=== PATIENT | male | born 1990 | race Caucasian/White ===

== ENCOUNTER 2016-12-28 05:18 | Inpatient (IN) | payer OTHER ==
[~2016-12-28] VITALS: Ht 175.3 cm; Wt 97.3 kg
[~2016-12-28 05:18] MED LIST: ESZO3 PO; GABA-533 PO; METH10 PO; PRAZ1 PO; QUET200T PO
[2016-12-28 05:45] LABS: GLUCOSE COMMENT 1 Doctor Notified; GLUCOSE,POINT OF CARE 158 MG/DL (70-110)
[2016-12-28 06:04] LABS: BASOPHILS % (AUTO) 0.5 % (0.0-2.0); EOSINOPHILS % (AUTO) 0.2 % (1.0-6.0); HEMATOCRIT 46.3 % (41-53); HEMOGLOBIN 14.8 g/dL (13.5-17.5); LYMPHOCYTES % (AUTO) 11.6 % (22.0-44.0); MEAN CORPUSCULAR HEMOGLOBIN 29.6 pg (26.0-34.0); MEAN CORPUSCULAR VOLUME 92 fL (80-100); MONOCYTES # (AUTO) 0.3 K/uL (0.1-1.0); NEUTROPHILS # (AUTO) 7.3 K/uL (1.8-7.7); NEUTROPHILS % (AUTO) 83.7 % (40.0-70.0); PLATELET COUNT (AUTO) 150 K/uL (150-450); RED BLOOD CELL COUNT(AUTO) 5.01 MIL/uL (4.50-5.90); RED CELL DISTRIBUTION WIDTH 14.7 % (11.5-14.5); WHITE BLOOD COUNT (AUTO) 8.7 K/uL (4.5-11.0)
[2016-12-28 06:20] LABS: ALANINE AMINOTRANSFERASE 55 U/L (12-78); ALBUMIN 3.8 g/dL (3.4-5.0); ANION GAP 12 mmol/L (8-16); ASPARTATE AMINOTRANSFERASE 26 U/L (15-37); BILIRUBIN,TOTAL 0.3 mg/dL (0.1-1.0); CALCIUM, TOTAL 8.9 mg/dL (8.8-10.5); CARBON DIOXIDE 26 mmol/L (22-29); CHLORIDE 107 mmol/L (98-107); GLOMERULAR FILTR. RATE CALC > 60 mL/min (>60); SODIUM SERUM 145 mmol/L (136-145); TOTAL PROTEIN, SERUM 7.5 g/dL (6.4-8.2); UREA NITROGEN, BLOOD 9 mg/dL (7-18)
[2016-12-28 06:20] LABS: APPEARANCE,URINE CLOUDY (CLEAR); GLUCOSE, URINE (UA) NEGATIVE (NEGATIVE); KETONES,URINE NEGATIVE (NEGATIVE); LEUKOCYTE ESTERASE ,URINE NEGATIVE (NEGATIVE); OCCULT BLOOD,URINE NEGATIVE (NEGATIVE); PROTEIN,URINE NEGATIVE (NEGATIVE)
[2016-12-28] MEDS ORDERED: NALOXONE HCL 1 MG/ML 2 ML SYG IVP ONE ×2 (06:30→10:15)
[2016-12-28 06:32] LABS: POTASSIUM 2.9 mmol/L (3.5-5.1)
[2016-12-28 06:43] LABS: RBC,URINE 0-2 /HPF (0-2); WBC,URINE 0-2 /HPF (0-5)
[2016-12-28 06:44] LABS: SQUAMOUS EPITHELIAL CELL,UR Moderate /LPF (None Seen)
[2016-12-28 06:47] LABS: SALICYLATE 1.8 mg/dL (2.8-20.0)
[2016-12-28 06:53] LABS: CREATINE KINASE, TOTAL 269 U/L (39-308)
[2016-12-28 06:59] LABS: ACETAMINOPHEN < 2 mcg/mL (10-30)
[2016-12-28] MEDS ORDERED: CLINDAMYCIN 900 MG/D5% WATER 50 ML IV ONE (07:15)
[2016-12-28] MEDS ORDERED: POTASSIUM CHL 20 MEQ/0.9% NS 1,000 ML IV ONE (07:15)
[2016-12-28] MEDS ORDERED: PIPERACILLIN/TAZO 3.375 GM/D5W 50 ML IV ONE (07:15)
[2016-12-28] MEDS ORDERED: ONDANSETRON HCL 4 MG/2 ML VIAL IVP PRN ×2 (07:30→09:15)
[2016-12-28 07:33] LABS: CREATINE KINASE MB 2.8 ng/mL (0-5)
[2016-12-28] MEDS: PANTOPRAZOLE SODIUM 40 MG/VIAL IVP SCH (09:29)
[2016-12-28] MEDS ORDERED: MAGNESIUM HYDROXIDE SUSPENSION 30 ML UDCUP PO PRN (09:30)
[2016-12-28] MEDS ORDERED: DOCUSATE SODIUM 100 MG CAPSULE PO PRN (09:30)
[2016-12-28] MEDS ORDERED: 0.9% SODIUM CHLORIDE 10 ML SYRINGE IVP PRN (09:30)
[2016-12-28] MEDS ORDERED: IPRATROPIUM BROMIDE 0.5 MG/2.5 ML NEB SOLUTION NEB PRN (09:30)
[2016-12-28] MEDS ORDERED: LEVALBUTEROL HCL 1.25 MG/0.5 ML NEB SOLUTION NEB PRN (09:30)
[2016-12-28] MEDS ORDERED: POTASSIUM CHLORIDE 20 MEQ ER TABLET PO PRN (10:15)
[2016-12-28 10:37] LABS: ABG A-A DIFF O2 568.5 mmHg (10-20.0); ABG BASE EXCESS -2.4 mmol/L (-2.0-3.0); ABG HCO3 22.5 mmol/L (22.0-26.0); ABG OXYHEMOGLOBIN 96.6 % (94.0-100.0); ABG PCO2 42 mmHg (35-45); ABG PH 7.355 (7.35-7.450); TEMPERATURE, FAHRENHEIT, BG 98.6 FAHREN (96.0-98.6)
[2016-12-28] MEDS: MAGNESIUM SULFATE 2 GM, MVI, ADULT NO.1 WITH VIT K 10 ML, THIAMINE HCL 100 MG, FOLIC AC... IV SCH ×10 (10:37→20:30)
[2016-12-28 10:40] LABS: ALLEN TEST, BLOOD GAS Positive
[2016-12-28] MEDS: POTASSIUM CHL 10 MEQ/WATER 50 ML IV PRN ×4 (11:01→14:29)
[2016-12-28 11:32] LABS: GLUCOSE,POINT OF CARE 97 MG/DL (70-110)
[2016-12-28 12:00] VITALS: BP_SYST 114; BP_SYST 121; BP_DIAS 58; BP_DIAS 90
[2016-12-28] MEDS: PIPERACILLIN/TAZO 3.375 GM/D5W 50 ML IV SCH ×3 (13:32→22:09)
[2016-12-28 16:00] VITALS: BP 118/76
[2016-12-28] MEDS ORDERED: ACETAMINOPHEN 1000 MG/ISO-OSM 100 ML IV ONE (16:45)
[2016-12-28 20:00] VITALS: BP 102/56
[2016-12-28] MEDS: HEPARIN SODIUM,PORCINE 5,000 UNITS/ML VIAL SQ SCH (22:08)
[2016-12-29] VITALS (7 sets, daily range): BP systolic 95–135; BP diastolic 36–89
[2016-12-29] MEDS: PIPERACILLIN/TAZO 3.375 GM/D5W 50 ML IV SCH ×5 (00:04→23:34)
[2016-12-29] MEDS: ACETAMINOPHEN 325 MG TABLET PO PRN ×4 (01:09→20:02)
[2016-12-29] MEDS ORDERED: SODIUM CHLORIDE 0.9% 250 ML IV ONE (03:52)
[2016-12-29 05:34] LABS: BASOPHILS % (AUTO) 0.2 % (0.0-2.0); EOSINOPHILS % (AUTO) 0.9 % (1.0-6.0); HEMATOCRIT 38.8 % (41-53); HEMOGLOBIN 12.3 g/dL (13.5-17.5); LYMPHOCYTES # (AUTO) 1.6 K/uL (1.0-4.8); LYMPHOCYTES % (AUTO) 16.5 % (22.0-44.0); MEAN CORPUSCULAR HEMOGLOBIN 29.1 pg (26.0-34.0); MEAN CORPUSCULAR HGB CONC 31.7 G/dL (31.0-37.0); MEAN CORPUSCULAR VOLUME 92 fL (80-100); MONOCYTES # (AUTO) 0.5 K/uL (0.1-1.0); MONOCYTES % (AUTO) 4.7 % (2.0-9.0); NEUTROPHILS # (AUTO) 7.5 K/uL (1.8-7.7); NEUTROPHILS % (AUTO) 77.7 % (40.0-70.0); PLATELET COUNT (AUTO) 149 K/uL (150-450); RED BLOOD CELL COUNT(AUTO) 4.23 MIL/uL (4.50-5.90); RED CELL DISTRIBUTION WIDTH 15.1 % (11.5-14.5); WHITE BLOOD COUNT (AUTO) 9.7 K/uL (4.5-11.0)
[2016-12-29] MEDS: MAGNESIUM SULFATE 2 GM, MVI, ADULT NO.1 WITH VIT K 10 ML, THIAMINE HCL 100 MG, FOLIC AC... IV SCH ×10 (05:44→16:37)
[2016-12-29 05:59] LABS: ALANINE AMINOTRANSFERASE 47 U/L (12-78); ALBUMIN 2.9 g/dL (3.4-5.0); ANION GAP 11 mmol/L (8-16); ASPARTATE AMINOTRANSFERASE 34 U/L (15-37); BILIRUBIN,TOTAL 0.7 mg/dL (0.1-1.0); CALCIUM, TOTAL 8.1 mg/dL (8.8-10.5); CARBON DIOXIDE 23 mmol/L (22-29); CHLORIDE 107 mmol/L (98-107); CREATININE 1.07 mg/dL (0.60-1.30); GLOMERULAR FILTR. RATE CALC > 60 mL/min (>60); PHOSPHORUS 2.1 mg/dL (2.5-4.9); POTASSIUM 3.7 mmol/L (3.5-5.1); SODIUM SERUM 141 mmol/L (136-145); THYROID STIMULATING HORMONE 0.43 uIU/mL (0.36-3.74); TOTAL PROTEIN, SERUM 6.1 g/dL (6.4-8.2); UREA NITROGEN, BLOOD 9 mg/dL (7-18)
[2016-12-29] MEDS: PANTOPRAZOLE SODIUM 40 MG/VIAL IVP SCH (08:11)
[2016-12-29] MEDS: HEPARIN SODIUM,PORCINE 5,000 UNITS/ML VIAL SQ SCH ×2 (08:12→20:02)
[2016-12-29 09:31] LABS: VITAMIN B12 LEVEL 640 pg/mL (211-911)
[2016-12-29] MEDS: METHADONE HCL 10 MG TABLET PO SCH (11:24)
[2016-12-30 04:09] VITALS: BP 117/71
[2016-12-30] MEDS: PIPERACILLIN/TAZO 3.375 GM/D5W 50 ML IV SCH ×3 (06:02→18:52)
[2016-12-30 07:19] VITALS: BP 119/75
[2016-12-30] MEDS: METHADONE HCL 10 MG TABLET PO SCH (08:15)
[2016-12-30] MEDS: PANTOPRAZOLE SODIUM 40 MG/VIAL IVP SCH (08:15)
[2016-12-30] MEDS: HEPARIN SODIUM,PORCINE 5,000 UNITS/ML VIAL SQ SCH ×2 (08:16→21:14)
[2016-12-30 11:05] VITALS: BP 122/79
[2016-12-30 12:17] LABS: BASOPHILS % (AUTO) 0.3 % (0.0-2.0); EOSINOPHILS % (AUTO) 3.4 % (1.0-6.0); HEMATOCRIT 36.5 % (41-53); LYMPHOCYTES % (AUTO) 19.4 % (22.0-44.0); MEAN CORPUSCULAR HEMOGLOBIN 29.9 pg (26.0-34.0); MEAN CORPUSCULAR HGB CONC 32.9 G/dL (31.0-37.0); MEAN CORPUSCULAR VOLUME 91 fL (80-100); MONOCYTES # (AUTO) 0.6 K/uL (0.1-1.0); MONOCYTES % (AUTO) 5.5 % (2.0-9.0); NEUTROPHILS # (AUTO) 7.4 K/uL (1.8-7.7); NEUTROPHILS % (AUTO) 71.4 % (40.0-70.0); PLATELET COUNT (AUTO) 158 K/uL (150-450); RED BLOOD CELL COUNT(AUTO) 4.02 MIL/uL (4.50-5.90); RED CELL DISTRIBUTION WIDTH 14.5 % (11.5-14.5); WHITE BLOOD COUNT (AUTO) 10.4 K/uL (4.5-11.0)
[2016-12-30 12:26] LABS: ANION GAP 9 mmol/L (8-16); CALCIUM, TOTAL 8.6 mg/dL (8.8-10.5); CARBON DIOXIDE 25 mmol/L (22-29); CHLORIDE 104 mmol/L (98-107); CREATININE 0.81 mg/dL (0.60-1.30); GLOMERULAR FILTR. RATE CALC > 60 mL/min (>60); POTASSIUM 3.9 mmol/L (3.5-5.1); SODIUM SERUM 138 mmol/L (136-145); UREA NITROGEN, BLOOD 6 mg/dL (7-18)
[2016-12-30 12:33] LABS: ALANINE AMINOTRANSFERASE 44 U/L (12-78); ALBUMIN 2.8 g/dL (3.4-5.0); ASPARTATE AMINOTRANSFERASE 31 U/L (15-37); BILIRUBIN,TOTAL 0.5 mg/dL (0.1-1.0); TOTAL PROTEIN, SERUM 6.7 g/dL (6.4-8.2)
[2016-12-30 15:33] VITALS: BP 115/82
[2016-12-30] MEDS: HYDROCODONE/CHLORPHEN POLIS 10-8 MG/5 ML ORAL.SYG PO PRN ×2 (15:39→22:24)
[2016-12-30] MEDS: NICOTINE 21 MG/24 HOUR PATCH TD SCH (17:19)
[2016-12-30] MEDS ORDERED: TEMAZEPAM 15 MG CAPSULE PO PRN (17:30)
[2016-12-30 19:25] VITALS: BP 122/82
[2016-12-30] MEDS: GuaiFENesin SR 600 MG ER TABLET PO SCH (21:10)
[2016-12-30] MEDS: ALPRAZolam 0.5 MG TABLET PO PRN (21:10)
[2016-12-30 22:48] VITALS: BP 128/84
[2016-12-31] MEDS: PIPERACILLIN/TAZO 3.375 GM/D5W 50 ML IV SCH ×3 (00:20→12:02)
[2016-12-31 05:33] VITALS: BP 110/64
[2016-12-31 06:12] LABS: BASOPHILS % (AUTO) 0.3 % (0.0-2.0); EOSINOPHILS % (AUTO) 5.6 % (1.0-6.0); HEMATOCRIT 39.8 % (41-53); HEMOGLOBIN 12.9 g/dL (13.5-17.5); LYMPHOCYTES # (AUTO) 2.2 K/uL (1.0-4.8); LYMPHOCYTES % (AUTO) 26.5 % (22.0-44.0); MEAN CORPUSCULAR HEMOGLOBIN 29.7 pg (26.0-34.0); MEAN CORPUSCULAR HGB CONC 32.5 G/dL (31.0-37.0); MEAN CORPUSCULAR VOLUME 92 fL (80-100); MONOCYTES # (AUTO) 0.5 K/uL (0.1-1.0); MONOCYTES % (AUTO) 5.9 % (2.0-9.0); NEUTROPHILS # (AUTO) 5.2 K/uL (1.8-7.7); NEUTROPHILS % (AUTO) 61.7 % (40.0-70.0); PLATELET COUNT (AUTO) 169 K/uL (150-450); RED BLOOD CELL COUNT(AUTO) 4.35 MIL/uL (4.50-5.90); RED CELL DISTRIBUTION WIDTH 14.1 % (11.5-14.5); WHITE BLOOD COUNT (AUTO) 8.4 K/uL (4.5-11.0)
[2016-12-31] MEDS: ALPRAZolam 0.5 MG TABLET PO PRN (06:30)
[2016-12-31] MEDS: HYDROCODONE/CHLORPHEN POLIS 10-8 MG/5 ML ORAL.SYG PO PRN (06:31)
[2016-12-31 06:39] LABS: ALANINE AMINOTRANSFERASE 46 U/L (12-78); ALBUMIN 2.9 g/dL (3.4-5.0); ANION GAP 12 mmol/L (8-16); ASPARTATE AMINOTRANSFERASE 30 U/L (15-37); BILIRUBIN,TOTAL 0.5 mg/dL (0.1-1.0); CALCIUM, TOTAL 8.9 mg/dL (8.8-10.5); CARBON DIOXIDE 25 mmol/L (22-29); CHLORIDE 101 mmol/L (98-107); CREATININE 0.76 mg/dL (0.60-1.30); GLOMERULAR FILTR. RATE CALC > 60 mL/min (>60); SODIUM SERUM 138 mmol/L (136-145); TOTAL PROTEIN, SERUM 7.3 g/dL (6.4-8.2); UREA NITROGEN, BLOOD 8 mg/dL (7-18)
[2016-12-31 07:45] VITALS: BP 109/75
[2016-12-31] MEDS: METHADONE HCL 10 MG TABLET PO SCH (08:06)
[2016-12-31] MEDS: PANTOPRAZOLE SODIUM 40 MG/VIAL IVP SCH (08:06)
[2016-12-31] MEDS: GuaiFENesin SR 600 MG ER TABLET PO SCH (08:07)
[2016-12-31] MEDS: HEPARIN SODIUM,PORCINE 5,000 UNITS/ML VIAL SQ SCH (08:08)
[2016-12-31] MEDS: NICOTINE 21 MG/24 HOUR PATCH TD SCH (08:09)
[2016-12-31] MEDS ORDERED: FLUoxetine HCL 20 MG CAPSULE PO SCH (09:00)
[2016-12-31 12:38] VITALS: BP 99/58
[2016-12-31] MEDS ORDERED: GABA-533 PO (13:41)
[2016-12-31] MEDS ORDERED: QUET200T PO (13:41)
[2016-12-31] MEDS ORDERED: FLUO-191 PO (13:41)
[2016-12-31] MEDS ORDERED: AMOX1TAB16 PO (13:42)
[2016-12-31] MEDS ORDERED: LEVAHFA IH (13:43)
[2016-12-31] MEDS ORDERED: ALPR0.5T8 PO (13:44)
[2016-12-31] MEDS ORDERED: GABAPENTIN 400 MG CAPSULE PO SCH (16:00)
[2016-12-31] MEDS ORDERED: QUEtiapine FUMARATE 200 MG TABLET PO SCH (21:00)
[2017-01-01 14:19] LABS: ORGANISM ID Not indicated.
[2017-01-01 22:34] LABS: MYCOPLASMA AB IGG <100 U/mL (0-99)
[2017-02-12] MEDS ORDERED: HALO10 PO (14:38)
[2017-02-12] MEDS ORDERED: DIPH50 PO (14:39)
== END 2016-12-31 15:15 | disposition home or self-care (01) | DRG 812 ==
LOC: EMS 05:21 → ICU 09:35 → EDBD 09:35 → 5S 12-29 14:58
PROVIDERS: ADMIT Internal Medicine; ATTEND Internal Medicine
DX: T40.601A Poisoning by unspecified narcotics, accidental (unintentional), initial encounter (principal); J96.00 Acute respiratory failure, unspecified whether with hypoxia or hypercapnia; J69.0 Pneumonitis due to inhalation of food and vomit; G92 Toxic encephalopathy; F31.4 Bipolar disorder, current episode depressed, severe, without psychotic features; T40.3X1A Poisoning by methadone, accidental (unintentional), initial encounter; F19.10 Other psychoactive substance abuse, uncomplicated; T42.4X1A Poisoning by benzodiazepines, accidental (unintentional), initial encounter; X58.XXXA Exposure to other specified factors, initial encounter; E87.6 Hypokalemia; R73.9 Hyperglycemia, unspecified; E66.01 Morbid (severe) obesity due to excess calories; Z68.31 Body mass index [BMI] 31.0-31.9, adult; Y92.89 Other specified places as the place of occurrence of the external cause; Z59.0 Homelessness; Z91.5 Personal history of self-harm; Z88.2 Allergy status to sulfonamides; Z88.8 Allergy status to other drugs, medicaments and biological substances; Z88.1 Allergy status to other antibiotic agents; Z88.0 Allergy status to penicillin; Z91.013 Allergy to seafood; Z79.899 Other long term (current) drug therapy; Y93.89 Activity, other specified; Y99.8 Other external cause status
CPT/HCPCS: 51702; 70450; 82607; 82746; 82805; 82962; 83735; 84100; 84132; 84439; 84443; 87040; 87081; 87205; 87449; 87798; 87899; 92610; 93005; 93306; 93970; 96365; 96366; 96368; 96375; 97116; 97162; 97530; 99291; C9113; G0480; G0481; J0131; J1644; J2310; J2405; J2543; J3411; J3475; J3480; J3490; J7030; J7050

== ENCOUNTER 2017-01-01 22:32 | Inpatient (IN) | payer MEDICAID, OTHER ==
[~2017-01-01] VITALS: Ht 177.8 cm; Wt 91.0 kg
[~2017-01-01 22:32] MED LIST changes: +ALPR0.5T8 PO; +AMOX1TAB16 PO; +FLUO-191 PO; +LEVAHFA IH
[2017-01-01 23:00] LABS: BASOPHILS % (AUTO) 0.2 % (0.0-2.0); EOSINOPHILS % (AUTO) 3.8 % (1.0-6.0); HEMATOCRIT 42.4 % (41-53); HEMOGLOBIN 13.8 g/dL (13.5-17.5); LYMPHOCYTES # (AUTO) 2.6 K/uL (1.0-4.8); LYMPHOCYTES % (AUTO) 26.5 % (22.0-44.0); MEAN CORPUSCULAR HEMOGLOBIN 29.2 pg (26.0-34.0); MEAN CORPUSCULAR HGB CONC 32.4 G/dL (31.0-37.0); MEAN CORPUSCULAR VOLUME 90 fL (80-100); MONOCYTES # (AUTO) 0.5 K/uL (0.1-1.0); MONOCYTES % (AUTO) 5.5 % (2.0-9.0); NEUTROPHILS # (AUTO) 6.2 K/uL (1.8-7.7); PLATELET COUNT (AUTO) 266 K/uL (150-450); RED BLOOD CELL COUNT(AUTO) 4.71 MIL/uL (4.50-5.90); RED CELL DISTRIBUTION WIDTH 13.9 % (11.5-14.5); WHITE BLOOD COUNT (AUTO) 9.7 K/uL (4.5-11.0)
[2017-01-01 23:16] LABS: ANION GAP 5 mmol/L (8-16); CALCIUM, TOTAL 8.8 mg/dL (8.8-10.5); CARBON DIOXIDE 28 mmol/L (22-29); CHLORIDE 95 mmol/L (98-107); CREATININE 0.93 mg/dL (0.60-1.30); GLOMERULAR FILTR. RATE CALC > 60 mL/min (>60); POTASSIUM 3.3 mmol/L (3.5-5.1); SODIUM SERUM 128 mmol/L (136-145); UREA NITROGEN, BLOOD 12 mg/dL (7-18)
[2017-01-01 23:24] LABS: ALANINE AMINOTRANSFERASE 48 U/L (12-78); ALBUMIN 3.5 g/dL (3.4-5.0); ASPARTATE AMINOTRANSFERASE 25 U/L (15-37); BILIRUBIN,TOTAL 0.3 mg/dL (0.1-1.0); TOTAL PROTEIN, SERUM 8.1 g/dL (6.4-8.2)
[2017-01-01] MEDS ORDERED: LORazepam 2 MG TABLET PO ONE (23:45)
[2017-01-02] MEDS ORDERED: PROMETHAZINE HCL 50 MG/ML VIAL IM ONE (00:45)
[2017-01-02] MEDS ORDERED: ALBUTEROL SULFATE 2.5 MG/0.5 ML NEB SOLUTION NEB ONE (00:45)
[2017-01-02] MEDS ORDERED: MORPHINE SULFATE 10 MG/ML SYRINGE IM ONE (00:45)
[2017-01-02] MEDS ORDERED: CARISOPRODOL 350 MG TABLET PO ONE (01:30)
[2017-01-02] MEDS ORDERED: PERMETHRIN 5% 60 GM CREAM TP ONE (03:00)
[2017-01-02] MEDS ORDERED: POTASSIUM CHLORIDE 20 MEQ ER TABLET PO ONE (03:30)
[2017-01-02] MEDS ORDERED: ZOLPIDEM TARTRATE 10 MG TABLET PO PRN (03:30)
[2017-01-02] MEDS ORDERED: HALOPERIDOL 5 MG TABLET PO PRN (03:30)
[2017-01-02] MEDS: GABAPENTIN 300 MG CAPSULE PO SCH ×3 (09:31→18:44)
[2017-01-02] MEDS: LORazepam 2 MG TABLET PO PRN ×2 (12:20→19:48)
[2017-01-02 14:12] LABS: APPEARANCE,URINE CLEAR (CLEAR); GLUCOSE, URINE (UA) NEGATIVE (NEGATIVE); KETONES,URINE NEGATIVE (NEGATIVE); LEUKOCYTE ESTERASE ,URINE NEGATIVE (NEGATIVE); OCCULT BLOOD,URINE NEGATIVE (NEGATIVE); PH,URINE 7.5 (5.0-8.0); PROTEIN,URINE NEGATIVE (NEGATIVE)
[2017-01-02 14:14] LABS: ADD UA MICROSCOPIC NO
[2017-01-02] MEDS ORDERED: LOPERAMIDE HCL 2 MG CAPSULE PO PRN (15:30)
[2017-01-02] MEDS ORDERED: GuaiFENesin/D-METHORPHAN [SUGAR-FREE] 200-20MG/10 ML SYRUP UDCUP PO PRN (15:30)
[2017-01-02] MEDS ORDERED: ACETAMINOPHEN 325 MG TABLET PO PRN (15:30)
[2017-01-02] MEDS ORDERED: MAGNESIUM HYDROXIDE SUSPENSION 30 ML UDCUP PO PRN (15:30)
[2017-01-02] MEDS ORDERED: PROMETHAZINE HCL 25 MG TABLET PO PRN (15:30)
[2017-01-02] MEDS ORDERED: MAG HYDROX/AL HYDROX/SIMETH ES 30 ML SUSPENSION UDCUP PO PRN (15:30)
[2017-01-02 18:10] VITALS: BP 96/58
[2017-01-02] MEDS: THIAMINE HCL 100 MG TABLET PO SCH (18:44)
[2017-01-02] MEDS: ACAMPROSATE CALCIUM 333 MG DR TABLET PO SCH (18:45)
[2017-01-02] MEDS: PRAZOSIN HCL 1 MG CAPSULE PO SCH (20:10)
[2017-01-02] MEDS ORDERED: QUEtiapine FUMARATE 200 MG TABLET PO SCH (21:00)
[2017-01-02] MEDS: ESZOPICLONE 3 MG TABLET PO PRN (21:01)
[2017-01-03 07:43] LABS: ALANINE AMINOTRANSFERASE 42 U/L (12-78); ALBUMIN 2.9 g/dL (3.4-5.0); ANION GAP 8 mmol/L (8-16); ASPARTATE AMINOTRANSFERASE 23 U/L (15-37); BILIRUBIN,TOTAL 0.2 mg/dL (0.1-1.0); CALCIUM, TOTAL 8.8 mg/dL (8.8-10.5); CARBON DIOXIDE 25 mmol/L (22-29); CHLORIDE 106 mmol/L (98-107); CHOL/HDL RATIO 5.5 (4.2-7.3); CREATINE KINASE MB 0.7 ng/mL (0-5); CREATINE KINASE, TOTAL 174 U/L (39-308); CREATININE 0.88 mg/dL (0.60-1.30); GLOMERULAR FILTR. RATE CALC > 60 mL/min (>60); SODIUM SERUM 139 mmol/L (136-145); THYROID STIMULATING HORMONE 0.71 uIU/mL (0.36-3.74); TOTAL PROTEIN, SERUM 7.1 g/dL (6.4-8.2); UREA NITROGEN, BLOOD 10 mg/dL (7-18)
[2017-01-03 08:02] LABS: HEMOGLOBIN A1C 5.4 % (4.5-6.2)
[2017-01-03] MEDS: MULTIVITAMINS WITH MINERALS, THERAPEUTIC TABLET PO SCH (09:36)
[2017-01-03] MEDS: GABAPENTIN 300 MG CAPSULE PO SCH ×3 (09:37→17:00)
[2017-01-03] MEDS: FOLIC ACID 1 MG TABLET PO SCH (09:37)
[2017-01-03] MEDS: ACAMPROSATE CALCIUM 333 MG DR TABLET PO SCH ×3 (09:37→17:55)
[2017-01-03] MEDS: THIAMINE HCL 100 MG TABLET PO SCH ×2 (09:37→17:55)
[2017-01-03] MEDS: HydrOXYzine PAMOATE 50 MG CAPSULE PO PRN ×2 (10:05→18:43)
[2017-01-03] MEDS: LORazepam 2 MG TABLET PO PRN (10:05)
[2017-01-03] MEDS: METHADONE HCL 10 MG TABLET PO SCH (10:19)
[2017-01-03 10:57] VITALS: BP 99/59
[2017-01-03] MEDS ORDERED: GABAPENTIN 300 MG CAPSULE PO PRN (12:00)
[2017-01-03] MEDS ORDERED: CARISOPRODOL 350 MG TABLET PO PRN (12:30)
[2017-01-03] MEDS: GABAPENTIN 400 MG CAPSULE PO SCH ×2 (12:45→17:54)
[2017-01-03] MEDS: QUEtiapine FUMARATE 100 MG TABLET PO PRN (13:51)
[2017-01-03 16:30] VITALS: BP 101/57
[2017-01-03] MEDS ORDERED: QUEtiapine FUMARATE 200 MG TABLET PO SCH (21:00)
[2017-01-03] MEDS: PRAZOSIN HCL 1 MG CAPSULE PO SCH (21:13)
[2017-01-03] MEDS: ESZOPICLONE 3 MG TABLET PO PRN (22:49)
[2017-01-04] MEDS: QUEtiapine FUMARATE 100 MG TABLET PO PRN (08:43)
[2017-01-04] MEDS: ACAMPROSATE CALCIUM 333 MG DR TABLET PO SCH ×3 (08:43→16:15)
[2017-01-04] MEDS: HydrOXYzine PAMOATE 50 MG CAPSULE PO PRN (08:43)
[2017-01-04] MEDS: METHADONE HCL 10 MG TABLET PO SCH (08:43)
[2017-01-04] MEDS: THIAMINE HCL 100 MG TABLET PO SCH ×2 (08:43→16:16)
[2017-01-04] MEDS: GABAPENTIN 400 MG CAPSULE PO SCH ×3 (08:44→16:16)
[2017-01-04] MEDS: FOLIC ACID 1 MG TABLET PO SCH (08:44)
[2017-01-04] MEDS: MULTIVITAMINS WITH MINERALS, THERAPEUTIC TABLET PO SCH (08:46)
[2017-01-04] MEDS ORDERED: METHADONE HCL 10 MG TABLET PO ONE (11:45)
[2017-01-04 12:22] VITALS: BP 118/77
[2017-01-04] MEDS: NICOTINE 21 MG/24 HOUR PATCH TD SCH (13:37)
[2017-01-04 14:14] LABS: HEPATITIS Bs ANTIGEN SCREEN P Negative (Negative); HEPATITIS C AB SCREEN <0.1 s/co ratio (0.0-0.9)
[2017-01-04] MEDS ORDERED: ACAM333T7 PO (14:16)
[2017-01-04] MEDS ORDERED: GABA-533 PO (14:16)
[2017-01-04] MEDS ORDERED: PRAZ1 PO (14:16)
[2017-01-04 16:56] VITALS: BP 100/61
[2017-01-04] MEDS: PRAZOSIN HCL 1 MG CAPSULE PO SCH (20:18)
[2017-01-04] MEDS ORDERED: QUEtiapine FUMARATE 300 MG TABLET PO SCH (21:00)
[2017-01-04] MEDS: ESZOPICLONE 3 MG TABLET PO PRN (21:41)
[2017-01-05] MEDS ORDERED: ACAM333T7 PO (08:23)
[2017-01-05] MEDS: GABAPENTIN 400 MG CAPSULE PO SCH ×2 (08:24→12:57)
[2017-01-05] MEDS: MULTIVITAMINS WITH MINERALS, THERAPEUTIC TABLET PO SCH (08:24)
[2017-01-05] MEDS: THIAMINE HCL 100 MG TABLET PO SCH (08:24)
[2017-01-05] MEDS: FOLIC ACID 1 MG TABLET PO SCH (08:25)
[2017-01-05] MEDS: ACAMPROSATE CALCIUM 333 MG DR TABLET PO SCH ×2 (08:25→12:57)
[2017-01-05] MEDS: NICOTINE 21 MG/24 HOUR PATCH TD SCH (08:32)
[2017-01-05 08:33] VITALS: BP 107/70
[2017-01-05] MEDS ORDERED: METHADONE HCL 10 MG TABLET PO SCH (09:00)
[2017-02-12] MEDS ORDERED: HALO10 PO (14:38)
[2017-02-12] MEDS ORDERED: DIPH50 PO (14:39)
== END 2017-01-05 14:00 | disposition home or self-care (01) | DRG 750 ==
LOC: EMS 22:42 → MERGE 01-02 11:36 → B3A 01-02 11:36 → 3EI 01-02 14:29
PROVIDERS: ADMIT Psychiatry & Neurology Psychiatry; ATTEND Psychiatry & Neurology Psychiatry
PROC: GZ51ZZZ Individual Psychotherapy, Behavioral (ICD-10-PCS; principal; 2017-01-02)
DX: F25.9 Schizoaffective disorder, unspecified (principal); R45.851 Suicidal ideations; E87.1 Hypo-osmolality and hyponatremia; E87.6 Hypokalemia; F11.10 Opioid abuse, uncomplicated; B88.0 Other acariasis; K21.9 Gastro-esophageal reflux disease without esophagitis; G89.29 Other chronic pain; D64.9 Anemia, unspecified; F17.210 Nicotine dependence, cigarettes, uncomplicated; F31.9 Bipolar disorder, unspecified; F12.90 Cannabis use, unspecified, uncomplicated; J40 Bronchitis, not specified as acute or chronic; Z79.899 Other long term (current) drug therapy; Z88.0 Allergy status to penicillin; Z88.1 Allergy status to other antibiotic agents; Z88.2 Allergy status to sulfonamides; Z88.8 Allergy status to other drugs, medicaments and biological substances; Z82.49 Family history of ischemic heart disease and other diseases of the circulatory system; Z82.62 Family history of osteoporosis; Z59.0 Homelessness; Z91.013 Allergy to seafood; Z72.89 Other problems related to lifestyle; F41.9 Anxiety disorder, unspecified
CPT/HCPCS: 80074; 82306; 82607; 82746; 83036; 83735; 84439; 84443; 94640; 96372; 99285; G0480; J2270

== ENCOUNTER 2017-03-10 09:36 | Emergency (ER) | payer MEDICAID, OTHER ==
[~2017-03-10] VITALS: Ht 177.8 cm; Wt 100.0 kg
[~2017-03-10 09:36] MED LIST changes: -ALPR0.5T8 PO; -AMOX1TAB16 PO; +DIPH50 PO; -ESZO3 PO; -FLUO-191 PO; +HALO10 PO; -LEVAHFA IH; -METH10 PO; -PRAZ1 PO; -QUET200T PO
[2017-03-10 10:02] VITALS: BP 124/73
[2017-03-10] MEDS ORDERED: LORA0.5T2 PO (10:02)
== END 2017-03-10 12:13 | disposition left against medical advice (07) ==
LOC: EMS 09:40
DX: S91.115A Laceration without foreign body of left lesser toe(s) without damage to nail, initial encounter (principal); F17.210 Nicotine dependence, cigarettes, uncomplicated; F12.90 Cannabis use, unspecified, uncomplicated; F11.90 Opioid use, unspecified, uncomplicated; Z88.1 Allergy status to other antibiotic agents; Z88.0 Allergy status to penicillin; Z88.2 Allergy status to sulfonamides; Z88.8 Allergy status to other drugs, medicaments and biological substances; Z91.018 Allergy to other foods; W25.XXXA Contact with sharp glass, initial encounter; Y93.89 Activity, other specified; Y92.89 Other specified places as the place of occurrence of the external cause; Y99.8 Other external cause status
CPT/HCPCS: 99281

== ENCOUNTER 2017-03-13 13:07 | Emergency (ER) | payer OTHER ==
[~2017-03-13] VITALS: Ht 177.8 cm; Wt 90.9 kg
[~2017-03-13 13:07] MED LIST changes: +LORA0.5T2 PO
[2017-03-13] MEDS ORDERED: METHOCARBAMOL 500 MG TABLET PO ONE (14:15)
[2017-03-13] MEDS ORDERED: KETOROLAC TROMETHAMINE 60 MG/2 ML VIAL IM ONE (14:15)
[2017-03-13 14:38] VITALS: BP 124/85
== END 2017-03-13 15:11 | disposition home or self-care (01) ==
LOC: EMS 13:08
DX: S39.012A Strain of muscle, fascia and tendon of lower back, initial encounter (principal); Z76.0 Encounter for issue of repeat prescription; F41.9 Anxiety disorder, unspecified; F17.210 Nicotine dependence, cigarettes, uncomplicated; F20.9 Schizophrenia, unspecified; F12.10 Cannabis abuse, uncomplicated; F32.9 Major depressive disorder, single episode, unspecified; Z88.0 Allergy status to penicillin; Z88.1 Allergy status to other antibiotic agents; Z88.2 Allergy status to sulfonamides; Z91.013 Allergy to seafood; X50.9XXA Other and unspecified overexertion or strenuous movements or postures, initial encounter; Y93.89 Activity, other specified; Y92.9 Unspecified place or not applicable; Y99.9 Unspecified external cause status
CPT/HCPCS: 96372; 99283; J1885

== ENCOUNTER 2017-04-04 09:22 | Emergency (ER) | payer OTHER ==
[~2017-04-04] VITALS: Ht 177.8 cm; Wt 92.5 kg
[2017-04-04] MEDS ORDERED: METH40TA2 PO (09:41)
[2017-04-04] MEDS ORDERED: CloNIDine HCL 0.1 MG TABLET PO ONE (10:00)
[2017-04-04] MEDS ORDERED: HydrOXYzine PAMOATE 50 MG CAPSULE PO ONE (10:00)
[2017-04-04] MEDS ORDERED: LOPERAMIDE HCL 2 MG CAPSULE PO ONE (10:00)
[2017-04-04 10:06] VITALS: BP 131/89
== END 2017-04-04 10:23 | disposition left against medical advice (07) ==
LOC: EMS 09:24
DX: F11.23 Opioid dependence with withdrawal (principal); F31.9 Bipolar disorder, unspecified; F41.9 Anxiety disorder, unspecified; F20.9 Schizophrenia, unspecified; F17.210 Nicotine dependence, cigarettes, uncomplicated; F12.90 Cannabis use, unspecified, uncomplicated; Z88.2 Allergy status to sulfonamides; Z88.8 Allergy status to other drugs, medicaments and biological substances; Z88.1 Allergy status to other antibiotic agents; Z91.013 Allergy to seafood
CPT/HCPCS: 99284

== ENCOUNTER 2017-04-17 18:00 | Inpatient (IN) | payer MEDICAID ==
[~2017-04-17] VITALS: Ht 177.8 cm; Wt 92.0 kg
[~2017-04-17 18:00] MED LIST changes: -DIPH50 PO; -LORA0.5T2 PO; +METH40TA2 PO
[2017-04-17 18:36] VITALS: BP 142/91
[2017-04-17] MEDS: LORazepam 2 MG TABLET PO PRN (19:17)
[2017-04-17 19:35] VITALS: BP 119/81
[2017-04-17] MEDS: HALOPERIDOL 5 MG TABLET PO SCH (20:03)
[2017-04-17] MEDS: ZOLPIDEM TARTRATE 10 MG TABLET PO PRN (20:22)
[2017-04-17] MEDS: BENZTROPINE MESYLATE 1 MG TABLET PO SCH (21:14)
[2017-04-18] MEDS: LORazepam 2 MG TABLET PO PRN ×4 (06:08→21:12)
[2017-04-18 06:39] VITALS: BP 114/83
[2017-04-18 08:37] LABS: HEMOGLOBIN A1C 4.8 % (4.5-6.2)
[2017-04-18 08:39] LABS: BASOPHILS % (AUTO) 0.8 % (0.0-2.0); EOSINOPHILS % (AUTO) 0.9 % (1.0-6.0); HEMATOCRIT 44.1 % (41-53); HEMOGLOBIN 14.7 g/dL (13.5-17.5); LYMPHOCYTES # (AUTO) 3.1 K/uL (1.0-4.8); LYMPHOCYTES % (AUTO) 46.8 % (22.0-44.0); MEAN CORPUSCULAR HEMOGLOBIN 29.6 pg (26.0-34.0); MEAN CORPUSCULAR HGB CONC 33.2 G/dL (31.0-37.0); MEAN CORPUSCULAR VOLUME 89 fL (80-100); MONOCYTES # (AUTO) 0.4 K/uL (0.1-1.0); MONOCYTES % (AUTO) 6.1 % (2.0-9.0); NEUTROPHILS % (AUTO) 45.4 % (40.0-70.0); PLATELET COUNT (AUTO) 220 K/uL (150-450); RED BLOOD CELL COUNT(AUTO) 4.95 MIL/uL (4.50-5.90); RED CELL DISTRIBUTION WIDTH 15.4 % (11.5-14.5); WHITE BLOOD COUNT (AUTO) 6.7 K/uL (4.5-11.0)
[2017-04-18] MEDS: NICOTINE 21 MG/24 HOUR PATCH TD SCH (08:43)
[2017-04-18] MEDS: FLUoxetine HCL 20 MG CAPSULE PO SCH (08:44)
[2017-04-18] MEDS: BENZTROPINE MESYLATE 1 MG TABLET PO SCH ×2 (08:44→17:10)
[2017-04-18] MEDS: HALOPERIDOL 5 MG TABLET PO SCH ×2 (08:44→17:11)
[2017-04-18 08:52] LABS: ALANINE AMINOTRANSFERASE 27 U/L (12-78); ALBUMIN 4.1 g/dL (3.4-5.0); ANION GAP 11 mmol/L (8-16); ASPARTATE AMINOTRANSFERASE 14 U/L (15-37); BILIRUBIN,TOTAL 0.9 mg/dL (0.1-1.0); CALCIUM, TOTAL 9.3 mg/dL (8.8-10.5); CARBON DIOXIDE 27 mmol/L (22-29); CHLORIDE 103 mmol/L (98-107); CHOL/HDL RATIO 2.6 (4.2-7.3); CREATININE 1.06 mg/dL (0.60-1.30); GLOMERULAR FILTR. RATE CALC > 60 mL/min (>60); POTASSIUM 3.8 mmol/L (3.5-5.1); SODIUM SERUM 141 mmol/L (136-145); THYROID STIMULATING HORMONE 0.66 uIU/mL (0.36-3.74); TOTAL PROTEIN, SERUM 7.9 g/dL (6.4-8.2); UREA NITROGEN, BLOOD 10 mg/dL (7-18)
[2017-04-18 09:15] VITALS: BP 110/66
[2017-04-18] MEDS ORDERED: METHADONE HCL 10 MG TABLET PO SCH (09:15)
[2017-04-18 16:15] VITALS: BP 111/71
[2017-04-18] MEDS: ZOLPIDEM TARTRATE 10 MG TABLET PO PRN (20:58)
[2017-04-18] MEDS ORDERED: HALOPERIDOL 2 MG TABLET PO SCH (21:00)
[2017-04-19 06:46] VITALS: BP 110/69
[2017-04-19 08:08] VITALS: BP 110/60
[2017-04-19] MEDS: NICOTINE 21 MG/24 HOUR PATCH TD SCH (08:51)
[2017-04-19] MEDS: HALOPERIDOL 5 MG TABLET PO SCH ×2 (08:51→16:18)
[2017-04-19] MEDS: METHADONE HCL 10 MG TABLET PO SCH (08:52)
[2017-04-19] MEDS: FLUoxetine HCL 20 MG CAPSULE PO SCH (08:52)
[2017-04-19] MEDS: LORazepam 2 MG TABLET PO PRN ×2 (08:52→15:45)
[2017-04-19] MEDS: BENZTROPINE MESYLATE 1 MG TABLET PO SCH ×2 (08:52→16:18)
[2017-04-19 16:07] VITALS: BP 105/73
[2017-04-19] MEDS: HALOPERIDOL 1 MG TABLET PO SCH (21:26)
[2017-04-20 00:19] VITALS: BP 110/66
[2017-04-20] MEDS: ZOLPIDEM TARTRATE 10 MG TABLET PO PRN ×2 (00:22→20:39)
[2017-04-20] MEDS: LORazepam 2 MG TABLET PO PRN ×3 (07:04→16:30)
[2017-04-20] MEDS: BENZTROPINE MESYLATE 1 MG TABLET PO SCH ×2 (08:20→16:30)
[2017-04-20] MEDS: NICOTINE 21 MG/24 HOUR PATCH TD SCH (08:20)
[2017-04-20] MEDS: FLUoxetine HCL 20 MG CAPSULE PO SCH (08:20)
[2017-04-20] MEDS: HALOPERIDOL 5 MG TABLET PO SCH ×2 (08:20→16:30)
[2017-04-20] MEDS: METHADONE HCL 10 MG TABLET PO SCH (08:21)
[2017-04-20 08:29] VITALS: BP 115/61
[2017-04-20] MEDS: HALOPERIDOL 5 MG TABLET PO PRN (14:06)
[2017-04-20 16:10] VITALS: BP 114/67
[2017-04-20] MEDS: HALOPERIDOL 1 MG TABLET PO SCH (20:30)
[2017-04-21 03:20] VITALS: BP 107/77
[2017-04-21] MEDS: LORazepam 2 MG TABLET PO PRN ×4 (03:21→19:03)
[2017-04-21 08:26] VITALS: BP 107/67
[2017-04-21] MEDS: FLUoxetine HCL 20 MG CAPSULE PO SCH (08:46)
[2017-04-21] MEDS: HALOPERIDOL 5 MG TABLET PO SCH ×2 (08:46→16:50)
[2017-04-21] MEDS: BENZTROPINE MESYLATE 1 MG TABLET PO SCH ×2 (08:46→16:51)
[2017-04-21] MEDS: METHADONE HCL 10 MG TABLET PO SCH (08:47)
[2017-04-21] MEDS: NICOTINE 21 MG/24 HOUR PATCH TD SCH (08:51)
[2017-04-21 16:23] VITALS: BP 103/70
[2017-04-21] MEDS: HALOPERIDOL 1 MG TABLET PO SCH (20:05)
[2017-04-21] MEDS: ZOLPIDEM TARTRATE 10 MG TABLET PO PRN (20:28)
[2017-04-22 03:00] VITALS: BP 100/67
[2017-04-22 08:42] VITALS: BP 100/65
[2017-04-22 09:40] VITALS: BP 115/77
[2017-04-22] MEDS: BENZTROPINE MESYLATE 1 MG TABLET PO SCH ×2 (09:40→16:00)
[2017-04-22] MEDS: METHADONE HCL 10 MG TABLET PO SCH (09:40)
[2017-04-22] MEDS: HALOPERIDOL 5 MG TABLET PO SCH ×2 (09:40→16:00)
[2017-04-22] MEDS: FLUoxetine HCL 20 MG CAPSULE PO SCH (09:40)
[2017-04-22] MEDS: NICOTINE 21 MG/24 HOUR PATCH TD SCH (09:41)
[2017-04-22] MEDS: LORazepam 2 MG TABLET PO PRN ×2 (10:45→16:00)
[2017-04-22 16:07] VITALS: BP 129/75
[2017-04-22] MEDS: HALOPERIDOL 1 MG TABLET PO SCH (20:18)
[2017-04-22] MEDS: ZOLPIDEM TARTRATE 10 MG TABLET PO PRN (20:46)
[2017-04-23 01:57] VITALS: BP 108/68
[2017-04-23] MEDS: LORazepam 2 MG TABLET PO PRN ×4 (02:02→18:50)
[2017-04-23 08:48] VITALS: BP 100/65
[2017-04-23] MEDS: FLUoxetine HCL 20 MG CAPSULE PO SCH (08:53)
[2017-04-23] MEDS: HALOPERIDOL 5 MG TABLET PO SCH ×2 (08:53→16:17)
[2017-04-23] MEDS: METHADONE HCL 10 MG TABLET PO SCH (08:53)
[2017-04-23] MEDS: BENZTROPINE MESYLATE 1 MG TABLET PO SCH ×2 (08:53→16:17)
[2017-04-23] MEDS: NICOTINE 21 MG/24 HOUR PATCH TD SCH (08:56)
[2017-04-23 16:00] VITALS: BP 130/70
[2017-04-23] MEDS: ZOLPIDEM TARTRATE 10 MG TABLET PO PRN (20:27)
[2017-04-23] MEDS: HALOPERIDOL 1 MG TABLET PO SCH (20:27)
[2017-04-24] MEDS: LORazepam 2 MG TABLET PO PRN ×3 (03:10→16:16)
[2017-04-24 06:31] VITALS: BP 102/58
[2017-04-24 08:51] VITALS: BP 96/64
[2017-04-24] MEDS: NICOTINE 21 MG/24 HOUR PATCH TD SCH (09:00)
[2017-04-24] MEDS: BENZTROPINE MESYLATE 1 MG TABLET PO SCH ×2 (09:01→16:17)
[2017-04-24] MEDS: FLUoxetine HCL 20 MG CAPSULE PO SCH (09:01)
[2017-04-24] MEDS: METHADONE HCL 10 MG TABLET PO SCH (09:02)
[2017-04-24] MEDS: HALOPERIDOL 5 MG TABLET PO SCH ×2 (09:02→16:17)
[2017-04-24 16:37] VITALS: BP 107/64
[2017-04-24] MEDS: HALOPERIDOL 1 MG TABLET PO SCH (20:19)
[2017-04-24] MEDS: ZOLPIDEM TARTRATE 10 MG TABLET PO PRN (20:40)
[2017-04-25 01:04] VITALS: BP 110/61
[2017-04-25] MEDS: LORazepam 2 MG TABLET PO PRN ×3 (01:06→16:10)
[2017-04-25 08:35] VITALS: BP 100/56
[2017-04-25] MEDS: NICOTINE 21 MG/24 HOUR PATCH TD SCH (09:03)
[2017-04-25] MEDS: METHADONE HCL 10 MG TABLET PO SCH (09:04)
[2017-04-25] MEDS: HALOPERIDOL 5 MG TABLET PO SCH ×2 (09:04→16:09)
[2017-04-25] MEDS: FLUoxetine HCL 20 MG CAPSULE PO SCH (09:04)
[2017-04-25] MEDS: BENZTROPINE MESYLATE 1 MG TABLET PO SCH ×2 (09:04→16:09)
[2017-04-25 09:06] VITALS: BP 98/60
[2017-04-25 16:03] VITALS: BP 137/65
[2017-04-25] MEDS: ZOLPIDEM TARTRATE 10 MG TABLET PO PRN (20:23)
[2017-04-25] MEDS: HALOPERIDOL 1 MG TABLET PO SCH (20:23)
[2017-04-26 05:49] VITALS: BP 107/70
[2017-04-26] MEDS: LORazepam 2 MG TABLET PO PRN ×2 (05:51→16:44)
[2017-04-26 08:13] VITALS: BP 103/64
[2017-04-26] MEDS: METHADONE HCL 10 MG TABLET PO SCH (09:50)
[2017-04-26] MEDS: NICOTINE 21 MG/24 HOUR PATCH TD SCH (09:50)
[2017-04-26] MEDS: FLUoxetine HCL 20 MG CAPSULE PO SCH (09:51)
[2017-04-26] MEDS: HALOPERIDOL 5 MG TABLET PO SCH ×2 (09:51→16:28)
[2017-04-26] MEDS: BENZTROPINE MESYLATE 1 MG TABLET PO SCH ×2 (09:51→16:28)
[2017-04-26 16:06] VITALS: BP 106/65
[2017-04-26] MEDS: HALOPERIDOL 1 MG TABLET PO SCH (20:04)
[2017-04-26] MEDS: ZOLPIDEM TARTRATE 10 MG TABLET PO PRN (20:30)
[2017-04-27 01:40] VITALS: BP 110/72
[2017-04-27] MEDS: LORazepam 2 MG TABLET PO PRN ×3 (01:46→16:59)
[2017-04-27 09:12] VITALS: BP_SYST 104; BP_SYST 97; BP_DIAS 61; BP_DIAS 70
[2017-04-27] MEDS: HALOPERIDOL 5 MG TABLET PO SCH ×2 (09:30→16:04)
[2017-04-27] MEDS: FLUoxetine HCL 20 MG CAPSULE PO SCH (09:30)
[2017-04-27] MEDS: NICOTINE 21 MG/24 HOUR PATCH TD SCH (09:30)
[2017-04-27] MEDS: METHADONE HCL 10 MG TABLET PO SCH (09:30)
[2017-04-27] MEDS: BENZTROPINE MESYLATE 1 MG TABLET PO SCH ×2 (09:30→16:03)
[2017-04-27 16:14] VITALS: BP 123/84
[2017-04-27] MEDS: HALOPERIDOL 1 MG TABLET PO SCH (20:15)
[2017-04-27] MEDS: ZOLPIDEM TARTRATE 10 MG TABLET PO PRN (20:35)
[2017-04-28 00:44] VITALS: BP 102/66
[2017-04-28] MEDS: LORazepam 2 MG TABLET PO PRN ×3 (00:47→16:22)
[2017-04-28 08:03] VITALS: BP 101/61
[2017-04-28] MEDS: NICOTINE 21 MG/24 HOUR PATCH TD SCH (09:29)
[2017-04-28] MEDS: METHADONE HCL 10 MG TABLET PO SCH (09:31)
[2017-04-28] MEDS: HALOPERIDOL 5 MG TABLET PO SCH ×2 (09:31→16:22)
[2017-04-28] MEDS: BENZTROPINE MESYLATE 1 MG TABLET PO SCH ×2 (09:31→16:22)
[2017-04-28] MEDS: FLUoxetine HCL 20 MG CAPSULE PO SCH (09:33)
[2017-04-28 16:09] VITALS: BP 107/67
[2017-04-28] MEDS: HALOPERIDOL 1 MG TABLET PO SCH (20:17)
[2017-04-28] MEDS: ZOLPIDEM TARTRATE 10 MG TABLET PO PRN (20:17)
[2017-04-29 00:02] VITALS: BP 102/64
[2017-04-29] MEDS: LORazepam 2 MG TABLET PO PRN ×4 (01:55→19:28)
[2017-04-29] MEDS: NICOTINE 21 MG/24 HOUR PATCH TD SCH (08:40)
[2017-04-29] MEDS: BENZTROPINE MESYLATE 1 MG TABLET PO SCH ×2 (08:40→16:04)
[2017-04-29] MEDS: HALOPERIDOL 5 MG TABLET PO SCH ×2 (08:40→16:04)
[2017-04-29] MEDS: FLUoxetine HCL 20 MG CAPSULE PO SCH (08:40)
[2017-04-29] MEDS: METHADONE HCL 10 MG TABLET PO SCH (08:40)
[2017-04-29 08:52] VITALS: BP 113/72
[2017-04-29] MEDS: BACLOFEN 10 MG TABLET PO SCH ×2 (11:00→16:04)
[2017-04-29 16:11] VITALS: BP 121/70
[2017-04-29] MEDS ORDERED: ESZOPICLONE 3 MG TABLET PO PRN (18:00)
[2017-04-29] MEDS: HALOPERIDOL 1 MG TABLET PO SCH (20:18)
[2017-04-29] MEDS ORDERED: ESZOPICLONE 2 MG TABLET PO PRN (20:50)
[2017-04-30 03:28] VITALS: BP 106/71
[2017-04-30] MEDS: HALOPERIDOL 5 MG TABLET PO PRN (03:30)
[2017-04-30 08:57] VITALS: BP 98/64
[2017-04-30] MEDS ORDERED: METHADONE HCL 10 MG TABLET PO SCH (09:00)
[2017-04-30] MEDS: BACLOFEN 10 MG TABLET PO SCH ×2 (10:00→16:19)
[2017-04-30] MEDS: FLUoxetine HCL 20 MG CAPSULE PO SCH (10:00)
[2017-04-30] MEDS: NICOTINE 21 MG/24 HOUR PATCH TD SCH (10:00)
[2017-04-30] MEDS: BENZTROPINE MESYLATE 1 MG TABLET PO SCH ×2 (10:00→16:19)
[2017-04-30] MEDS: HALOPERIDOL 5 MG TABLET PO SCH ×2 (10:00→16:19)
[2017-04-30] MEDS: LORazepam 2 MG TABLET PO PRN ×2 (12:22→17:24)
[2017-04-30 12:27] VITALS: BP 120/68
[2017-04-30 16:16] VITALS: BP 109/69
[2017-04-30] MEDS: HALOPERIDOL 1 MG TABLET PO SCH (20:08)
[2017-04-30] MEDS: ESZOPICLONE 3 MG TABLET PO PRN (21:03)
[2017-05-01 01:42] VITALS: BP 116/70
[2017-05-01] MEDS: BENZTROPINE MESYLATE 1 MG TABLET PO SCH ×2 (09:00→17:12)
[2017-05-01] MEDS: BACLOFEN 10 MG TABLET PO SCH ×2 (09:00→17:12)
[2017-05-01] MEDS: FLUoxetine HCL 20 MG CAPSULE PO SCH (09:00)
[2017-05-01] MEDS: METHADONE HCL 10 MG TABLET PO SCH (09:00)
[2017-05-01] MEDS: HALOPERIDOL 5 MG TABLET PO SCH ×2 (09:00→17:12)
[2017-05-01] MEDS: NICOTINE 21 MG/24 HOUR PATCH TD SCH (09:00)
[2017-05-01] MEDS: LORazepam 2 MG TABLET PO PRN ×2 (09:10→15:19)
[2017-05-01 10:20] VITALS: BP 103/68
[2017-05-01 16:27] VITALS: BP 131/81
[2017-05-01] MEDS: ESZOPICLONE 3 MG TABLET PO PRN (21:12)
[2017-05-01] MEDS: HALOPERIDOL 1 MG TABLET PO SCH (21:12)
[2017-05-02 04:41] VITALS: BP 102/65
[2017-05-02] MEDS: LORazepam 2 MG TABLET PO PRN ×3 (04:45→17:15)
[2017-05-02] MEDS: BACLOFEN 10 MG TABLET PO SCH ×2 (08:15→17:15)
[2017-05-02] MEDS: HALOPERIDOL 5 MG TABLET PO SCH ×2 (08:15→17:15)
[2017-05-02] MEDS: BENZTROPINE MESYLATE 1 MG TABLET PO SCH ×2 (08:15→17:15)
[2017-05-02] MEDS: METHADONE HCL 10 MG TABLET PO SCH (08:15)
[2017-05-02] MEDS: FLUoxetine HCL 20 MG CAPSULE PO SCH (08:15)
[2017-05-02] MEDS: NICOTINE 21 MG/24 HOUR PATCH TD SCH (08:21)
[2017-05-02 08:23] VITALS: BP 106/72
[2017-05-02 16:00] VITALS: BP 110/76
[2017-05-02] MEDS: HALOPERIDOL 1 MG TABLET PO SCH (21:15)
[2017-05-02] MEDS: ESZOPICLONE 3 MG TABLET PO PRN (21:15)
[2017-05-02] MEDS ORDERED: BACL20TA PO (22:57)
[2017-05-02] MEDS ORDERED: HALO2 PO (22:57)
[2017-05-02] MEDS ORDERED: BENZ1TAB10 PO (22:57)
[2017-05-02] MEDS ORDERED: FLUO-191 PO (22:57)
[2017-05-02] MEDS ORDERED: HALO5 PO (22:57)
[2017-05-03 03:52] VITALS: BP 111/76
[2017-05-03] MEDS: FLUoxetine HCL 20 MG CAPSULE PO SCH (07:44)
[2017-05-03] MEDS: HALOPERIDOL 5 MG TABLET PO SCH ×2 (07:45→16:56)
[2017-05-03] MEDS: BACLOFEN 10 MG TABLET PO SCH ×2 (07:45→16:56)
[2017-05-03] MEDS: METHADONE HCL 10 MG TABLET PO SCH (07:45)
[2017-05-03] MEDS: BENZTROPINE MESYLATE 1 MG TABLET PO SCH ×2 (07:45→16:56)
[2017-05-03] MEDS: NICOTINE 21 MG/24 HOUR PATCH TD SCH (07:46)
[2017-05-03 08:05] VITALS: BP 115/71
[2017-05-03] MEDS: LORazepam 2 MG TABLET PO PRN ×2 (11:55→16:56)
[2017-05-03 16:20] VITALS: BP 108/70
[2017-05-03] MEDS: HALOPERIDOL 1 MG TABLET PO SCH (20:41)
[2017-05-03] MEDS: ESZOPICLONE 3 MG TABLET PO PRN (20:42)
[2017-05-04 03:19] VITALS: BP 100/67
[2017-05-04 08:25] VITALS: BP 101/64
[2017-05-04] MEDS: BACLOFEN 10 MG TABLET PO SCH ×2 (09:38→16:52)
[2017-05-04] MEDS: FLUoxetine HCL 20 MG CAPSULE PO SCH (09:38)
[2017-05-04] MEDS: NICOTINE 21 MG/24 HOUR PATCH TD SCH (09:38)
[2017-05-04] MEDS: HALOPERIDOL 5 MG TABLET PO SCH ×2 (09:39→16:52)
[2017-05-04] MEDS: METHADONE HCL 10 MG TABLET PO SCH (09:39)
[2017-05-04] MEDS: BENZTROPINE MESYLATE 1 MG TABLET PO SCH ×2 (09:39→16:52)
[2017-05-04 10:46] VITALS: BP 124/69
[2017-05-04] MEDS: LORazepam 2 MG TABLET PO PRN ×2 (10:48→14:48)
[2017-05-04 16:09] VITALS: BP 118/66
[2017-05-04] MEDS: HALOPERIDOL 1 MG TABLET PO SCH (20:31)
[2017-05-05 00:24] VITALS: BP 113/86
[2017-05-05] MEDS: ESZOPICLONE 3 MG TABLET PO PRN (00:37)
[2017-05-05 08:02] VITALS: BP 104/71
[2017-05-05] MEDS: METHADONE HCL 10 MG TABLET PO SCH (08:27)
[2017-05-05] MEDS: BENZTROPINE MESYLATE 1 MG TABLET PO SCH ×2 (08:27→16:16)
[2017-05-05] MEDS: HALOPERIDOL 5 MG TABLET PO SCH ×2 (08:28→16:16)
[2017-05-05] MEDS: FLUoxetine HCL 20 MG CAPSULE PO SCH (08:29)
[2017-05-05] MEDS: BACLOFEN 10 MG TABLET PO SCH ×2 (08:48→16:17)
[2017-05-05] MEDS: NICOTINE 21 MG/24 HOUR PATCH TD SCH (08:49)
[2017-05-05] MEDS: LORazepam 2 MG TABLET PO PRN ×2 (10:28→15:07)
[2017-05-05 17:50] VITALS: BP 116/68
[2017-05-05] MEDS: HALOPERIDOL 1 MG TABLET PO SCH (20:44)
[2017-05-06 06:18] VITALS: BP 102/60
[2017-05-06 08:30] VITALS: BP 111/67
[2017-05-06] MEDS: NICOTINE 21 MG/24 HOUR PATCH TD SCH (09:09)
[2017-05-06] MEDS: FLUoxetine HCL 20 MG CAPSULE PO SCH (09:10)
[2017-05-06] MEDS: HALOPERIDOL 5 MG TABLET PO SCH ×2 (09:10→16:10)
[2017-05-06] MEDS: BENZTROPINE MESYLATE 1 MG TABLET PO SCH ×2 (09:10→16:09)
[2017-05-06] MEDS: METHADONE HCL 10 MG TABLET PO SCH (09:11)
[2017-05-06] MEDS: BACLOFEN 10 MG TABLET PO SCH ×2 (09:12→16:10)
[2017-05-06] MEDS: LORazepam 2 MG TABLET PO PRN ×2 (12:30→17:25)
[2017-05-06 16:27] VITALS: BP 120/76
[2017-05-06] MEDS: HALOPERIDOL 5 MG TABLET PO PRN (17:25)
[2017-05-06] MEDS: HALOPERIDOL 1 MG TABLET PO SCH (20:17)
[2017-05-06] MEDS: ESZOPICLONE 3 MG TABLET PO PRN (21:06)
[2017-05-07 06:54] VITALS: BP 100/60
[2017-05-07 08:34] VITALS: BP 109/66
[2017-05-07] MEDS: HALOPERIDOL 5 MG TABLET PO SCH ×2 (09:08→16:14)
[2017-05-07] MEDS: METHADONE HCL 10 MG TABLET PO SCH (09:08)
[2017-05-07] MEDS: BENZTROPINE MESYLATE 1 MG TABLET PO SCH ×2 (09:08→16:14)
[2017-05-07] MEDS: FLUoxetine HCL 20 MG CAPSULE PO SCH (09:08)
[2017-05-07] MEDS: BACLOFEN 10 MG TABLET PO SCH ×2 (09:09→16:14)
[2017-05-07] MEDS: NICOTINE 21 MG/24 HOUR PATCH TD SCH (09:09)
[2017-05-07] MEDS: LORazepam 2 MG TABLET PO PRN ×2 (11:42→17:09)
[2017-05-07 16:20] VITALS: BP 106/60
[2017-05-07] MEDS: HALOPERIDOL 1 MG TABLET PO SCH (20:07)
[2017-05-08 00:30] VITALS: BP 110/65
[2017-05-08 08:03] VITALS: BP 104/64
[2017-05-08] MEDS: NICOTINE 21 MG/24 HOUR PATCH TD SCH (08:44)
[2017-05-08] MEDS: METHADONE HCL 10 MG TABLET PO SCH (08:44)
[2017-05-08] MEDS: HALOPERIDOL 5 MG TABLET PO SCH ×2 (08:45→16:36)
[2017-05-08] MEDS: FLUoxetine HCL 20 MG CAPSULE PO SCH (08:45)
[2017-05-08] MEDS: BACLOFEN 10 MG TABLET PO SCH ×2 (08:45→16:36)
[2017-05-08] MEDS: BENZTROPINE MESYLATE 1 MG TABLET PO SCH ×2 (08:45→16:36)
[2017-05-08 16:00] VITALS: BP 112/66
[2017-05-08] MEDS: LORazepam 2 MG TABLET PO PRN (16:36)
[2017-05-08] MEDS: HALOPERIDOL 1 MG TABLET PO SCH (20:56)
[2017-05-08] MEDS: ESZOPICLONE 3 MG TABLET PO PRN (20:56)
[2017-05-09 00:20] VITALS: BP 104/72
[2017-05-09] MEDS: LORazepam 2 MG TABLET PO PRN (00:45)
[2017-05-09] MEDS: FLUoxetine HCL 20 MG CAPSULE PO SCH (09:15)
[2017-05-09] MEDS: METHADONE HCL 10 MG TABLET PO SCH (09:15)
[2017-05-09] MEDS: BACLOFEN 10 MG TABLET PO SCH (09:15)
[2017-05-09] MEDS: HALOPERIDOL 5 MG TABLET PO SCH (09:15)
[2017-05-09] MEDS: BENZTROPINE MESYLATE 1 MG TABLET PO SCH (09:16)
[2017-05-09] MEDS: NICOTINE 21 MG/24 HOUR PATCH TD SCH (09:16)
[2017-05-09 12:54] VITALS: BP 100/67
[2017-05-10] MEDS ORDERED: METHADONE HCL 10 MG TABLET PO SCH (09:00)
== END 2017-05-09 13:30 | disposition home or self-care (01) | DRG 750 ==
LOC: B2S 18:20
PROVIDERS: ATTEND Psychiatry & Neurology Child & Adolescent Psychiatry
DX: F25.1 Schizoaffective disorder, depressive type (principal); F11.20 Opioid dependence, uncomplicated; D64.9 Anemia, unspecified; F12.90 Cannabis use, unspecified, uncomplicated; F15.10 Other stimulant abuse, uncomplicated; F22 Delusional disorders; F41.9 Anxiety disorder, unspecified; J45.909 Unspecified asthma, uncomplicated; K21.9 Gastro-esophageal reflux disease without esophagitis; E55.9 Vitamin D deficiency, unspecified; Z59.0 Homelessness; Z82.49 Family history of ischemic heart disease and other diseases of the circulatory system; Z82.62 Family history of osteoporosis; Z91.5 Personal history of self-harm; Z88.2 Allergy status to sulfonamides; Z88.8 Allergy status to other drugs, medicaments and biological substances; Z88.1 Allergy status to other antibiotic agents; Z88.0 Allergy status to penicillin; Z91.013 Allergy to seafood
CPT/HCPCS: 83036; 84439; 84443; 87081

== ENCOUNTER 2017-05-18 18:16 | Inpatient (IN) | payer MEDICAID ==
[~2017-05-18] VITALS: Ht 177.8 cm; Wt 94.3 kg
[~2017-05-18 18:16] MED LIST changes: +BENZ1TAB10 PO; +FLUO-191 PO; -GABA-533 PO; -HALO10 PO; +HALO2 PO; +HALO5 PO; -METH40TA2 PO
[2017-05-18 22:00] VITALS: BP 113/79
[2017-05-19 00:01] VITALS: BP 112/66
[2017-05-19] MEDS: LORazepam 2 MG TABLET PO PRN ×3 (00:03→14:05)
[2017-05-19] MEDS: HALOPERIDOL 5 MG TABLET PO PRN ×2 (00:04→08:22)
[2017-05-19 07:55] LABS: BASOPHILS % (AUTO) 0.5 % (0.0-2.0); EOSINOPHILS % (AUTO) 2.6 % (1.0-6.0); HEMATOCRIT 37.5 % (41-53); HEMOGLOBIN 12.7 g/dL (13.5-17.5); LYMPHOCYTES # (AUTO) 2.7 K/uL (1.0-4.8); LYMPHOCYTES % (AUTO) 55.1 % (22.0-44.0); MEAN CORPUSCULAR VOLUME 88 fL (80-100); MONOCYTES # (AUTO) 0.4 K/uL (0.1-1.0); MONOCYTES % (AUTO) 7.9 % (2.0-9.0); NEUTROPHILS # (AUTO) 1.7 K/uL (1.8-7.7); NEUTROPHILS % (AUTO) 33.9 % (40.0-70.0); PLATELET COUNT (AUTO) 168 K/uL (150-450); RED BLOOD CELL COUNT(AUTO) 4.24 MIL/uL (4.50-5.90); RED CELL DISTRIBUTION WIDTH 15.8 % (11.5-14.5)
[2017-05-19 08:16] LABS: ALANINE AMINOTRANSFERASE 33 U/L (12-78); ALBUMIN 3.4 g/dL (3.4-5.0); ANION GAP 7 mmol/L (8-16); ASPARTATE AMINOTRANSFERASE 19 U/L (15-37); BILIRUBIN,TOTAL 0.3 mg/dL (0.1-1.0); CALCIUM, TOTAL 8.4 mg/dL (8.8-10.5); CARBON DIOXIDE 27 mmol/L (22-29); CHLORIDE 107 mmol/L (98-107); CHOL/HDL RATIO 4.3 (4.2-7.3); CREATININE 0.91 mg/dL (0.60-1.30); GLOMERULAR FILTR. RATE CALC > 60 mL/min (>60); POTASSIUM 4.2 mmol/L (3.5-5.1); SODIUM SERUM 141 mmol/L (136-145); THYROID STIMULATING HORMONE 0.68 uIU/mL (0.36-3.74); TOTAL PROTEIN, SERUM 6.3 g/dL (6.4-8.2); UREA NITROGEN, BLOOD 10 mg/dL (7-18)
[2017-05-19] MEDS: METHADONE HCL 10 MG TABLET PO SCH (09:17)
[2017-05-19 09:31] VITALS: BP 118/85
[2017-05-19] MEDS: FLUoxetine HCL 20 MG CAPSULE PO SCH (11:31)
[2017-05-19 16:00] VITALS: BP 116/68
[2017-05-19] MEDS: HALOPERIDOL 5 MG TABLET PO SCH (17:24)
[2017-05-19] MEDS: BENZTROPINE MESYLATE 1 MG TABLET PO SCH (17:24)
[2017-05-20] MEDS: LORazepam 2 MG TABLET PO PRN ×4 (00:54→17:41)
[2017-05-20] MEDS: HALOPERIDOL 5 MG TABLET PO PRN (00:54)
[2017-05-20 00:59] VITALS: BP 110/65
[2017-05-20 08:00] VITALS: BP 115/68
[2017-05-20] MEDS: FLUoxetine HCL 20 MG CAPSULE PO SCH (09:05)
[2017-05-20] MEDS: METHADONE HCL 10 MG TABLET PO SCH (09:05)
[2017-05-20] MEDS: BENZTROPINE MESYLATE 1 MG TABLET PO SCH ×2 (09:05→17:11)
[2017-05-20] MEDS: HALOPERIDOL 5 MG TABLET PO SCH ×2 (09:06→17:11)
[2017-05-20] MEDS: NICOTINE 14 MG/24 HOUR PATCH TD SCH (09:40)
[2017-05-20 16:00] VITALS: BP 112/70
[2017-05-21 05:14] VITALS: BP 114/61
[2017-05-21] MEDS: HALOPERIDOL 5 MG TABLET PO PRN (05:19)
[2017-05-21] MEDS: LORazepam 2 MG TABLET PO PRN ×4 (05:19→17:58)
[2017-05-21 08:13] VITALS: BP 109/68
[2017-05-21] MEDS: HALOPERIDOL 5 MG TABLET PO SCH ×2 (09:12→16:12)
[2017-05-21] MEDS: BENZTROPINE MESYLATE 1 MG TABLET PO SCH ×2 (09:12→16:12)
[2017-05-21] MEDS: FLUoxetine HCL 20 MG CAPSULE PO SCH (09:12)
[2017-05-21] MEDS: METHADONE HCL 10 MG TABLET PO SCH (09:13)
[2017-05-21] MEDS: NICOTINE 14 MG/24 HOUR PATCH TD SCH (09:14)
[2017-05-21 16:00] VITALS: BP 116/68
[2017-05-21] MEDS: ZOLPIDEM TARTRATE 10 MG TABLET PO PRN (23:49)
[2017-05-22 00:15] VITALS: BP 114/74
[2017-05-22] MEDS: HALOPERIDOL 5 MG TABLET PO PRN (07:04)
[2017-05-22] MEDS: LORazepam 2 MG TABLET PO PRN ×2 (07:04→14:25)
[2017-05-22 08:10] VITALS: BP 96/63
[2017-05-22] MEDS: FLUoxetine HCL 20 MG CAPSULE PO SCH (09:55)
[2017-05-22] MEDS: HALOPERIDOL 5 MG TABLET PO SCH ×2 (09:55→16:53)
[2017-05-22] MEDS: BENZTROPINE MESYLATE 1 MG TABLET PO SCH ×2 (09:55→16:53)
[2017-05-22] MEDS: METHADONE HCL 10 MG TABLET PO SCH (09:56)
[2017-05-22] MEDS: NICOTINE 14 MG/24 HOUR PATCH TD SCH (09:56)
[2017-05-22 16:00] VITALS: BP 101/69
[2017-05-22] MEDS: ZOLPIDEM TARTRATE 10 MG TABLET PO PRN (21:25)
[2017-05-23 00:09] VITALS: BP 117/66
[2017-05-23] MEDS: LORazepam 2 MG TABLET PO PRN ×3 (00:15→17:03)
[2017-05-23 08:30] VITALS: BP 105/62
[2017-05-23] MEDS: BENZTROPINE MESYLATE 1 MG TABLET PO SCH ×2 (08:56→16:10)
[2017-05-23] MEDS: FLUoxetine HCL 20 MG CAPSULE PO SCH (08:57)
[2017-05-23] MEDS: NICOTINE 14 MG/24 HOUR PATCH TD SCH (08:58)
[2017-05-23] MEDS: METHADONE HCL 10 MG TABLET PO SCH (08:59)
[2017-05-23] MEDS: HALOPERIDOL 5 MG TABLET PO SCH ×2 (08:59→16:10)
[2017-05-23 16:00] VITALS: BP 114/72
[2017-05-23] MEDS: ZOLPIDEM TARTRATE 10 MG TABLET PO PRN (20:29)
[2017-05-24 05:09] VITALS: BP 109/66
[2017-05-24 08:44] VITALS: BP 115/66
[2017-05-24] MEDS: BENZTROPINE MESYLATE 1 MG TABLET PO SCH (09:06)
[2017-05-24] MEDS: HALOPERIDOL 5 MG TABLET PO SCH (09:06)
[2017-05-24] MEDS: FLUoxetine HCL 20 MG CAPSULE PO SCH (09:06)
[2017-05-24] MEDS: NICOTINE 14 MG/24 HOUR PATCH TD SCH (09:06)
[2017-05-24] MEDS: METHADONE HCL 10 MG TABLET PO SCH (09:07)
[2017-05-24] MEDS ORDERED: METH10 PO (11:03)
[2017-05-24] MEDS: LORazepam 2 MG TABLET PO PRN (12:04)
== END 2017-05-24 14:45 | disposition home or self-care (01) | DRG 750 ==
LOC: B3A 23:16 → EDSTATUS 23:23 → B2S 05-23 16:35
PROVIDERS: ADMIT Psychiatry & Neurology Child & Adolescent Psychiatry; ATTEND Psychiatry & Neurology Child & Adolescent Psychiatry
DX: F25.1 Schizoaffective disorder, depressive type (principal); F11.20 Opioid dependence, uncomplicated; F22 Delusional disorders; F41.0 Panic disorder [episodic paroxysmal anxiety]; J45.909 Unspecified asthma, uncomplicated; K21.9 Gastro-esophageal reflux disease without esophagitis; Z88.2 Allergy status to sulfonamides; Z88.6 Allergy status to analgesic agent; Z88.1 Allergy status to other antibiotic agents; Z88.0 Allergy status to penicillin; Z91.013 Allergy to seafood
CPT/HCPCS: 84439; 84443; 87081

== ENCOUNTER 2017-08-12 01:13 | Inpatient (IN) | payer MEDICAID ==
[~2017-08-12] VITALS: Ht 172.7 cm; Wt 92.1 kg
[~2017-08-12 01:13] MED LIST changes: -HALO2 PO; +METH10 PO
[2017-08-12] MEDS: LORazepam 2 MG TABLET PO PRN ×4 (04:53→21:00)
[2017-08-12] MEDS: OLANZapine 5 MG RAPDIS TABLET PO PRN ×2 (04:53→21:00)
[2017-08-12 04:54] VITALS: BP 117/80
[2017-08-12] MEDS ORDERED: INFLUENZA VIRUS VACCINE QVS 2017-18 (3YR+)/PF 60 MCG/0.5 ML SYRINGE IM ONE (07:00)
[2017-08-12 08:41] LABS: AMPHET/METH SCREEN,URINE POSITIVE (NEGATIVE); BARBITURATE SCREEN, URINE NEGATIVE (NEGATIVE); BENZODIAZEPINES SCREEN,URINE NEGATIVE (NEGATIVE); CANNABINOID SCREEN,URINE POSITIVE (NEGATIVE); COCAINE SCREEN,URINE NEGATIVE (NEGATIVE); METHADONE SCREEN, URINE POSITIVE (NEGATIVE); OPIATE SCREEN,URINE POSITIVE (NEGATIVE)
[2017-08-12 08:45] VITALS: BP 99/67
[2017-08-12 08:46] LABS: PHENCYCLIDINE SCREEN,URINE NEGATIVE (NEGATIVE)
[2017-08-12 09:06] LABS: APPEARANCE,URINE CLEAR (CLEAR); BILIRUBIN,URINE NEGATIVE (NEGATIVE); GLUCOSE, URINE (UA) NEGATIVE (NEGATIVE); KETONES,URINE NEGATIVE (NEGATIVE); LEUKOCYTE ESTERASE ,URINE NEGATIVE (NEGATIVE); NITRATE,URINE NEGATIVE (NEGATIVE); OCCULT BLOOD,URINE NEGATIVE (NEGATIVE); PROTEIN,URINE NEGATIVE (NEGATIVE); UROBILINOGEN,URINE 0.2 mg/dL (<=1.0)
[2017-08-12] MEDS ORDERED: METH10SO PO (09:19)
[2017-08-12] MEDS ORDERED: OLAN10TA3 PO (09:19)
[2017-08-12] MEDS ORDERED: GABA-529 PO (09:19)
[2017-08-12] MEDS ORDERED: FLUO-191 PO (09:19)
[2017-08-12] MEDS: METHADONE HCL 10 MG TABLET PO SCH (14:24)
[2017-08-12 16:00] VITALS: BP 112/75
[2017-08-12] MEDS: BENZTROPINE MESYLATE 1 MG TABLET PO SCH (16:46)
[2017-08-12] MEDS: FLUoxetine HCL 20 MG CAPSULE PO SCH (16:47)
[2017-08-12] MEDS: HALOPERIDOL 5 MG TABLET PO SCH (16:47)
[2017-08-12] MEDS: ZOLPIDEM TARTRATE 10 MG TABLET PO PRN (21:00)
[2017-08-13 06:14] VITALS: BP 125/60
[2017-08-13 08:30] VITALS: BP 111/63
[2017-08-13] MEDS: FLUoxetine HCL 20 MG CAPSULE PO SCH (08:59)
[2017-08-13] MEDS: METHADONE HCL 10 MG TABLET PO SCH (08:59)
[2017-08-13] MEDS: BENZTROPINE MESYLATE 1 MG TABLET PO SCH ×2 (08:59→17:09)
[2017-08-13] MEDS: LORazepam 2 MG TABLET PO PRN ×2 (09:00→13:07)
[2017-08-13] MEDS: HALOPERIDOL 5 MG TABLET PO SCH (09:00)
[2017-08-13 16:00] VITALS: BP 120/69
[2017-08-13] MEDS: OLANZapine 7.5 MG TABLET PO SCH (17:10)
[2017-08-14] MEDS: ZOLPIDEM TARTRATE 10 MG TABLET PO PRN ×2 (00:56→20:52)
[2017-08-14 00:57] VITALS: BP 101/69
[2017-08-14] MEDS: OLANZapine 5 MG RAPDIS TABLET PO PRN (00:57)
[2017-08-14 08:01] LABS: BASOPHILS # (AUTO) 0.02 K/uL (0.00-0.20); BASOPHILS % (AUTO) 0.2 % (0.0-2.0); EOSINOPHILS % (AUTO) 2.97 % (1.0-6.0); HEMATOCRIT 41.3 % (41-53); LYMPHOCYTES # (AUTO) 2.2 K/uL (1.0-4.8); LYMPHOCYTES % (AUTO) 21.7 % (22.0-44.0); MEAN CORPUSCULAR HEMOGLOBIN 30.2 pg (26.0-34.0); MEAN CORPUSCULAR HGB CONC 33.8 G/dL (31.0-37.0); MEAN CORPUSCULAR VOLUME 89 fL (80-100); MONOCYTES # (AUTO) 0.7 K/uL (0.1-1.0); MONOCYTES % (AUTO) 6.7 % (2.0-9.0); NEUTROPHILS # (AUTO) 6.9 K/uL (1.8-7.7); NEUTROPHILS % (AUTO) 68.4 % (40.0-70.0); RED BLOOD CELL COUNT(AUTO) 4.62 MIL/uL (4.50-5.90); RED CELL DISTRIBUTION WIDTH 13.9 % (11.5-14.5)
[2017-08-14 08:38] VITALS: BP 105/68
[2017-08-14 09:01] LABS: ALANINE AMINOTRANSFERASE 32 U/L (12-78); ALBUMIN 3.2 g/dL (3.4-5.0); ALKALINE PHOSPHATASE 72 U/L (46-116); ANION GAP 7 mmol/L (8-16); ASPARTATE AMINOTRANSFERASE 26 U/L (15-37); BILIRUBIN,TOTAL 0.5 mg/dL (0.1-1.0); CALCIUM, TOTAL 8.9 mg/dL (8.8-10.5); CARBON DIOXIDE 27 mmol/L (22-29); CHLORIDE 103 mmol/L (98-107); CHOL/HDL RATIO 3.3 (4.2-7.3); CHOLESTEROL 122 mg/dL (131-200); CREATININE 0.92 mg/dL (0.60-1.30); GLOMERULAR FILTR. RATE CALC > 60 mL/min (>60); GLUCOSE,RANDOM 80 mg/dL (70-110); HDL CHOLESTEROL 37 mg/dL (40-60); LDL CHOL (CALC.) 65 mg/dL (0-130); POTASSIUM 4.3 mmol/L (3.5-5.1); SODIUM SERUM 137 mmol/L (136-145); TOTAL PROTEIN, SERUM 7.4 g/dL (6.4-8.2); TRIGLYCERIDES 98 mg/dL (15-150); UREA NITROGEN, BLOOD 10 mg/dL (7-18)
[2017-08-14 09:04] LABS: HEMOGLOBIN A1C 5.2 % (4.5-6.2)
[2017-08-14 09:44] LABS: PLATELET COUNT (AUTO) 217 K/uL (150-450)
[2017-08-14] MEDS: BENZTROPINE MESYLATE 1 MG TABLET PO SCH ×2 (10:10→17:07)
[2017-08-14] MEDS: FLUoxetine HCL 20 MG CAPSULE PO SCH (10:10)
[2017-08-14] MEDS: OLANZapine 7.5 MG TABLET PO SCH ×2 (10:10→17:07)
[2017-08-14] MEDS: METHADONE HCL 10 MG TABLET PO SCH (10:10)
[2017-08-14 16:12] VITALS: BP 106/70
[2017-08-15 06:50] VITALS: BP 109/68
[2017-08-15 08:18] VITALS: BP 105/67
[2017-08-15] MEDS: FLUoxetine HCL 20 MG CAPSULE PO SCH (09:59)
[2017-08-15] MEDS: BENZTROPINE MESYLATE 1 MG TABLET PO SCH ×2 (09:59→16:47)
[2017-08-15] MEDS: OLANZapine 7.5 MG TABLET PO SCH ×2 (09:59→16:47)
[2017-08-15] MEDS: METHADONE HCL 10 MG TABLET PO SCH (10:01)
[2017-08-15 16:00] VITALS: BP 116/67
[2017-08-15] MEDS: ZOLPIDEM TARTRATE 10 MG TABLET PO PRN (20:35)
[2017-08-15] MEDS: OLANZapine 5 MG RAPDIS TABLET PO PRN (20:35)
[2017-08-16 06:40] VITALS: BP 109/69
[2017-08-16] MEDS: FLUoxetine HCL 20 MG CAPSULE PO SCH (08:18)
[2017-08-16] MEDS: BENZTROPINE MESYLATE 1 MG TABLET PO SCH ×2 (08:18→16:51)
[2017-08-16] MEDS: METHADONE HCL 10 MG TABLET PO SCH (08:18)
[2017-08-16] MEDS: OLANZapine 7.5 MG TABLET PO SCH ×2 (08:18→16:51)
[2017-08-16 08:24] VITALS: BP 112/67
[2017-08-16 16:00] VITALS: BP 125/81
[2017-08-16] MEDS: ZOLPIDEM TARTRATE 10 MG TABLET PO PRN (20:12)
[2017-08-16] MEDS: OLANZapine 5 MG RAPDIS TABLET PO PRN (20:12)
[2017-08-17 06:42] VITALS: BP 106/62
[2017-08-17] MEDS: BENZTROPINE MESYLATE 1 MG TABLET PO SCH ×2 (08:34→16:31)
[2017-08-17] MEDS: OLANZapine 7.5 MG TABLET PO SCH ×2 (08:34→16:31)
[2017-08-17] MEDS: FLUoxetine HCL 20 MG CAPSULE PO SCH (08:34)
[2017-08-17] MEDS: METHADONE HCL 10 MG TABLET PO SCH (08:34)
[2017-08-17 08:40] VITALS: BP 126/75
[2017-08-17 16:00] VITALS: BP 124/75
[2017-08-17] MEDS: ZOLPIDEM TARTRATE 10 MG TABLET PO PRN (20:29)
[2017-08-17] MEDS: OLANZapine 5 MG RAPDIS TABLET PO PRN (20:29)
[2017-08-18 06:31] VITALS: BP 105/61
[2017-08-18] MEDS: OLANZapine 7.5 MG TABLET PO SCH ×2 (08:31→16:02)
[2017-08-18] MEDS: METHADONE HCL 10 MG TABLET PO SCH (08:31)
[2017-08-18] MEDS: BENZTROPINE MESYLATE 1 MG TABLET PO SCH ×2 (08:31→16:01)
[2017-08-18] MEDS: FLUoxetine HCL 20 MG CAPSULE PO SCH (08:31)
[2017-08-18 09:00] VITALS: BP 105/65
[2017-08-18 16:18] VITALS: BP 111/69
[2017-08-18] MEDS: ZOLPIDEM TARTRATE 10 MG TABLET PO PRN (20:36)
[2017-08-19 00:01] VITALS: BP 105/57
[2017-08-19 08:31] VITALS: BP 106/63
[2017-08-19] MEDS: METHADONE HCL 10 MG TABLET PO SCH (09:15)
[2017-08-19] MEDS: BENZTROPINE MESYLATE 1 MG TABLET PO SCH ×2 (09:15→16:14)
[2017-08-19] MEDS: FLUoxetine HCL 20 MG CAPSULE PO SCH (09:15)
[2017-08-19] MEDS: OLANZapine 7.5 MG TABLET PO SCH ×2 (09:15→16:14)
[2017-08-19 17:55] VITALS: BP 101/72
[2017-08-19] MEDS: ZOLPIDEM TARTRATE 10 MG TABLET PO PRN (20:12)
[2017-08-20 06:52] VITALS: BP 106/67
[2017-08-20 08:39] VITALS: BP 106/62
[2017-08-20] MEDS: METHADONE HCL 10 MG TABLET PO SCH (09:14)
[2017-08-20] MEDS: BENZTROPINE MESYLATE 1 MG TABLET PO SCH ×2 (09:14→16:02)
[2017-08-20] MEDS: FLUoxetine HCL 20 MG CAPSULE PO SCH (09:14)
[2017-08-20] MEDS: OLANZapine 7.5 MG TABLET PO SCH ×2 (09:15→16:02)
[2017-08-20 16:25] VITALS: BP 106/71
[2017-08-20] MEDS ORDERED: ACETAMINOPHEN 325 MG TABLET PO PRN (19:15)
[2017-08-20] MEDS ORDERED: IBUPROFEN 600 MG TABLET PO PRN (19:15)
[2017-08-20] MEDS: ZOLPIDEM TARTRATE 10 MG TABLET PO PRN (22:44)
[2017-08-21 03:16] VITALS: BP 110/70
[2017-08-21 08:38] VITALS: BP 131/64
[2017-08-21] MEDS: BENZTROPINE MESYLATE 1 MG TABLET PO SCH ×2 (09:38→17:06)
[2017-08-21] MEDS: METHADONE HCL 10 MG TABLET PO SCH (09:38)
[2017-08-21] MEDS: FLUoxetine HCL 20 MG CAPSULE PO SCH (09:38)
[2017-08-21] MEDS: NICOTINE 21 MG/24 HOUR PATCH TD SCH (09:38)
[2017-08-21] MEDS: OLANZapine 7.5 MG TABLET PO SCH (09:39)
[2017-08-21 16:48] VITALS: BP 105/62
[2017-08-21] MEDS ORDERED: OLANZapine 7.5 MG TABLET PO SCH (17:00)
[2017-08-21] MEDS: OLANZapine 10 MG TABLET PO SCH (17:23)
[2017-08-21] MEDS: ZOLPIDEM TARTRATE 10 MG TABLET PO PRN (20:28)
[2017-08-22 06:10] VITALS: BP 105/69
[2017-08-22 09:06] VITALS: BP 101/56
[2017-08-22] MEDS: METHADONE HCL 10 MG TABLET PO SCH (09:08)
[2017-08-22] MEDS: BENZTROPINE MESYLATE 1 MG TABLET PO SCH ×2 (09:09→16:24)
[2017-08-22] MEDS: NICOTINE 21 MG/24 HOUR PATCH TD SCH (09:10)
[2017-08-22] MEDS: OLANZapine 10 MG TABLET PO SCH ×2 (09:10→16:24)
[2017-08-22] MEDS: FLUoxetine HCL 20 MG CAPSULE PO SCH (09:10)
[2017-08-22 16:00] VITALS: BP 107/70
[2017-08-22] MEDS: ZOLPIDEM TARTRATE 10 MG TABLET PO PRN (20:29)
[2017-08-23 06:22] VITALS: BP 110/62
[2017-08-23 08:24] VITALS: BP 100/56
[2017-08-23] MEDS: FLUoxetine HCL 20 MG CAPSULE PO SCH (09:47)
[2017-08-23] MEDS: OLANZapine 10 MG TABLET PO SCH ×2 (09:48→16:01)
[2017-08-23] MEDS: METHADONE HCL 10 MG TABLET PO SCH (09:48)
[2017-08-23] MEDS: BENZTROPINE MESYLATE 1 MG TABLET PO SCH ×2 (09:48→16:01)
[2017-08-23] MEDS: NICOTINE 21 MG/24 HOUR PATCH TD SCH (09:55)
[2017-08-23 15:47] VITALS: BP 111/66
[2017-08-23 16:20] VITALS: BP 111/66
[2017-08-23] MEDS: ZOLPIDEM TARTRATE 10 MG TABLET PO PRN (20:08)
[2017-08-24 07:10] VITALS: BP 120/68
[2017-08-24 08:56] VITALS: BP 119/82
[2017-08-24] MEDS: METHADONE HCL 10 MG TABLET PO SCH (09:18)
[2017-08-24] MEDS: NICOTINE 21 MG/24 HOUR PATCH TD SCH (09:18)
[2017-08-24] MEDS: BENZTROPINE MESYLATE 1 MG TABLET PO SCH ×2 (09:18→16:07)
[2017-08-24] MEDS: OLANZapine 10 MG TABLET PO SCH ×2 (09:19→16:07)
[2017-08-24] MEDS: FLUoxetine HCL 20 MG CAPSULE PO SCH (09:19)
[2017-08-24 16:46] VITALS: BP 113/60
[2017-08-24] MEDS: ZOLPIDEM TARTRATE 10 MG TABLET PO PRN (20:11)
[2017-08-24] MEDS ORDERED: HEPATITIS A VACCINE, INACTI [ADULT] 1,440 UNITS/ML VIAL IM ONE (20:15)
[2017-08-25 01:34] VITALS: BP 113/59
[2017-08-25 09:15] VITALS: BP 101/59
[2017-08-25] MEDS: FLUoxetine HCL 20 MG CAPSULE PO SCH (09:45)
[2017-08-25] MEDS: BENZTROPINE MESYLATE 1 MG TABLET PO SCH ×2 (09:45→16:28)
[2017-08-25] MEDS: OLANZapine 10 MG TABLET PO SCH ×2 (09:45→16:28)
[2017-08-25 09:46] VITALS: BP 115/85
[2017-08-25] MEDS: METHADONE HCL 10 MG TABLET PO SCH (09:46)
[2017-08-25] MEDS: NICOTINE 21 MG/24 HOUR PATCH TD SCH (09:50)
[2017-08-25 16:39] VITALS: BP 108/66
[2017-08-25] MEDS: ZOLPIDEM TARTRATE 10 MG TABLET PO PRN (21:05)
[2017-08-26 00:50] VITALS: BP 111/63
[2017-08-26 08:17] VITALS: BP 100/68
[2017-08-26] MEDS: OLANZapine 10 MG TABLET PO SCH ×2 (09:46→16:01)
[2017-08-26] MEDS: BENZTROPINE MESYLATE 1 MG TABLET PO SCH ×2 (09:46→16:01)
[2017-08-26] MEDS: FLUoxetine HCL 20 MG CAPSULE PO SCH (09:46)
[2017-08-26] MEDS: METHADONE HCL 10 MG TABLET PO SCH (09:49)
[2017-08-26] MEDS: NICOTINE 21 MG/24 HOUR PATCH TD SCH (09:50)
[2017-08-26 13:30] LABS: HIV 1-2 SCREEN 4TH GEN W/RFLX Non Reactive (Non Reactive)
[2017-08-26] MEDS: BACLOFEN 10 MG TABLET PO SCH (16:04)
[2017-08-26 16:38] VITALS: BP 119/73
[2017-08-26] MEDS: ZOLPIDEM TARTRATE 10 MG TABLET PO PRN (21:34)
[2017-08-27 01:52] VITALS: BP 109/63
[2017-08-27 08:11] VITALS: BP 118/84
[2017-08-27] MEDS: FLUoxetine HCL 20 MG CAPSULE PO SCH (08:44)
[2017-08-27] MEDS: BACLOFEN 10 MG TABLET PO SCH ×2 (08:44→16:16)
[2017-08-27] MEDS: METHADONE HCL 10 MG TABLET PO SCH (08:44)
[2017-08-27] MEDS: OLANZapine 10 MG TABLET PO SCH ×2 (08:44→16:44)
[2017-08-27] MEDS: BENZTROPINE MESYLATE 1 MG TABLET PO SCH ×2 (08:44→16:43)
[2017-08-27] MEDS: NICOTINE 21 MG/24 HOUR PATCH TD SCH (08:45)
[2017-08-27 16:48] VITALS: BP 119/73
[2017-08-27] MEDS: OLANZapine 5 MG RAPDIS TABLET PO PRN (19:51)
[2017-08-27] MEDS: ZOLPIDEM TARTRATE 10 MG TABLET PO PRN (20:06)
[2017-08-28 02:37] VITALS: BP 124/92
[2017-08-28 08:23] VITALS: BP 112/66
[2017-08-28] MEDS: FLUoxetine HCL 20 MG CAPSULE PO SCH (09:03)
[2017-08-28] MEDS: BACLOFEN 10 MG TABLET PO SCH ×2 (09:03→16:46)
[2017-08-28] MEDS: METHADONE HCL 10 MG TABLET PO SCH (09:04)
[2017-08-28] MEDS: OLANZapine 10 MG TABLET PO SCH ×2 (09:04→16:46)
[2017-08-28] MEDS: BENZTROPINE MESYLATE 1 MG TABLET PO SCH ×2 (09:04→16:46)
[2017-08-28] MEDS: NICOTINE 21 MG/24 HOUR PATCH TD SCH (09:05)
[2017-08-28] MEDS ORDERED: FLUO-191 PO (15:45)
[2017-08-28] MEDS ORDERED: BACL10TA PO (15:47)
[2017-08-28 16:21] VITALS: BP 113/71
== END 2017-08-28 21:59 | disposition home or self-care (01) | DRG 750 ==
LOC: B3A 04:23 → EDSTATUS 04:25 → B2S 08-18 11:18
PROVIDERS: ADMIT Psychiatry & Neurology Psychiatry; ATTEND Psychiatry & Neurology Psychiatry
PROC: 3E0234Z Introduction of Serum, Toxoid and Vaccine into Muscle, Percutaneous Approach (ICD-10-PCS; principal; 2017-08-24)
DX: F25.0 Schizoaffective disorder, bipolar type (principal); R45.851 Suicidal ideations; Z91.19 Patient's noncompliance with other medical treatment and regimen; G89.29 Other chronic pain; F41.9 Anxiety disorder, unspecified; K21.9 Gastro-esophageal reflux disease without esophagitis; Z88.1 Allergy status to other antibiotic agents; Z88.0 Allergy status to penicillin; Z88.2 Allergy status to sulfonamides; Z88.8 Allergy status to other drugs, medicaments and biological substances; Z59.0 Homelessness; Z81.8 Family history of other mental and behavioral disorders; Z91.5 Personal history of self-harm; Z23 Encounter for immunization
CPT/HCPCS: 80074; 80307; 83036; 84443; 87389; 90632

== ENCOUNTER 2017-10-08 19:27 | Inpatient (IN) | payer MEDICAID, OTHER ==
[~2017-10-08] VITALS: Ht 175.3 cm; Wt 92.4 kg
[~2017-10-08 19:27] MED LIST changes: +BACI30OI6 TP; +BACL10TA PO; -BENZ1TAB10 PO; +GEMF600T3 PO; -HALO5 PO; -METH10 PO; +OLAN10TA3 PO
[2017-10-08 21:06] LABS: BASOPHILS % (AUTO) 0.7 % (0.0-2.0); EOSINOPHILS % (AUTO) 2.2 % (1.0-6.0); HEMATOCRIT 43.5 % (41-53); HEMOGLOBIN 14.7 g/dL (13.5-17.5); LYMPHOCYTES # (AUTO) 3.9 K/uL (1.0-4.8); LYMPHOCYTES % (AUTO) 41.2 % (22.0-44.0); MEAN CORPUSCULAR HEMOGLOBIN 29.9 pg (26.0-34.0); MEAN CORPUSCULAR HGB CONC 33.8 G/dL (31.0-37.0); MEAN CORPUSCULAR VOLUME 89 fL (80-100); MONOCYTES # (AUTO) 0.8 K/uL (0.1-1.0); MONOCYTES % (AUTO) 8.6 % (2.0-9.0); NEUTROPHILS # (AUTO) 4.5 K/uL (1.8-7.7); NEUTROPHILS % (AUTO) 47.3 % (40.0-70.0); PLATELET COUNT (AUTO) 265 K/uL (150-450); RED BLOOD CELL COUNT(AUTO) 4.91 MIL/uL (4.50-5.90); RED CELL DISTRIBUTION WIDTH 14.3 % (11.5-14.5)
[2017-10-08 21:21] LABS: ANION GAP 8 mmol/L (8-16); CALCIUM, TOTAL 9.2 mg/dL (8.8-10.5); CARBON DIOXIDE 28 mmol/L (22-29); CHLORIDE 103 mmol/L (98-107); CREATININE 0.75 mg/dL (0.60-1.30); GLOMERULAR FILTR. RATE CALC > 60 mL/min (>60); GLUCOSE,RANDOM 94 mg/dL (70-110); POTASSIUM 4.1 mmol/L (3.5-5.1); SODIUM SERUM 139 mmol/L (136-145); UREA NITROGEN, BLOOD 15 mg/dL (7-18)
[2017-10-08 21:28] LABS: ALANINE AMINOTRANSFERASE 32 U/L (12-78); ALBUMIN 4.1 g/dL (3.4-5.0); ALKALINE PHOSPHATASE 70 U/L (46-116); ASPARTATE AMINOTRANSFERASE 24 U/L (15-37); TOTAL PROTEIN, SERUM 7.9 g/dL (6.4-8.2)
[2017-10-08] MEDS: LORazepam 2 MG TABLET PO PRN (22:08)
[2017-10-08] MEDS: ZOLPIDEM TARTRATE 10 MG TABLET PO PRN (22:08)
[2017-10-08] MEDS ORDERED: PRAZ5 PO (22:39)
[2017-10-08] MEDS ORDERED: PRAZOSIN HCL 5 MG CAPSULE PO ONE (22:45)
[2017-10-09 08:23] LABS: BASOPHILS % (AUTO) 0.7 % (0.0-2.0); EOSINOPHILS % (AUTO) 3.7 % (1.0-6.0); HEMATOCRIT 41.6 % (41-53); LYMPHOCYTES # (AUTO) 1.8 K/uL (1.0-4.8); LYMPHOCYTES % (AUTO) 34.3 % (22.0-44.0); MEAN CORPUSCULAR HEMOGLOBIN 29.8 pg (26.0-34.0); MEAN CORPUSCULAR HGB CONC 33.6 G/dL (31.0-37.0); MEAN CORPUSCULAR VOLUME 89 fL (80-100); MONOCYTES # (AUTO) 0.3 K/uL (0.1-1.0); NEUTROPHILS # (AUTO) 2.9 K/uL (1.8-7.7); NEUTROPHILS % (AUTO) 56.3 % (40.0-70.0); PLATELET COUNT (AUTO) 195 K/uL (150-450); RED BLOOD CELL COUNT(AUTO) 4.69 MIL/uL (4.50-5.90); RED CELL DISTRIBUTION WIDTH 14.5 % (11.5-14.5)
[2017-10-09 08:38] LABS: HEMOGLOBIN A1C 5.3 % (4.5-6.2)
[2017-10-09 08:43] LABS: ALANINE AMINOTRANSFERASE 40 U/L (12-78); ALBUMIN 3.6 g/dL (3.4-5.0); ALKALINE PHOSPHATASE 68 U/L (46-116); ANION GAP 10 mmol/L (8-16); ASPARTATE AMINOTRANSFERASE 24 U/L (15-37); CALCIUM, TOTAL 8.7 mg/dL (8.8-10.5); CARBON DIOXIDE 25 mmol/L (22-29); CHLORIDE 102 mmol/L (98-107); CHOL/HDL RATIO 2.7 (4.2-7.3); CHOLESTEROL 153 mg/dL (131-200); GLOMERULAR FILTR. RATE CALC > 60 mL/min (>60); GLUCOSE,RANDOM 139 mg/dL (70-110); HDL CHOLESTEROL 57 mg/dL (40-60); LDL CHOL (CALC.) 78 mg/dL (0-130); POTASSIUM 3.8 mmol/L (3.5-5.1); SODIUM SERUM 137 mmol/L (136-145); TOTAL PROTEIN, SERUM 6.9 g/dL (6.4-8.2); TRIGLYCERIDES 88 mg/dL (15-150); UREA NITROGEN, BLOOD 16 mg/dL (7-18)
[2017-10-09 09:05] LABS: FREE T4 (FREE THYROXINE) 0.96 ng/dL (0.76-1.46)
[2017-10-09] MEDS: LORazepam 2 MG TABLET PO PRN ×3 (09:28→19:55)
[2017-10-09 09:35] LABS: THYROID STIMULATING HORMONE 1.09 uIU/mL (0.36-3.74)
[2017-10-09 10:01] VITALS: BP 117/71
[2017-10-09] MEDS ORDERED: METHADONE HCL 10 MG TABLET PO ONE (17:00)
[2017-10-09] MEDS ORDERED: BENAZEPRIL HCL 20 MG TABLET PO ONE (17:00)
[2017-10-09] MEDS ORDERED: DiphenhydrAMINE HCL 50 MG/ML VIAL IM ONE (17:00)
[2017-10-09] MEDS ORDERED: ChlorproMAZINE HCL 100 MG TABLET PO ONE (17:00)
[2017-10-09] MEDS ORDERED: ACETAMINOPHEN 325 MG TABLET PO PRN (18:00)
[2017-10-09 20:00] VITALS: BP 117/68
[2017-10-09] MEDS: OLANZapine 10 MG TABLET PO SCH (20:59)
[2017-10-09] MEDS: ZOLPIDEM TARTRATE 10 MG TABLET PO PRN (22:50)
[2017-10-10 00:20] VITALS: BP 101/68
[2017-10-10 08:54] VITALS: BP 113/73
[2017-10-10] MEDS ORDERED: METHADONE HCL 10 MG TABLET PO ONE (09:00)
[2017-10-10] MEDS: FLUoxetine HCL 20 MG CAPSULE PO SCH (10:02)
[2017-10-10] MEDS: OLANZapine 10 MG TABLET PO SCH ×2 (10:03→17:55)
[2017-10-10] MEDS: LORazepam 2 MG TABLET PO PRN (13:08)
[2017-10-11 02:33] VITALS: BP 117/68
[2017-10-11 08:00] VITALS: BP 102/59
[2017-10-11] MEDS ORDERED: METHADONE HCL 10 MG TABLET PO ONE (09:00)
[2017-10-11] MEDS: OLANZapine 10 MG TABLET PO SCH ×2 (10:59→16:15)
[2017-10-11] MEDS: FLUoxetine HCL 20 MG CAPSULE PO SCH (10:59)
[2017-10-11] MEDS ORDERED: DiphenhydrAMINE HCL 50 MG/ML VIAL IM ONE (16:30)
[2017-10-11 21:02] VITALS: BP 120/74
[2017-10-11] MEDS: ZOLPIDEM TARTRATE 10 MG TABLET PO PRN (21:14)
[2017-10-12 08:30] VITALS: BP 96/62
[2017-10-12] MEDS: FLUoxetine HCL 20 MG CAPSULE PO SCH (08:57)
[2017-10-12] MEDS: OLANZapine 10 MG TABLET PO SCH ×2 (08:57→16:35)
[2017-10-12] MEDS ORDERED: METHADONE HCL 10 MG TABLET PO ONE (09:00)
[2017-10-12 17:00] VITALS: BP 98/54
[2017-10-13 08:05] VITALS: BP 113/68
[2017-10-13] MEDS ORDERED: METHADONE HCL 10 MG TABLET PO ONE (09:00)
[2017-10-13] MEDS: FLUoxetine HCL 20 MG CAPSULE PO SCH (09:59)
[2017-10-13] MEDS: OLANZapine 10 MG TABLET PO SCH ×2 (09:59→16:38)
[2017-10-13] MEDS: CloNIDine HCL 0.1 MG TABLET PO PRN (18:10)
[2017-10-14] MEDS: ZOLPIDEM TARTRATE 10 MG TABLET PO PRN ×2 (00:31→20:45)
[2017-10-14] MEDS ORDERED: METHADONE HCL 10 MG TABLET PO ONE (09:00)
[2017-10-14] MEDS: OLANZapine 10 MG TABLET PO SCH ×2 (09:35→16:30)
[2017-10-14] MEDS: FLUoxetine HCL 20 MG CAPSULE PO SCH (09:35)
[2017-10-14 17:03] VITALS: BP 113/73
[2017-10-14] MEDS: PRAZOSIN HCL 1 MG CAPSULE PO SCH (20:44)
[2017-10-15] MEDS: OLANZapine 10 MG TABLET PO SCH ×2 (09:08→16:07)
[2017-10-15] MEDS: FLUoxetine HCL 20 MG CAPSULE PO SCH (09:08)
[2017-10-15 09:45] VITALS: BP 100/59
[2017-10-15] MEDS: CloNIDine HCL 0.1 MG TABLET PO PRN (09:56)
[2017-10-15] MEDS: IBUPROFEN 600 MG TABLET PO PRN (09:56)
[2017-10-15] MEDS: NICOTINE 21 MG/24 HOUR PATCH TD SCH (16:06)
[2017-10-15 16:15] VITALS: BP 132/87
[2017-10-15] MEDS: PRAZOSIN HCL 1 MG CAPSULE PO SCH (21:56)
[2017-10-15] MEDS: ZOLPIDEM TARTRATE 10 MG TABLET PO PRN (22:02)
[2017-10-16] MEDS: OLANZapine 10 MG TABLET PO SCH ×2 (08:51→15:51)
[2017-10-16] MEDS: FLUoxetine HCL 20 MG CAPSULE PO SCH (08:51)
[2017-10-16] MEDS: CloNIDine HCL 0.1 MG TABLET PO PRN ×2 (08:51→15:51)
[2017-10-16] MEDS: NICOTINE 21 MG/24 HOUR PATCH TD SCH (08:53)
[2017-10-16 09:40] VITALS: BP 142/89
[2017-10-16] MEDS: IBUPROFEN 600 MG TABLET PO PRN (09:41)
[2017-10-16 16:28] VITALS: BP_SYST 124; BP_SYST 98; BP_DIAS 57; BP_DIAS 85
[2017-10-16] MEDS ORDERED: PRAZOSIN HCL 1 MG CAPSULE PO ONE (18:00)
== END 2017-10-16 18:15 | disposition home or self-care (01) | DRG 750 ==
LOC: EDSTATUS 19:27 → BV PSY EVL 20:20 → AHU 10-09 08:28 → 3EI 10-09 16:28
PROVIDERS: ADMIT Psychiatry & Neurology Psychiatry; ATTEND Psychiatry & Neurology Psychiatry
DX: F25.0 Schizoaffective disorder, bipolar type (principal); R45.851 Suicidal ideations; F11.20 Opioid dependence, uncomplicated; F19.90 Other psychoactive substance use, unspecified, uncomplicated; J45.909 Unspecified asthma, uncomplicated; E78.5 Hyperlipidemia, unspecified; K21.9 Gastro-esophageal reflux disease without esophagitis; F41.9 Anxiety disorder, unspecified; F17.200 Nicotine dependence, unspecified, uncomplicated; F12.90 Cannabis use, unspecified, uncomplicated; F15.90 Other stimulant use, unspecified, uncomplicated; G89.29 Other chronic pain; R45.87 Impulsiveness; M54.9 Dorsalgia, unspecified; Z79.899 Other long term (current) drug therapy; Z91.19 Patient's noncompliance with other medical treatment and regimen; Z59.0 Homelessness; Z81.8 Family history of other mental and behavioral disorders; Z91.5 Personal history of self-harm; Z76.5 Malingerer [conscious simulation]; Z88.1 Allergy status to other antibiotic agents; Z88.0 Allergy status to penicillin; Z88.8 Allergy status to other drugs, medicaments and biological substances
CPT/HCPCS: 83036; 84439; 84443; 99285; G0480; J1200; J3230

== ENCOUNTER 2017-11-07 20:38 | Inpatient (IN) | payer MEDICAID, OTHER ==
[~2017-11-07] VITALS: Ht 177.8 cm; Wt 92.5 kg
[~2017-11-07 20:38] MED LIST changes: -BACI30OI6 TP; -BACL10TA PO; -GEMF600T3 PO; +INFLUENZA VIRUS VACCINE QVS 2017-18 (3YR+)/PF 60 MCG/0.5 ML SYRINGE IM ONE; +PNEUMOCOCCAL VACCINE POLYVALENT 0.5 ML VIAL [PPSV23] IM ONE; +PRAZ5 PO
[2017-11-07] MEDS ORDERED: OLANZapine 10 MG TABLET PO SCH (21:00)
[2017-11-07 21:45] LABS: BASOPHILS % (AUTO) 0.7 % (0.0-2.0); EOSINOPHILS % (AUTO) 3.7 % (1.0-6.0); HEMATOCRIT 38.8 % (41-53); LYMPHOCYTES # (AUTO) 3.2 K/uL (1.0-4.8); MEAN CORPUSCULAR HEMOGLOBIN 29.8 pg (26.0-34.0); MEAN CORPUSCULAR HGB CONC 33.5 G/dL (31.0-37.0); MEAN CORPUSCULAR VOLUME 89 fL (80-100); MONOCYTES # (AUTO) 0.5 K/uL (0.1-1.0); MONOCYTES % (AUTO) 6.9 % (2.0-9.0); NEUTROPHILS # (AUTO) 3.4 K/uL (1.8-7.7); NEUTROPHILS % (AUTO) 45.7 % (40.0-70.0); PLATELET COUNT (AUTO) 262 K/uL (150-450); RED BLOOD CELL COUNT(AUTO) 4.37 MIL/uL (4.50-5.90); RED CELL DISTRIBUTION WIDTH 14.3 % (11.5-14.5)
[2017-11-07 21:49] LABS: ANION GAP 9 mmol/L (8-16); CALCIUM, TOTAL 8.9 mg/dL (8.8-10.5); CARBON DIOXIDE 28 mmol/L (22-29); CHLORIDE 103 mmol/L (98-107); CREATININE 0.76 mg/dL (0.60-1.30); GLOMERULAR FILTR. RATE CALC > 60 mL/min (>60); GLUCOSE,RANDOM 98 mg/dL (70-110); POTASSIUM 3.7 mmol/L (3.5-5.1); SODIUM SERUM 140 mmol/L (136-145); UREA NITROGEN, BLOOD 13 mg/dL (7-18)
[2017-11-07 21:56] LABS: HEMOGLOBIN A1C 5.5 % (4.5-6.2)
[2017-11-07 22:04] LABS: ALANINE AMINOTRANSFERASE 26 U/L (12-78); ALBUMIN 3.5 g/dL (3.4-5.0); ALKALINE PHOSPHATASE 73 U/L (46-116); ASPARTATE AMINOTRANSFERASE 16 U/L (15-37); BILIRUBIN,TOTAL 0.2 mg/dL (0.1-1.0); CHOL/HDL RATIO 2.9 (4.2-7.3); CHOLESTEROL 146 mg/dL (131-200); HDL CHOLESTEROL 51 mg/dL (40-60); LDL CHOL (CALC.) 70 mg/dL (0-130); THYROID STIMULATING HORMONE 1.11 uIU/mL (0.36-3.74); TRIGLYCERIDES 127 mg/dL (15-150)
[2017-11-07 23:50] LABS: SALICYLATE < 2.8 mg/dL (2.8-20.0)
[2017-11-07 23:57] LABS: ACETAMINOPHEN < 2 mcg/mL (10-30)
[2017-11-08] MEDS: ZOLPIDEM TARTRATE 10 MG TABLET PO PRN ×2 (01:18→20:15)
[2017-11-08] MEDS: LORazepam 2 MG TABLET PO PRN ×3 (01:19→14:44)
[2017-11-08 01:32] VITALS: BP 126/72
[2017-11-08 07:09] LABS: BASOPHILS % (AUTO) 0.7 % (0.0-2.0); EOSINOPHILS % (AUTO) 4.2 % (1.0-6.0); HEMATOCRIT 40.5 % (41-53); HEMOGLOBIN 13.8 g/dL (13.5-17.5); LYMPHOCYTES # (AUTO) 2.5 K/uL (1.0-4.8); LYMPHOCYTES % (AUTO) 43.3 % (22.0-44.0); MEAN CORPUSCULAR VOLUME 88 fL (80-100); MONOCYTES # (AUTO) 0.3 K/uL (0.1-1.0); MONOCYTES % (AUTO) 5.3 % (2.0-9.0); NEUTROPHILS # (AUTO) 2.7 K/uL (1.8-7.7); NEUTROPHILS % (AUTO) 46.5 % (40.0-70.0); PLATELET COUNT (AUTO) 242 K/uL (150-450); RED BLOOD CELL COUNT(AUTO) 4.59 MIL/uL (4.50-5.90); RED CELL DISTRIBUTION WIDTH 14.7 % (11.5-14.5)
[2017-11-08 07:11] LABS: HEMOGLOBIN A1C 5.2 % (4.5-6.2)
[2017-11-08 07:39] LABS: ALANINE AMINOTRANSFERASE 26 U/L (12-78); ALBUMIN 3.3 g/dL (3.4-5.0); ALKALINE PHOSPHATASE 66 U/L (46-116); ANION GAP 10 mmol/L (8-16); ASPARTATE AMINOTRANSFERASE 15 U/L (15-37); BILIRUBIN,TOTAL 0.2 mg/dL (0.1-1.0); CALCIUM, TOTAL 8.7 mg/dL (8.8-10.5); CARBON DIOXIDE 25 mmol/L (22-29); CHLORIDE 104 mmol/L (98-107); CHOLESTEROL 139 mg/dL (131-200); CREATININE 0.76 mg/dL (0.60-1.30); FREE T4 (FREE THYROXINE) 1.18 ng/dL (0.76-1.46); GLOMERULAR FILTR. RATE CALC > 60 mL/min (>60); GLUCOSE,RANDOM 134 mg/dL (70-110); HDL CHOLESTEROL 46 mg/dL (40-60); LDL CHOL (CALC.) 76 mg/dL (0-130); POTASSIUM 3.8 mmol/L (3.5-5.1); SODIUM SERUM 139 mmol/L (136-145); THYROID STIMULATING HORMONE 1.03 uIU/mL (0.36-3.74); TOTAL PROTEIN, SERUM 6.7 g/dL (6.4-8.2); TRIGLYCERIDES 83 mg/dL (15-150); UREA NITROGEN, BLOOD 10 mg/dL (7-18)
[2017-11-08] MEDS: OLANZapine 5 MG RAPDIS TABLET PO PRN ×2 (08:10→15:36)
[2017-11-08] MEDS ORDERED: FLUoxetine HCL 20 MG CAPSULE PO SCH (09:00)
[2017-11-08 09:37] VITALS: BP 117/53
[2017-11-08] MEDS ORDERED: MAGNESIUM HYDROXIDE SUSPENSION 30 ML UDCUP PO PRN (10:45)
[2017-11-08] MEDS ORDERED: MAG HYDROX/AL HYDROX/SIMETH ES 30 ML SUSPENSION UDCUP PO PRN (10:45)
[2017-11-08] MEDS ORDERED: GuaiFENesin/D-METHORPHAN [SUGAR-FREE] 200-20MG/10 ML SYRUP UDCUP PO PRN (10:45)
[2017-11-08] MEDS ORDERED: PROMETHAZINE HCL 25 MG TABLET PO PRN (10:45)
[2017-11-08] MEDS ORDERED: TUBERCULIN, PURIFIED PROTEIN DERIVATIVE 5 TU/0.1 ML SYG ID ONE (10:45)
[2017-11-08] MEDS ORDERED: ACETAMINOPHEN 325 MG TABLET PO PRN (10:45)
[2017-11-08 12:03] VITALS: BP 127/83
[2017-11-08] MEDS: METHADONE HCL 10 MG TABLET PO SCH (12:05)
[2017-11-08] MEDS: GABAPENTIN 300 MG CAPSULE PO SCH ×4 (12:11→20:03)
[2017-11-08] MEDS: ACAMPROSATE CALCIUM 333 MG DR TABLET PO SCH ×2 (12:11→15:52)
[2017-11-08] MEDS: THIAMINE HCL 100 MG TABLET PO SCH (15:52)
[2017-11-08] MEDS ORDERED: GABAPENTIN 300 MG CAPSULE PO PRN (16:15)
[2017-11-08] MEDS ORDERED: OXcarbazepine 300 MG TABLET PO SCH (17:00)
[2017-11-08] MEDS: DIVALPROEX SODIUM 500 MG ER TABLET PO SCH (18:55)
[2017-11-08] MEDS: PRAZOSIN HCL 2 MG CAPSULE PO SCH (20:04)
[2017-11-08 21:18] VITALS: BP 128/99
[2017-11-09 08:15] VITALS: BP 97/75
[2017-11-09] MEDS ORDERED: BuPROPion HCL XL 150 MG ER TABLET PO SCH (09:00)
[2017-11-09 11:00] VITALS: BP 135/100
[2017-11-09] MEDS: THIAMINE HCL 100 MG TABLET PO SCH ×2 (11:12→15:49)
[2017-11-09] MEDS: FOLIC ACID 1 MG TABLET PO SCH (11:12)
[2017-11-09] MEDS: DIVALPROEX SODIUM 500 MG ER TABLET PO SCH ×3 (11:12→15:50)
[2017-11-09] MEDS: GABAPENTIN 300 MG CAPSULE PO SCH ×3 (11:13→15:49)
[2017-11-09] MEDS: ACAMPROSATE CALCIUM 333 MG DR TABLET PO SCH ×3 (11:13→15:48)
[2017-11-09] MEDS: MULTIVITAMINS WITH MINERALS, THERAPEUTIC TABLET PO SCH (11:13)
[2017-11-09] MEDS: FLUoxetine HCL 20 MG CAPSULE PO SCH (11:13)
[2017-11-09] MEDS: METHADONE HCL 10 MG TABLET PO SCH (11:14)
[2017-11-09] MEDS: NICOTINE 14 MG/24 HOUR PATCH TD SCH (12:13)
[2017-11-09] MEDS: HydrOXYzine PAMOATE 50 MG CAPSULE PO PRN (14:04)
[2017-11-09] MEDS: OLANZapine 5 MG RAPDIS TABLET PO PRN (14:05)
[2017-11-09] MEDS: PREGABALIN 25 MG CAPSULE PO SCH (15:48)
[2017-11-09 16:47] VITALS: BP 128/78
[2017-11-09 17:00] VITALS: BP 114/87
[2017-11-09 17:15] VITALS: BP 120/83
[2017-11-09 19:52] VITALS: BP 110/71
[2017-11-09] MEDS: OLANZapine 7.5 MG TABLET PO SCH (20:08)
[2017-11-09] MEDS: PRAZOSIN HCL 2 MG CAPSULE PO SCH (20:08)
[2017-11-10 08:00] VITALS: BP 127/81
[2017-11-10] MEDS: METHADONE HCL 10 MG TABLET PO SCH (10:15)
[2017-11-10] MEDS: PREGABALIN 25 MG CAPSULE PO SCH ×3 (10:16→16:37)
[2017-11-10] MEDS: DIVALPROEX SODIUM 500 MG ER TABLET PO SCH ×3 (10:16→16:38)
[2017-11-10] MEDS: ACAMPROSATE CALCIUM 333 MG DR TABLET PO SCH ×3 (10:16→16:38)
[2017-11-10] MEDS: FOLIC ACID 1 MG TABLET PO SCH (10:16)
[2017-11-10] MEDS: GABAPENTIN 300 MG CAPSULE PO SCH ×3 (10:17→16:38)
[2017-11-10] MEDS: THIAMINE HCL 100 MG TABLET PO SCH ×2 (10:17→16:38)
[2017-11-10] MEDS: FLUoxetine HCL 20 MG CAPSULE PO SCH (10:17)
[2017-11-10] MEDS: MULTIVITAMINS WITH MINERALS, THERAPEUTIC TABLET PO SCH (10:17)
[2017-11-10] MEDS: NICOTINE 14 MG/24 HOUR PATCH TD SCH (11:58)
[2017-11-10] MEDS: OLANZapine 5 MG RAPDIS TABLET PO PRN (12:59)
[2017-11-10] MEDS: HydrOXYzine PAMOATE 50 MG CAPSULE PO PRN (13:00)
[2017-11-10 17:11] VITALS: BP 106/79
[2017-11-10] MEDS: OLANZapine 7.5 MG TABLET PO SCH (20:22)
[2017-11-10] MEDS: PRAZOSIN HCL 2 MG CAPSULE PO SCH (20:22)
[2017-11-11] MEDS: GABAPENTIN 300 MG CAPSULE PO SCH ×3 (09:26→16:13)
[2017-11-11] MEDS: METHADONE HCL 10 MG TABLET PO SCH (09:26)
[2017-11-11] MEDS: THIAMINE HCL 100 MG TABLET PO SCH ×2 (09:27→16:13)
[2017-11-11] MEDS: MULTIVITAMINS WITH MINERALS, THERAPEUTIC TABLET PO SCH (09:27)
[2017-11-11] MEDS: ACAMPROSATE CALCIUM 333 MG DR TABLET PO SCH ×3 (09:27→16:12)
[2017-11-11] MEDS: FLUoxetine HCL 20 MG CAPSULE PO SCH (09:27)
[2017-11-11] MEDS: DIVALPROEX SODIUM 500 MG ER TABLET PO SCH ×3 (09:27→16:13)
[2017-11-11] MEDS: FOLIC ACID 1 MG TABLET PO SCH (09:28)
[2017-11-11] MEDS: PREGABALIN 25 MG CAPSULE PO SCH ×3 (09:28→16:12)
[2017-11-11 09:31] VITALS: BP 136/77
[2017-11-11] MEDS: NICOTINE 14 MG/24 HOUR PATCH TD SCH (09:41)
[2017-11-11] MEDS: HydrOXYzine PAMOATE 50 MG CAPSULE PO PRN ×2 (14:11→19:08)
[2017-11-11] MEDS: OLANZapine 5 MG RAPDIS TABLET PO PRN ×2 (14:12→19:08)
[2017-11-11 19:01] VITALS: BP 108/70
[2017-11-11] MEDS: PRAZOSIN HCL 2 MG CAPSULE PO SCH (20:31)
[2017-11-11] MEDS: OLANZapine 7.5 MG TABLET PO SCH (20:31)
[2017-11-12 08:52] VITALS: BP 102/57
[2017-11-12] MEDS: GABAPENTIN 300 MG CAPSULE PO SCH ×3 (08:54→16:05)
[2017-11-12] MEDS: FLUoxetine HCL 20 MG CAPSULE PO SCH (08:54)
[2017-11-12] MEDS: THIAMINE HCL 100 MG TABLET PO SCH ×2 (08:54→16:05)
[2017-11-12] MEDS: MULTIVITAMINS WITH MINERALS, THERAPEUTIC TABLET PO SCH (08:54)
[2017-11-12] MEDS: DIVALPROEX SODIUM 500 MG ER TABLET PO SCH ×3 (08:55→16:05)
[2017-11-12] MEDS: FOLIC ACID 1 MG TABLET PO SCH (08:55)
[2017-11-12] MEDS: ACAMPROSATE CALCIUM 333 MG DR TABLET PO SCH ×3 (08:56→16:05)
[2017-11-12] MEDS: NICOTINE 14 MG/24 HOUR PATCH TD SCH (08:57)
[2017-11-12] MEDS: PREGABALIN 25 MG CAPSULE PO SCH ×3 (08:57→16:05)
[2017-11-12] MEDS: METHADONE HCL 10 MG TABLET PO SCH (09:02)
[2017-11-12] MEDS: OLANZapine 5 MG RAPDIS TABLET PO PRN (12:19)
[2017-11-12] MEDS: HydrOXYzine PAMOATE 50 MG CAPSULE PO PRN (12:20)
[2017-11-12] MEDS ORDERED: OLAN7.5T9 PO (16:01)
[2017-11-12] MEDS ORDERED: DIVA500T52 PO (16:01)
[2017-11-12] MEDS ORDERED: ACAM333T7 PO (16:01)
[2017-11-12] MEDS ORDERED: GABA-531 PO (16:01)
[2017-11-12] MEDS ORDERED: PRAZ2 PO (16:01)
[2017-11-12] MEDS ORDERED: PREG25 PO (16:01)
[2017-11-12] MEDS ORDERED: FLUO-191 PO (16:01)
[2017-11-12] MEDS ORDERED: ESZO3 PO (16:01)
[2017-11-12 17:00] VITALS: BP 136/81
[2017-11-12] MEDS ORDERED: PETROLATUM,WHITE 71 GM JELLY TP PRN (17:45)
[2017-11-12] MEDS ORDERED: BACITRACIN 28.4 GM OINTMENT TP PRN (17:45)
[2017-11-12] MEDS ORDERED: LOPERAMIDE HCL 2 MG CAPSULE PO PRN (17:45)
[2017-11-12] MEDS ORDERED: ONDANSETRON HCL 4 MG TABLET PO PRN (17:45)
[2017-11-12] MEDS ORDERED: IBUPROFEN 600 MG TABLET PO PRN (17:45)
[2017-11-12] MEDS ORDERED: CloNIDine HCL 0.1 MG TABLET PO PRN (17:45)
[2017-11-12] MEDS ORDERED: ALBUTEROL SULFATE HFA 90 MCG/PUFF 8 GM INHALER IH PRN (17:45)
[2017-11-12] MEDS ORDERED: BENZOCAINE/MENTHOL LOZENGE [8 LOZENGES/PACKET] MM PRN (18:00)
[2017-11-12] MEDS: PRAZOSIN HCL 2 MG CAPSULE PO SCH (20:30)
[2017-11-12] MEDS: OLANZapine 7.5 MG TABLET PO SCH (20:31)
[2017-11-12] MEDS ORDERED: ESZOPICLONE 3 MG TABLET PO SCH (21:00)
[2017-11-13 06:46] LABS: HEMATOCRIT 39.6 % (41-53); HEMOGLOBIN 13.6 g/dL (13.5-17.5); MEAN CORPUSCULAR HGB CONC 34.3 G/dL (31.0-37.0); MEAN CORPUSCULAR VOLUME 87 fL (80-100); PLATELET COUNT (AUTO) 184 K/uL (150-450); RED BLOOD CELL COUNT(AUTO) 4.54 MIL/uL (4.50-5.90); RED CELL DISTRIBUTION WIDTH 14.4 % (11.5-14.5)
[2017-11-13 07:15] LABS: ANION GAP 7 mmol/L (8-16); CALCIUM, TOTAL 8.7 mg/dL (8.8-10.5); CARBON DIOXIDE 27 mmol/L (22-29); CHLORIDE 101 mmol/L (98-107); CHOL/HDL RATIO 4.3 (4.2-7.3); CHOLESTEROL 125 mg/dL (131-200); CREATININE 0.75 mg/dL (0.60-1.30); GLOMERULAR FILTR. RATE CALC > 60 mL/min (>60); GLUCOSE,RANDOM 99 mg/dL (70-110); HDL CHOLESTEROL 29 mg/dL (40-60); LDL CHOL (CALC.) 41 mg/dL (0-130); PHOSPHORUS 4.6 mg/dL (2.5-4.9); POTASSIUM 3.9 mmol/L (3.5-5.1); SODIUM SERUM 135 mmol/L (136-145); THYROID STIMULATING HORMONE 1.47 uIU/mL (0.36-3.74); TRIGLYCERIDES 273 mg/dL (15-150); UREA NITROGEN, BLOOD 12 mg/dL (7-18)
[2017-11-13 07:27] LABS: HEMOGLOBIN A1C 5.3 % (4.5-6.2)
[2017-11-13 07:42] LABS: BAND NEUTROPHILS % (MANUAL) 2 % (1-5); EOSINOPHILS % (MANUAL) 1 % (1-6); LYMPHOCYTES % (MANUAL) 49 % (22-44); MONOCYTES % (MANUAL) 9 % (2-9); SEGMENTED NEUTROPHILS % 39 % (40-70)
[2017-11-13] MEDS ORDERED: DOCUSATE SODIUM 100 MG CAPSULE PO SCH (09:00)
[2017-11-13] MEDS ORDERED: OMEPRAZOLE 20 MG CAPSULE PO SCH (09:00)
[2017-11-13] MEDS: METHADONE HCL 10 MG TABLET PO SCH (09:26)
[2017-11-13] MEDS: MULTIVITAMINS WITH MINERALS, THERAPEUTIC TABLET PO SCH (09:28)
[2017-11-13] MEDS: DIVALPROEX SODIUM 500 MG ER TABLET PO SCH ×2 (09:28→12:59)
[2017-11-13] MEDS: FOLIC ACID 1 MG TABLET PO SCH (09:28)
[2017-11-13] MEDS: FLUoxetine HCL 20 MG CAPSULE PO SCH (09:28)
[2017-11-13] MEDS: ACAMPROSATE CALCIUM 333 MG DR TABLET PO SCH ×2 (09:29→12:57)
[2017-11-13] MEDS: PREGABALIN 25 MG CAPSULE PO SCH ×2 (09:29→12:57)
[2017-11-13] MEDS: GABAPENTIN 300 MG CAPSULE PO SCH ×2 (09:29→12:59)
[2017-11-13] MEDS: THIAMINE HCL 100 MG TABLET PO SCH (09:30)
[2017-11-13] MEDS: NICOTINE 14 MG/24 HOUR PATCH TD SCH (09:38)
[2017-11-13] MEDS ORDERED: METH10 PO (13:16)
[2017-11-13] MEDS ORDERED: ZOLP10TA7 PO (15:38)
== END 2017-11-13 14:10 | disposition home or self-care (01) | DRG 750 ==
LOC: BV PSY EVL 20:39 → 3EC 11-08 00:43
PROVIDERS: ADMIT Psychiatry & Neurology Psychiatry; ATTEND Psychiatry & Neurology Psychiatry
DX: F25.0 Schizoaffective disorder, bipolar type (principal); R45.851 Suicidal ideations; F11.20 Opioid dependence, uncomplicated; Z88.2 Allergy status to sulfonamides; Z88.8 Allergy status to other drugs, medicaments and biological substances; Z88.1 Allergy status to other antibiotic agents; Z88.0 Allergy status to penicillin; Z91.013 Allergy to seafood; Z91.19 Patient's noncompliance with other medical treatment and regimen; Z59.0 Homelessness; J45.909 Unspecified asthma, uncomplicated; E78.5 Hyperlipidemia, unspecified; M54.9 Dorsalgia, unspecified; G47.00 Insomnia, unspecified; K21.9 Gastro-esophageal reflux disease without esophagitis; Z71.6 Tobacco abuse counseling; F12.90 Cannabis use, unspecified, uncomplicated; Z71.51 Drug abuse counseling and surveillance of drug abuser
CPT/HCPCS: 70450; 82306; 83036; 83735; 84100; 84436; 84439; 84443; 85007; 87081; 90471; 99285; G0480; G0481

== ENCOUNTER 2018-02-02 23:28 | Inpatient (IN) | payer MEDICAID, OTHER ==
[~2018-02-02] VITALS: Ht 177.8 cm; Wt 78.9 kg
[~2018-02-02 23:28] MED LIST changes: +ACAM333T7 PO; +DIVA500T52 PO; +GABA-531 PO; -INFLUENZA VIRUS VACCINE QVS 2017-18 (3YR+)/PF 60 MCG/0.5 ML SYRINGE IM ONE; +METH10 PO; -OLAN10TA3 PO; +OLAN7.5T9 PO; -PNEUMOCOCCAL VACCINE POLYVALENT 0.5 ML VIAL [PPSV23] IM ONE; +PRAZ2 PO; -PRAZ5 PO; +PREG25 PO; +ZOLP10TA7 PO
[2018-02-03 01:45] LABS: BASOPHILS % (AUTO) 1.1 % (0.0-2.0); EOSINOPHILS % (AUTO) 3.4 % (1.0-6.0); HEMATOCRIT 41.5 % (41-53); HEMOGLOBIN 14.4 g/dL (13.5-17.5); LYMPHOCYTES # (AUTO) 4.1 K/uL (1.0-4.8); LYMPHOCYTES % (AUTO) 44.6 % (22.0-44.0); MEAN CORPUSCULAR HEMOGLOBIN 30.6 pg (26.0-34.0); MEAN CORPUSCULAR HGB CONC 34.8 G/dL (31.0-37.0); MEAN CORPUSCULAR VOLUME 88 fL (80-100); MONOCYTES # (AUTO) 0.7 K/uL (0.1-1.0); MONOCYTES % (AUTO) 7.6 % (2.0-9.0); NEUTROPHILS # (AUTO) 3.9 K/uL (1.8-7.7); NEUTROPHILS % (AUTO) 43.3 % (40.0-70.0); PLATELET COUNT (AUTO) 282 K/uL (150-450); RED BLOOD CELL COUNT(AUTO) 4.71 MIL/uL (4.50-5.90); RED CELL DISTRIBUTION WIDTH 14.7 % (11.5-14.5)
[2018-02-03 01:54] LABS: ANION GAP 8 mmol/L (8-16); CALCIUM, TOTAL 8.5 mg/dL (8.8-10.5); CARBON DIOXIDE 27 mmol/L (22-29); CHLORIDE 105 mmol/L (98-107); CREATININE 0.95 mg/dL (0.60-1.30); GLOMERULAR FILTR. RATE CALC > 60 mL/min (>60); GLUCOSE,RANDOM 103 mg/dL (70-110); SODIUM SERUM 140 mmol/L (136-145); UREA NITROGEN, BLOOD 18 mg/dL (7-18)
[2018-02-03 02:00] LABS: ALANINE AMINOTRANSFERASE 31 U/L (12-78); ALBUMIN 3.7 g/dL (3.4-5.0); ALKALINE PHOSPHATASE 61 U/L (46-116); ASPARTATE AMINOTRANSFERASE 23 U/L (15-37); BILIRUBIN,TOTAL 0.6 mg/dL (0.1-1.0); TOTAL PROTEIN, SERUM 7.2 g/dL (6.4-8.2)
[2018-02-03] MEDS ORDERED: QUEtiapine FUMARATE 100 MG TABLET PO PRN (04:15)
[2018-02-03] MEDS ORDERED: ZOLPIDEM TARTRATE 10 MG TABLET PO PRN (04:15)
[2018-02-03 04:21] LABS: AMPHET/METH SCREEN,URINE POSITIVE (NEGATIVE); BARBITURATE SCREEN, URINE NEGATIVE (NEGATIVE); BENZODIAZEPINES SCREEN,URINE POSITIVE (NEGATIVE); CANNABINOID SCREEN,URINE POSITIVE (NEGATIVE); COCAINE SCREEN,URINE NEGATIVE (NEGATIVE); METHADONE SCREEN, URINE POSITIVE (NEGATIVE); OPIATE SCREEN,URINE NEGATIVE (NEGATIVE); PHENCYCLIDINE SCREEN,URINE NEGATIVE (NEGATIVE)
[2018-02-03] MEDS ORDERED: PNEUMOCOCCAL VACCINE POLYVALENT 0.5 ML VIAL [PPSV23] IM ONE (06:15)
[2018-02-03 06:40] VITALS: BP 104/65
[2018-02-03] MEDS ORDERED: BACITRACIN 28.4 GM OINTMENT TP PRN (06:45)
[2018-02-03] MEDS ORDERED: MAGNESIUM HYDROXIDE SUSPENSION 30 ML UDCUP PO PRN (06:45)
[2018-02-03] MEDS ORDERED: IBUPROFEN 600 MG TABLET PO PRN (06:45)
[2018-02-03] MEDS ORDERED: CloNIDine HCL 0.1 MG TABLET PO PRN (06:45)
[2018-02-03] MEDS ORDERED: ALBUTEROL SULFATE HFA 90 MCG/PUFF 8 GM INHALER IH PRN (06:45)
[2018-02-03] MEDS ORDERED: LOPERAMIDE HCL 2 MG CAPSULE PO PRN (06:45)
[2018-02-03] MEDS ORDERED: PETROLATUM,WHITE 71 GM JELLY TP PRN (06:45)
[2018-02-03] MEDS ORDERED: BENZOCAINE/MENTHOL LOZENGE MM PRN (06:45)
[2018-02-03] MEDS ORDERED: ACETAMINOPHEN 325 MG TABLET PO PRN (06:45)
[2018-02-03] MEDS ORDERED: ONDANSETRON HCL 4 MG TABLET PO PRN (06:45)
[2018-02-03 07:56] VITALS: BP 120/65
[2018-02-03 09:28] VITALS: BP 120/65
[2018-02-03] MEDS ORDERED: METHADONE HCL 10 MG TABLET PO ONE (12:45)
[2018-02-03] MEDS: GABAPENTIN 400 MG CAPSULE PO SCH ×2 (13:00→16:04)
[2018-02-03] MEDS: LORazepam 2 MG TABLET PO PRN (15:36)
[2018-02-03] MEDS: MAG HYDROX/AL HYDROX/SIMETH ES 30 ML SUSPENSION UDCUP PO PRN (16:03)
[2018-02-03 16:16] VITALS: BP 111/75
[2018-02-03 20:56] VITALS: BP 125/80
[2018-02-03] MEDS: PRAZOSIN HCL 2 MG CAPSULE PO SCH (20:56)
[2018-02-03] MEDS: OLANZapine 7.5 MG TABLET PO SCH (20:56)
[2018-02-04 07:09] VITALS: BP 126/84
[2018-02-04 08:05] VITALS: BP 102/67
[2018-02-04] MEDS: FLUoxetine HCL 20 MG CAPSULE PO SCH (08:59)
[2018-02-04] MEDS: GABAPENTIN 400 MG CAPSULE PO SCH ×3 (08:59→16:55)
[2018-02-04] MEDS ORDERED: METHADONE HCL 10 MG TABLET PO ONE (09:00)
[2018-02-04] MEDS: LORazepam 2 MG TABLET PO PRN ×2 (12:07→16:59)
[2018-02-04 16:12] VITALS: BP 121/84
[2018-02-04 20:40] VITALS: BP 119/76
[2018-02-04] MEDS: OLANZapine 7.5 MG TABLET PO SCH (20:44)
[2018-02-04] MEDS: PRAZOSIN HCL 2 MG CAPSULE PO SCH (20:44)
[2018-02-05 06:26] VITALS: BP 121/70
[2018-02-05 08:11] VITALS: BP 114/86
[2018-02-05] MEDS: LORazepam 2 MG TABLET PO PRN ×2 (08:54→16:01)
[2018-02-05] MEDS: GABAPENTIN 400 MG CAPSULE PO SCH ×2 (08:54→12:47)
[2018-02-05] MEDS: FLUoxetine HCL 20 MG CAPSULE PO SCH (08:54)
[2018-02-05] MEDS ORDERED: METHADONE HCL 10 MG TABLET PO ONE (09:00)
[2018-02-05 09:27] LABS: CHOL/HDL RATIO 3.6 (4.2-7.3)
[2018-02-05] MEDS: GABAPENTIN 300 MG CAPSULE PO SCH (16:01)
[2018-02-05 16:14] VITALS: BP 109/64
[2018-02-05 20:30] VITALS: BP 115/70
[2018-02-05] MEDS: OLANZapine 7.5 MG TABLET PO SCH (20:30)
[2018-02-05] MEDS: PRAZOSIN HCL 2 MG CAPSULE PO SCH (20:30)
[2018-02-06 06:02] VITALS: BP 105/61
[2018-02-06] MEDS: LORazepam 2 MG TABLET PO PRN (08:23)
[2018-02-06] MEDS: GABAPENTIN 300 MG CAPSULE PO SCH (08:23)
[2018-02-06] MEDS: FLUoxetine HCL 20 MG CAPSULE PO SCH (08:23)
[2018-02-06] MEDS ORDERED: GABA-531 PO (08:52)
[2018-02-06] MEDS ORDERED: FLUO-191 PO (08:52)
[2018-02-06] MEDS ORDERED: PRAZ2 PO (08:52)
[2018-02-06] MEDS ORDERED: OLAN7.5T2 PO (08:52)
[2018-02-06 09:00] VITALS: BP 116/68
[2018-02-06] MEDS: MAG HYDROX/AL HYDROX/SIMETH ES 30 ML SUSPENSION UDCUP PO PRN (09:32)
== END 2018-02-06 10:11 | disposition left against medical advice (07) | DRG 750 ==
LOC: EMS 23:29 → B2S 02-03 04:27
PROVIDERS: ADMIT Psychiatry & Neurology Psychiatry; ATTEND Psychiatry & Neurology Psychiatry
DX: F25.0 Schizoaffective disorder, bipolar type (principal); F11.20 Opioid dependence, uncomplicated; R45.851 Suicidal ideations; F12.10 Cannabis abuse, uncomplicated; F15.10 Other stimulant abuse, uncomplicated; F17.210 Nicotine dependence, cigarettes, uncomplicated; G47.00 Insomnia, unspecified; F41.9 Anxiety disorder, unspecified; G89.29 Other chronic pain; J45.909 Unspecified asthma, uncomplicated; K21.9 Gastro-esophageal reflux disease without esophagitis; Z59.0 Homelessness; Z76.5 Malingerer [conscious simulation]; Z79.899 Other long term (current) drug therapy; Z88.0 Allergy status to penicillin; Z88.2 Allergy status to sulfonamides; Z88.8 Allergy status to other drugs, medicaments and biological substances; Z91.013 Allergy to seafood; Z91.5 Personal history of self-harm; Z82.49 Family history of ischemic heart disease and other diseases of the circulatory system; Z81.8 Family history of other mental and behavioral disorders; Z82.62 Family history of osteoporosis; Z28.21 Immunization not carried out because of patient refusal; Z71.51 Drug abuse counseling and surveillance of drug abuser; Z71.6 Tobacco abuse counseling
CPT/HCPCS: 99285; 99406; G0480; Q0162

== ENCOUNTER 2018-06-01 13:20 | Inpatient (IN) | payer MEDICAID ==
[~2018-06-01] VITALS: Ht 180.3 cm; Wt 79.4 kg
[~2018-06-01 13:20] MED LIST changes: +ATOM25 PO; +DIVA250T45 PO; -DIVA500T52 PO; +FERR-89 PO; -FLUO-191 PO; -METH10 PO; +OLAN10TA3 PO; -OLAN7.5T9 PO; +PARO10TA89 PO; +PRAZ1 PO; -PRAZ2 PO; -PREG25 PO; +TIZA4TAB4 PO; -ZOLP10TA7 PO
[2018-06-01 13:29] VITALS: BP 107/71
[2018-06-01] MEDS ORDERED: NICOTINE 14 MG/24 HOUR PATCH TD PRN (15:00)
[2018-06-01] MEDS ORDERED: GuaiFENesin/D-METHORPHAN [SUGAR-FREE] 200-20MG/10 ML SYRUP UDCUP PO PRN (15:00)
[2018-06-01] MEDS ORDERED: DOCUSATE SODIUM 100 MG CAPSULE PO PRN (15:00)
[2018-06-01] MEDS ORDERED: PETROLATUM,WHITE 71 GM JELLY TP PRN (15:00)
[2018-06-01] MEDS ORDERED: IBUPROFEN 400 MG TABLET PO PRN (15:00)
[2018-06-01] MEDS ORDERED: MAGNESIUM HYDROXIDE SUSPENSION 30 ML UDCUP PO PRN (15:00)
[2018-06-01] MEDS ORDERED: CloNIDine HCL 0.1 MG TABLET PO PRN (15:00)
[2018-06-01] MEDS ORDERED: ONDANSETRON HCL 4 MG TABLET PO PRN (15:00)
[2018-06-01] MEDS ORDERED: ALBUTEROL SULFATE HFA 90 MCG/PUFF 8 GM INHALER IH PRN (15:00)
[2018-06-01] MEDS ORDERED: LOPERAMIDE HCL 2 MG CAPSULE PO PRN (15:00)
[2018-06-01] MEDS ORDERED: MAG HYDROX/AL HYDROX/SIMETH ES 30 ML SUSPENSION UDCUP PO PRN (15:00)
[2018-06-01] MEDS ORDERED: ACETAMINOPHEN 325 MG TABLET PO PRN (15:00)
[2018-06-01] MEDS: GABAPENTIN 300 MG CAPSULE PO SCH ×2 (15:13→16:50)
[2018-06-01] MEDS: LORazepam 2 MG TABLET PO PRN (15:14)
[2018-06-01] MEDS ORDERED: PNEUMOCOCCAL VACCINE POLYVALENT 0.5 ML VIAL [PPSV23] IM ONE (15:30)
[2018-06-01 16:00] VITALS: BP 106/65
[2018-06-01] MEDS: DIVALPROEX SODIUM 500 MG ER TABLET PO SCH (16:50)
[2018-06-01] MEDS: FERROUS SULFATE 325 MG EC TABLET PO SCH (17:10)
[2018-06-01] MEDS: PRAZOSIN HCL 1 MG CAPSULE PO SCH (20:17)
[2018-06-01] MEDS: ZOLPIDEM TARTRATE 10 MG TABLET PO PRN (20:17)
[2018-06-01] MEDS: OLANZapine 10 MG TABLET PO SCH (20:18)
[2018-06-02 06:17] VITALS: BP 102/59
[2018-06-02] MEDS: FERROUS SULFATE 325 MG EC TABLET PO SCH ×3 (06:22→16:01)
[2018-06-02 08:06] VITALS: BP 104/60
[2018-06-02] MEDS: GABAPENTIN 300 MG CAPSULE PO SCH ×3 (08:24→16:01)
[2018-06-02] MEDS: PARoxetine HCL 10 MG TABLET PO SCH (08:24)
[2018-06-02] MEDS: DIVALPROEX SODIUM 500 MG ER TABLET PO SCH ×2 (08:25→16:01)
[2018-06-02 08:51] LABS: BASOPHILS % (AUTO) 0.9 % (0.0-2.0); HEMATOCRIT 42.5 % (41-53); HEMOGLOBIN 14.6 g/dL (13.5-17.5); LYMPHOCYTES # (AUTO) 2.6 K/uL (1.0-4.8); MEAN CORPUSCULAR HEMOGLOBIN 30.6 pg (26.0-34.0); MEAN CORPUSCULAR HGB CONC 34.4 G/dL (31.0-37.0); MEAN CORPUSCULAR VOLUME 89 fL (80-100); MONOCYTES # (AUTO) 0.3 K/uL (0.1-1.0); MONOCYTES % (AUTO) 5.3 % (2.0-9.0); NEUTROPHILS # (AUTO) 2.4 K/uL (1.8-7.7); NEUTROPHILS % (AUTO) 43.8 % (40.0-70.0); PLATELET COUNT (AUTO) 248 K/uL (150-450); RED BLOOD CELL COUNT(AUTO) 4.79 MIL/uL (4.50-5.90); RED CELL DISTRIBUTION WIDTH 14.3 % (11.5-14.5)
[2018-06-02 09:14] LABS: HEMOGLOBIN A1C 5.2 % (4.5-6.2)
[2018-06-02 09:18] LABS: ALANINE AMINOTRANSFERASE 22 U/L (12-78); ALBUMIN 3.6 g/dL (3.4-5.0); ALKALINE PHOSPHATASE 80 U/L (46-116); ANION GAP 5 mmol/L (8-16); ASPARTATE AMINOTRANSFERASE 11 U/L (15-37); BILIRUBIN,TOTAL 0.3 mg/dL (0.1-1.0); CALCIUM, TOTAL 9.1 mg/dL (8.8-10.5); CARBON DIOXIDE 29 mmol/L (22-29); CHLORIDE 104 mmol/L (98-107); CHOL/HDL RATIO 3.6 (4.2-7.3); CHOLESTEROL 163 mg/dL (131-200); CREATININE 0.85 mg/dL (0.60-1.30); FREE T4 (FREE THYROXINE) 0.88 ng/dL (0.76-1.46); GLOMERULAR FILTR. RATE CALC > 60 mL/min (>60); GLUCOSE,RANDOM 92 mg/dL (70-110); HDL CHOLESTEROL 45 mg/dL (40-60); LDL CHOL (CALC.) 95 mg/dL (0-130); POTASSIUM 4.3 mmol/L (3.5-5.1); SODIUM SERUM 138 mmol/L (136-145); THYROID STIMULATING HORMONE 0.71 uIU/mL (0.36-3.74); TOTAL PROTEIN, SERUM 7.1 g/dL (6.4-8.2); TRIGLYCERIDES 114 mg/dL (15-150); UREA NITROGEN, BLOOD 12 mg/dL (7-18)
[2018-06-02] MEDS: METHADONE HCL 10 MG/5 ML SOLUTION ORAL.SYG PO SCH (09:26)
[2018-06-02 09:30] LABS: AMPHET/METH SCREEN,URINE NEGATIVE (NEGATIVE); BARBITURATE SCREEN, URINE NEGATIVE (NEGATIVE); BENZODIAZEPINES SCREEN,URINE NEGATIVE (NEGATIVE); CANNABINOID SCREEN,URINE NEGATIVE (NEGATIVE); COCAINE SCREEN,URINE NEGATIVE (NEGATIVE); METHADONE SCREEN, URINE POSITIVE (NEGATIVE); OPIATE SCREEN,URINE NEGATIVE (NEGATIVE); PHENCYCLIDINE SCREEN,URINE NEGATIVE (NEGATIVE)
[2018-06-02 09:32] LABS: APPEARANCE,URINE TURBID (CLEAR); BILIRUBIN,URINE NEGATIVE (NEGATIVE); GLUCOSE, URINE (UA) NEGATIVE (NEGATIVE); KETONES,URINE NEGATIVE (NEGATIVE); LEUKOCYTE ESTERASE ,URINE NEGATIVE (NEGATIVE); NITRATE,URINE NEGATIVE (NEGATIVE); OCCULT BLOOD,URINE NEGATIVE (NEGATIVE); PROTEIN,URINE NEGATIVE (NEGATIVE); UROBILINOGEN,URINE 0.2 mg/dL (<=1.0)
[2018-06-02] MEDS: LORazepam 2 MG TABLET PO PRN ×2 (12:07→17:22)
[2018-06-02 17:45] VITALS: BP 96/58
[2018-06-02] MEDS: PRAZOSIN HCL 1 MG CAPSULE PO SCH (20:52)
[2018-06-02] MEDS: OLANZapine 10 MG TABLET PO SCH (20:52)
[2018-06-03 02:42] VITALS: BP 118/62
[2018-06-03] MEDS: FERROUS SULFATE 325 MG EC TABLET PO SCH ×3 (06:31→16:02)
[2018-06-03] MEDS: METHADONE HCL 10 MG/5 ML SOLUTION ORAL.SYG PO SCH (06:44)
[2018-06-03 08:04] VITALS: BP 108/65
[2018-06-03] MEDS: DIVALPROEX SODIUM 500 MG ER TABLET PO SCH ×2 (08:28→16:03)
[2018-06-03] MEDS: GABAPENTIN 300 MG CAPSULE PO SCH ×3 (08:28→16:02)
[2018-06-03] MEDS: PARoxetine HCL 10 MG TABLET PO SCH (08:28)
[2018-06-03] MEDS: LORazepam 2 MG TABLET PO PRN ×3 (08:50→17:00)
[2018-06-03] MEDS: TiZANidine HCL 4 MG TABLET PO PRN (08:54)
[2018-06-03] MEDS ORDERED: GABAPENTIN 300 MG CAPSULE PO SCH (09:00)
[2018-06-03 09:54] VITALS: BP 112/62
[2018-06-03] MEDS ORDERED: HydrOXYzine PAMOATE 50 MG CAPSULE PO PRN (10:15)
[2018-06-03] MEDS ORDERED: GuaiFENesin/D-METHORPHAN [SUGAR-FREE] 200-20MG/10 ML SYRUP UDCUP PO PRN (10:15)
[2018-06-03] MEDS ORDERED: DIVA500T52 PO (14:53)
[2018-06-03 16:00] VITALS: BP 123/66
[2018-06-03] MEDS: THIAMINE HCL 100 MG TABLET PO SCH (16:02)
[2018-06-03] MEDS: ACAMPROSATE CALCIUM 333 MG DR TABLET PO SCH (16:02)
[2018-06-03] MEDS: ZOLPIDEM TARTRATE 10 MG TABLET PO PRN (20:31)
[2018-06-03] MEDS ORDERED: PRAZOSIN HCL 2 MG CAPSULE PO SCH (21:00)
[2018-06-03] MEDS ORDERED: OLANZapine 7.5 MG TABLET PO SCH (21:00)
[2018-06-04 06:25] VITALS: BP 106/62
[2018-06-04] MEDS: FERROUS SULFATE 325 MG EC TABLET PO SCH ×3 (06:42→16:21)
[2018-06-04] MEDS: METHADONE HCL 10 MG/5 ML SOLUTION ORAL.SYG PO SCH (06:42)
[2018-06-04 08:19] VITALS: BP 120/60
[2018-06-04] MEDS: DIVALPROEX SODIUM 500 MG ER TABLET PO SCH ×3 (08:26→16:21)
[2018-06-04] MEDS: FOLIC ACID 1 MG TABLET PO SCH (08:26)
[2018-06-04] MEDS: LORazepam 2 MG TABLET PO PRN ×2 (08:27→13:13)
[2018-06-04] MEDS: ATOMOXETINE HCL 40 MG CAPSULE PO SCH (08:27)
[2018-06-04] MEDS: GABAPENTIN 300 MG CAPSULE PO SCH ×3 (08:27→16:21)
[2018-06-04] MEDS: THIAMINE HCL 100 MG TABLET PO SCH ×2 (08:27→16:21)
[2018-06-04] MEDS: MULTIVITAMINS WITH MINERALS, THERAPEUTIC TABLET PO SCH (08:28)
[2018-06-04] MEDS: ACAMPROSATE CALCIUM 333 MG DR TABLET PO SCH ×3 (08:28→16:21)
[2018-06-04] MEDS: TiZANidine HCL 4 MG TABLET PO PRN (10:24)
[2018-06-04 16:15] VITALS: BP 121/72
[2018-06-04] MEDS: LORazepam 0.5 MG TABLET PO PRN (17:52)
[2018-06-04] MEDS: OLANZapine 10 MG TABLET PO SCH (20:06)
[2018-06-04] MEDS: PRAZOSIN HCL 1 MG CAPSULE PO SCH (20:27)
[2018-06-04] MEDS: ZOLPIDEM TARTRATE 10 MG TABLET PO PRN (20:28)
[2018-06-04] MEDS: PREGABALIN 25 MG CAPSULE PO SCH (20:59)
[2018-06-05 05:23] VITALS: BP 100/60
[2018-06-05] MEDS: METHADONE HCL 10 MG/5 ML SOLUTION ORAL.SYG PO SCH (06:41)
[2018-06-05] MEDS: FERROUS SULFATE 325 MG EC TABLET PO SCH ×3 (06:41→16:05)
[2018-06-05 08:28] VITALS: BP 101/63
[2018-06-05] MEDS: GABAPENTIN 300 MG CAPSULE PO SCH ×2 (09:04→12:19)
[2018-06-05] MEDS: DIVALPROEX SODIUM 500 MG ER TABLET PO SCH ×3 (09:04→16:04)
[2018-06-05] MEDS: FOLIC ACID 1 MG TABLET PO SCH (09:04)
[2018-06-05] MEDS: MULTIVITAMINS WITH MINERALS, THERAPEUTIC TABLET PO SCH (09:04)
[2018-06-05] MEDS: ACAMPROSATE CALCIUM 333 MG DR TABLET PO SCH ×3 (09:04→16:06)
[2018-06-05] MEDS: THIAMINE HCL 100 MG TABLET PO SCH ×2 (09:04→16:05)
[2018-06-05] MEDS: PREGABALIN 25 MG CAPSULE PO SCH ×3 (09:04→16:04)
[2018-06-05] MEDS: ATOMOXETINE HCL 40 MG CAPSULE PO SCH (09:05)
[2018-06-05] MEDS: NICOTINE 21 MG/24 HOUR PATCH TD SCH (09:07)
[2018-06-05] MEDS: LORazepam 0.5 MG TABLET PO PRN ×3 (09:07→14:06)
[2018-06-05] MEDS: TiZANidine HCL 4 MG TABLET PO PRN ×2 (13:12→14:07)
[2018-06-05 14:08] VITALS: BP 116/73
[2018-06-05 16:00] VITALS: BP 110/64
[2018-06-05] MEDS: GABAPENTIN 400 MG CAPSULE PO SCH (16:05)
[2018-06-05] MEDS: PRAZOSIN HCL 1 MG CAPSULE PO SCH (20:04)
[2018-06-05] MEDS: OLANZapine 10 MG TABLET PO SCH (20:04)
[2018-06-05] MEDS: ZOLPIDEM TARTRATE 10 MG TABLET PO PRN (21:10)
[2018-06-06 05:21] VITALS: BP 107/64
[2018-06-06 06:00] VITALS: BP 112/69
[2018-06-06] MEDS: FERROUS SULFATE 325 MG EC TABLET PO SCH ×3 (06:04→17:20)
[2018-06-06] MEDS: METHADONE HCL 10 MG/5 ML SOLUTION ORAL.SYG PO SCH (06:06)
[2018-06-06] MEDS: DIVALPROEX SODIUM 500 MG ER TABLET PO SCH ×3 (08:40→17:21)
[2018-06-06] MEDS: FOLIC ACID 1 MG TABLET PO SCH (08:40)
[2018-06-06] MEDS: GABAPENTIN 400 MG CAPSULE PO SCH ×3 (08:40→17:20)
[2018-06-06] MEDS: THIAMINE HCL 100 MG TABLET PO SCH ×2 (08:41→17:21)
[2018-06-06] MEDS: PREGABALIN 25 MG CAPSULE PO SCH ×2 (08:41→13:00)
[2018-06-06] MEDS: MULTIVITAMINS WITH MINERALS, THERAPEUTIC TABLET PO SCH (08:41)
[2018-06-06] MEDS: ACAMPROSATE CALCIUM 333 MG DR TABLET PO SCH ×3 (08:41→17:23)
[2018-06-06] MEDS: ATOMOXETINE HCL 10 MG CAPSULE PO SCH (08:43)
[2018-06-06] MEDS: NICOTINE 21 MG/24 HOUR PATCH TD SCH (08:43)
[2018-06-06 08:47] VITALS: BP 113/64
[2018-06-06 11:47] VITALS: BP 116/80
[2018-06-06] MEDS: TiZANidine HCL 4 MG TABLET PO PRN ×2 (11:49→17:22)
[2018-06-06] MEDS: LORazepam 0.5 MG TABLET PO PRN ×2 (13:00→17:21)
[2018-06-06 16:00] VITALS: BP 102/68
[2018-06-06] MEDS: PREGABALIN 50 MG CAPSULE PO SCH (17:54)
[2018-06-06] MEDS: OLANZapine 10 MG TABLET PO SCH (21:35)
[2018-06-06] MEDS: PRAZOSIN HCL 1 MG CAPSULE PO SCH (21:35)
[2018-06-06] MEDS: ZOLPIDEM TARTRATE 10 MG TABLET PO PRN (21:35)
[2018-06-07 02:05] VITALS: BP 112/64
[2018-06-07 06:00] VITALS: BP 115/78
[2018-06-07] MEDS: METHADONE HCL 10 MG/5 ML SOLUTION ORAL.SYG PO SCH (06:23)
[2018-06-07] MEDS: FERROUS SULFATE 325 MG EC TABLET PO SCH ×3 (07:19→16:02)
[2018-06-07] MEDS: PREGABALIN 50 MG CAPSULE PO SCH ×3 (09:00→16:02)
[2018-06-07 09:15] VITALS: BP 100/62
[2018-06-07] MEDS: DIVALPROEX SODIUM 500 MG ER TABLET PO SCH ×3 (09:33→16:02)
[2018-06-07] MEDS: ACAMPROSATE CALCIUM 333 MG DR TABLET PO SCH ×3 (09:33→16:02)
[2018-06-07] MEDS: MULTIVITAMINS WITH MINERALS, THERAPEUTIC TABLET PO SCH (09:34)
[2018-06-07] MEDS: GABAPENTIN 400 MG CAPSULE PO SCH ×3 (09:34→16:02)
[2018-06-07] MEDS: FOLIC ACID 1 MG TABLET PO SCH (09:34)
[2018-06-07] MEDS: ATOMOXETINE HCL 10 MG CAPSULE PO SCH (09:35)
[2018-06-07] MEDS: THIAMINE HCL 100 MG TABLET PO SCH ×2 (09:35→16:02)
[2018-06-07] MEDS: NICOTINE 21 MG/24 HOUR PATCH TD SCH (09:36)
[2018-06-07] MEDS: LORazepam 0.5 MG TABLET PO PRN ×2 (11:04→16:39)
[2018-06-07 13:34] VITALS: BP 110/68
[2018-06-07] MEDS: TiZANidine HCL 4 MG TABLET PO PRN (13:36)
[2018-06-07 16:41] VITALS: BP 122/93
[2018-06-07 20:00] VITALS: BP 125/78
[2018-06-07] MEDS: PRAZOSIN HCL 1 MG CAPSULE PO SCH (20:03)
[2018-06-07] MEDS: OLANZapine 10 MG TABLET PO SCH (20:03)
[2018-06-07] MEDS: ZOLPIDEM TARTRATE 10 MG TABLET PO PRN (20:31)
[2018-06-08 06:22] VITALS: BP 102/67
[2018-06-08] MEDS: FERROUS SULFATE 325 MG EC TABLET PO SCH ×3 (07:17→17:38)
[2018-06-08] MEDS: METHADONE HCL 10 MG/5 ML SOLUTION ORAL.SYG PO SCH (07:18)
[2018-06-08 08:40] VITALS: BP 104/88
[2018-06-08] MEDS: DIVALPROEX SODIUM 500 MG ER TABLET PO SCH ×3 (09:14→17:38)
[2018-06-08] MEDS: ACAMPROSATE CALCIUM 333 MG DR TABLET PO SCH ×3 (09:15→17:38)
[2018-06-08] MEDS: GABAPENTIN 400 MG CAPSULE PO SCH ×3 (09:15→17:38)
[2018-06-08] MEDS: MULTIVITAMINS WITH MINERALS, THERAPEUTIC TABLET PO SCH (09:15)
[2018-06-08] MEDS: ATOMOXETINE HCL 40 MG CAPSULE PO SCH (09:16)
[2018-06-08] MEDS: PREGABALIN 50 MG CAPSULE PO SCH ×3 (09:16→17:38)
[2018-06-08] MEDS: THIAMINE HCL 100 MG TABLET PO SCH ×2 (09:16→17:38)
[2018-06-08] MEDS: FOLIC ACID 1 MG TABLET PO SCH (09:16)
[2018-06-08] MEDS: NICOTINE 21 MG/24 HOUR PATCH TD SCH (09:17)
[2018-06-08 11:35] VITALS: BP 111/92
[2018-06-08] MEDS: TiZANidine HCL 4 MG TABLET PO PRN (11:36)
[2018-06-08] MEDS: LORazepam 0.5 MG TABLET PO PRN ×2 (11:42→20:48)
[2018-06-08 16:23] VITALS: BP 117/69
[2018-06-08] MEDS: ZOLPIDEM TARTRATE 10 MG TABLET PO PRN (20:05)
[2018-06-08] MEDS: OLANZapine 10 MG TABLET PO SCH (20:05)
[2018-06-08] MEDS: PRAZOSIN HCL 1 MG CAPSULE PO SCH (20:06)
[2018-06-08] MEDS: FluPHENAZine HCL 5 MG TABLET PO PRN (22:03)
[2018-06-09 05:52] VITALS: BP 112/67
[2018-06-09] MEDS: METHADONE HCL 10 MG/5 ML SOLUTION ORAL.SYG PO SCH (05:54)
[2018-06-09] MEDS: FERROUS SULFATE 325 MG EC TABLET PO SCH ×3 (06:53→16:36)
[2018-06-09 08:17] VITALS: BP_SYST 119; BP_SYST 142; BP_DIAS 67; BP_DIAS 78
[2018-06-09] MEDS: ACAMPROSATE CALCIUM 333 MG DR TABLET PO SCH ×3 (08:23→16:33)
[2018-06-09] MEDS: PREGABALIN 50 MG CAPSULE PO SCH ×3 (08:23→16:34)
[2018-06-09] MEDS: FOLIC ACID 1 MG TABLET PO SCH (08:23)
[2018-06-09] MEDS: GABAPENTIN 400 MG CAPSULE PO SCH ×3 (08:23→16:34)
[2018-06-09] MEDS: NICOTINE 21 MG/24 HOUR PATCH TD SCH (08:24)
[2018-06-09] MEDS: MULTIVITAMINS WITH MINERALS, THERAPEUTIC TABLET PO SCH (08:24)
[2018-06-09] MEDS: ATOMOXETINE HCL 40 MG CAPSULE PO SCH (08:24)
[2018-06-09] MEDS: THIAMINE HCL 100 MG TABLET PO SCH ×2 (08:24→16:36)
[2018-06-09] MEDS: DIVALPROEX SODIUM 500 MG ER TABLET PO SCH ×3 (08:24→16:33)
[2018-06-09] MEDS: FluPHENAZine HCL 5 MG TABLET PO PRN ×3 (12:04→21:08)
[2018-06-09] MEDS: LORazepam 0.5 MG TABLET PO PRN ×2 (12:05→17:03)
[2018-06-09 12:20] VITALS: BP 114/65
[2018-06-09] MEDS: TiZANidine HCL 4 MG TABLET PO PRN (12:23)
[2018-06-09 16:42] VITALS: BP 110/73
[2018-06-09] MEDS: PRAZOSIN HCL 1 MG CAPSULE PO SCH (20:01)
[2018-06-09] MEDS: OLANZapine 10 MG TABLET PO SCH (20:01)
[2018-06-09] MEDS: ZOLPIDEM TARTRATE 10 MG TABLET PO PRN (20:33)
[2018-06-10 03:55] VITALS: BP 101/69
[2018-06-10] MEDS: METHADONE HCL 10 MG/5 ML SOLUTION ORAL.SYG PO SCH (06:50)
[2018-06-10] MEDS: FERROUS SULFATE 325 MG EC TABLET PO SCH ×3 (06:51→16:14)
[2018-06-10 08:32] VITALS: BP 109/72
[2018-06-10] MEDS: ATOMOXETINE HCL 40 MG CAPSULE PO SCH (10:34)
[2018-06-10] MEDS: GABAPENTIN 400 MG CAPSULE PO SCH ×3 (10:35→16:14)
[2018-06-10] MEDS: DIVALPROEX SODIUM 500 MG ER TABLET PO SCH ×3 (10:35→16:15)
[2018-06-10] MEDS: PREGABALIN 50 MG CAPSULE PO SCH ×3 (10:35→16:14)
[2018-06-10] MEDS: FOLIC ACID 1 MG TABLET PO SCH (10:35)
[2018-06-10] MEDS: MULTIVITAMINS WITH MINERALS, THERAPEUTIC TABLET PO SCH (10:35)
[2018-06-10] MEDS: THIAMINE HCL 100 MG TABLET PO SCH ×2 (10:35→16:15)
[2018-06-10] MEDS: ACAMPROSATE CALCIUM 333 MG DR TABLET PO SCH ×3 (10:35→16:15)
[2018-06-10] MEDS: NICOTINE 21 MG/24 HOUR PATCH TD SCH (10:37)
[2018-06-10 16:47] VITALS: BP 112/73
[2018-06-10] MEDS: FluPHENAZine HCL 5 MG TABLET PO PRN (18:12)
[2018-06-10] MEDS: OLANZapine 10 MG TABLET PO SCH (21:13)
[2018-06-10] MEDS: PRAZOSIN HCL 1 MG CAPSULE PO SCH (21:13)
[2018-06-10] MEDS: ZOLPIDEM TARTRATE 10 MG TABLET PO PRN (21:30)
[2018-06-11 05:55] VITALS: BP 116/82
[2018-06-11] MEDS: METHADONE HCL 10 MG/5 ML SOLUTION ORAL.SYG PO SCH (06:14)
[2018-06-11] MEDS: FERROUS SULFATE 325 MG EC TABLET PO SCH ×3 (06:47→16:12)
[2018-06-11 08:17] VITALS: BP 100/67
[2018-06-11] MEDS: THIAMINE HCL 100 MG TABLET PO SCH ×2 (08:55→16:12)
[2018-06-11] MEDS: DIVALPROEX SODIUM 500 MG ER TABLET PO SCH ×3 (08:55→16:12)
[2018-06-11] MEDS: GABAPENTIN 400 MG CAPSULE PO SCH ×3 (08:55→16:12)
[2018-06-11] MEDS: ACAMPROSATE CALCIUM 333 MG DR TABLET PO SCH ×3 (08:55→16:12)
[2018-06-11] MEDS: MULTIVITAMINS WITH MINERALS, THERAPEUTIC TABLET PO SCH (08:56)
[2018-06-11] MEDS: ATOMOXETINE HCL 40 MG CAPSULE PO SCH (08:56)
[2018-06-11] MEDS: FOLIC ACID 1 MG TABLET PO SCH (08:56)
[2018-06-11] MEDS: NICOTINE 21 MG/24 HOUR PATCH TD SCH (08:57)
[2018-06-11 16:15] VITALS: BP 120/75
[2018-06-11] MEDS: LORazepam 0.5 MG TABLET PO PRN (17:53)
[2018-06-11 20:25] VITALS: BP 116/78
[2018-06-11] MEDS: OLANZapine 10 MG TABLET PO SCH (20:29)
[2018-06-11] MEDS: PRAZOSIN HCL 1 MG CAPSULE PO SCH (20:29)
[2018-06-12 02:13] VITALS: BP 109/69
[2018-06-12] MEDS: METHADONE HCL 10 MG/5 ML SOLUTION ORAL.SYG PO SCH (06:34)
[2018-06-12] MEDS: FERROUS SULFATE 325 MG EC TABLET PO SCH ×3 (06:49→16:32)
[2018-06-12] MEDS: ACAMPROSATE CALCIUM 333 MG DR TABLET PO SCH ×3 (09:04→16:32)
[2018-06-12] MEDS: MULTIVITAMINS WITH MINERALS, THERAPEUTIC TABLET PO SCH (09:04)
[2018-06-12] MEDS: GABAPENTIN 400 MG CAPSULE PO SCH ×3 (09:04→16:32)
[2018-06-12] MEDS: FOLIC ACID 1 MG TABLET PO SCH (09:04)
[2018-06-12] MEDS: ATOMOXETINE HCL 40 MG CAPSULE PO SCH (09:04)
[2018-06-12] MEDS: THIAMINE HCL 100 MG TABLET PO SCH ×2 (09:04→16:32)
[2018-06-12] MEDS: DIVALPROEX SODIUM 500 MG ER TABLET PO SCH ×3 (09:04→16:32)
[2018-06-12] MEDS: NICOTINE 21 MG/24 HOUR PATCH TD SCH (09:05)
[2018-06-12 09:41] VITALS: BP 116/65
[2018-06-12] MEDS: LORazepam 0.5 MG TABLET PO PRN ×2 (09:53→15:15)
[2018-06-12] MEDS: TiZANidine HCL 4 MG TABLET PO PRN (14:58)
[2018-06-12 16:29] VITALS: BP 124/76
[2018-06-12] MEDS: PRAZOSIN HCL 1 MG CAPSULE PO SCH (20:21)
[2018-06-12] MEDS: OLANZapine 10 MG TABLET PO SCH (20:22)
[2018-06-12] MEDS: ZOLPIDEM TARTRATE 10 MG TABLET PO PRN (20:22)
[2018-06-13] MEDS ORDERED: DIVA250T45 PO (01:16)
[2018-06-13] MEDS ORDERED: ACAM333T7 PO (01:16)
[2018-06-13] MEDS ORDERED: PRAZ1 PO (01:16)
[2018-06-13] MEDS ORDERED: FERR-89 PO (01:16)
[2018-06-13] MEDS ORDERED: FOLI1 PO (01:16)
[2018-06-13] MEDS ORDERED: METH10SO PO (01:16)
[2018-06-13] MEDS ORDERED: GABA-533 PO (01:16)
[2018-06-13] MEDS ORDERED: MULT-1239 PO (01:16)
[2018-06-13] MEDS ORDERED: THIA100T67 PO (01:16)
[2018-06-13] MEDS ORDERED: OLAN10TA3 PO (01:16)
[2018-06-13] MEDS ORDERED: NICO-704 TD (01:16)
[2018-06-13] MEDS ORDERED: ATOM40 PO (01:16)
[2018-06-13 05:53] VITALS: BP 108/62
[2018-06-13] MEDS: METHADONE HCL 10 MG/5 ML SOLUTION ORAL.SYG PO SCH (06:16)
[2018-06-13] MEDS: FERROUS SULFATE 325 MG EC TABLET PO SCH (06:40)
[2018-06-13] MEDS: DIVALPROEX SODIUM 500 MG ER TABLET PO SCH (08:57)
[2018-06-13] MEDS: GABAPENTIN 400 MG CAPSULE PO SCH (08:57)
[2018-06-13] MEDS: MULTIVITAMINS WITH MINERALS, THERAPEUTIC TABLET PO SCH (08:57)
[2018-06-13] MEDS: ACAMPROSATE CALCIUM 333 MG DR TABLET PO SCH (08:57)
[2018-06-13] MEDS: FOLIC ACID 1 MG TABLET PO SCH (08:57)
[2018-06-13] MEDS: THIAMINE HCL 100 MG TABLET PO SCH (08:57)
[2018-06-13] MEDS: ATOMOXETINE HCL 40 MG CAPSULE PO SCH (08:58)
[2018-06-13] MEDS: NICOTINE 21 MG/24 HOUR PATCH TD SCH (08:58)
== END 2018-06-13 09:30 | disposition home or self-care (01) | DRG 750 ==
LOC: B3A 14:01 → B2S 06-03 16:40
PROVIDERS: ADMIT Psychiatry & Neurology Psychiatry; ATTEND Psychiatry & Neurology Psychiatry
PROC: 3E0234Z Introduction of Serum, Toxoid and Vaccine into Muscle, Percutaneous Approach (ICD-10-PCS; principal; 2018-06-01)
PROC: 3E02340 Introduction of Influenza Vaccine into Muscle, Percutaneous Approach (ICD-10-PCS; 2018-06-01)
DX: F25.0 Schizoaffective disorder, bipolar type (principal); G40.909 Epilepsy, unspecified, not intractable, without status epilepticus; R45.851 Suicidal ideations; F11.90 Opioid use, unspecified, uncomplicated; F15.90 Other stimulant use, unspecified, uncomplicated; F41.9 Anxiety disorder, unspecified; J45.909 Unspecified asthma, uncomplicated; F19.10 Other psychoactive substance abuse, uncomplicated; K21.9 Gastro-esophageal reflux disease without esophagitis; Z91.013 Allergy to seafood; Z91.19 Patient's noncompliance with other medical treatment and regimen; Z88.8 Allergy status to other drugs, medicaments and biological substances; Z23 Encounter for immunization
CPT/HCPCS: 80307; 83036; 84439; 84443; 90686; 90732

== ENCOUNTER 2019-01-13 11:45 | Inpatient (IN) | payer MEDICAID, OTHER ==
[~2019-01-13] VITALS: Ht 177.8 cm; Wt 103.4 kg
[~2019-01-13 11:45] MED LIST changes: -ATOM25 PO; +ATOM40 PO; -GABA-531 PO; +GABA-533 PO; -PARO10TA89 PO; -TIZA4TAB4 PO
[2019-01-13] MEDS ORDERED: LORazepam 2 MG/ML VIAL IM ONE ×2 (13:00→14:45)
[2019-01-13 13:42] LABS: BASOPHILS % (AUTO) 0.9 % (0.0-2.0); EOSINOPHILS % (AUTO) 4.7 % (1.0-6.0); HEMATOCRIT 41.7 % (41-53); HEMOGLOBIN 13.9 g/dL (13.5-17.5); LYMPHOCYTES # (AUTO) 1.7 K/uL (1.0-4.8); LYMPHOCYTES % (AUTO) 28.5 % (22.0-44.0); MEAN CORPUSCULAR HEMOGLOBIN 31.4 pg (26.0-34.0); MEAN CORPUSCULAR HGB CONC 33.3 G/dL (31.0-37.0); MEAN CORPUSCULAR VOLUME 94 fL (80-100); MONOCYTES # (AUTO) 0.5 K/uL (0.1-1.0); MONOCYTES % (AUTO) 8.4 % (2.0-9.0); NEUTROPHILS # (AUTO) 3.4 K/uL (1.8-7.7); NEUTROPHILS % (AUTO) 57.5 % (40.0-70.0); PLATELET COUNT (AUTO) 187 K/uL (150-450); RED BLOOD CELL COUNT(AUTO) 4.43 MIL/uL (4.50-5.90)
[2019-01-13 13:48] LABS: ANION GAP 13 mmol/L (8-16); CALCIUM, TOTAL 8.8 mg/dL (8.8-10.5); CARBON DIOXIDE 24 mmol/L (22-29); CHLORIDE 104 mmol/L (98-107); CREATININE 0.87 mg/dL (0.60-1.30); GLOMERULAR FILTR. RATE CALC > 60 mL/min (>60); GLUCOSE,RANDOM 106 mg/dL (70-110); POTASSIUM 3.7 mmol/L (3.5-5.1); SODIUM SERUM 141 mmol/L (136-145); UREA NITROGEN, BLOOD 7 mg/dL (7-18)
[2019-01-13 13:54] LABS: ALANINE AMINOTRANSFERASE 55 U/L (12-78); ALBUMIN 3.5 g/dL (3.4-5.0); ALKALINE PHOSPHATASE 59 U/L (46-116); ASPARTATE AMINOTRANSFERASE 36 U/L (15-37); BILIRUBIN,TOTAL 0.8 mg/dL (0.1-1.0); VALPROIC ACID 82 mcg/mL (50-100)
[2019-01-13] MEDS ORDERED: FluPHENAZine HCL 2.5 MG/ML INJ IM ONE (14:45)
[2019-01-13] MEDS ORDERED: MAGNESIUM HYDROXIDE SUSPENSION 30 ML UDCUP PO PRN (15:15)
[2019-01-13] MEDS ORDERED: LORazepam 2 MG TABLET PO PRN (15:15)
[2019-01-13] MEDS ORDERED: LOPERAMIDE HCL 2 MG CAPSULE PO PRN (15:15)
[2019-01-13] MEDS ORDERED: MAG HYDROX/AL HYDROX/SIMETH ES 30 ML SUSPENSION UDCUP PO PRN (15:15)
[2019-01-13] MEDS ORDERED: ACETAMINOPHEN 325 MG TABLET PO PRN ×2 (15:15→18:15)
[2019-01-13] MEDS: ACAMPROSATE CALCIUM 333 MG DR TABLET PO SCH (15:35)
[2019-01-13] MEDS ORDERED: GABAPENTIN 300 MG CAPSULE PO SCH (16:00)
[2019-01-13 16:50] VITALS: BP 105/68
[2019-01-13] MEDS: DIVALPROEX SODIUM 500 MG ER TABLET PO SCH (21:00)
[2019-01-13] MEDS: OLANZapine 5 MG RAPDIS TABLET PO SCH (21:00)
[2019-01-14 08:05] VITALS: BP 130/93
[2019-01-14] MEDS: ACAMPROSATE CALCIUM 333 MG DR TABLET PO SCH ×3 (09:05→16:38)
[2019-01-14] MEDS: METHADONE HCL 10 MG TABLET PO SCH (09:48)
[2019-01-14] MEDS: GABAPENTIN 300 MG CAPSULE PO SCH (20:19)
[2019-01-14] MEDS: OLANZapine 5 MG RAPDIS TABLET PO SCH (20:19)
[2019-01-14] MEDS: DIVALPROEX SODIUM 500 MG ER TABLET PO SCH (20:19)
[2019-01-14 22:22] VITALS: BP 133/82
[2019-01-15] MEDS: ACAMPROSATE CALCIUM 333 MG DR TABLET PO SCH ×3 (08:32→17:28)
[2019-01-15] MEDS: OLANZapine 5 MG RAPDIS TABLET PO PRN (08:32)
[2019-01-15] MEDS: METHADONE HCL 10 MG TABLET PO SCH (08:32)
[2019-01-15] MEDS: GABAPENTIN 300 MG CAPSULE PO SCH ×4 (08:32→20:57)
[2019-01-15 08:36] VITALS: BP 110/78
[2019-01-15] MEDS ORDERED: GuaiFENesin/D-METHORPHAN [SUGAR-FREE] 200-20MG/10 ML SYRUP UDCUP PO PRN (13:00)
[2019-01-15] MEDS ORDERED: HydrOXYzine PAMOATE 50 MG CAPSULE PO PRN (13:00)
[2019-01-15] MEDS: THIAMINE HCL 100 MG TABLET PO SCH (17:27)
[2019-01-15 18:22] VITALS: BP 141/86
[2019-01-15] MEDS: OLANZapine 10 MG RAPDIS TABLET PO SCH (20:57)
[2019-01-15] MEDS: DIVALPROEX SODIUM 500 MG ER TABLET PO SCH (20:57)
[2019-01-16 08:45] VITALS: BP 133/81
[2019-01-16] MEDS: MULTIVITAMINS WITH MINERALS, THERAPEUTIC TABLET PO SCH (08:59)
[2019-01-16] MEDS: ACAMPROSATE CALCIUM 333 MG DR TABLET PO SCH ×3 (09:00→16:43)
[2019-01-16] MEDS: METHADONE HCL 10 MG TABLET PO SCH (09:00)
[2019-01-16] MEDS: GABAPENTIN 300 MG CAPSULE PO SCH ×3 (09:00→16:42)
[2019-01-16] MEDS: THIAMINE HCL 100 MG TABLET PO SCH ×2 (09:00→16:42)
[2019-01-16] MEDS: FOLIC ACID 1 MG TABLET PO SCH (09:00)
[2019-01-16] MEDS: GABAPENTIN 400 MG CAPSULE PO SCH (20:38)
[2019-01-16] MEDS: DIVALPROEX SODIUM 500 MG ER TABLET PO SCH (20:38)
[2019-01-16] MEDS: OLANZapine 10 MG RAPDIS TABLET PO SCH (20:38)
[2019-01-16] MEDS: ZOLPIDEM TARTRATE 10 MG TABLET PO PRN (20:38)
[2019-01-17 08:13] VITALS: BP 124/80
[2019-01-17] MEDS: ACAMPROSATE CALCIUM 333 MG DR TABLET PO SCH ×3 (08:56→16:18)
[2019-01-17] MEDS: MULTIVITAMINS WITH MINERALS, THERAPEUTIC TABLET PO SCH (08:57)
[2019-01-17] MEDS: THIAMINE HCL 100 MG TABLET PO SCH ×2 (08:57→16:18)
[2019-01-17] MEDS: METHADONE HCL 10 MG TABLET PO SCH (08:57)
[2019-01-17] MEDS: FOLIC ACID 1 MG TABLET PO SCH (08:57)
[2019-01-17] MEDS: GABAPENTIN 400 MG CAPSULE PO SCH (08:57)
[2019-01-17] MEDS: GABAPENTIN 300 MG CAPSULE PO SCH ×2 (12:37→16:18)
[2019-01-17 16:53] VITALS: BP 122/91
[2019-01-17] MEDS: OLANZapine 10 MG RAPDIS TABLET PO SCH (20:05)
[2019-01-17] MEDS: ZOLPIDEM TARTRATE 10 MG TABLET PO PRN (20:06)
[2019-01-17] MEDS: DIVALPROEX SODIUM 500 MG ER TABLET PO SCH (20:06)
[2019-01-18] MEDS: METHADONE HCL 10 MG TABLET PO SCH (09:13)
[2019-01-18] MEDS: MULTIVITAMINS WITH MINERALS, THERAPEUTIC TABLET PO SCH (09:14)
[2019-01-18] MEDS: ACAMPROSATE CALCIUM 333 MG DR TABLET PO SCH ×3 (09:14→16:20)
[2019-01-18] MEDS: GABAPENTIN 300 MG CAPSULE PO SCH ×3 (09:14→16:20)
[2019-01-18] MEDS: THIAMINE HCL 100 MG TABLET PO SCH ×2 (09:14→16:21)
[2019-01-18] MEDS: FOLIC ACID 1 MG TABLET PO SCH (09:14)
[2019-01-18 10:31] VITALS: BP 124/88
[2019-01-18 18:03] VITALS: BP 119/79
[2019-01-18] MEDS: ZOLPIDEM TARTRATE 10 MG TABLET PO PRN (20:02)
[2019-01-18] MEDS: DIVALPROEX SODIUM 500 MG ER TABLET PO SCH (20:02)
[2019-01-18] MEDS: OLANZapine 10 MG RAPDIS TABLET PO SCH (20:02)
[2019-01-19] MEDS: METHADONE HCL 10 MG TABLET PO SCH (08:58)
[2019-01-19 08:59] VITALS: BP 116/72
[2019-01-19] MEDS: FOLIC ACID 1 MG TABLET PO SCH (08:59)
[2019-01-19] MEDS: MULTIVITAMINS WITH MINERALS, THERAPEUTIC TABLET PO SCH (08:59)
[2019-01-19] MEDS: GABAPENTIN 300 MG CAPSULE PO SCH ×3 (08:59→16:07)
[2019-01-19] MEDS: THIAMINE HCL 100 MG TABLET PO SCH ×2 (08:59→16:07)
[2019-01-19] MEDS: ACAMPROSATE CALCIUM 333 MG DR TABLET PO SCH ×3 (09:00→16:07)
[2019-01-19 18:43] VITALS: BP 123/70
[2019-01-19] MEDS: ZOLPIDEM TARTRATE 10 MG TABLET PO PRN (20:17)
[2019-01-19] MEDS: DIVALPROEX SODIUM 500 MG ER TABLET PO SCH (22:35)
[2019-01-19] MEDS: OLANZapine 10 MG RAPDIS TABLET PO SCH (22:35)
[2019-01-20] MEDS: THIAMINE HCL 100 MG TABLET PO SCH ×2 (08:33→16:02)
[2019-01-20] MEDS: GABAPENTIN 300 MG CAPSULE PO SCH ×3 (08:34→16:02)
[2019-01-20] MEDS: FOLIC ACID 1 MG TABLET PO SCH (08:34)
[2019-01-20] MEDS: ACAMPROSATE CALCIUM 333 MG DR TABLET PO SCH ×3 (08:34→16:02)
[2019-01-20] MEDS: MULTIVITAMINS WITH MINERALS, THERAPEUTIC TABLET PO SCH (08:34)
[2019-01-20] MEDS: METHADONE HCL 10 MG TABLET PO SCH (08:34)
[2019-01-20 08:44] VITALS: BP 114/79
[2019-01-20] MEDS: OLANZapine 10 MG RAPDIS TABLET PO SCH (20:04)
[2019-01-20] MEDS: ZOLPIDEM TARTRATE 10 MG TABLET PO PRN (20:04)
[2019-01-20] MEDS: DIVALPROEX SODIUM 500 MG ER TABLET PO SCH (20:04)
[2019-01-20 21:08] VITALS: BP 120/72
[2019-01-21 09:33] VITALS: BP 100/63
[2019-01-21] MEDS: ACAMPROSATE CALCIUM 333 MG DR TABLET PO SCH ×3 (10:07→17:10)
[2019-01-21] MEDS: FOLIC ACID 1 MG TABLET PO SCH (10:07)
[2019-01-21] MEDS: METHADONE HCL 10 MG TABLET PO SCH (10:08)
[2019-01-21] MEDS: MULTIVITAMINS WITH MINERALS, THERAPEUTIC TABLET PO SCH (10:08)
[2019-01-21] MEDS: GABAPENTIN 300 MG CAPSULE PO SCH ×2 (10:08→13:27)
[2019-01-21] MEDS: THIAMINE HCL 100 MG TABLET PO SCH ×2 (10:08→17:10)
[2019-01-21] MEDS: GABAPENTIN 400 MG CAPSULE PO SCH (17:10)
[2019-01-21 17:38] VITALS: BP 118/76
[2019-01-21] MEDS: DIVALPROEX SODIUM 500 MG ER TABLET PO SCH (20:05)
[2019-01-21] MEDS: OLANZapine 10 MG RAPDIS TABLET PO SCH (20:05)
[2019-01-21] MEDS: ZOLPIDEM TARTRATE 10 MG TABLET PO PRN (20:05)
[2019-01-22] MEDS: FOLIC ACID 1 MG TABLET PO SCH (09:26)
[2019-01-22] MEDS: ACAMPROSATE CALCIUM 333 MG DR TABLET PO SCH ×3 (09:26→16:23)
[2019-01-22] MEDS: OLANZapine 5 MG RAPDIS TABLET PO PRN (09:26)
[2019-01-22] MEDS: GABAPENTIN 400 MG CAPSULE PO SCH ×3 (09:26→16:23)
[2019-01-22] MEDS: METHADONE HCL 10 MG TABLET PO SCH (09:26)
[2019-01-22] MEDS: THIAMINE HCL 100 MG TABLET PO SCH ×2 (09:28→16:23)
[2019-01-22] MEDS: MULTIVITAMINS WITH MINERALS, THERAPEUTIC TABLET PO SCH (09:28)
[2019-01-22 09:58] VITALS: BP 115/75
[2019-01-22] MEDS: TiZANidine HCL 4 MG TABLET PO PRN ×2 (16:23→22:30)
[2019-01-22 17:31] VITALS: BP 114/69
[2019-01-22] MEDS: DIVALPROEX SODIUM 500 MG ER TABLET PO SCH (20:30)
[2019-01-22] MEDS: OLANZapine 10 MG RAPDIS TABLET PO SCH (20:30)
[2019-01-22] MEDS: ZOLPIDEM TARTRATE 10 MG TABLET PO PRN (20:30)
[2019-01-23 08:18] VITALS: BP 100/69
[2019-01-23] MEDS: GABAPENTIN 400 MG CAPSULE PO SCH ×3 (08:22→16:13)
[2019-01-23] MEDS: THIAMINE HCL 100 MG TABLET PO SCH ×2 (08:22→16:13)
[2019-01-23] MEDS: ACAMPROSATE CALCIUM 333 MG DR TABLET PO SCH ×3 (08:22→16:13)
[2019-01-23] MEDS: METHADONE HCL 10 MG TABLET PO SCH (08:22)
[2019-01-23] MEDS: FOLIC ACID 1 MG TABLET PO SCH (08:22)
[2019-01-23] MEDS: MULTIVITAMINS WITH MINERALS, THERAPEUTIC TABLET PO SCH (08:22)
[2019-01-23] MEDS: TiZANidine HCL 4 MG TABLET PO PRN ×2 (12:05→18:15)
[2019-01-23 16:49] VITALS: BP 128/58
[2019-01-23] MEDS: DIVALPROEX SODIUM 500 MG ER TABLET PO SCH (20:02)
[2019-01-23] MEDS: OLANZapine 10 MG RAPDIS TABLET PO SCH (20:02)
[2019-01-23] MEDS: ZOLPIDEM TARTRATE 10 MG TABLET PO PRN (20:02)
[2019-01-24 08:19] VITALS: BP 110/60
[2019-01-24] MEDS: FOLIC ACID 1 MG TABLET PO SCH (10:41)
[2019-01-24] MEDS: THIAMINE HCL 100 MG TABLET PO SCH ×2 (10:41→16:04)
[2019-01-24] MEDS: MULTIVITAMINS WITH MINERALS, THERAPEUTIC TABLET PO SCH (10:41)
[2019-01-24] MEDS: GABAPENTIN 400 MG CAPSULE PO SCH ×3 (10:41→16:04)
[2019-01-24] MEDS: ACAMPROSATE CALCIUM 333 MG DR TABLET PO SCH ×3 (10:41→16:04)
[2019-01-24] MEDS: METHADONE HCL 10 MG TABLET PO SCH (10:58)
[2019-01-24] MEDS: TiZANidine HCL 4 MG TABLET PO PRN (16:05)
[2019-01-24 17:05] VITALS: BP 138/82
[2019-01-24] MEDS: DIVALPROEX SODIUM 500 MG ER TABLET PO SCH (20:03)
[2019-01-24] MEDS: OLANZapine 10 MG RAPDIS TABLET PO SCH (20:05)
[2019-01-24] MEDS: ESZOPICLONE 3 MG TABLET PO SCH (20:46)
[2019-01-25] MEDS: METHADONE HCL 10 MG TABLET PO SCH (08:39)
[2019-01-25] MEDS: THIAMINE HCL 100 MG TABLET PO SCH (08:40)
[2019-01-25] MEDS: FOLIC ACID 1 MG TABLET PO SCH (08:40)
[2019-01-25] MEDS: OLANZapine 5 MG RAPDIS TABLET PO PRN ×2 (08:40→13:19)
[2019-01-25] MEDS: GABAPENTIN 400 MG CAPSULE PO SCH ×3 (08:40→16:16)
[2019-01-25] MEDS: MULTIVITAMINS WITH MINERALS, THERAPEUTIC TABLET PO SCH (08:40)
[2019-01-25] MEDS: ACAMPROSATE CALCIUM 333 MG DR TABLET PO SCH ×3 (08:41→16:13)
[2019-01-25 09:45] VITALS: BP 98/60
[2019-01-25] MEDS: TiZANidine HCL 4 MG TABLET PO PRN (14:59)
[2019-01-25 19:33] VITALS: BP 114/68
[2019-01-25] MEDS: ESZOPICLONE 3 MG TABLET PO SCH (20:05)
[2019-01-25] MEDS: OLANZapine 10 MG RAPDIS TABLET PO SCH (20:05)
[2019-01-25] MEDS: DIVALPROEX SODIUM 500 MG ER TABLET PO SCH (20:06)
[2019-01-26 08:22] VITALS: BP 89/50
[2019-01-26] MEDS: GABAPENTIN 400 MG CAPSULE PO SCH ×3 (09:05→16:13)
[2019-01-26] MEDS: ACAMPROSATE CALCIUM 333 MG DR TABLET PO SCH ×3 (09:05→16:12)
[2019-01-26] MEDS: MULTIVITAMINS WITH MINERALS, THERAPEUTIC TABLET PO SCH (09:05)
[2019-01-26] MEDS: METHADONE HCL 10 MG TABLET PO SCH (12:50)
[2019-01-26 12:52] VITALS: BP 106/74
[2019-01-26] MEDS: OLANZapine 5 MG RAPDIS TABLET PO PRN (14:25)
[2019-01-26 16:27] VITALS: BP 124/79
[2019-01-26] MEDS: TiZANidine HCL 4 MG TABLET PO PRN ×2 (16:51→21:58)
[2019-01-26 18:31] VITALS: BP 129/73
[2019-01-26] MEDS: IBUPROFEN 600 MG TABLET PO PRN (18:31)
[2019-01-26] MEDS: ESZOPICLONE 3 MG TABLET PO SCH (20:00)
[2019-01-26] MEDS: DIVALPROEX SODIUM 500 MG ER TABLET PO SCH (20:01)
[2019-01-26] MEDS: OLANZapine 10 MG RAPDIS TABLET PO SCH (20:01)
[2019-01-26 21:58] VITALS: BP 122/71
[2019-01-27 07:30] VITALS: BP 127/88
[2019-01-27] MEDS ORDERED: LORazepam 2 MG/ML VIAL IM ONE (08:05)
[2019-01-27] MEDS ORDERED: DiphenhydrAMINE HCL 50 MG/ML VIAL IM ONE (08:05)
[2019-01-27] MEDS ORDERED: FluPHENAZine HCL 2.5 MG/ML INJ IM ONE (08:05)
[2019-01-27] MEDS ORDERED: LORazepam 2 MG/ML VIAL ONE (08:06)
[2019-01-27] MEDS ORDERED: DiphenhydrAMINE HCL 50 MG/ML VIAL ONE (08:07)
[2019-01-27] MEDS: MULTIVITAMINS WITH MINERALS, THERAPEUTIC TABLET PO SCH (10:10)
[2019-01-27] MEDS: GABAPENTIN 400 MG CAPSULE PO SCH ×3 (10:10→16:11)
[2019-01-27] MEDS: METHADONE HCL 10 MG TABLET PO SCH (10:10)
[2019-01-27] MEDS: ACAMPROSATE CALCIUM 333 MG DR TABLET PO SCH ×3 (10:10→16:11)
[2019-01-27 12:05] VITALS: BP 111/88
[2019-01-27] MEDS: IBUPROFEN 600 MG TABLET PO PRN (12:05)
[2019-01-27] MEDS: GABAPENTIN 300 MG CAPSULE PO SCH (17:00)
[2019-01-27] MEDS: ESZOPICLONE 3 MG TABLET PO SCH (20:34)
[2019-01-27] MEDS: DIVALPROEX SODIUM 500 MG ER TABLET PO SCH (20:35)
[2019-01-27] MEDS: OLANZapine 10 MG RAPDIS TABLET PO SCH (20:35)
[2019-01-27 23:03] VITALS: BP 119/86
[2019-01-28] MEDS: ACAMPROSATE CALCIUM 333 MG DR TABLET PO SCH ×3 (09:30→17:34)
[2019-01-28] MEDS: MULTIVITAMINS WITH MINERALS, THERAPEUTIC TABLET PO SCH (09:31)
[2019-01-28] MEDS: GABAPENTIN 300 MG CAPSULE PO SCH ×3 (09:31→17:33)
[2019-01-28] MEDS: METHADONE HCL 10 MG TABLET PO SCH (09:32)
[2019-01-28 11:09] VITALS: BP 112/60
[2019-01-28] MEDS: TiZANidine HCL 4 MG TABLET PO PRN (15:47)
[2019-01-28] MEDS: OLANZapine 5 MG RAPDIS TABLET PO PRN (15:50)
[2019-01-28 16:01] VITALS: BP 111/82
[2019-01-28] MEDS: OLANZapine 10 MG RAPDIS TABLET PO SCH (20:47)
[2019-01-28] MEDS: DIVALPROEX SODIUM 500 MG ER TABLET PO SCH (20:47)
[2019-01-28] MEDS: ESZOPICLONE 3 MG TABLET PO SCH (21:02)
[2019-01-29] MEDS: METHADONE HCL 10 MG TABLET PO SCH (08:20)
[2019-01-29] MEDS: MULTIVITAMINS WITH MINERALS, THERAPEUTIC TABLET PO SCH (08:20)
[2019-01-29] MEDS: ACAMPROSATE CALCIUM 333 MG DR TABLET PO SCH ×3 (08:20→16:07)
[2019-01-29] MEDS: GABAPENTIN 300 MG CAPSULE PO SCH ×3 (08:20→16:07)
[2019-01-29 10:09] VITALS: BP 109/85
[2019-01-29] MEDS: OLANZapine 5 MG RAPDIS TABLET PO PRN (13:36)
[2019-01-29 17:05] VITALS: BP 130/71
[2019-01-29] MEDS: IBUPROFEN 600 MG TABLET PO PRN (17:09)
[2019-01-29] MEDS: OLANZapine 10 MG RAPDIS TABLET PO SCH (21:23)
[2019-01-29] MEDS: ESZOPICLONE 3 MG TABLET PO SCH (21:23)
[2019-01-29] MEDS: DIVALPROEX SODIUM 500 MG ER TABLET PO SCH (21:23)
[2019-01-30] MEDS: ACAMPROSATE CALCIUM 333 MG DR TABLET PO SCH ×3 (08:56→16:13)
[2019-01-30] MEDS: GABAPENTIN 300 MG CAPSULE PO SCH ×3 (08:57→16:13)
[2019-01-30] MEDS: MULTIVITAMINS WITH MINERALS, THERAPEUTIC TABLET PO SCH (08:57)
[2019-01-30] MEDS: METHADONE HCL 10 MG TABLET PO SCH (08:57)
[2019-01-30 09:06] VITALS: BP 100/62
[2019-01-30] MEDS: IBUPROFEN 600 MG TABLET PO PRN (12:25)
[2019-01-30] MEDS: ESZOPICLONE 3 MG TABLET PO SCH (20:31)
[2019-01-30] MEDS: OLANZapine 10 MG RAPDIS TABLET PO SCH (20:31)
[2019-01-30] MEDS: DIVALPROEX SODIUM 500 MG ER TABLET PO SCH (20:31)
[2019-01-30 23:04] VITALS: BP 121/69
[2019-01-31] MEDS: GABAPENTIN 300 MG CAPSULE PO SCH ×2 (08:49→12:41)
[2019-01-31] MEDS: MULTIVITAMINS WITH MINERALS, THERAPEUTIC TABLET PO SCH (08:49)
[2019-01-31] MEDS: ACAMPROSATE CALCIUM 333 MG DR TABLET PO SCH ×2 (08:49→12:41)
[2019-01-31] MEDS: METHADONE HCL 10 MG TABLET PO SCH (08:50)
[2019-01-31 08:52] VITALS: BP 106/78
[2019-01-31] MEDS: IBUPROFEN 600 MG TABLET PO PRN (12:51)
[2019-01-31] MEDS: OLANZapine 5 MG RAPDIS TABLET PO PRN (12:51)
[2019-01-31] MEDS ORDERED: ACAM333T7 PO (13:05)
[2019-01-31] MEDS ORDERED: GABA-531 PO (13:05)
[2019-01-31] MEDS ORDERED: DIVA500T52 PO (13:05)
[2019-01-31] MEDS ORDERED: OLAN10TA22 PO (13:05)
[2019-01-31] MEDS ORDERED: ESZO3 PO (13:05)
[2019-01-31] MEDS ORDERED: METH10 PO (13:41)
[2019-01-31] MEDS ORDERED: MULT-1239 PO (13:41)
[2019-01-31] MEDS ORDERED: -LIDODERM PATCH NOTE- MISC SCH (21:00)
[2019-02-01] MEDS ORDERED: LIDOCAINE 5% TRANSDERMAL PATCH TD SCH (09:00)
== END 2019-01-31 14:00 | disposition home or self-care (01) | DRG 750 ==
LOC: EMS 11:45 → 3EC 16:33
PROVIDERS: ADMIT Psychiatry & Neurology Psychiatry; ATTEND Psychiatry & Neurology Psychiatry
DX: F25.0 Schizoaffective disorder, bipolar type (principal); R45.851 Suicidal ideations; F11.20 Opioid dependence, uncomplicated; D64.9 Anemia, unspecified; E66.9 Obesity, unspecified; F17.210 Nicotine dependence, cigarettes, uncomplicated; G40.909 Epilepsy, unspecified, not intractable, without status epilepticus; G89.29 Other chronic pain; J45.909 Unspecified asthma, uncomplicated; Z59.0 Homelessness; Z79.899 Other long term (current) drug therapy; Z88.2 Allergy status to sulfonamides; Z91.14 Patient's other noncompliance with medication regimen; Z68.32 Body mass index [BMI] 32.0-32.9, adult; Z88.8 Allergy status to other drugs, medicaments and biological substances; Z88.0 Allergy status to penicillin
CPT/HCPCS: 96372; 97162; 99291; G0480; J1200; J2060; J3490

== ENCOUNTER 2019-03-20 12:16 | Inpatient (IN) | payer MEDICAID ==
[~2019-03-20] VITALS: Ht 177.8 cm; Wt 88.5 kg
[2019-03-20 12:12] VITALS: BP 134/68
[~2019-03-20 12:16] MED LIST changes: -ATOM40 PO; -DIVA250T45 PO; +DIVA500T52 PO; +ESZO3 PO; -FERR-89 PO; +GABA-531 PO; -GABA-533 PO; +METH10 PO; +MULT-1239 PO; +OLAN10TA22 PO; -PRAZ1 PO
[2019-03-20 12:45] VITALS: BP 123/72
[2019-03-20] MEDS: LORazepam 2 MG TABLET PO PRN ×2 (13:38→17:43)
[2019-03-20] MEDS: GABAPENTIN 300 MG CAPSULE PO SCH ×3 (13:38→20:34)
[2019-03-20] MEDS ORDERED: HydrOXYzine PAMOATE 50 MG CAPSULE PO PRN (13:45)
[2019-03-20] MEDS ORDERED: GuaiFENesin/D-METHORPHAN [SUGAR-FREE] 200-20MG/10 ML SYRUP UDCUP PO PRN (13:45)
[2019-03-20] MEDS ORDERED: LOPERAMIDE HCL 2 MG CAPSULE PO PRN (13:45)
[2019-03-20] MEDS ORDERED: MAGNESIUM HYDROXIDE SUSPENSION 30 ML UDCUP PO PRN (13:45)
[2019-03-20] MEDS ORDERED: MAG HYDROX/AL HYDROX/SIMETH ES 30 ML SUSPENSION UDCUP PO PRN (13:45)
[2019-03-20] MEDS ORDERED: PROMETHAZINE HCL 25 MG TABLET PO PRN (13:45)
[2019-03-20 16:13] VITALS: BP 99/60
[2019-03-20] MEDS: ACAMPROSATE CALCIUM 333 MG DR TABLET PO SCH (16:48)
[2019-03-20] MEDS: THIAMINE HCL 100 MG TABLET PO SCH (16:48)
[2019-03-20] MEDS: DIVALPROEX SODIUM 500 MG ER TABLET PO SCH (20:35)
[2019-03-20] MEDS: ZOLPIDEM TARTRATE 10 MG TABLET PO PRN (20:37)
[2019-03-20] MEDS ORDERED: OLANZapine 7.5 MG TABLET PO SCH (21:00)
[2019-03-21] VITALS (8 sets, daily range): BP systolic 102–137; BP diastolic 60–89
[2019-03-21] MEDS: GABAPENTIN 300 MG CAPSULE PO SCH ×4 (08:29→20:34)
[2019-03-21] MEDS: ACAMPROSATE CALCIUM 333 MG DR TABLET PO SCH ×3 (08:29→16:49)
[2019-03-21] MEDS: THIAMINE HCL 100 MG TABLET PO SCH ×2 (08:29→16:48)
[2019-03-21] MEDS: FOLIC ACID 1 MG TABLET PO SCH (08:29)
[2019-03-21] MEDS: MULTIVITAMINS WITH MINERALS, THERAPEUTIC TABLET PO SCH (08:29)
[2019-03-21] MEDS: LORazepam 2 MG TABLET PO PRN ×2 (09:35→18:33)
[2019-03-21] MEDS ORDERED: CloNIDine HCL 0.1 MG TABLET PO PRN (14:30)
[2019-03-21] MEDS ORDERED: MAG HYDROX/AL HYDROX/SIMETH ES 30 ML SUSPENSION UDCUP PO PRN (14:30)
[2019-03-21] MEDS: CloNIDine HCL 0.1 MG TABLET PO SCH ×2 (16:48→21:10)
[2019-03-21] MEDS: DIVALPROEX SODIUM 500 MG ER TABLET PO SCH (20:34)
[2019-03-21] MEDS: OLANZapine 10 MG TABLET PO SCH (20:34)
[2019-03-21] MEDS: ZOLPIDEM TARTRATE 10 MG TABLET PO PRN (21:09)
[2019-03-22] VITALS (7 sets, daily range): BP systolic 92–128; BP diastolic 55–78
[2019-03-22] MEDS: CloNIDine HCL 0.1 MG TABLET PO SCH ×4 (06:44→21:09)
[2019-03-22 07:00] LABS: HEMATOCRIT 46.1 % (41-53); HEMOGLOBIN 15.1 g/dL (13.5-17.5); LYMPHOCYTES # (AUTO) 2.4 K/uL (1.0-4.8); LYMPHOCYTES % (AUTO) 42.6 % (22.0-44.0); MEAN CORPUSCULAR HEMOGLOBIN 31.3 pg (26.0-34.0); MEAN CORPUSCULAR HGB CONC 32.8 G/dL (31.0-37.0); MEAN CORPUSCULAR VOLUME 96 fL (80-100); MONOCYTES # (AUTO) 0.4 K/uL (0.1-1.0); MONOCYTES % (AUTO) 7.3 % (2.0-9.0); NEUTROPHILS # (AUTO) 2.5 K/uL (1.8-7.7); NEUTROPHILS % (AUTO) 45.1 % (40.0-70.0); PLATELET COUNT (AUTO) 261 K/uL (150-450); RED BLOOD CELL COUNT(AUTO) 4.83 MIL/uL (4.50-5.90); RED CELL DISTRIBUTION WIDTH 13.5 % (11.5-14.5)
[2019-03-22 07:28] LABS: ALANINE AMINOTRANSFERASE 60 U/L (12-78); ALBUMIN 3.2 g/dL (3.4-5.0); ALKALINE PHOSPHATASE 60 U/L (46-116); ANION GAP 8 mmol/L (8-16); ASPARTATE AMINOTRANSFERASE 22 U/L (15-37); BILIRUBIN,TOTAL 0.4 mg/dL (0.1-1.0); CALCIUM, TOTAL 9.4 mg/dL (8.8-10.5); CARBON DIOXIDE 28 mmol/L (22-29); CHLORIDE 104 mmol/L (98-107); CHOL/HDL RATIO 3.3 (4.2-7.3); CHOLESTEROL 140 mg/dL (131-200); CREATININE 0.81 mg/dL (0.60-1.30); FREE T4 (FREE THYROXINE) 1.19 ng/dL (0.76-1.46); GLOMERULAR FILTR. RATE CALC > 60 mL/min (>60); GLUCOSE,RANDOM 78 mg/dL (70-110); HDL CHOLESTEROL 42 mg/dL (40-60); LDL CHOL (CALC.) 71 mg/dL (0-130); POTASSIUM 4.4 mmol/L (3.5-5.1); SODIUM SERUM 140 mmol/L (136-145); THYROID STIMULATING HORMONE 1.19 uIU/mL (0.36-3.74); TOTAL PROTEIN, SERUM 6.4 g/dL (6.4-8.2); TRIGLYCERIDES 134 mg/dL (15-150); UREA NITROGEN, BLOOD 9 mg/dL (7-18); VALPROIC ACID 72 mcg/mL (50-100)
[2019-03-22 07:48] LABS: HEMOGLOBIN A1C 5.3 % (4.5-6.2)
[2019-03-22] MEDS: MULTIVITAMINS WITH MINERALS, THERAPEUTIC TABLET PO SCH (08:30)
[2019-03-22] MEDS: GABAPENTIN 300 MG CAPSULE PO SCH ×4 (08:30→20:51)
[2019-03-22] MEDS: FOLIC ACID 1 MG TABLET PO SCH (08:30)
[2019-03-22] MEDS: THIAMINE HCL 100 MG TABLET PO SCH ×2 (08:30→16:18)
[2019-03-22] MEDS: ACAMPROSATE CALCIUM 333 MG DR TABLET PO SCH ×3 (08:31→17:06)
[2019-03-22] MEDS: LORazepam 2 MG TABLET PO PRN ×2 (11:03→20:12)
[2019-03-22] MEDS: DIVALPROEX SODIUM 500 MG ER TABLET PO SCH (20:51)
[2019-03-22] MEDS: OLANZapine 10 MG TABLET PO SCH (20:51)
[2019-03-22] MEDS ORDERED: HydrOXYzine PAMOATE 50 MG CAPSULE PO PRN (21:00)
[2019-03-23 05:44] VITALS: BP 104/63
[2019-03-23] MEDS: CloNIDine HCL 0.1 MG TABLET PO SCH ×5 (05:54→20:11)
[2019-03-23 08:09] VITALS: BP 108/69
[2019-03-23] MEDS: THIAMINE HCL 100 MG TABLET PO SCH ×2 (08:10→16:10)
[2019-03-23] MEDS: MULTIVITAMINS WITH MINERALS, THERAPEUTIC TABLET PO SCH (08:10)
[2019-03-23] MEDS: GABAPENTIN 300 MG CAPSULE PO SCH ×4 (08:10→20:11)
[2019-03-23] MEDS: FOLIC ACID 1 MG TABLET PO SCH (08:10)
[2019-03-23] MEDS: ACAMPROSATE CALCIUM 333 MG DR TABLET PO SCH ×3 (08:10→16:09)
[2019-03-23] MEDS: LORazepam 2 MG TABLET PO PRN ×3 (10:09→19:47)
[2019-03-23 16:23] VITALS: BP 111/71
[2019-03-23] MEDS: OLANZapine 10 MG TABLET PO SCH (20:11)
[2019-03-23] MEDS: DIVALPROEX SODIUM 500 MG ER TABLET PO SCH (20:14)
[2019-03-24] VITALS (7 sets, daily range): BP systolic 104–115; BP diastolic 64–74
[2019-03-24] MEDS: CloNIDine HCL 0.1 MG TABLET PO SCH ×5 (06:00→22:00)
[2019-03-24] MEDS: GABAPENTIN 300 MG CAPSULE PO SCH ×2 (08:45→12:51)
[2019-03-24] MEDS: ACAMPROSATE CALCIUM 333 MG DR TABLET PO SCH ×3 (08:45→16:40)
[2019-03-24] MEDS: MULTIVITAMINS WITH MINERALS, THERAPEUTIC TABLET PO SCH (08:45)
[2019-03-24] MEDS: THIAMINE HCL 100 MG TABLET PO SCH ×2 (08:45→16:41)
[2019-03-24] MEDS: FOLIC ACID 1 MG TABLET PO SCH (08:45)
[2019-03-24] MEDS: LORazepam 2 MG TABLET PO PRN ×2 (09:57→14:28)
[2019-03-24] MEDS: NICOTINE 14 MG/24 HOUR PATCH TD SCH (14:37)
[2019-03-24] MEDS: HydrOXYzine PAMOATE 50 MG CAPSULE PO PRN (16:41)
[2019-03-24] MEDS: OLANZapine 5 MG RAPDIS TABLET PO PRN (16:41)
[2019-03-24] MEDS: GABAPENTIN 400 MG CAPSULE PO SCH ×2 (16:41→20:31)
[2019-03-24] MEDS: ESZOPICLONE 3 MG TABLET PO SCH (20:30)
[2019-03-24] MEDS: ZOLPIDEM TARTRATE 10 MG TABLET PO PRN (20:31)
[2019-03-24] MEDS: OLANZapine 10 MG TABLET PO SCH (20:31)
[2019-03-24] MEDS: DIVALPROEX SODIUM 500 MG ER TABLET PO SCH (20:31)
[2019-03-25 05:29] VITALS: BP 107/67
[2019-03-25] MEDS: CloNIDine HCL 0.1 MG TABLET PO SCH ×4 (06:00→21:26)
[2019-03-25] MEDS: ACAMPROSATE CALCIUM 333 MG DR TABLET PO SCH ×3 (08:08→16:17)
[2019-03-25] MEDS: NICOTINE 14 MG/24 HOUR PATCH TD SCH (08:09)
[2019-03-25] MEDS: GABAPENTIN 400 MG CAPSULE PO SCH ×4 (08:09→20:04)
[2019-03-25] MEDS: MULTIVITAMINS WITH MINERALS, THERAPEUTIC TABLET PO SCH (08:09)
[2019-03-25] MEDS: THIAMINE HCL 100 MG TABLET PO SCH ×2 (08:09→16:17)
[2019-03-25] MEDS: FOLIC ACID 1 MG TABLET PO SCH (08:09)
[2019-03-25 08:19] VITALS: BP 118/67
[2019-03-25] MEDS ORDERED: LORazepam 2 MG TABLET PO ONE (12:00)
[2019-03-25 16:35] VITALS: BP 104/70
[2019-03-25 17:32] VITALS: BP 122/68
[2019-03-25] MEDS: ACETAMINOPHEN 325 MG TABLET PO PRN (17:32)
[2019-03-25] MEDS: LORazepam 2 MG TABLET PO PRN (17:32)
[2019-03-25] MEDS: DIVALPROEX SODIUM 500 MG ER TABLET PO SCH (20:04)
[2019-03-25] MEDS: OLANZapine 10 MG TABLET PO SCH (20:04)
[2019-03-25] MEDS: ESZOPICLONE 3 MG TABLET PO SCH (20:11)
[2019-03-26] VITALS (8 sets, daily range): BP systolic 100–125; BP diastolic 60–80
[2019-03-26] MEDS: CloNIDine HCL 0.1 MG TABLET PO SCH ×4 (06:00→22:54)
[2019-03-26] MEDS: GABAPENTIN 400 MG CAPSULE PO SCH ×2 (08:35→12:49)
[2019-03-26] MEDS: LORazepam 2 MG TABLET PO PRN ×2 (08:35→12:49)
[2019-03-26] MEDS: ACAMPROSATE CALCIUM 333 MG DR TABLET PO SCH ×3 (08:35→16:10)
[2019-03-26] MEDS: IBUPROFEN 600 MG TABLET PO PRN (08:36)
[2019-03-26] MEDS: THIAMINE HCL 100 MG TABLET PO SCH ×2 (08:37→16:10)
[2019-03-26] MEDS: NICOTINE 14 MG/24 HOUR PATCH TD SCH (08:37)
[2019-03-26] MEDS: FOLIC ACID 1 MG TABLET PO SCH (08:37)
[2019-03-26] MEDS: MULTIVITAMINS WITH MINERALS, THERAPEUTIC TABLET PO SCH (08:37)
[2019-03-26] MEDS ORDERED: METH10SO PO (10:03)
[2019-03-26] MEDS ORDERED: METH5TAB2 PO (10:06)
[2019-03-26] MEDS: ChlordiazePOXIDE HCL 25 MG CAPSULE PO PRN ×2 (13:31→17:32)
[2019-03-26] MEDS: GABAPENTIN 300 MG CAPSULE PO SCH ×2 (16:10→21:40)
[2019-03-26] MEDS ORDERED: ESZOPICLONE 2 MG TABLET PO SCH (21:00)
[2019-03-26] MEDS: DIVALPROEX SODIUM 500 MG ER TABLET PO SCH (21:41)
[2019-03-26] MEDS: OLANZapine 10 MG TABLET PO SCH (21:41)
[2019-03-27] VITALS (8 sets, daily range): BP systolic 85–126; BP diastolic 60–90
[2019-03-27] MEDS: CloNIDine HCL 0.1 MG TABLET PO SCH ×5 (06:00→21:32)
[2019-03-27] MEDS: ChlordiazePOXIDE HCL 25 MG CAPSULE PO PRN ×3 (06:16→16:07)
[2019-03-27] MEDS: THIAMINE HCL 100 MG TABLET PO SCH ×2 (08:11→16:06)
[2019-03-27] MEDS: FOLIC ACID 1 MG TABLET PO SCH (08:11)
[2019-03-27] MEDS: MULTIVITAMINS WITH MINERALS, THERAPEUTIC TABLET PO SCH (08:12)
[2019-03-27] MEDS: NICOTINE 14 MG/24 HOUR PATCH TD SCH (08:12)
[2019-03-27] MEDS: ACAMPROSATE CALCIUM 333 MG DR TABLET PO SCH ×3 (08:12→16:06)
[2019-03-27] MEDS: GABAPENTIN 300 MG CAPSULE PO SCH ×4 (08:12→21:32)
[2019-03-27] MEDS: OLANZapine 5 MG RAPDIS TABLET PO PRN (09:23)
[2019-03-27] MEDS: ACETAMINOPHEN 325 MG TABLET PO PRN (09:49)
[2019-03-27] MEDS ORDERED: DiphenhydrAMINE HCL 50 MG/ML VIAL IM ONE (14:00)
[2019-03-27] MEDS: DIVALPROEX SODIUM 500 MG ER TABLET PO SCH (21:32)
[2019-03-27] MEDS: OLANZapine 10 MG TABLET PO SCH (21:32)
[2019-03-27] MEDS: ESZOPICLONE 3 MG TABLET PO SCH ×2 (21:32→22:18)
[2019-03-28 06:00] VITALS: BP 113/60
[2019-03-28] MEDS: CloNIDine HCL 0.1 MG TABLET PO SCH ×4 (06:00→20:59)
[2019-03-28] MEDS: ChlordiazePOXIDE HCL 25 MG CAPSULE PO PRN ×4 (06:07→20:28)
[2019-03-28] MEDS: GABAPENTIN 300 MG CAPSULE PO SCH ×4 (08:07→20:08)
[2019-03-28] MEDS: MULTIVITAMINS WITH MINERALS, THERAPEUTIC TABLET PO SCH (08:07)
[2019-03-28] MEDS: FOLIC ACID 1 MG TABLET PO SCH (08:07)
[2019-03-28] MEDS: THIAMINE HCL 100 MG TABLET PO SCH ×2 (08:08→16:20)
[2019-03-28] MEDS: ACAMPROSATE CALCIUM 333 MG DR TABLET PO SCH ×3 (08:08→16:20)
[2019-03-28] MEDS: NICOTINE 14 MG/24 HOUR PATCH TD SCH (08:08)
[2019-03-28 08:14] VITALS: BP 127/69
[2019-03-28 08:18] VITALS: BP 118/80
[2019-03-28] MEDS: ACETAMINOPHEN 325 MG TABLET PO PRN (08:18)
[2019-03-28 16:41] VITALS: BP 137/88
[2019-03-28] MEDS: OLANZapine 10 MG TABLET PO SCH (20:08)
[2019-03-28] MEDS: DIVALPROEX SODIUM 500 MG ER TABLET PO SCH (20:08)
[2019-03-28] MEDS: ESZOPICLONE 3 MG TABLET PO SCH (20:28)
[2019-03-28 21:02] VITALS: BP 116/80
[2019-03-28] MEDS: BUPRENORPHINE HCL/NALOXONE HCL 2-0.5 MG SUBLINGUAL TABLET SL SCH (21:57)
[2019-03-29 01:09] VITALS: BP 108/79
[2019-03-29] MEDS: ChlordiazePOXIDE HCL 25 MG CAPSULE PO PRN ×5 (01:28→20:31)
[2019-03-29 05:20] VITALS: BP 134/69
[2019-03-29] MEDS: CloNIDine HCL 0.1 MG TABLET PO SCH ×4 (05:24→21:02)
[2019-03-29] MEDS: NICOTINE 14 MG/24 HOUR PATCH TD SCH (08:03)
[2019-03-29] MEDS: ACAMPROSATE CALCIUM 333 MG DR TABLET PO SCH ×3 (08:03→16:09)
[2019-03-29] MEDS: FOLIC ACID 1 MG TABLET PO SCH (08:03)
[2019-03-29] MEDS: GABAPENTIN 300 MG CAPSULE PO SCH ×4 (08:03→20:31)
[2019-03-29] MEDS: MULTIVITAMINS WITH MINERALS, THERAPEUTIC TABLET PO SCH (08:03)
[2019-03-29] MEDS: BUPRENORPHINE HCL/NALOXONE HCL 2-0.5 MG SUBLINGUAL TABLET SL SCH (08:03)
[2019-03-29] MEDS: THIAMINE HCL 100 MG TABLET PO SCH ×2 (08:03→16:09)
[2019-03-29 08:06] VITALS: BP 110/60
[2019-03-29] MEDS ORDERED: CIMETIDINE 400 MG TABLET PO SCH (09:45)
[2019-03-29 12:36] VITALS: BP 137/70
[2019-03-29] MEDS ORDERED: BUPRENORPHINE HCL/NALOXONE HCL 2-0.5 MG SUBLINGUAL TABLET SL ONE ×2 (14:15→15:30)
[2019-03-29] MEDS: CIMETIDINE 400 MG TABLET PO SCH (16:09)
[2019-03-29 17:13] VITALS: BP 131/78
[2019-03-29] MEDS: DIVALPROEX SODIUM 500 MG ER TABLET PO SCH (20:31)
[2019-03-29] MEDS: ESZOPICLONE 3 MG TABLET PO SCH (20:31)
[2019-03-29] MEDS: OLANZapine 10 MG TABLET PO SCH (20:31)
[2019-03-29 20:59] VITALS: BP 126/80
[2019-03-30] MEDS: CloNIDine HCL 0.1 MG TABLET PO SCH ×4 (06:00→21:03)
[2019-03-30] MEDS: BUPRENORPHINE HCL/NALOXONE HCL 2-0.5 MG SUBLINGUAL TABLET SL SCH ×2 (06:54→12:33)
[2019-03-30] MEDS ORDERED: BUPRENORPHINE HCL/NALOXONE HCL 2-0.5 MG SUBLINGUAL TABLET SL SCH ×2 (07:00→13:00)
[2019-03-30] MEDS: ChlordiazePOXIDE HCL 25 MG CAPSULE PO PRN ×3 (08:14→20:35)
[2019-03-30] MEDS: GABAPENTIN 300 MG CAPSULE PO SCH ×4 (08:14→20:34)
[2019-03-30] MEDS: THIAMINE HCL 100 MG TABLET PO SCH (08:14)
[2019-03-30] MEDS: CIMETIDINE 400 MG TABLET PO SCH (08:14)
[2019-03-30] MEDS: ACAMPROSATE CALCIUM 333 MG DR TABLET PO SCH ×3 (08:14→16:32)
[2019-03-30] MEDS: FOLIC ACID 1 MG TABLET PO SCH (08:14)
[2019-03-30] MEDS: MULTIVITAMINS WITH MINERALS, THERAPEUTIC TABLET PO SCH (08:14)
[2019-03-30 08:26] VITALS: BP 118/66
[2019-03-30] MEDS ORDERED: CIMETIDINE 400 MG TABLET PO SCH (09:00)
[2019-03-30] MEDS: NICOTINE 14 MG/24 HOUR PATCH TD SCH (09:14)
[2019-03-30] MEDS ORDERED: IBUPROFEN 600 MG TABLET PO PRN (09:15)
[2019-03-30] MEDS: IBUPROFEN 600 MG TABLET PO PRN (10:26)
[2019-03-30 16:22] VITALS: BP 127/67
[2019-03-30] MEDS: BACLOFEN 10 MG TABLET PO SCH (16:32)
[2019-03-30] MEDS: OLANZapine 5 MG RAPDIS TABLET PO PRN (16:32)
[2019-03-30] MEDS: HydrOXYzine PAMOATE 50 MG CAPSULE PO PRN (16:33)
[2019-03-30] MEDS: OLANZapine 10 MG TABLET PO SCH (20:34)
[2019-03-30] MEDS: ESZOPICLONE 3 MG TABLET PO SCH (20:34)
[2019-03-30] MEDS: DIVALPROEX SODIUM 500 MG ER TABLET PO SCH (20:35)
[2019-03-31 03:47] VITALS: BP 122/72
[2019-03-31] MEDS: CloNIDine HCL 0.1 MG TABLET PO SCH ×3 (07:03→16:07)
[2019-03-31] MEDS: ChlordiazePOXIDE HCL 25 MG CAPSULE PO PRN ×2 (07:04→12:09)
[2019-03-31] MEDS: BUPRENORPHINE HCL/NALOXONE HCL 2-0.5 MG SUBLINGUAL TABLET SL SCH ×2 (07:04→12:22)
[2019-03-31 07:07] VITALS: BP 111/78
[2019-03-31] MEDS: NICOTINE 14 MG/24 HOUR PATCH TD SCH (08:10)
[2019-03-31] MEDS: GABAPENTIN 300 MG CAPSULE PO SCH ×3 (08:10→16:07)
[2019-03-31] MEDS: ACAMPROSATE CALCIUM 333 MG DR TABLET PO SCH ×3 (08:10→16:07)
[2019-03-31] MEDS: CIMETIDINE 400 MG TABLET PO SCH (08:11)
[2019-03-31] MEDS: MULTIVITAMINS WITH MINERALS, THERAPEUTIC TABLET PO SCH (08:11)
[2019-03-31] MEDS: BACLOFEN 10 MG TABLET PO SCH ×2 (08:11→16:08)
[2019-03-31 09:26] VITALS: BP 113/63
[2019-03-31 11:30] LABS: GLUCOMETER DEV NAME(LOC) BV3N.; GLUCOSE,POINT OF CARE 103 MG/DL (70-110)
[2019-03-31 14:04] LABS: HIV 1-2 SCREEN 4TH GEN W/RFLX Non Reactive (Non Reactive)
[2019-03-31] MEDS: OLANZapine 5 MG RAPDIS TABLET PO PRN (16:07)
[2019-03-31 16:36] VITALS: BP 134/79
[2019-03-31] MEDS ORDERED: DIVA500T52 PO (16:49)
[2019-03-31] MEDS ORDERED: GABA-531 PO (16:49)
[2019-03-31] MEDS ORDERED: ESZO3 PO (16:49)
[2019-03-31] MEDS ORDERED: ACAM333T7 PO (16:49)
[2019-03-31] MEDS ORDERED: OLAN10TA20 PO (16:49)
== END 2019-03-31 18:25 | disposition home or self-care (01) | DRG 750 ==
LOC: EDSTATUS 12:16 → B2S 12:33 → EDSTATUS 13:02 → B3A 03-28 11:15
PROVIDERS: ADMIT Psychiatry & Neurology Psychiatry; ATTEND Psychiatry & Neurology Psychiatry
DX: F25.0 Schizoaffective disorder, bipolar type (principal); R45.851 Suicidal ideations; F11.20 Opioid dependence, uncomplicated; G40.909 Epilepsy, unspecified, not intractable, without status epilepticus; F17.210 Nicotine dependence, cigarettes, uncomplicated; F41.9 Anxiety disorder, unspecified; J44.9 Chronic obstructive pulmonary disease, unspecified; F15.20 Other stimulant dependence, uncomplicated; Z91.19 Patient's noncompliance with other medical treatment and regimen; Z59.0 Homelessness
CPT/HCPCS: 82248; 82306; 83036; 84439; 84443; 86592; 86609; 87081; 87389; J1200; J3230

== ENCOUNTER 2019-04-06 18:53 | Inpatient (IN) | payer MEDICAID, OTHER ==
[~2019-04-06] VITALS: Ht 180.3 cm; Wt 86.9 kg
[~2019-04-06 18:53] MED LIST changes: +ETOMIDATE 2 MG/ML 10 ML VIAL ONE; -METH10 PO; -MULT-1239 PO; +OLAN10TA20 PO; -OLAN10TA22 PO; +VECURONIUM BROMIDE 10 MG/VIAL ONE
[2019-04-06] MEDS ORDERED: PROPOFOL 1000 MG/ISO-OSM 100 ML IV ONE (19:07)
[2019-04-06] MEDS ORDERED: SODIUM CHLORIDE 0.9% 1,000 ML IV ONE (19:15)
[2019-04-06] MEDS ORDERED: PROPOFOL 1000 MG/ISO-OSM 100 ML IV PRN (19:15)
[2019-04-06] MEDS ORDERED: ETOMIDATE 2 MG/ML 10 ML VIAL IVP ONE (19:15)
[2019-04-06] MEDS ORDERED: VECURONIUM BROMIDE 10 MG/VIAL IVP ONE (19:15)
[2019-04-06 19:47] LABS: BASOPHILS % (AUTO) 0.5 % (0.0-2.0); EOSINOPHILS % (AUTO) 4.1 % (1.0-6.0); HEMATOCRIT 42.8 % (41-53); LYMPHOCYTES # (AUTO) 1.7 K/uL (1.0-4.8); LYMPHOCYTES % (AUTO) 23.9 % (22.0-44.0); MEAN CORPUSCULAR HEMOGLOBIN 31.4 pg (26.0-34.0); MEAN CORPUSCULAR HGB CONC 32.6 G/dL (31.0-37.0); MEAN CORPUSCULAR VOLUME 96 fL (80-100); MONOCYTES # (AUTO) 0.5 K/uL (0.1-1.0); MONOCYTES % (AUTO) 6.7 % (2.0-9.0); NEUTROPHILS # (AUTO) 4.6 K/uL (1.8-7.7); NEUTROPHILS % (AUTO) 64.8 % (40.0-70.0); PLATELET COUNT (AUTO) 262 K/uL (150-450); RED BLOOD CELL COUNT(AUTO) 4.45 MIL/uL (4.50-5.90); RED CELL DISTRIBUTION WIDTH 13.9 % (11.5-14.5)
[2019-04-06 19:52] LABS: APPEARANCE,URINE CLEAR (CLEAR); BILIRUBIN,URINE NEGATIVE (NEGATIVE); GLUCOSE, URINE (UA) NEGATIVE (NEGATIVE); KETONES,URINE NEGATIVE (NEGATIVE); LEUKOCYTE ESTERASE ,URINE NEGATIVE (NEGATIVE); NITRATE,URINE NEGATIVE (NEGATIVE); OCCULT BLOOD,URINE SMALL (NEGATIVE); PROTEIN,URINE NEGATIVE (NEGATIVE)
[2019-04-06 19:55] LABS: SALICYLATE 1.9 mg/dL (2.8-20.0)
[2019-04-06 19:57] LABS: ANION GAP 13 mmol/L (8-16); CALCIUM, TOTAL 9.1 mg/dL (8.8-10.5); CARBON DIOXIDE 27 mmol/L (22-29); CHLORIDE 107 mmol/L (98-107); CREATININE 0.87 mg/dL (0.60-1.30); GLOMERULAR FILTR. RATE CALC > 60 mL/min (>60); GLUCOSE,RANDOM 86 mg/dL (70-110); SODIUM SERUM 147 mmol/L (136-145); UREA NITROGEN, BLOOD 8 mg/dL (7-18)
[2019-04-06 19:57] LABS: AMPHET/METH SCREEN,URINE POSITIVE (NEGATIVE); BARBITURATE SCREEN, URINE NEGATIVE (NEGATIVE); BENZODIAZEPINES SCREEN,URINE POSITIVE (NEGATIVE); CANNABINOID SCREEN,URINE POSITIVE (NEGATIVE); COCAINE SCREEN,URINE NEGATIVE (NEGATIVE); METHADONE SCREEN, URINE NEGATIVE (NEGATIVE); OPIATE SCREEN,URINE NEGATIVE (NEGATIVE)
[2019-04-06 19:58] LABS: PHENCYCLIDINE SCREEN,URINE NEGATIVE (NEGATIVE)
[2019-04-06 20:05] LABS: AMMONIA 22 umol/L (11-32); LACTIC ACID 1.6 mmol/L (0.4-2.0); PROTHROMBIN TIME 10.3 SEC (9.4-11.6)
[2019-04-06 20:06] LABS: TROPONIN I < 0.02 ng/mL (0.00-0.05)
[2019-04-06 20:11] LABS: ABG A-A DIFF O2 243.1 mmHg (10-20.0); ABG BASE EXCESS 1.4 mmol/L (-2.0-3.0); ABG CARBOXYHEMOGLOBIN 0.8 % (0.0-3.0); ABG METHEMOGLOBIN 0.3 % (0.0-1.5); ABG OXYGEN CONTENT 21.9 mL/dL (15.0-23.0); ABG OXYGEN SATURATION 99.7 % (95.0-98.0); ABG OXYHEMOGLOBIN 98.6 % (94.0-100.0); ABG PCO2 49 mmHg (35-45); ABG PH 7.356 (7.350-7.450); PO2, ARTERIAL BG 423.6 mmHg (80.0-100.0); SOURCE, BLOOD GAS ARTERIAL; TEMPERATURE, FAHRENHEIT, BG 96.7 FAHREN (96.0-98.6)
[2019-04-06 20:12] LABS: O2 DEVICE,BLOOD GAS VENTILATOR (ROOM AIR); PEEP,BG 5 cm H2O; SITE, BLOOD GAS RT RADIAL; VT, ABG 500 ml
[2019-04-06 20:17] LABS: WBC,URINE 0-2 /HPF (0-5)
[2019-04-06 20:21] LABS: BACTERIA,URINE None Seen /HPF (None Seen); SQUAMOUS EPITHELIAL CELL,UR Few /LPF (None Seen)
[2019-04-06 20:22] LABS: ALANINE AMINOTRANSFERASE 30 U/L (12-78); ALBUMIN 3.4 g/dL (3.4-5.0); ALKALINE PHOSPHATASE 62 U/L (46-116); ASPARTATE AMINOTRANSFERASE 34 U/L (15-37); BILIRUBIN,TOTAL 0.5 mg/dL (0.1-1.0); CREATINE KINASE, TOTAL ONLY 315 U/L (39-308); TOTAL PROTEIN, SERUM 6.9 g/dL (6.4-8.2); VALPROIC ACID 18 mcg/mL (50-100)
[2019-04-06 20:23] LABS: ACETAMINOPHEN < 2 mcg/mL (10-30)
[2019-04-06] MEDS ORDERED: 0.9% SODIUM CHLORIDE 10 ML SYRINGE IVP PRN ×2 (22:45→23:30)
[2019-04-06] MEDS ORDERED: ACETAMINOPHEN 325 MG TABLET PO PRN (22:45)
[2019-04-06] MEDS ORDERED: ALBUTEROL SULFATE 2.5 MG/0.5 ML NEB SOLUTION NEB PRN (23:30)
[2019-04-06] MEDS ORDERED: ONDANSETRON HCL 4 MG/2 ML VIAL IVP PRN (23:30)
[2019-04-06] MEDS ORDERED: IPRATROPIUM BROMIDE 0.5 MG/2.5 ML NEB SOLUTION NEB PRN (23:30)
[2019-04-06] MEDS ORDERED: MAGNESIUM SULFATE 2 GM, MVI, ADULT NO.1 WITH VIT K 10 ML, THIAMINE HCL 100 MG, FOLIC AC... IV ONE ×5 (23:30)
[2019-04-07] MEDS ORDERED: RAPID SEQUENCE KIT [RSI] 1 EACH KIT ONE (02:07)
[2019-04-07] MEDS: ALBUTEROL SULFATE 2.5 MG/0.5 ML NEB SOLUTION NEB SCH ×4 (03:03→18:58)
[2019-04-07] MEDS: IPRATROPIUM BROMIDE 0.5 MG/2.5 ML NEB SOLUTION NEB SCH ×4 (03:03→18:58)
[2019-04-07 09:04] LABS: BASOPHILS % (AUTO) 0.7 % (0.0-2.0); EOSINOPHILS % (AUTO) 3.8 % (1.0-6.0); HEMATOCRIT 42.4 % (41-53); HEMOGLOBIN 13.9 g/dL (13.5-17.5); LYMPHOCYTES # (AUTO) 1.7 K/uL (1.0-4.8); LYMPHOCYTES % (AUTO) 26.2 % (22.0-44.0); MEAN CORPUSCULAR HEMOGLOBIN 31.5 pg (26.0-34.0); MEAN CORPUSCULAR HGB CONC 32.8 G/dL (31.0-37.0); MEAN CORPUSCULAR VOLUME 96 fL (80-100); MONOCYTES # (AUTO) 0.4 K/uL (0.1-1.0); MONOCYTES % (AUTO) 6.5 % (2.0-9.0); NEUTROPHILS # (AUTO) 4.1 K/uL (1.8-7.7); NEUTROPHILS % (AUTO) 62.8 % (40.0-70.0); PLATELET COUNT (AUTO) 268 K/uL (150-450); RED BLOOD CELL COUNT(AUTO) 4.42 MIL/uL (4.50-5.90); RED CELL DISTRIBUTION WIDTH 13.8 % (11.5-14.5)
[2019-04-07] MEDS: PANTOPRAZOLE SODIUM 40 MG/VIAL IVP SCH (09:16)
[2019-04-07 09:33] LABS: ALANINE AMINOTRANSFERASE 26 U/L (12-78); ALKALINE PHOSPHATASE 54 U/L (46-116); ANION GAP 10 mmol/L (8-16); ASPARTATE AMINOTRANSFERASE 16 U/L (15-37); BILIRUBIN,TOTAL 0.4 mg/dL (0.1-1.0); CALCIUM, TOTAL 8.6 mg/dL (8.8-10.5); CARBON DIOXIDE 26 mmol/L (22-29); CHLORIDE 111 mmol/L (98-107); CREATININE 0.87 mg/dL (0.60-1.30); GLOMERULAR FILTR. RATE CALC > 60 mL/min (>60); GLUCOSE,RANDOM 84 mg/dL (70-110); POTASSIUM 3.8 mmol/L (3.5-5.1); SODIUM SERUM 147 mmol/L (136-145); TOTAL PROTEIN, SERUM 6.4 g/dL (6.4-8.2); UREA NITROGEN, BLOOD 8 mg/dL (7-18)
[2019-04-07] MEDS ORDERED: ZOLPIDEM TARTRATE 5 MG TABLET PO PRN (13:15)
[2019-04-07] MEDS ORDERED: ACETAMINOPHEN 325 MG TABLET PO PRN (13:15)
[2019-04-07] MEDS ORDERED: ONDANSETRON HCL 4 MG/2 ML VIAL IVP PRN (13:15)
[2019-04-07] MEDS ORDERED: BISACODYL 10 MG RECTAL RECTAL SUPPOSITORY PR PRN (13:15)
[2019-04-07] MEDS ORDERED: MAGNESIUM HYDROXIDE SUSPENSION 30 ML UDCUP PO PRN (13:15)
[2019-04-07 13:26] LABS: GLUCOSE,POINT OF CARE 152 MG/DL (70-110)
[2019-04-07] MEDS: HEPARIN SODIUM,PORCINE 5,000 UNITS/ML VIAL SQ SCH (15:17)
[2019-04-07] MEDS: PROPOFOL 1000 MG/ISO-OSM 100 ML IV PRN ×2 (15:20→21:31)
[2019-04-07] MEDS ORDERED: ACETAMINOPHEN 650 MG RECTAL SUPPOSITORY PR PRN (18:30)
[2019-04-07 21:00] VITALS: BP 115/75
[2019-04-07] MEDS: DOCUSATE SODIUM 100 MG CAPSULE PO SCH (21:30)
[2019-04-08] VITALS (7 sets, daily range): BP systolic 93–123; BP diastolic 42–65
[2019-04-08] MEDS: HEPARIN SODIUM,PORCINE 5,000 UNITS/ML VIAL SQ SCH ×4 (01:02→23:45)
[2019-04-08] MEDS: PROPOFOL 1000 MG/ISO-OSM 100 ML IV PRN ×5 (01:15→20:47)
[2019-04-08] MEDS: ALBUTEROL SULFATE 2.5 MG/0.5 ML NEB SOLUTION NEB SCH ×4 (02:00→20:57)
[2019-04-08] MEDS: IPRATROPIUM BROMIDE 0.5 MG/2.5 ML NEB SOLUTION NEB SCH ×4 (02:01→20:57)
[2019-04-08] MEDS: DOCUSATE SODIUM 100 MG CAPSULE PO SCH ×3 (08:10→20:29)
[2019-04-08] MEDS ORDERED: PANTOPRAZOLE SODIUM 40 MG DR TABLET PO SCH (09:00)
[2019-04-08] MEDS: PANTOPRAZOLE SODIUM 40 MG/VIAL IVP SCH (09:08)
[2019-04-08] MEDS ORDERED: DEXTROSE 5%-WATER 500 ML IV ONE (12:15)
[2019-04-08] MEDS: LORazepam 2 MG/ML VIAL IVP PRN ×2 (17:02→21:40)
[2019-04-08] MEDS: MORPHINE SULFATE 2 MG/ML SYRINGE IVP PRN (19:34)
[2019-04-08] MEDS ORDERED: FentaNYL CITRATE PF 500 MCG in DEXTROSE 5%-WATER 90 ML IV PRN (20:19)
[2019-04-08] MEDS: GABAPENTIN 300 MG CAPSULE PO SCH (21:01)
[2019-04-08] MEDS: DIVALPROEX SODIUM 500 MG DR TABLET PO SCH (21:02)
[2019-04-08] MEDS: OLANZapine 10 MG TABLET PO SCH (21:02)
[2019-04-09] VITALS (8 sets, daily range): BP systolic 102–126; BP diastolic 56–71
[2019-04-09] MEDS: IPRATROPIUM BROMIDE 0.5 MG/2.5 ML NEB SOLUTION NEB SCH ×4 (02:03→20:00)
[2019-04-09] MEDS: ALBUTEROL SULFATE 2.5 MG/0.5 ML NEB SOLUTION NEB SCH ×4 (02:03→20:00)
[2019-04-09 04:01] LABS: ABG A-A DIFF O2 81.7 mmHg (10-20.0); ABG BASE EXCESS 1.1 mmol/L (-2.0-3.0); ABG CARBOXYHEMOGLOBIN 0.5 % (0.0-3.0); ABG HCO3 25.6 mmol/L (22.0-26.0); ABG METHEMOGLOBIN 0.3 % (0.0-1.5); ABG OXYGEN CONTENT 18.7 mL/dL (15.0-23.0); ABG OXYGEN SATURATION 98.5 % (95.0-98.0); ABG OXYHEMOGLOBIN 97.7 % (94.0-100.0); ABG PCO2 38 mmHg (35-45); ABG PH 7.437 (7.350-7.450); ABG TOTAL HEMOGLOBIN 13.5 G/dL (12.0-18.0); SOURCE, BLOOD GAS ARTERIAL; TEMPERATURE, FAHRENHEIT, BG 99.1 FAHREN (96.0-98.6)
[2019-04-09 04:02] LABS: SITE, BLOOD GAS RT RADIAL
[2019-04-09 04:03] LABS: O2 DEVICE,BLOOD GAS VENTILATOR (ROOM AIR); PEEP,BG 5 cm H2O; PRESSURE SUPPORT, BG 8 cm H2O; SPONTANEOUS VT, BG 586 ml; VENT MODE, BG CPAP (ROOM AIR)
[2019-04-09 04:52] LABS: BASOPHILS % (AUTO) 0.7 % (0.0-2.0); EOSINOPHILS % (AUTO) 3.6 % (1.0-6.0); HEMATOCRIT 37.9 % (41-53); HEMOGLOBIN 12.4 g/dL (13.5-17.5); LYMPHOCYTES # (AUTO) 1.6 K/uL (1.0-4.8); LYMPHOCYTES % (AUTO) 22.3 % (22.0-44.0); MEAN CORPUSCULAR HEMOGLOBIN 31.2 pg (26.0-34.0); MEAN CORPUSCULAR HGB CONC 32.8 G/dL (31.0-37.0); MEAN CORPUSCULAR VOLUME 95 fL (80-100); MONOCYTES # (AUTO) 0.5 K/uL (0.1-1.0); MONOCYTES % (AUTO) 6.6 % (2.0-9.0); NEUTROPHILS # (AUTO) 4.9 K/uL (1.8-7.7); NEUTROPHILS % (AUTO) 66.8 % (40.0-70.0); PLATELET COUNT (AUTO) 225 K/uL (150-450); RED BLOOD CELL COUNT(AUTO) 3.99 MIL/uL (4.50-5.90); RED CELL DISTRIBUTION WIDTH 13.6 % (11.5-14.5)
[2019-04-09 04:58] LABS: ANION GAP 3 mmol/L (8-16); CALCIUM, TOTAL 8.6 mg/dL (8.8-10.5); CARBON DIOXIDE 28 mmol/L (22-29); CHLORIDE 104 mmol/L (98-107); CREATININE 0.75 mg/dL (0.60-1.30); GLOMERULAR FILTR. RATE CALC > 60 mL/min (>60); GLUCOSE,RANDOM 165 mg/dL (70-110); POTASSIUM 3.5 mmol/L (3.5-5.1); SODIUM SERUM 135 mmol/L (136-145); UREA NITROGEN, BLOOD 7 mg/dL (7-18)
[2019-04-09 05:03] LABS: ABG BASE EXCESS 1.6 mmol/L (-2.0-3.0); ABG CARBOXYHEMOGLOBIN 0.5 % (0.0-3.0); ABG HCO3 25.9 mmol/L (22.0-26.0); ABG METHEMOGLOBIN 0.3 % (0.0-1.5); ABG OXYGEN CONTENT 18.3 mL/dL (15.0-23.0); ABG OXYGEN SATURATION 98.4 % (95.0-98.0); ABG OXYHEMOGLOBIN 97.6 % (94.0-100.0); ABG PCO2 40 mmHg (35-45); ABG PH 7.433 (7.350-7.450); ABG TOTAL HEMOGLOBIN 13.2 G/dL (12.0-18.0); PO2, ARTERIAL BG 120.7 mmHg (80.0-100.0); SOURCE, BLOOD GAS ARTERIAL; TEMPERATURE, FAHRENHEIT, BG 99.1 FAHREN (96.0-98.6)
[2019-04-09 05:08] LABS: O2 DEVICE,BLOOD GAS CANNULA (ROOM AIR); SITE, BLOOD GAS RT RADIAL
[2019-04-09] MEDS ORDERED: SODIUM CHLORIDE 0.9% 500 ML IV ONE (05:13)
[2019-04-09 08:11] LABS: THYROID STIMULATING HORMONE 0.42 uIU/mL (0.36-3.74)
[2019-04-09] MEDS: GABAPENTIN 300 MG CAPSULE PO SCH ×3 (08:45→22:03)
[2019-04-09] MEDS: HEPARIN SODIUM,PORCINE 5,000 UNITS/ML VIAL SQ SCH ×3 (08:46→23:20)
[2019-04-09] MEDS: DOCUSATE SODIUM 100 MG CAPSULE PO SCH ×2 (08:46→22:04)
[2019-04-09] MEDS ORDERED: POTASSIUM CHL 10 MEQ/WATER 50 ML IV PRN (12:15)
[2019-04-09] MEDS ORDERED: POTASSIUM CHLORIDE 20 MEQ ER TABLET PO PRN ×3 (12:15→13:00)
[2019-04-09] MEDS ORDERED: CloNIDine HCL 0.1 MG TABLET PO PRN (18:00)
[2019-04-09] MEDS ORDERED: MAG HYDROX/AL HYDROX/SIMETH ES 30 ML SUSPENSION UDCUP PO PRN (18:00)
[2019-04-09] MEDS ORDERED: IBUPROFEN 600 MG TABLET PO PRN (18:00)
[2019-04-09] MEDS ORDERED: HydrOXYzine PAMOATE 50 MG CAPSULE PO PRN (18:00)
[2019-04-09] MEDS: MORPHINE SULFATE 2 MG/ML SYRINGE IVP PRN ×2 (18:14→23:20)
[2019-04-09] MEDS: CloNIDine HCL 0.1 MG TABLET PO SCH (22:00)
[2019-04-09] MEDS: OLANZapine 10 MG TABLET PO SCH (22:03)
[2019-04-09] MEDS: DIVALPROEX SODIUM 500 MG DR TABLET PO SCH (22:03)
[2019-04-10] MEDS: LORazepam 2 MG/ML VIAL IVP PRN ×4 (01:07→18:17)
[2019-04-10] MEDS: ALBUTEROL SULFATE 2.5 MG/0.5 ML NEB SOLUTION NEB SCH ×4 (02:00→19:37)
[2019-04-10] MEDS: IPRATROPIUM BROMIDE 0.5 MG/2.5 ML NEB SOLUTION NEB SCH ×4 (02:00→19:37)
[2019-04-10 05:28] VITALS: BP 110/59
[2019-04-10 05:42] LABS: BASOPHILS % (AUTO) 1.5 % (0.0-2.0); EOSINOPHILS % (AUTO) 5.6 % (1.0-6.0); HEMATOCRIT 39.5 % (41-53); HEMOGLOBIN 13.2 g/dL (13.5-17.5); LYMPHOCYTES # (AUTO) 2.4 K/uL (1.0-4.8); LYMPHOCYTES % (AUTO) 41.1 % (22.0-44.0); MEAN CORPUSCULAR HEMOGLOBIN 31.6 pg (26.0-34.0); MEAN CORPUSCULAR HGB CONC 33.4 G/dL (31.0-37.0); MEAN CORPUSCULAR VOLUME 95 fL (80-100); MONOCYTES # (AUTO) 0.4 K/uL (0.1-1.0); MONOCYTES % (AUTO) 6.7 % (2.0-9.0); NEUTROPHILS # (AUTO) 2.7 K/uL (1.8-7.7); NEUTROPHILS % (AUTO) 45.1 % (40.0-70.0); PLATELET COUNT (AUTO) 255 K/uL (150-450); RED BLOOD CELL COUNT(AUTO) 4.17 MIL/uL (4.50-5.90); RED CELL DISTRIBUTION WIDTH 13.7 % (11.5-14.5)
[2019-04-10 05:55] LABS: ANION GAP 7 mmol/L (8-16); CARBON DIOXIDE 26 mmol/L (22-29); CHLORIDE 106 mmol/L (98-107); CREATININE 0.72 mg/dL (0.60-1.30); GLOMERULAR FILTR. RATE CALC > 60 mL/min (>60); GLUCOSE,RANDOM 88 mg/dL (70-110); POTASSIUM 3.9 mmol/L (3.5-5.1); SODIUM SERUM 139 mmol/L (136-145); UREA NITROGEN, BLOOD 10 mg/dL (7-18)
[2019-04-10] MEDS: CloNIDine HCL 0.1 MG TABLET PO SCH ×4 (06:00→22:00)
[2019-04-10 08:00] VITALS: BP 109/56
[2019-04-10] MEDS ORDERED: 0.9% SODIUM CHLORIDE 5 ML NEB SOLUTION NEB ONE (08:15)
[2019-04-10] MEDS: DULoxetine HCL 20 MG CAPSULE PO SCH (08:34)
[2019-04-10] MEDS: GABAPENTIN 300 MG CAPSULE PO SCH ×3 (08:34→23:18)
[2019-04-10] MEDS: DOCUSATE SODIUM 100 MG CAPSULE PO SCH ×2 (08:34→21:00)
[2019-04-10] MEDS: PANTOPRAZOLE SODIUM 40 MG DR TABLET PO SCH (08:34)
[2019-04-10] MEDS: HEPARIN SODIUM,PORCINE 5,000 UNITS/ML VIAL SQ SCH ×3 (08:34→23:20)
[2019-04-10] MEDS: MORPHINE SULFATE 2 MG/ML SYRINGE IVP PRN ×3 (08:41→17:27)
[2019-04-10] MEDS ORDERED: SODIUM CHLORIDE 0.9% 500 ML IV ONE (11:00)
[2019-04-10 11:34] VITALS: BP 100/61
[2019-04-10 15:39] VITALS: BP 132/71
[2019-04-10 19:18] VITALS: BP 145/68
[2019-04-10] MEDS: OLANZapine 10 MG TABLET PO SCH (23:18)
[2019-04-10] MEDS: DIVALPROEX SODIUM 500 MG DR TABLET PO SCH (23:18)
[2019-04-10 23:24] VITALS: BP 100/72
[2019-04-11] VITALS (8 sets, daily range): BP systolic 88–140; BP diastolic 43–75
[2019-04-11] MEDS: IPRATROPIUM BROMIDE 0.5 MG/2.5 ML NEB SOLUTION NEB SCH ×5 (02:00→19:50)
[2019-04-11] MEDS: ALBUTEROL SULFATE 2.5 MG/0.5 ML NEB SOLUTION NEB SCH ×5 (02:00→19:50)
[2019-04-11] MEDS: CloNIDine HCL 0.1 MG TABLET PO SCH ×4 (06:00→21:09)
[2019-04-11 06:28] LABS: BASOPHILS % (AUTO) 1.2 % (0.0-2.0); EOSINOPHILS % (AUTO) 5.5 % (1.0-6.0); HEMOGLOBIN 13.6 g/dL (13.5-17.5); LYMPHOCYTES # (AUTO) 2.5 K/uL (1.0-4.8); LYMPHOCYTES % (AUTO) 39.1 % (22.0-44.0); MEAN CORPUSCULAR HEMOGLOBIN 31.4 pg (26.0-34.0); MEAN CORPUSCULAR HGB CONC 33.2 G/dL (31.0-37.0); MEAN CORPUSCULAR VOLUME 95 fL (80-100); MONOCYTES # (AUTO) 0.5 K/uL (0.1-1.0); MONOCYTES % (AUTO) 7.7 % (2.0-9.0); NEUTROPHILS % (AUTO) 46.5 % (40.0-70.0); PLATELET COUNT (AUTO) 245 K/uL (150-450); RED BLOOD CELL COUNT(AUTO) 4.33 MIL/uL (4.50-5.90); RED CELL DISTRIBUTION WIDTH 13.6 % (11.5-14.5)
[2019-04-11 06:36] LABS: HEMOGLOBIN A1C 5.4 % (4.5-6.2)
[2019-04-11 06:40] LABS: ANION GAP 8 mmol/L (8-16); CALCIUM, TOTAL 9.4 mg/dL (8.8-10.5); CARBON DIOXIDE 27 mmol/L (22-29); CHLORIDE 103 mmol/L (98-107); CREATININE 0.82 mg/dL (0.60-1.30); GLOMERULAR FILTR. RATE CALC > 60 mL/min (>60); GLUCOSE,RANDOM 90 mg/dL (70-110); POTASSIUM 4.3 mmol/L (3.5-5.1); SODIUM SERUM 138 mmol/L (136-145); UREA NITROGEN, BLOOD 11 mg/dL (7-18)
[2019-04-11] MEDS: DOCUSATE SODIUM 100 MG CAPSULE PO SCH ×2 (09:00→21:03)
[2019-04-11] MEDS: HEPARIN SODIUM,PORCINE 5,000 UNITS/ML VIAL SQ SCH ×3 (09:07→23:20)
[2019-04-11] MEDS: DULoxetine HCL 20 MG CAPSULE PO SCH (09:08)
[2019-04-11] MEDS: PANTOPRAZOLE SODIUM 40 MG DR TABLET PO SCH (09:09)
[2019-04-11] MEDS: GABAPENTIN 300 MG CAPSULE PO SCH ×3 (09:09→21:04)
[2019-04-11] MEDS: LORazepam 2 MG/ML VIAL IVP PRN ×3 (09:10→18:20)
[2019-04-11] MEDS: MORPHINE SULFATE 2 MG/ML SYRINGE IVP PRN ×2 (12:33→16:37)
[2019-04-11] MEDS: DIVALPROEX SODIUM 500 MG DR TABLET PO SCH (21:03)
[2019-04-11] MEDS: OLANZapine 10 MG TABLET PO SCH (21:04)
[2019-04-12] MEDS: ALBUTEROL SULFATE 2.5 MG/0.5 ML NEB SOLUTION NEB SCH ×2 (01:53→08:54)
[2019-04-12] MEDS: IPRATROPIUM BROMIDE 0.5 MG/2.5 ML NEB SOLUTION NEB SCH ×2 (01:53→08:55)
[2019-04-12 05:35] VITALS: BP 92/61
[2019-04-12] MEDS: CloNIDine HCL 0.1 MG TABLET PO SCH ×4 (05:55→22:00)
[2019-04-12 08:33] VITALS: BP 114/58
[2019-04-12] MEDS: HEPARIN SODIUM,PORCINE 5,000 UNITS/ML VIAL SQ SCH ×2 (08:55→15:33)
[2019-04-12] MEDS: GABAPENTIN 300 MG CAPSULE PO SCH ×3 (08:55→20:07)
[2019-04-12] MEDS: PANTOPRAZOLE SODIUM 40 MG DR TABLET PO SCH (08:58)
[2019-04-12] MEDS: DOCUSATE SODIUM 100 MG CAPSULE PO SCH ×2 (08:59→20:07)
[2019-04-12] MEDS: MORPHINE SULFATE 2 MG/ML SYRINGE IVP PRN ×3 (09:01→20:08)
[2019-04-12] MEDS: DULoxetine HCL 20 MG CAPSULE PO SCH (09:01)
[2019-04-12] MEDS: LORazepam 2 MG/ML VIAL IVP PRN ×2 (09:18→14:03)
[2019-04-12] MEDS: NICOTINE 14 MG/24 HOUR PATCH TD SCH (10:14)
[2019-04-12 10:50] VITALS: BP 129/92
[2019-04-12 15:06] VITALS: BP 120/74
[2019-04-12] MEDS: HYDROCODONE/ACETAMINOPHEN 5-325 MG TABLET PO PRN (15:32)
[2019-04-12 19:49] VITALS: BP 110/54
[2019-04-12] MEDS: DIVALPROEX SODIUM 500 MG DR TABLET PO SCH (20:07)
[2019-04-12] MEDS: OLANZapine 10 MG TABLET PO SCH (20:08)
[2019-04-13 05:43] VITALS: BP 112/42
[2019-04-13] MEDS: CloNIDine HCL 0.1 MG TABLET PO SCH ×4 (06:00→22:00)
[2019-04-13] MEDS: HEPARIN SODIUM,PORCINE 5,000 UNITS/ML VIAL SQ SCH ×3 (08:44→16:00)
[2019-04-13] MEDS: NICOTINE 14 MG/24 HOUR PATCH TD SCH (08:44)
[2019-04-13] MEDS: GABAPENTIN 300 MG CAPSULE PO SCH ×3 (08:44→20:42)
[2019-04-13] MEDS: LORazepam 2 MG/ML VIAL IVP PRN ×2 (08:45→13:00)
[2019-04-13] MEDS: DULoxetine HCL 20 MG CAPSULE PO SCH (08:45)
[2019-04-13 08:51] VITALS: BP 122/60
[2019-04-13] MEDS: DOCUSATE SODIUM 100 MG CAPSULE PO SCH ×2 (08:51→20:42)
[2019-04-13] MEDS: PANTOPRAZOLE SODIUM 40 MG DR TABLET PO SCH (08:51)
[2019-04-13] MEDS: MORPHINE SULFATE 2 MG/ML SYRINGE IVP PRN ×3 (09:32→18:49)
[2019-04-13 11:16] VITALS: BP 116/78
[2019-04-13] MEDS: HYDROCODONE/ACETAMINOPHEN 5-325 MG TABLET PO PRN ×2 (11:28→15:11)
[2019-04-13 16:02] VITALS: BP 112/63
[2019-04-13] MEDS: ChlordiazePOXIDE HCL 25 MG CAPSULE PO SCH (18:13)
[2019-04-13 19:13] VITALS: BP 112/68
[2019-04-13] MEDS: DIVALPROEX SODIUM 500 MG DR TABLET PO SCH (20:42)
[2019-04-13] MEDS: OLANZapine 10 MG TABLET PO SCH (20:42)
[2019-04-13 23:07] VITALS: BP 110/59
[2019-04-14 05:24] VITALS: BP 103/60
[2019-04-14] MEDS: ChlordiazePOXIDE HCL 25 MG CAPSULE PO SCH ×2 (06:00)
[2019-04-14] MEDS: CloNIDine HCL 0.1 MG TABLET PO SCH ×4 (06:00→22:00)
[2019-04-14 08:03] VITALS: BP 123/90
[2019-04-14] MEDS: GABAPENTIN 300 MG CAPSULE PO SCH ×3 (08:08→20:28)
[2019-04-14] MEDS: MORPHINE SULFATE 2 MG/ML SYRINGE IVP PRN ×4 (08:08→20:28)
[2019-04-14] MEDS: NICOTINE 14 MG/24 HOUR PATCH TD SCH (08:08)
[2019-04-14] MEDS: DOCUSATE SODIUM 100 MG CAPSULE PO SCH ×2 (08:09→20:27)
[2019-04-14] MEDS: PANTOPRAZOLE SODIUM 40 MG DR TABLET PO SCH (08:09)
[2019-04-14] MEDS: DULoxetine HCL 20 MG CAPSULE PO SCH (08:09)
[2019-04-14] MEDS: HEPARIN SODIUM,PORCINE 5,000 UNITS/ML VIAL SQ SCH ×3 (08:09→16:21)
[2019-04-14] MEDS ORDERED: ChlordiazePOXIDE HCL 25 MG CAPSULE PO ONE (08:30)
[2019-04-14] MEDS: HYDROCODONE/ACETAMINOPHEN 5-325 MG TABLET PO PRN ×3 (09:17→17:25)
[2019-04-14 11:50] VITALS: BP 112/70
[2019-04-14] MEDS: ChlordiazePOXIDE HCL 25 MG CAPSULE PO PRN ×2 (12:08→18:22)
[2019-04-14 16:09] VITALS: BP 100/52
[2019-04-14 20:24] VITALS: BP 102/66
[2019-04-14] MEDS: DIVALPROEX SODIUM 500 MG DR TABLET PO SCH (20:28)
[2019-04-14] MEDS: OLANZapine 10 MG TABLET PO SCH (20:28)
[2019-04-15 00:36] VITALS: BP 96/46
[2019-04-15 05:00] VITALS: BP 97/52
[2019-04-15] MEDS: CloNIDine HCL 0.1 MG TABLET PO SCH ×3 (06:00→16:12)
[2019-04-15 07:59] VITALS: BP 108/61
[2019-04-15] MEDS: DULoxetine HCL 20 MG CAPSULE PO SCH (08:25)
[2019-04-15] MEDS: DOCUSATE SODIUM 100 MG CAPSULE PO SCH (08:25)
[2019-04-15] MEDS: GABAPENTIN 300 MG CAPSULE PO SCH ×2 (08:25→16:12)
[2019-04-15] MEDS: ChlordiazePOXIDE HCL 25 MG CAPSULE PO PRN ×2 (08:25→15:56)
[2019-04-15] MEDS: PANTOPRAZOLE SODIUM 40 MG DR TABLET PO SCH (08:25)
[2019-04-15] MEDS: MORPHINE SULFATE 2 MG/ML SYRINGE IVP PRN ×3 (08:26→16:50)
[2019-04-15] MEDS: HEPARIN SODIUM,PORCINE 5,000 UNITS/ML VIAL SQ SCH ×3 (08:26→16:12)
[2019-04-15] MEDS: NICOTINE 14 MG/24 HOUR PATCH TD SCH (08:27)
[2019-04-15] MEDS: HYDROCODONE/ACETAMINOPHEN 5-325 MG TABLET PO PRN ×2 (09:47→14:17)
[2019-04-15 11:17] LABS: ANION GAP 8 mmol/L (8-16); CALCIUM, TOTAL 9.5 mg/dL (8.8-10.5); CARBON DIOXIDE 28 mmol/L (22-29); CHLORIDE 103 mmol/L (98-107); CREATININE 0.86 mg/dL (0.60-1.30); GLOMERULAR FILTR. RATE CALC > 60 mL/min (>60); GLUCOSE,RANDOM 85 mg/dL (70-110); POTASSIUM 4.3 mmol/L (3.5-5.1); SODIUM SERUM 139 mmol/L (136-145); UREA NITROGEN, BLOOD 15 mg/dL (7-18)
[2019-04-15 11:48] VITALS: BP 108/71
[2019-04-15 16:08] VITALS: BP 100/55
[2019-04-15] MEDS ORDERED: CLON-570 PO (16:21)
[2019-04-15] MEDS ORDERED: DSS100 PO (16:21)
[2019-04-15] MEDS ORDERED: DULO20CA30 PO (16:22)
[2019-04-15] MEDS ORDERED: HEPA500018 SQ (16:23)
[2019-04-15] MEDS ORDERED: NICO-703 TD (16:23)
[2019-04-15] MEDS ORDERED: PANT40TA25 PO (16:24)
[2019-04-15] MEDS ORDERED: ACET-2247 PO (16:24)
[2019-04-15] MEDS ORDERED: AUD NEB (16:26)
[2019-04-15] MEDS ORDERED: BISA10SU11 PR (16:27)
[2019-04-15] MEDS ORDERED: LIB25 PO (16:27)
[2019-04-15] MEDS ORDERED: HYDR-4455 PO (16:28)
[2019-04-15] MEDS ORDERED: HYDR50CA10 PO (16:29)
[2019-04-15] MEDS ORDERED: IBUP-2070 PO (16:30)
[2019-04-15] MEDS ORDERED: IPRNEB IH (16:31)
[2019-04-15] MEDS ORDERED: MAG30ORA11 PO (16:31)
[2019-04-15] MEDS ORDERED: MOM30 PO (16:32)
[2019-04-15] MEDS ORDERED: KDUR20 PO (16:32)
[2019-04-15] MEDS ORDERED: ZOLP5 PO (16:33)
== END 2019-04-15 17:00 | DRG 817 ==
LOC: EMS 18:53 → ICU 04-07 19:01 → 5S 04-09 15:35
PROVIDERS: ADMIT Internal Medicine; ATTEND Internal Medicine
PROC: 5A1945Z Respiratory Ventilation, 24-96 Consecutive Hours (ICD-10-PCS; principal; 2019-04-07)
PROC: 0BH17EZ Insertion of Endotracheal Airway into Trachea, Via Natural or Artificial Opening (ICD-10-PCS; 2019-04-07)
PROC: B54MZZA Ultrasonography of Right Upper Extremity Veins, Guidance (ICD-10-PCS; 2019-04-08)
PROC: 05HY33Z Insertion of Infusion Device into Upper Vein, Percutaneous Approach (ICD-10-PCS; 2019-04-08)
DX: T43.622A Poisoning by amphetamines, intentional self-harm, initial encounter (principal); J96.00 Acute respiratory failure, unspecified whether with hypoxia or hypercapnia; G92 Toxic encephalopathy; E87.0 Hyperosmolality and hypernatremia; I95.9 Hypotension, unspecified; F11.20 Opioid dependence, uncomplicated; R45.851 Suicidal ideations; T40.7X2A Poisoning by cannabis (derivatives), intentional self-harm, initial encounter; F25.9 Schizoaffective disorder, unspecified; F41.9 Anxiety disorder, unspecified; F31.9 Bipolar disorder, unspecified; F17.210 Nicotine dependence, cigarettes, uncomplicated; J45.909 Unspecified asthma, uncomplicated; K21.9 Gastro-esophageal reflux disease without esophagitis; G40.909 Epilepsy, unspecified, not intractable, without status epilepticus; Z88.8 Allergy status to other drugs, medicaments and biological substances; Z88.1 Allergy status to other antibiotic agents; Z88.0 Allergy status to penicillin; Y92.89 Other specified places as the place of occurrence of the external cause; Z91.013 Allergy to seafood; Z59.0 Homelessness
CPT/HCPCS: 36245; 36569; 36600; 51702; 70450; 76937; 82805; 83036; 83605; 83735; 84100; 84132; 84443; 87040; 87070; 87081; 87205; 93005; 94002; 94003; 94640; 99291; C9113; G0378; G0480; G0481; J1644; J2060; J2270; J2704; J3010; J3411; J3475; J3490; J7030; J7040; J7060

== ENCOUNTER 2019-04-15 12:15 | Inpatient (IN) | payer MEDICAID ==
[~2019-04-15] VITALS: Ht 177.8 cm; Wt 88.5 kg
[~2019-04-15 12:15] MED LIST changes: -ETOMIDATE 2 MG/ML 10 ML VIAL ONE; -VECURONIUM BROMIDE 10 MG/VIAL ONE
[2019-04-15] MEDS ORDERED: CLON-570 PO (16:21)
[2019-04-15] MEDS ORDERED: DSS100 PO (16:21)
[2019-04-15] MEDS ORDERED: DULO20CA30 PO (16:22)
[2019-04-15] MEDS ORDERED: NICO-703 TD (16:23)
[2019-04-15] MEDS ORDERED: HEPA500018 SQ (16:23)
[2019-04-15] MEDS ORDERED: PANT40TA25 PO (16:24)
[2019-04-15] MEDS ORDERED: ACET-2247 PO (16:24)
[2019-04-15] MEDS ORDERED: AUD NEB (16:26)
[2019-04-15] MEDS ORDERED: LIB25 PO (16:27)
[2019-04-15] MEDS ORDERED: BISA10SU11 PR (16:27)
[2019-04-15] MEDS ORDERED: HYDR-4455 PO (16:28)
[2019-04-15] MEDS ORDERED: HYDR50CA10 PO (16:29)
[2019-04-15] MEDS ORDERED: IBUP-2070 PO (16:30)
[2019-04-15] MEDS ORDERED: MAG30ORA11 PO (16:31)
[2019-04-15] MEDS ORDERED: IPRNEB IH (16:31)
[2019-04-15] MEDS ORDERED: KDUR20 PO (16:32)
[2019-04-15] MEDS ORDERED: MOM30 PO (16:32)
[2019-04-15] MEDS ORDERED: ZOLP5 PO (16:33)
[2019-04-15] MEDS ORDERED: ACETAMINOPHEN 325 MG TABLET PO PRN (17:15)
[2019-04-15] MEDS ORDERED: CloNIDine HCL 0.1 MG TABLET PO PRN (17:15)
[2019-04-15] MEDS ORDERED: MAGNESIUM HYDROXIDE SUSPENSION 30 ML UDCUP PO PRN (17:15)
[2019-04-15] MEDS ORDERED: IBUPROFEN 600 MG TABLET PO PRN (17:15)
[2019-04-15] MEDS ORDERED: ZOLPIDEM TARTRATE 10 MG TABLET PO PRN (17:15)
[2019-04-15] MEDS ORDERED: OLANZapine 5 MG RAPDIS TABLET PO PRN (17:15)
[2019-04-15] MEDS ORDERED: MAG HYDROX/AL HYDROX/SIMETH ES 30 ML SUSPENSION UDCUP PO PRN (17:15)
[2019-04-15 18:30] VITALS: BP 110/67
[2019-04-15 18:35] VITALS: BP 110/98
[2019-04-15] MEDS: OLANZapine 5 MG RAPDIS TABLET PO PRN (18:57)
[2019-04-15] MEDS: HydrOXYzine PAMOATE 50 MG CAPSULE PO PRN (18:57)
[2019-04-15] MEDS: GABAPENTIN 300 MG CAPSULE PO SCH (18:57)
[2019-04-15] MEDS: LORazepam 2 MG TABLET PO PRN (18:57)
[2019-04-15 19:30] VITALS: BP 89/64
[2019-04-15] MEDS: OLANZapine 5 MG RAPDIS TABLET PO SCH (20:23)
[2019-04-15] MEDS: DIVALPROEX SODIUM 500 MG ER TABLET PO SCH (20:23)
[2019-04-15 20:30] VITALS: BP 99/68
[2019-04-15 21:39] VITALS: BP 104/64
[2019-04-15] MEDS: CloNIDine HCL 0.1 MG TABLET PO SCH (21:43)
[2019-04-16] VITALS (7 sets, daily range): BP systolic 106–135; BP diastolic 62–84
[2019-04-16] MEDS: CloNIDine HCL 0.1 MG TABLET PO SCH (06:00)
[2019-04-16] MEDS: LORazepam 2 MG TABLET PO PRN (08:18)
[2019-04-16] MEDS: NICOTINE 21 MG/24 HOUR PATCH TD SCH (08:18)
[2019-04-16] MEDS: GABAPENTIN 300 MG CAPSULE PO SCH ×3 (08:18→16:14)
[2019-04-16] MEDS: DULoxetine HCL 20 MG CAPSULE PO SCH (08:18)
[2019-04-16] MEDS: BUPRENORPHINE HCL/NALOXONE HCL 2-0.5 MG SUBLINGUAL TABLET SL SCH (10:43)
[2019-04-16] MEDS ORDERED: GABAPENTIN 400 MG CAPSULE PO PRN (12:15)
[2019-04-16] MEDS: HydrOXYzine PAMOATE 50 MG CAPSULE PO PRN ×2 (12:40→16:43)
[2019-04-16] MEDS: OLANZapine 5 MG RAPDIS TABLET PO PRN ×2 (12:41→16:43)
[2019-04-16] MEDS: LOPERAMIDE HCL 2 MG CAPSULE PO PRN (13:30)
[2019-04-16] MEDS: DIVALPROEX SODIUM 500 MG ER TABLET PO SCH (20:32)
[2019-04-16] MEDS: OLANZapine 5 MG RAPDIS TABLET PO SCH (20:32)
[2019-04-16] MEDS: ESZOPICLONE 3 MG TABLET PO SCH (20:32)
[2019-04-17 06:32] VITALS: BP 125/75
[2019-04-17 08:04] VITALS: BP 109/89
[2019-04-17] MEDS: OLANZapine 5 MG RAPDIS TABLET PO PRN ×3 (08:09→17:12)
[2019-04-17] MEDS: BUPRENORPHINE HCL/NALOXONE HCL 2-0.5 MG SUBLINGUAL TABLET SL SCH (08:09)
[2019-04-17] MEDS: GABAPENTIN 400 MG CAPSULE PO SCH ×3 (08:09→17:12)
[2019-04-17] MEDS: NICOTINE 21 MG/24 HOUR PATCH TD SCH (08:10)
[2019-04-17] MEDS: DULoxetine HCL 20 MG CAPSULE PO SCH (08:10)
[2019-04-17] MEDS: HydrOXYzine PAMOATE 50 MG CAPSULE PO PRN ×2 (08:16→14:05)
[2019-04-17 10:41] VITALS: BP 109/79
[2019-04-17] MEDS: BACLOFEN 10 MG TABLET PO SCH ×2 (12:36→17:12)
[2019-04-17 16:00] VITALS: BP 137/79
[2019-04-17] MEDS: ESZOPICLONE 3 MG TABLET PO SCH (20:47)
[2019-04-17] MEDS: OLANZapine 10 MG RAPDIS TABLET PO SCH (20:47)
[2019-04-17] MEDS: DIVALPROEX SODIUM 500 MG ER TABLET PO SCH (20:47)
[2019-04-17] MEDS: LOPERAMIDE HCL 2 MG CAPSULE PO PRN (21:12)
[2019-04-18 06:31] VITALS: BP 122/78
[2019-04-18] MEDS: HydrOXYzine PAMOATE 50 MG CAPSULE PO PRN ×3 (07:19→18:37)
[2019-04-18 08:02] VITALS: BP 107/79
[2019-04-18] MEDS: BACLOFEN 10 MG TABLET PO SCH ×2 (08:05→15:58)
[2019-04-18] MEDS: NICOTINE 21 MG/24 HOUR PATCH TD SCH (08:05)
[2019-04-18] MEDS: BUPRENORPHINE HCL/NALOXONE HCL 2-0.5 MG SUBLINGUAL TABLET SL SCH (08:05)
[2019-04-18] MEDS: OLANZapine 5 MG RAPDIS TABLET PO PRN ×2 (08:06→12:47)
[2019-04-18] MEDS: DULoxetine HCL 20 MG CAPSULE PO SCH (08:06)
[2019-04-18] MEDS: GABAPENTIN 400 MG CAPSULE PO SCH ×3 (08:06→15:58)
[2019-04-18 09:47] VITALS: BP 107/79
[2019-04-18] MEDS: LOPERAMIDE HCL 2 MG CAPSULE PO PRN ×2 (10:34→19:35)
[2019-04-18 16:00] VITALS: BP 124/65
[2019-04-18 16:34] VITALS: BP 124/65
[2019-04-18] MEDS: DIVALPROEX SODIUM 500 MG ER TABLET PO SCH (20:12)
[2019-04-18] MEDS: OLANZapine 10 MG RAPDIS TABLET PO SCH (20:12)
[2019-04-18] MEDS: ESZOPICLONE 3 MG TABLET PO SCH (20:12)
[2019-04-19 06:55] VITALS: BP 105/64
[2019-04-19] MEDS: DULoxetine HCL 30 MG CAPSULE PO SCH (08:18)
[2019-04-19] MEDS: GABAPENTIN 400 MG CAPSULE PO SCH ×3 (08:18→16:05)
[2019-04-19] MEDS: BUPRENORPHINE HCL/NALOXONE HCL 2-0.5 MG SUBLINGUAL TABLET SL SCH (08:18)
[2019-04-19] MEDS: NICOTINE 21 MG/24 HOUR PATCH TD SCH (08:18)
[2019-04-19] MEDS: HydrOXYzine PAMOATE 50 MG CAPSULE PO PRN ×3 (08:18→20:47)
[2019-04-19] MEDS: BACLOFEN 10 MG TABLET PO SCH ×2 (08:18→16:05)
[2019-04-19 08:24] VITALS: BP 114/86
[2019-04-19 09:00] VITALS: BP 114/86
[2019-04-19] MEDS: LOPERAMIDE HCL 2 MG CAPSULE PO PRN ×4 (09:59→15:50)
[2019-04-19] MEDS: MAG HYDROX/AL HYDROX/SIMETH ES 30 ML SUSPENSION UDCUP PO PRN (11:30)
[2019-04-19] MEDS: PETROLATUM,WHITE 28 GM JELLY TP PRN (13:27)
[2019-04-19 16:33] VITALS: BP 136/83
[2019-04-19 18:10] VITALS: BP 114/80
[2019-04-19] MEDS: OLANZapine 10 MG RAPDIS TABLET PO SCH (20:47)
[2019-04-19] MEDS: DIVALPROEX SODIUM 500 MG ER TABLET PO SCH (20:47)
[2019-04-19] MEDS: ESZOPICLONE 3 MG TABLET PO SCH (20:47)
[2019-04-20 01:40] VITALS: BP 116/80
[2019-04-20 08:50] VITALS: BP 111/74
[2019-04-20 09:37] VITALS: BP 111/74
[2019-04-20] MEDS: NICOTINE 21 MG/24 HOUR PATCH TD SCH (10:09)
[2019-04-20] MEDS: DULoxetine HCL 30 MG CAPSULE PO SCH (10:09)
[2019-04-20] MEDS: HydrOXYzine PAMOATE 50 MG CAPSULE PO PRN ×3 (10:09→20:44)
[2019-04-20] MEDS: BACLOFEN 10 MG TABLET PO SCH ×2 (10:09→16:08)
[2019-04-20] MEDS: GABAPENTIN 400 MG CAPSULE PO SCH ×3 (10:09→16:08)
[2019-04-20] MEDS: BUPRENORPHINE HCL/NALOXONE HCL 2-0.5 MG SUBLINGUAL TABLET SL SCH (10:09)
[2019-04-20] MEDS: PETROLATUM,WHITE 28 GM JELLY TP PRN (12:18)
[2019-04-20 16:00] VITALS: BP 124/81
[2019-04-20 16:37] VITALS: BP 124/81
[2019-04-20] MEDS: ESZOPICLONE 3 MG TABLET PO SCH (20:43)
[2019-04-20] MEDS: OLANZapine 10 MG RAPDIS TABLET PO SCH (20:43)
[2019-04-20] MEDS: DIVALPROEX SODIUM 500 MG ER TABLET PO SCH (20:43)
[2019-04-21 00:56] VITALS: BP 119/77
[2019-04-21 00:59] VITALS: BP 119/77
[2019-04-21 08:07] VITALS: BP 128/63
[2019-04-21] MEDS: DULoxetine HCL 30 MG CAPSULE PO SCH (09:22)
[2019-04-21] MEDS: GABAPENTIN 400 MG CAPSULE PO SCH ×3 (09:22→16:13)
[2019-04-21] MEDS: NICOTINE 21 MG/24 HOUR PATCH TD SCH (09:22)
[2019-04-21] MEDS: BACLOFEN 10 MG TABLET PO SCH ×2 (09:23→16:13)
[2019-04-21] MEDS: BUPRENORPHINE HCL/NALOXONE HCL 2-0.5 MG SUBLINGUAL TABLET SL SCH (09:27)
[2019-04-21] MEDS: PETROLATUM,WHITE 28 GM JELLY TP PRN ×2 (13:19→17:39)
[2019-04-21 16:00] VITALS: BP 140/77
[2019-04-21] MEDS: HydrOXYzine PAMOATE 50 MG CAPSULE PO PRN ×2 (16:13→20:26)
[2019-04-21] MEDS: MAG HYDROX/AL HYDROX/SIMETH ES 30 ML SUSPENSION UDCUP PO PRN (16:47)
[2019-04-21] MEDS: OLANZapine 10 MG RAPDIS TABLET PO SCH (20:26)
[2019-04-21] MEDS: ESZOPICLONE 3 MG TABLET PO SCH (20:26)
[2019-04-21] MEDS: DIVALPROEX SODIUM 500 MG ER TABLET PO SCH (20:26)
[2019-04-21] MEDS: LOPERAMIDE HCL 2 MG CAPSULE PO PRN (20:41)
[2019-04-22 00:22] VITALS: BP 114/68
[2019-04-22] MEDS: BUPRENORPHINE HCL/NALOXONE HCL 2-0.5 MG SUBLINGUAL TABLET SL SCH (09:24)
[2019-04-22] MEDS: GABAPENTIN 400 MG CAPSULE PO SCH ×3 (09:24→16:01)
[2019-04-22] MEDS: DULoxetine HCL 20 MG CAPSULE PO SCH (09:32)
[2019-04-22] MEDS: BACLOFEN 10 MG TABLET PO SCH ×2 (09:35→16:00)
[2019-04-22] MEDS: NICOTINE 21 MG/24 HOUR PATCH TD SCH (09:42)
[2019-04-22 16:00] VITALS: BP 128/87
[2019-04-22] MEDS: HydrOXYzine PAMOATE 50 MG CAPSULE PO PRN ×2 (16:00→20:02)
[2019-04-22] MEDS: OLANZapine 10 MG RAPDIS TABLET PO SCH (20:02)
[2019-04-22] MEDS: ESZOPICLONE 3 MG TABLET PO SCH (20:02)
[2019-04-22] MEDS: DIVALPROEX SODIUM 500 MG ER TABLET PO SCH (20:02)
[2019-04-23 04:51] VITALS: BP 117/86
[2019-04-23 08:24] VITALS: BP 103/58
[2019-04-23] MEDS: GABAPENTIN 400 MG CAPSULE PO SCH ×3 (08:38→16:24)
[2019-04-23] MEDS: BACLOFEN 10 MG TABLET PO SCH ×2 (08:38→16:24)
[2019-04-23] MEDS: DULoxetine HCL 20 MG CAPSULE PO SCH (09:20)
[2019-04-23] MEDS: NICOTINE 21 MG/24 HOUR PATCH TD SCH (09:20)
[2019-04-23] MEDS: BUPRENORPHINE HCL/NALOXONE HCL 2-0.5 MG SUBLINGUAL TABLET SL SCH ×2 (09:21→12:41)
[2019-04-23] MEDS ORDERED: BUPRENORPHINE HCL/NALOXONE HCL 2-0.5 MG SUBLINGUAL TABLET SL SCH (12:00)
[2019-04-23] MEDS ORDERED: OLAN10TA22 PO (14:05)
[2019-04-23] MEDS ORDERED: ESZO3 PO ×2 (14:05→14:43)
[2019-04-23] MEDS ORDERED: DULO20CA30 PO (14:05)
[2019-04-23] MEDS ORDERED: DIVA500T52 PO (14:05)
[2019-04-23] MEDS ORDERED: ACAM333T7 PO ×2 (14:05→14:40)
[2019-04-23] MEDS ORDERED: GABA-533 PO ×2 (14:05→14:43)
[2019-04-23] MEDS ORDERED: BACL10TA PO (14:40)
[2019-04-23] MEDS ORDERED: BUPR1FIL SL (14:43)
[2019-04-23] MEDS ORDERED: OLAN10TA6 PO (14:43)
[2019-04-23 16:00] VITALS: BP 137/68
[2019-04-23] MEDS: ACAMPROSATE CALCIUM 333 MG DR TABLET PO SCH (16:24)
[2019-04-23] MEDS: HydrOXYzine PAMOATE 50 MG CAPSULE PO PRN ×2 (16:25→20:26)
[2019-04-23] MEDS: OLANZapine 10 MG RAPDIS TABLET PO SCH (20:26)
[2019-04-23] MEDS: ESZOPICLONE 3 MG TABLET PO SCH (20:26)
[2019-04-23] MEDS: DIVALPROEX SODIUM 500 MG ER TABLET PO SCH (20:26)
[2019-04-24 02:58] VITALS: BP 128/70
[2019-04-24 08:09] VITALS: BP 104/74
[2019-04-24] MEDS: NICOTINE 21 MG/24 HOUR PATCH TD SCH (09:18)
[2019-04-24] MEDS: GABAPENTIN 400 MG CAPSULE PO SCH (09:18)
[2019-04-24] MEDS: ACAMPROSATE CALCIUM 333 MG DR TABLET PO SCH (09:18)
[2019-04-24] MEDS: DULoxetine HCL 20 MG CAPSULE PO SCH (09:19)
[2019-04-24] MEDS: BUPRENORPHINE HCL/NALOXONE HCL 2-0.5 MG SUBLINGUAL TABLET SL SCH (09:19)
[2019-04-24] MEDS: BACLOFEN 10 MG TABLET PO SCH (09:19)
== END 2019-04-24 10:11 | disposition home or self-care (01) | DRG 753 ==
LOC: B3A 18:36
PROVIDERS: ADMIT Psychiatry & Neurology Psychiatry; ATTEND Psychiatry & Neurology Psychiatry
DX: F31.81 Bipolar II disorder (principal); F11.20 Opioid dependence, uncomplicated; F25.9 Schizoaffective disorder, unspecified; F17.210 Nicotine dependence, cigarettes, uncomplicated; J45.909 Unspecified asthma, uncomplicated; T40.7X2A Poisoning by cannabis (derivatives), intentional self-harm, initial encounter; T42.4X2A Poisoning by benzodiazepines, intentional self-harm, initial encounter; M25.561 Pain in right knee; M25.562 Pain in left knee; Z59.0 Homelessness; Z91.19 Patient's noncompliance with other medical treatment and regimen; Y92.89 Other specified places as the place of occurrence of the external cause
CPT/HCPCS: 87081

== ENCOUNTER 2019-10-10 10:29 | Inpatient (IN) | payer MEDICAID, OTHER ==
[~2019-10-10] VITALS: Ht 177.8 cm; Wt 87.1 kg
[~2019-10-10 10:29] MED LIST changes: +BACL10TA PO; +BUPR1FIL SL; +DULO20CA30 PO; -GABA-531 PO; +GABA-533 PO; -OLAN10TA20 PO; +OLAN10TA22 PO; -OLAN10TA3 PO; +OLAN10TA6 PO
[2019-10-10 11:25] LABS: AMPHET/METH SCREEN,URINE NEGATIVE (NEGATIVE); BARBITURATE SCREEN, URINE NEGATIVE (NEGATIVE); BENZODIAZEPINES SCREEN,URINE POSITIVE (NEGATIVE); CANNABINOID SCREEN,URINE POSITIVE (NEGATIVE); COCAINE SCREEN,URINE NEGATIVE (NEGATIVE); METHADONE SCREEN, URINE NEGATIVE (NEGATIVE); OPIATE SCREEN,URINE NEGATIVE (NEGATIVE)
[2019-10-10 11:26] LABS: PHENCYCLIDINE SCREEN,URINE NEGATIVE (NEGATIVE)
[2019-10-10 11:32] LABS: BASOPHILS % (AUTO) 0.6 % (0.0-2.0); EOSINOPHILS % (AUTO) 2.1 % (1.0-6.0); HEMATOCRIT 41.5 % (41-53); HEMOGLOBIN 14.3 g/dL (13.5-17.5); LYMPHOCYTES # (AUTO) 1.2 K/uL (1.0-4.8); LYMPHOCYTES % (AUTO) 23.6 % (22.0-44.0); MEAN CORPUSCULAR HEMOGLOBIN 31.3 pg (26.0-34.0); MEAN CORPUSCULAR HGB CONC 34.5 G/dL (31.0-37.0); MEAN CORPUSCULAR VOLUME 91 fL (80-100); MONOCYTES # (AUTO) 0.3 K/uL (0.1-1.0); NEUTROPHILS # (AUTO) 3.4 K/uL (1.8-7.7); NEUTROPHILS % (AUTO) 68.7 % (40.0-70.0); PLATELET COUNT (AUTO) 198 K/uL (150-450); RED BLOOD CELL COUNT(AUTO) 4.59 MIL/uL (4.50-5.90); RED CELL DISTRIBUTION WIDTH 13.6 % (11.5-14.5)
[2019-10-10 11:49] LABS: ANION GAP 11 mmol/L (8-16); CALCIUM, TOTAL 8.8 mg/dL (8.8-10.5); CARBON DIOXIDE 23 mmol/L (22-29); CHLORIDE 106 mmol/L (98-107); CREATININE 0.83 mg/dL (0.60-1.30); GLOMERULAR FILTR. RATE CALC > 60 mL/min (>60); GLUCOSE,RANDOM 154 mg/dL (70-110); POTASSIUM 3.7 mmol/L (3.5-5.1); SODIUM SERUM 140 mmol/L (136-145); UREA NITROGEN, BLOOD 9 mg/dL (7-18)
[2019-10-10 11:55] LABS: ALANINE AMINOTRANSFERASE 27 U/L (12-78); ALBUMIN 3.1 g/dL (3.4-5.0); ALKALINE PHOSPHATASE 56 U/L (46-116); ASPARTATE AMINOTRANSFERASE 18 U/L (15-37); BILIRUBIN,TOTAL 0.3 mg/dL (0.1-1.0); VALPROIC ACID 63 mcg/mL (50-100)
[2019-10-10] MEDS ORDERED: LORazepam 2 MG TABLET PO ONE (15:30)
[2019-10-10] MEDS ORDERED: HALOPERIDOL 5 MG TABLET PO PRN (16:30)
[2019-10-10] MEDS ORDERED: DIAZEPAM 10 MG TABLET PO PRN (16:30)
[2019-10-10 20:00] VITALS: BP 122/73
[2019-10-10 20:05] VITALS: BP 122/73
[2019-10-10] MEDS: DIVALPROEX SODIUM 500 MG DR TABLET PO SCH (20:42)
[2019-10-10] MEDS: OLANZapine 10 MG TABLET PO SCH (20:42)
[2019-10-10] MEDS ORDERED: INFLUENZA VIRUS VACCINE QVS 2019-20 (3YR+)/PF 60 MCG/0.5 ML SYRINGE IM ONE (20:45)
[2019-10-10 21:00] VITALS: BP 107/60
[2019-10-10 22:00] VITALS: BP 100/59
[2019-10-10 23:04] VITALS: BP 97/63
[2019-10-11] VITALS (10 sets, daily range): BP systolic 98–128; BP diastolic 58–84
[2019-10-11] MEDS ORDERED: DIAZEPAM 10 MG TABLET PO PRN (07:00)
[2019-10-11] MEDS: DIAZEPAM 10 MG TABLET PO SCH ×4 (08:41→20:11)
[2019-10-11] MEDS ORDERED: CloNIDine HCL 0.1 MG TABLET PO PRN (10:45)
[2019-10-11] MEDS ORDERED: MAG HYDROX/AL HYDROX/SIMETH ES 30 ML SUSPENSION UDCUP PO PRN (10:45)
[2019-10-11] MEDS: DIVALPROEX SODIUM 500 MG DR TABLET PO SCH (20:11)
[2019-10-11] MEDS: ZOLPIDEM TARTRATE 10 MG TABLET PO PRN (20:11)
[2019-10-11] MEDS: OLANZapine 10 MG TABLET PO SCH (20:11)
[2019-10-12 06:29] VITALS: BP 114/62
[2019-10-12 08:00] VITALS: BP 109/71
[2019-10-12 08:07] VITALS: BP 109/71
[2019-10-12] MEDS: DIAZEPAM 10 MG TABLET PO SCH ×4 (08:18→20:09)
[2019-10-12 16:13] VITALS: BP 111/68
[2019-10-12 17:26] VITALS: BP 113/78
[2019-10-12] MEDS: IBUPROFEN 600 MG TABLET PO PRN (17:46)
[2019-10-12] MEDS: ZOLPIDEM TARTRATE 10 MG TABLET PO PRN (20:08)
[2019-10-12] MEDS: OLANZapine 10 MG TABLET PO SCH (20:09)
[2019-10-12] MEDS: DIVALPROEX SODIUM 500 MG DR TABLET PO SCH (20:09)
[2019-10-12] MEDS: PRAZOSIN HCL 5 MG CAPSULE PO SCH (20:09)
[2019-10-13] VITALS (7 sets, daily range): BP systolic 100–138; BP diastolic 66–99
[2019-10-13] MEDS ORDERED: DIAZEPAM 5 MG TABLET PO PRN (07:00)
[2019-10-13] MEDS: DIAZEPAM 5 MG TABLET PO SCH ×4 (08:29→20:18)
[2019-10-13] MEDS: IBUPROFEN 600 MG TABLET PO PRN (19:45)
[2019-10-13] MEDS: OLANZapine 10 MG TABLET PO SCH (20:18)
[2019-10-13] MEDS: DIVALPROEX SODIUM 500 MG DR TABLET PO SCH (20:18)
[2019-10-13] MEDS: PRAZOSIN HCL 5 MG CAPSULE PO SCH (20:18)
[2019-10-13] MEDS: ZOLPIDEM TARTRATE 10 MG TABLET PO PRN (20:18)
[2019-10-14 05:09] VITALS: BP 113/68
[2019-10-14] MEDS: DIAZEPAM 5 MG TABLET PO PRN ×3 (08:15→18:24)
[2019-10-14 08:22] VITALS: BP 103/72
[2019-10-14 12:48] VITALS: BP 106/63
[2019-10-14 16:00] VITALS: BP 108/68
[2019-10-14 16:10] VITALS: BP 108/63
[2019-10-14] MEDS ORDERED: LOPERAMIDE HCL 2 MG CAPSULE PO PRN (18:00)
[2019-10-14] MEDS: OLANZapine 10 MG TABLET PO SCH (20:25)
[2019-10-14] MEDS: PRAZOSIN HCL 5 MG CAPSULE PO SCH (20:25)
[2019-10-14] MEDS: ZOLPIDEM TARTRATE 10 MG TABLET PO PRN (20:25)
[2019-10-14] MEDS: DIVALPROEX SODIUM 500 MG DR TABLET PO SCH (20:25)
[2019-10-15 04:17] VITALS: BP 115/71
[2019-10-15 04:19] VITALS: BP 115/71
[2019-10-15 08:26] VITALS: BP 103/58
[2019-10-15 11:12] VITALS: BP 120/59
[2019-10-15 16:01] VITALS: BP 122/71
[2019-10-15] MEDS: HydrOXYzine PAMOATE 50 MG CAPSULE PO PRN ×2 (16:23→20:27)
[2019-10-15 16:51] VITALS: BP 122/71
[2019-10-15] MEDS: OLANZapine 10 MG TABLET PO SCH (20:02)
[2019-10-15] MEDS: DIVALPROEX SODIUM 500 MG DR TABLET PO SCH (20:03)
[2019-10-15] MEDS: PRAZOSIN HCL 5 MG CAPSULE PO SCH (20:03)
[2019-10-15] MEDS: ZOLPIDEM TARTRATE 10 MG TABLET PO PRN (20:18)
[2019-10-16 05:13] VITALS: BP 118/76
[2019-10-16 05:14] VITALS: BP 118/76
[2019-10-16 08:02] VITALS: BP 110/62
[2019-10-16 08:10] VITALS: BP 110/62
[2019-10-16] MEDS: HydrOXYzine PAMOATE 50 MG CAPSULE PO PRN ×2 (10:05→20:07)
[2019-10-16 16:08] VITALS: BP 113/72
[2019-10-16 17:10] VITALS: BP 113/72
[2019-10-16] MEDS: OLANZapine 10 MG TABLET PO SCH (20:07)
[2019-10-16] MEDS: DIVALPROEX SODIUM 500 MG DR TABLET PO SCH (20:07)
[2019-10-16] MEDS: ZOLPIDEM TARTRATE 10 MG TABLET PO PRN (20:08)
[2019-10-16] MEDS: PRAZOSIN HCL 5 MG CAPSULE PO SCH (20:08)
[2019-10-17 01:04] VITALS: BP 104/75
[2019-10-17 09:35] VITALS: BP 94/64
[2019-10-17] MEDS: HydrOXYzine PAMOATE 50 MG CAPSULE PO PRN ×3 (11:55→22:44)
[2019-10-17 16:43] VITALS: BP 106/66
[2019-10-17] MEDS: PRAZOSIN HCL 5 MG CAPSULE PO SCH (20:20)
[2019-10-17] MEDS: DIVALPROEX SODIUM 500 MG DR TABLET PO SCH (20:20)
[2019-10-17] MEDS: OLANZapine 10 MG TABLET PO SCH (20:20)
[2019-10-17] MEDS: ZOLPIDEM TARTRATE 10 MG TABLET PO PRN (20:21)
[2019-10-18 04:45] VITALS: BP 110/66
[2019-10-18 08:01] VITALS: BP 108/62
[2019-10-18] MEDS: HydrOXYzine PAMOATE 50 MG CAPSULE PO PRN ×2 (11:33→17:36)
[2019-10-18 17:22] VITALS: BP 103/64
[2019-10-18] MEDS: PRAZOSIN HCL 5 MG CAPSULE PO SCH (20:03)
[2019-10-18] MEDS: OLANZapine 10 MG TABLET PO SCH (20:05)
[2019-10-18] MEDS: ZOLPIDEM TARTRATE 10 MG TABLET PO PRN (20:05)
[2019-10-18] MEDS: DIVALPROEX SODIUM 500 MG DR TABLET PO SCH (20:06)
[2019-10-19 05:49] VITALS: BP 110/68
[2019-10-19 08:18] VITALS: BP 110/68
[2019-10-19] MEDS: HydrOXYzine PAMOATE 50 MG CAPSULE PO PRN ×2 (14:42→21:18)
[2019-10-19 16:09] VITALS: BP 106/63
[2019-10-19] MEDS: NICOTINE 14 MG/24 HOUR PATCH TD SCH (19:08)
[2019-10-19] MEDS: PRAZOSIN HCL 5 MG CAPSULE PO SCH (20:23)
[2019-10-19] MEDS: ZOLPIDEM TARTRATE 10 MG TABLET PO PRN (20:24)
[2019-10-19] MEDS: OLANZapine 10 MG TABLET PO SCH (20:24)
[2019-10-19] MEDS: DIVALPROEX SODIUM 500 MG DR TABLET PO SCH (20:24)
[2019-10-20 05:22] VITALS: BP 125/70
[2019-10-20 08:30] VITALS: BP 117/72
[2019-10-20] MEDS: NICOTINE 14 MG/24 HOUR PATCH TD SCH (08:54)
[2019-10-20] MEDS: HydrOXYzine PAMOATE 50 MG CAPSULE PO PRN ×2 (14:09→20:11)
[2019-10-20 16:04] VITALS: BP 100/60
[2019-10-20] MEDS: OLANZapine 10 MG TABLET PO SCH (20:10)
[2019-10-20] MEDS: DIVALPROEX SODIUM 500 MG DR TABLET PO SCH (20:10)
[2019-10-20] MEDS: PRAZOSIN HCL 5 MG CAPSULE PO SCH (20:10)
[2019-10-20] MEDS: ZOLPIDEM TARTRATE 10 MG TABLET PO PRN (20:11)
[2019-10-21 06:17] VITALS: BP 110/68
[2019-10-21] MEDS: NICOTINE 14 MG/24 HOUR PATCH TD SCH (08:25)
[2019-10-21 16:00] VITALS: BP 103/71
[2019-10-21] MEDS: HydrOXYzine PAMOATE 50 MG CAPSULE PO PRN (17:00)
[2019-10-21] MEDS ORDERED: PRAZ5 PO (18:41)
[2019-10-21] MEDS: PRAZOSIN HCL 5 MG CAPSULE PO SCH (20:13)
[2019-10-21] MEDS: OLANZapine 10 MG TABLET PO SCH (20:13)
[2019-10-21] MEDS: ZOLPIDEM TARTRATE 10 MG TABLET PO PRN (20:13)
[2019-10-21] MEDS: DIVALPROEX SODIUM 500 MG DR TABLET PO SCH (20:13)
[2019-10-22 06:29] VITALS: BP 103/66
[2019-10-22 08:00] VITALS: BP 103/61
[2019-10-22] MEDS: NICOTINE 14 MG/24 HOUR PATCH TD SCH (08:32)
[2019-10-22 16:08] VITALS: BP 112/70
[2019-10-22] MEDS: PRAZOSIN HCL 5 MG CAPSULE PO SCH (20:19)
[2019-10-22] MEDS: OLANZapine 10 MG TABLET PO SCH (20:19)
[2019-10-22] MEDS: DIVALPROEX SODIUM 500 MG DR TABLET PO SCH (20:19)
[2019-10-22] MEDS: HydrOXYzine PAMOATE 50 MG CAPSULE PO PRN (20:19)
[2019-10-22] MEDS: ZOLPIDEM TARTRATE 10 MG TABLET PO PRN (20:19)
[2019-10-23 06:12] VITALS: BP 112/69
[2019-10-23] MEDS: NICOTINE 14 MG/24 HOUR PATCH TD SCH (08:14)
[2019-10-23 08:27] VITALS: BP 98/45
[2019-10-23] MEDS ORDERED: BuPROPion HCL XL 150 MG ER TABLET PO SCH (09:00)
[2019-10-23] MEDS ORDERED: BUPR-47 PO (10:48)
[2019-10-23] MEDS ORDERED: DIVA-78 PO (10:48)
[2019-10-23] MEDS ORDERED: OLAN10TA20 PO (10:49)
[2019-10-23] MEDS ORDERED: PRAZ5 PO (10:49)
== END 2019-10-23 13:44 | disposition home or self-care (01) | DRG 750 ==
LOC: EMS 10:32 → B3A 20:03
DX: F25.1 Schizoaffective disorder, depressive type (principal); I95.9 Hypotension, unspecified; F11.20 Opioid dependence, uncomplicated; R45.851 Suicidal ideations; G40.909 Epilepsy, unspecified, not intractable, without status epilepticus; Z59.0 Homelessness; F13.20 Sedative, hypnotic or anxiolytic dependence, uncomplicated; D64.9 Anemia, unspecified; J45.909 Unspecified asthma, uncomplicated; F17.200 Nicotine dependence, unspecified, uncomplicated; F31.9 Bipolar disorder, unspecified; F41.9 Anxiety disorder, unspecified; F12.10 Cannabis abuse, uncomplicated; R10.13 Epigastric pain; Z88.0 Allergy status to penicillin; Z91.5 Personal history of self-harm; Z88.2 Allergy status to sulfonamides; Z88.8 Allergy status to other drugs, medicaments and biological substances; Z88.1 Allergy status to other antibiotic agents; Z91.013 Allergy to seafood
CPT/HCPCS: G0480

== ENCOUNTER 2020-06-30 03:02 | Inpatient (IN) | payer MEDICAID ==
[~2020-06-30] VITALS: Ht 176.5 cm; Wt 83.1 kg
[~2020-06-30 03:02] MED LIST changes: -ACAM333T7 PO; -BACL10TA PO; +BUPR-47 PO; -BUPR1FIL SL; +DIVA-112 PO; +DIVA-80 PO; -DIVA500T52 PO; -DULO20CA30 PO; -ESZO3 PO; -GABA-533 PO; +OLAN10TA20 PO; -OLAN10TA22 PO; -OLAN10TA6 PO; +PRAZ5 PO
[2020-06-30] MEDS ORDERED: ZOLPIDEM TARTRATE 10 MG TABLET PO PRN (04:30)
[2020-06-30] MEDS: QUEtiapine FUMARATE 100 MG TABLET PO PRN ×2 (10:23→14:29)
[2020-06-30] MEDS: LORazepam 2 MG TABLET PO PRN ×3 (10:23→20:39)
[2020-06-30 10:41] VITALS: BP 113/75
[2020-06-30] MEDS ORDERED: INFLUENZA VIRUS VACCINE QVS 2020-21 (6MO+)/PF 60 MCG/0.5 ML SYRINGE IM ONE (11:00)
[2020-06-30 16:12] VITALS: BP 128/73
[2020-06-30] MEDS ORDERED: DIVALPROEX SODIUM 500 MG ER TABLET PO SCH (21:00)
[2020-06-30] MEDS ORDERED: OLANZapine 10 MG TABLET PO SCH (21:00)
[2020-07-01] MEDS: LORazepam 2 MG TABLET PO PRN ×2 (03:25→08:26)
[2020-07-01 04:29] VITALS: BP 124/73
[2020-07-01 08:27] VITALS: BP 135/85
[2020-07-01] MEDS ORDERED: NICOTINE 14 MG/24 HOUR PATCH TD SCH (09:00)
[2020-07-01] MEDS ORDERED: ESZOPICLONE 2 MG TABLET PO PRN (11:15)
[2020-07-01 11:27] VITALS: BP 134/82
[2020-07-01] MEDS: DIAZEPAM 10 MG TABLET PO PRN ×2 (12:08→14:54)
[2020-07-01] MEDS ORDERED: HALOPERIDOL 5 MG TABLET PO PRN (12:15)
[2020-07-01] MEDS ORDERED: HALOPERIDOL 10 MG TABLET PO SCH (21:00)
[2020-07-02] MEDS ORDERED: DIAZEPAM 10 MG TABLET PO PRN (07:00)
[2020-07-02] MEDS ORDERED: DIAZEPAM 10 MG TABLET PO SCH (09:00)
[2020-07-04] MEDS ORDERED: DIAZEPAM 5 MG TABLET PO PRN (07:00)
[2020-07-04] MEDS ORDERED: DIAZEPAM 5 MG TABLET PO SCH (09:00)
[2020-07-05] MEDS ORDERED: DIAZEPAM 5 MG TABLET PO PRN (07:00)
== END 2020-07-01 16:20 | disposition left against medical advice (07) | DRG 750 ==
LOC: B3A 04:00
DX: F25.0 Schizoaffective disorder, bipolar type (principal); G89.29 Other chronic pain; F15.20 Other stimulant dependence, uncomplicated; F11.20 Opioid dependence, uncomplicated; Z59.0 Homelessness; Z88.2 Allergy status to sulfonamides; Z88.8 Allergy status to other drugs, medicaments and biological substances; Z88.1 Allergy status to other antibiotic agents; Z88.0 Allergy status to penicillin; Z91.013 Allergy to seafood
CPT/HCPCS: 87081; Z7610

== ENCOUNTER 2020-06-30 05:55 | Emergency (ER) | payer MEDICAID, OTHER ==
[~2020-06-30] VITALS: Ht 177.8 cm; Wt 77.3 kg
[2020-06-30 06:50] LABS: COVID AG,FIA SOURCE NASOPHARYNGEAL
[2020-06-30 07:01] LABS: AMPHET/METH SCREEN,URINE NEGATIVE (NEGATIVE); BARBITURATE SCREEN, URINE NEGATIVE (NEGATIVE); BENZODIAZEPINES SCREEN,URINE POSITIVE (NEGATIVE); CANNABINOID SCREEN,URINE POSITIVE (NEGATIVE); COCAINE SCREEN,URINE NEGATIVE (NEGATIVE); METHADONE SCREEN, URINE NEGATIVE (NEGATIVE); OPIATE SCREEN,URINE NEGATIVE (NEGATIVE)
[2020-06-30 07:03] LABS: PHENCYCLIDINE SCREEN,URINE NEGATIVE (NEGATIVE)
[2020-06-30] MEDS ORDERED: LORazepam 2 MG TABLET PO ONE (07:15)
[2020-06-30] MEDS ORDERED: ACETAMINOPHEN 500 MG TABLET PO ONE (07:45)
[2020-06-30] MEDS ORDERED: NICOTINE 7 MG/24 HOUR PATCH TD ONE (08:15)
[2020-06-30 08:48] VITALS: BP 118/72
== END 2020-06-30 09:10 | disposition home or self-care (01) ==
LOC: EMS 05:55
DX: R45.851 Suicidal ideations (principal); Z20.828 Contact with and (suspected) exposure to other viral communicable diseases; F17.210 Nicotine dependence, cigarettes, uncomplicated; F12.90 Cannabis use, unspecified, uncomplicated; F15.90 Other stimulant use, unspecified, uncomplicated; F11.90 Opioid use, unspecified, uncomplicated; F32.9 Major depressive disorder, single episode, unspecified; Z91.013 Allergy to seafood; Z88.2 Allergy status to sulfonamides; Z88.0 Allergy status to penicillin; Z79.899 Other long term (current) drug therapy
CPT/HCPCS: 87426

== ENCOUNTER 2020-08-20 12:54 | Inpatient (IN) | payer MEDICAID, OTHER ==
[~2020-08-20] VITALS: Ht 177.8 cm; Wt 78.0 kg
[2020-08-20] MEDS ORDERED: DiphenhydrAMINE HCL 50 MG/ML VIAL IM ONE (13:45)
[2020-08-20] MEDS ORDERED: LORazepam 2 MG/ML VIAL IM ONE (13:45)
[2020-08-20] MEDS ORDERED: HALOPERIDOL LACTATE 5 MG/ML VIAL IM ONE (13:45)
[2020-08-20 14:19] LABS: BASOPHILS % (AUTO) 1.1 % (0.0-2.0); EOSINOPHILS % (AUTO) 1.4 % (1.0-6.0); HEMATOCRIT 38.5 % (41-53); HEMOGLOBIN 12.6 g/dL (13.5-17.5); LYMPHOCYTES # (AUTO) 1.8 K/uL (1.0-4.8); LYMPHOCYTES % (AUTO) 29.8 % (22.0-44.0); MEAN CORPUSCULAR HEMOGLOBIN 29.5 pg (26.0-34.0); MEAN CORPUSCULAR HGB CONC 32.8 G/dL (31.0-37.0); MEAN CORPUSCULAR VOLUME 90 fL (80-100); MONOCYTES # (AUTO) 0.5 K/uL (0.1-1.0); MONOCYTES % (AUTO) 7.9 % (2.0-9.0); NEUTROPHILS # (AUTO) 3.6 K/uL (1.8-7.7); NEUTROPHILS % (AUTO) 59.8 % (40.0-70.0); PLATELET COUNT (AUTO) 300 K/uL (150-450); RED BLOOD CELL COUNT(AUTO) 4.26 MIL/uL (4.50-5.90); RED CELL DISTRIBUTION WIDTH 14.8 % (11.5-14.5)
[2020-08-20 14:32] LABS: ANION GAP 9 mmol/L (8-16); CALCIUM, TOTAL 8.8 mg/dL (8.8-10.5); CARBON DIOXIDE 24 mmol/L (22-29); CHLORIDE 103 mmol/L (98-107); CREATININE 0.85 mg/dL (0.60-1.30); GLOMERULAR FILTR. RATE CALC > 60 mL/min (>60); GLUCOSE,RANDOM 84 mg/dL (70-110); POTASSIUM 3.4 mmol/L (3.5-5.1); SODIUM SERUM 136 mmol/L (136-145); UREA NITROGEN, BLOOD 12 mg/dL (7-18)
[2020-08-20 14:39] LABS: ALANINE AMINOTRANSFERASE 43 U/L (12-78); ALBUMIN 3.3 g/dL (3.4-5.0); ALKALINE PHOSPHATASE 75 U/L (46-116); ASPARTATE AMINOTRANSFERASE 49 U/L (15-37); BILIRUBIN,TOTAL 0.5 mg/dL (0.1-1.0); TOTAL PROTEIN, SERUM 7.1 g/dL (6.4-8.2)
[2020-08-20 15:53] LABS: COVID AG,FIA SOURCE NASOPHARYNGEAL
[2020-08-20 20:30] VITALS: BP 113/61
[2020-08-20] MEDS ORDERED: INFLUENZA VIRUS VACCINE QVS 2020-21 (6MO+)/PF 60 MCG/0.5 ML SYRINGE IM ONE (21:30)
[2020-08-21 00:59] VITALS: BP 119/67
[2020-08-21] MEDS ORDERED: ALBUTEROL SULFATE HFA 90 MCG/PUFF 8 GM INHALER IH PRN (08:15)
[2020-08-21] MEDS ORDERED: DOCUSATE SODIUM 100 MG CAPSULE PO PRN (08:15)
[2020-08-21] MEDS ORDERED: IBUPROFEN 400 MG TABLET PO PRN (08:15)
[2020-08-21] MEDS ORDERED: MAGNESIUM HYDROXIDE SUSPENSION 30 ML UDCUP PO PRN (08:15)
[2020-08-21] MEDS ORDERED: MAG HYDROX/AL HYDROX/SIMETH ES 30 ML SUSPENSION UDCUP PO PRN (08:15)
[2020-08-21] MEDS ORDERED: ONDANSETRON HCL 4 MG TABLET PO PRN (08:15)
[2020-08-21] MEDS ORDERED: ACETAMINOPHEN 325 MG TABLET PO PRN (08:15)
[2020-08-21] MEDS ORDERED: GuaiFENesin/D-METHORPHAN [SUGAR-FREE] 200-20MG/10 ML SYRUP UDCUP PO PRN (08:15)
[2020-08-21] MEDS ORDERED: CloNIDine HCL 0.1 MG TABLET PO PRN (08:15)
[2020-08-21] MEDS ORDERED: PETROLATUM,WHITE 28 GM JELLY TP PRN (08:15)
[2020-08-21] MEDS: LORazepam 2 MG TABLET PO PRN ×3 (08:16→20:51)
[2020-08-21] MEDS ORDERED: POTASSIUM CHLORIDE 20 MEQ ER TABLET PO ONE (09:00)
[2020-08-21 09:25] VITALS: BP 103/64
[2020-08-21] MEDS: METHADONE HCL 10 MG TABLET PO SCH (09:59)
[2020-08-21] MEDS ORDERED: DiphenhydrAMINE HCL 50 MG/ML VIAL IM ONE (14:30)
[2020-08-21] MEDS ORDERED: HALOPERIDOL LACTATE 5 MG/ML VIAL IM ONE (14:30)
[2020-08-21] MEDS ORDERED: LORazepam 2 MG/ML VIAL IM ONE (14:30)
[2020-08-21] MEDS ORDERED: LORazepam 2 MG/ML VIAL ONE (14:31)
[2020-08-21] MEDS ORDERED: HALOPERIDOL LACTATE 5 MG/ML VIAL ONE (14:32)
[2020-08-21] MEDS ORDERED: DiphenhydrAMINE HCL 50 MG/ML VIAL ONE ×2 (14:32→14:33)
[2020-08-21 16:01] VITALS: BP 112/66
[2020-08-21] MEDS: OLANZapine 10 MG TABLET PO SCH (20:51)
[2020-08-22] MEDS: LORazepam 2 MG TABLET PO PRN ×3 (03:25→15:14)
[2020-08-22 05:47] VITALS: BP 118/67
[2020-08-22 08:07] VITALS: BP 108/63
[2020-08-22] MEDS: METHADONE HCL 10 MG TABLET PO SCH (10:15)
[2020-08-22] MEDS: HALOPERIDOL 5 MG TABLET PO PRN (16:28)
[2020-08-22] MEDS: OLANZapine 10 MG TABLET PO SCH (20:37)
[2020-08-23 02:55] VITALS: BP 116/68
[2020-08-23] MEDS: LORazepam 2 MG TABLET PO PRN ×4 (02:59→20:33)
[2020-08-23] MEDS: ESZOPICLONE 2 MG TABLET PO PRN ×2 (02:59→20:33)
[2020-08-23 08:14] VITALS: BP 114/72
[2020-08-23] MEDS: HALOPERIDOL 5 MG TABLET PO PRN ×2 (09:46→16:32)
[2020-08-23] MEDS: METHADONE HCL 10 MG TABLET PO SCH (09:46)
[2020-08-23 16:08] VITALS: BP 111/70
[2020-08-23] MEDS: OLANZapine 10 MG TABLET PO SCH (20:33)
[2020-08-24 02:30] VITALS: BP 116/68
[2020-08-24 08:22] VITALS: BP 103/63
[2020-08-24] MEDS: LORazepam 2 MG TABLET PO PRN ×2 (08:29→13:36)
[2020-08-24] MEDS: METHADONE HCL 10 MG TABLET PO SCH (09:00)
[2020-08-24] MEDS: MUPIROCIN CALCIUM 2% 22 GM OINTMENT NASAL SCH ×2 (09:45→16:49)
[2020-08-24 16:28] VITALS: BP 116/68
[2020-08-24] MEDS: OLANZapine 10 MG TABLET PO SCH (20:37)
[2020-08-25 01:16] VITALS: BP 118/63
[2020-08-25] MEDS: NICOTINE 14 MG/24 HOUR PATCH TD PRN (08:33)
[2020-08-25] MEDS: METHADONE HCL 10 MG TABLET PO SCH (08:34)
[2020-08-25] MEDS: MULTIVITAMINS, THERAPEUTIC TABLET PO SCH (08:35)
[2020-08-25] MEDS: FOLIC ACID 1 MG TABLET PO SCH (08:36)
[2020-08-25] MEDS: LORazepam 2 MG TABLET PO PRN ×3 (08:36→16:51)
[2020-08-25] MEDS: MUPIROCIN CALCIUM 2% 22 GM OINTMENT NASAL SCH ×2 (08:36→16:02)
[2020-08-25] MEDS: THIAMINE 100 MG TABLET PO SCH (08:36)
[2020-08-25 09:02] VITALS: BP 114/70
[2020-08-25 16:28] VITALS: BP 134/75
[2020-08-25] MEDS: HALOPERIDOL 5 MG TABLET PO PRN (16:50)
[2020-08-25] MEDS: ESZOPICLONE 2 MG TABLET PO PRN (20:28)
[2020-08-25] MEDS: OLANZapine 10 MG TABLET PO SCH (20:28)
[2020-08-26 04:14] VITALS: BP 127/64
[2020-08-26] MEDS: LORazepam 2 MG TABLET PO PRN ×3 (06:28→20:43)
[2020-08-26] MEDS: MUPIROCIN CALCIUM 2% 22 GM OINTMENT NASAL SCH ×2 (08:06→17:01)
[2020-08-26] MEDS: METHADONE HCL 10 MG TABLET PO SCH (08:08)
[2020-08-26] MEDS: MULTIVITAMINS, THERAPEUTIC TABLET PO SCH (08:09)
[2020-08-26] MEDS: THIAMINE 100 MG TABLET PO SCH (08:09)
[2020-08-26] MEDS: HALOPERIDOL 5 MG TABLET PO PRN (08:09)
[2020-08-26] MEDS: FOLIC ACID 1 MG TABLET PO SCH (08:09)
[2020-08-26] MEDS: NICOTINE 14 MG/24 HOUR PATCH TD PRN (08:21)
[2020-08-26 09:50] VITALS: BP 117/64
[2020-08-26] MEDS ORDERED: DiphenhydrAMINE HCL 50 MG/ML VIAL ONE (12:36)
[2020-08-26] MEDS ORDERED: ChlorproMAZINE HCL 50 MG/2 ML AMP ONE (12:37)
[2020-08-26] MEDS ORDERED: DiphenhydrAMINE HCL 50 MG/ML VIAL IM ONE (12:45)
[2020-08-26] MEDS ORDERED: ChlorproMAZINE HCL 50 MG/2 ML AMP IM ONE (12:45)
[2020-08-26 16:07] VITALS: BP 104/59
[2020-08-26] MEDS: ESZOPICLONE 2 MG TABLET PO PRN (20:40)
[2020-08-26] MEDS: OLANZapine 10 MG TABLET PO SCH (20:40)
[2020-08-27 03:24] VITALS: BP 110/63
[2020-08-27 08:37] VITALS: BP 118/67
[2020-08-27 08:43] LABS: HIV 1-2 SCREEN 4TH GEN W/RFLX Non Reactive (Non Reactive)
[2020-08-27] MEDS: THIAMINE 100 MG TABLET PO SCH (08:43)
[2020-08-27] MEDS: FOLIC ACID 1 MG TABLET PO SCH (08:43)
[2020-08-27] MEDS: METHADONE HCL 10 MG TABLET PO SCH (08:43)
[2020-08-27] MEDS: MUPIROCIN CALCIUM 2% 22 GM OINTMENT NASAL SCH ×2 (08:44→17:46)
[2020-08-27] MEDS: MULTIVITAMINS, THERAPEUTIC TABLET PO SCH (08:44)
[2020-08-27] MEDS: BENZOCAINE 10% 7 GM GEL TP PRN ×2 (09:09→21:37)
[2020-08-27] MEDS: LORazepam 2 MG TABLET PO PRN ×3 (09:10→17:51)
[2020-08-27] MEDS: NICOTINE 14 MG/24 HOUR PATCH TD PRN (10:44)
[2020-08-27 16:09] VITALS: BP 104/60
[2020-08-27] MEDS: HALOPERIDOL 5 MG TABLET PO PRN (17:45)
[2020-08-27] MEDS: OLANZapine 10 MG TABLET PO SCH (21:16)
[2020-08-27] MEDS: ESZOPICLONE 2 MG TABLET PO PRN (21:49)
[2020-08-28] MEDS: BENZOCAINE 10% 7 GM GEL TP PRN ×2 (07:08→12:46)
[2020-08-28] MEDS: LORazepam 2 MG TABLET PO PRN ×4 (07:40→20:24)
[2020-08-28 08:30] VITALS: BP 106/65
[2020-08-28] MEDS: MULTIVITAMINS, THERAPEUTIC TABLET PO SCH (09:09)
[2020-08-28] MEDS: THIAMINE 100 MG TABLET PO SCH (09:10)
[2020-08-28] MEDS: FOLIC ACID 1 MG TABLET PO SCH (09:10)
[2020-08-28] MEDS: METHADONE HCL 10 MG TABLET PO SCH (09:10)
[2020-08-28] MEDS: MUPIROCIN CALCIUM 2% 22 GM OINTMENT NASAL SCH ×2 (09:15→15:57)
[2020-08-28] MEDS: NICOTINE 14 MG/24 HOUR PATCH TD PRN (09:33)
[2020-08-28] MEDS: HALOPERIDOL 5 MG TABLET PO PRN ×2 (12:54→17:40)
[2020-08-28] MEDS: TiZANidine HCL 4 MG TABLET PO PRN (16:01)
[2020-08-28] MEDS: LOPERAMIDE HCL 2 MG CAPSULE PO PRN ×2 (16:01→21:22)
[2020-08-28 16:10] VITALS: BP 114/68
[2020-08-28] MEDS: OLANZapine 10 MG TABLET PO SCH (20:24)
[2020-08-28] MEDS: ESZOPICLONE 2 MG TABLET PO PRN (21:16)
[2020-08-29] MEDS: LOPERAMIDE HCL 2 MG CAPSULE PO PRN (04:22)
[2020-08-29 05:21] VITALS: BP 118/68
[2020-08-29] MEDS: FOLIC ACID 1 MG TABLET PO SCH (08:40)
[2020-08-29] MEDS: THIAMINE 100 MG TABLET PO SCH (08:40)
[2020-08-29] MEDS: METHADONE HCL 10 MG TABLET PO SCH (08:40)
[2020-08-29] MEDS: MULTIVITAMINS, THERAPEUTIC TABLET PO SCH (08:40)
[2020-08-29] MEDS: BENZOCAINE 10% 7 GM GEL TP PRN (08:43)
[2020-08-29 08:53] VITALS: BP 117/79
[2020-08-29] MEDS: TiZANidine HCL 4 MG TABLET PO PRN ×2 (09:20→16:23)
[2020-08-29] MEDS: LORazepam 2 MG TABLET PO PRN ×2 (09:21→16:01)
[2020-08-29] MEDS: HALOPERIDOL 5 MG TABLET PO PRN ×2 (12:58→17:01)
[2020-08-29] MEDS: NICOTINE 14 MG/24 HOUR PATCH TD PRN (14:07)
[2020-08-29 16:17] VITALS: BP 121/74
[2020-08-29] MEDS: OLANZapine 10 MG TABLET PO SCH (20:46)
[2020-08-29] MEDS: ESZOPICLONE 2 MG TABLET PO PRN (20:53)
[2020-08-30 00:24] VITALS: BP 131/73
[2020-08-30 08:07] VITALS: BP 110/70
[2020-08-30] MEDS: METHADONE HCL 10 MG TABLET PO SCH (08:40)
[2020-08-30] MEDS: THIAMINE 100 MG TABLET PO SCH (08:41)
[2020-08-30] MEDS: MULTIVITAMINS, THERAPEUTIC TABLET PO SCH (08:41)
[2020-08-30] MEDS: FOLIC ACID 1 MG TABLET PO SCH (08:41)
[2020-08-30] MEDS: LORazepam 2 MG TABLET PO PRN ×2 (08:42→14:45)
[2020-08-30] MEDS: HALOPERIDOL 5 MG TABLET PO PRN ×2 (08:42→13:37)
[2020-08-30] MEDS: NICOTINE 14 MG/24 HOUR PATCH TD PRN (08:48)
[2020-08-30] MEDS: TiZANidine HCL 4 MG TABLET PO PRN (10:29)
[2020-08-30 11:03] VITALS: BP 125/72
[2020-08-30] MEDS: BENZOCAINE 10% 7 GM GEL TP PRN ×2 (11:03→15:52)
[2020-08-30 16:13] VITALS: BP 107/70
[2020-08-30] MEDS: OLANZapine 10 MG TABLET PO SCH (20:08)
[2020-08-30] MEDS: ESZOPICLONE 2 MG TABLET PO PRN (20:09)
[2020-08-31 05:19] VITALS: BP 102/71
[2020-08-31 05:22] LABS: HERPES SIMPLEX VIRUS-1 BY PCR Negative (Negative); HERPES SIMPLEX VIRUS-2 BY PCR Negative (Negative)
[2020-08-31 08:25] VITALS: BP 103/70
[2020-08-31] MEDS: METHADONE HCL 10 MG TABLET PO SCH (09:05)
[2020-08-31] MEDS: MULTIVITAMINS, THERAPEUTIC TABLET PO SCH (09:06)
[2020-08-31] MEDS: FOLIC ACID 1 MG TABLET PO SCH (09:06)
[2020-08-31] MEDS: THIAMINE 100 MG TABLET PO SCH (09:06)
[2020-08-31] MEDS: TiZANidine HCL 4 MG TABLET PO PRN (10:56)
[2020-08-31] MEDS: LORazepam 2 MG TABLET PO PRN ×2 (10:56→17:00)
[2020-08-31] MEDS: NICOTINE 14 MG/24 HOUR PATCH TD PRN (11:23)
[2020-08-31] MEDS: HALOPERIDOL 5 MG TABLET PO PRN (15:57)
[2020-08-31 16:28] VITALS: BP 100/62
[2020-08-31] MEDS: OLANZapine 10 MG TABLET PO SCH (20:06)
[2020-08-31] MEDS: ESZOPICLONE 2 MG TABLET PO PRN (20:06)
[2020-09-01 00:09] VITALS: BP 110/71
[2020-09-01] MEDS: MULTIVITAMINS, THERAPEUTIC TABLET PO SCH (08:49)
[2020-09-01] MEDS: METHADONE HCL 10 MG TABLET PO SCH (08:49)
[2020-09-01] MEDS: FOLIC ACID 1 MG TABLET PO SCH (08:49)
[2020-09-01] MEDS: THIAMINE 100 MG TABLET PO SCH (08:50)
[2020-09-01] MEDS: LORazepam 2 MG TABLET PO PRN ×2 (08:50→16:04)
[2020-09-01] MEDS: HALOPERIDOL 5 MG TABLET PO PRN ×2 (08:50→13:38)
[2020-09-01 09:33] VITALS: BP 121/79
[2020-09-01 16:05] VITALS: BP 111/74
[2020-09-01] MEDS: OLANZapine 10 MG TABLET PO SCH (20:26)
[2020-09-01] MEDS: ESZOPICLONE 2 MG TABLET PO PRN (20:26)
[2020-09-02 05:55] VITALS: BP 115/72
[2020-09-02] MEDS: MULTIVITAMINS, THERAPEUTIC TABLET PO SCH (09:03)
[2020-09-02] MEDS: THIAMINE 100 MG TABLET PO SCH (09:03)
[2020-09-02] MEDS: METHADONE HCL 10 MG TABLET PO SCH (09:03)
[2020-09-02] MEDS: FOLIC ACID 1 MG TABLET PO SCH (09:03)
[2020-09-02] MEDS: NICOTINE 14 MG/24 HOUR PATCH TD PRN (09:04)
[2020-09-02] MEDS: LORazepam 2 MG TABLET PO PRN ×3 (09:06→20:32)
[2020-09-02 10:30] VITALS: BP 125/74
[2020-09-02] MEDS: BENZOCAINE 10% 7 GM GEL TP PRN ×2 (11:37→17:46)
[2020-09-02] MEDS: HALOPERIDOL 5 MG TABLET PO PRN (12:28)
[2020-09-02] MEDS: TiZANidine HCL 4 MG TABLET PO PRN ×2 (12:32→18:39)
[2020-09-02 16:27] VITALS: BP 138/81
[2020-09-02] MEDS: OLANZapine 10 MG TABLET PO SCH (20:32)
[2020-09-02] MEDS: ESZOPICLONE 2 MG TABLET PO PRN (20:32)
[2020-09-02 22:09] LABS: HERPES SIMPLEX VIRUS-1 BY PCR Negative (Negative); HERPES SIMPLEX VIRUS-2 BY PCR Negative (Negative)
[2020-09-03 02:34] VITALS: BP 106/75
[2020-09-03] MEDS: THIAMINE 100 MG TABLET PO SCH (08:16)
[2020-09-03] MEDS: FOLIC ACID 1 MG TABLET PO SCH (08:16)
[2020-09-03] MEDS: METHADONE HCL 10 MG TABLET PO SCH (08:16)
[2020-09-03] MEDS: NICOTINE 14 MG/24 HOUR PATCH TD PRN (08:22)
[2020-09-03] MEDS: LORazepam 2 MG TABLET PO PRN (08:22)
[2020-09-03] MEDS: MULTIVITAMINS, THERAPEUTIC TABLET PO SCH (08:35)
[2020-09-03] MEDS ORDERED: OLAN10TA20 PO (09:07)
[2020-09-03] MEDS ORDERED: MULT-1133 PO (10:02)
[2020-09-03] MEDS ORDERED: THIA100T80 PO (10:02)
[2020-09-03] MEDS ORDERED: FOLI20CA PO (10:02)
== END 2020-09-03 10:16 | disposition home or self-care (01) | DRG 750 ==
LOC: EMS 12:54 → B3A 18:03
DX: F25.0 Schizoaffective disorder, bipolar type (principal); F41.9 Anxiety disorder, unspecified; J45.909 Unspecified asthma, uncomplicated; R45.851 Suicidal ideations; F17.210 Nicotine dependence, cigarettes, uncomplicated; Z20.822 Contact with and (suspected) exposure to COVID-19; G89.29 Other chronic pain; F11.20 Opioid dependence, uncomplicated; E87.6 Hypokalemia; D64.9 Anemia, unspecified; Z59.0 Homelessness; Z88.8 Allergy status to other drugs, medicaments and biological substances; Z88.0 Allergy status to penicillin; Z91.013 Allergy to seafood
CPT/HCPCS: 83735; 84132; 86592; 87081; 87147; 87389; 87426; 87529; G0480; J1200; J1630; J2060; J3230

== ENCOUNTER 2021-06-03 17:13 | Inpatient (IN) | payer MEDICAID, OTHER ==
[~2021-06-03] VITALS: Ht 177.8 cm; Wt 104.5 kg
[~2021-06-03 17:13] MED LIST changes: -BUPR-47 PO; -DIVA-112 PO; -DIVA-80 PO; +FOLI20CA PO; +MULT-1133 PO; +OLAN10 PO; -OLAN10TA20 PO; -PRAZ5 PO; +THIA100T80 PO
[2021-06-03] MEDS ORDERED: HALOPERIDOL LACTATE 5 MG/ML VIAL IM ONE (17:30)
[2021-06-03] MEDS ORDERED: LORazepam 2 MG/ML VIAL IM ONE (17:30)
[2021-06-03] MEDS ORDERED: DiphenhydrAMINE HCL 50 MG/ML VIAL IM ONE (17:30)
[2021-06-03 17:52] LABS: BASOPHILS % (AUTO) 0.9 % (0.0-2.0); EOSINOPHILS % (AUTO) 5.9 % (1.0-6.0); HEMATOCRIT 41.7 % (41-53); HEMOGLOBIN 13.6 g/dL (13.5-17.5); LYMPHOCYTES % (AUTO) 30.7 % (22.0-44.0); MEAN CORPUSCULAR HEMOGLOBIN 30.4 pg (26.0-34.0); MEAN CORPUSCULAR HGB CONC 32.7 G/dL (31.0-37.0); MEAN CORPUSCULAR VOLUME 93 fL (80-100); MONOCYTES # (AUTO) 0.7 K/uL (0.1-1.0); NEUTROPHILS # (AUTO) 3.5 K/uL (1.8-7.7); NEUTROPHILS % (AUTO) 52.5 % (40.0-70.0); PLATELET COUNT (AUTO) 217 K/uL (150-450); RED BLOOD CELL COUNT(AUTO) 4.49 MIL/uL (4.50-5.90); RED CELL DISTRIBUTION WIDTH 13.4 % (11.5-14.5)
[2021-06-03 18:00] LABS: ANION GAP 13 mmol/L (8-16); CALCIUM, TOTAL 8.6 mg/dL (8.8-10.5); CARBON DIOXIDE 23 mmol/L (22-29); CHLORIDE 105 mmol/L (98-107); CREATININE 1.02 mg/dL (0.60-1.30); GLOMERULAR FILTR. RATE CALC > 60 mL/min (>60); GLUCOSE,RANDOM 91 mg/dL (70-110); POTASSIUM 4.4 mmol/L (3.5-5.1); SODIUM SERUM 141 mmol/L (136-145); UREA NITROGEN, BLOOD 13 mg/dL (7-18)
[2021-06-03 18:06] LABS: ALANINE AMINOTRANSFERASE 51 U/L (12-78); ALBUMIN 3.7 g/dL (3.4-5.0); ALKALINE PHOSPHATASE 69 U/L (46-116); ASPARTATE AMINOTRANSFERASE 31 U/L (15-37); BILIRUBIN,TOTAL 0.6 mg/dL (0.1-1.0); TOTAL PROTEIN, SERUM 7.2 g/dL (6.4-8.2)
[2021-06-03 19:33] LABS: COVID AG,FIA SOURCE NASOPHARYNGEAL
[2021-06-03 19:42] LABS: AMPHET/METH SCREEN,URINE POSITIVE (NEGATIVE); BARBITURATE SCREEN, URINE NEGATIVE (NEGATIVE); BENZODIAZEPINES SCREEN,URINE POSITIVE (NEGATIVE); CANNABINOID SCREEN,URINE NEGATIVE (NEGATIVE); COCAINE SCREEN,URINE NEGATIVE (NEGATIVE); METHADONE SCREEN, URINE POSITIVE (NEGATIVE); OPIATE SCREEN,URINE NEGATIVE (NEGATIVE)
[2021-06-03 19:48] LABS: PHENCYCLIDINE SCREEN,URINE NEGATIVE (NEGATIVE)
[2021-06-04] MEDS: LORazepam 2 MG TABLET PO PRN ×3 (00:36→16:14)
[2021-06-04 01:27] LABS: CHOL/HDL RATIO 3.3 (4.2-7.3); CHOLESTEROL 128 mg/dL (131-200); FREE T4 (FREE THYROXINE) 1.09 ng/dL (0.76-1.46); HDL CHOLESTEROL 39 mg/dL (40-60); LDL CHOL (CALC.) 66 mg/dL (0-130); THYROID STIMULATING HORMONE 1.45 uIU/mL (0.36-3.74); TRIGLYCERIDES 114 mg/dL (15-150)
[2021-06-04 01:34] VITALS: BP 102/60
[2021-06-04 08:12] VITALS: BP 110/65
[2021-06-04] MEDS ORDERED: METHADONE HCL 10 MG TABLET PO SCH (09:00)
[2021-06-04 09:05] VITALS: BP 110/65
[2021-06-04] MEDS: METHADONE HCL 10 MG TABLET PO SCH (10:02)
[2021-06-04] MEDS: OLANZapine 5 MG TABLET PO SCH (13:30)
[2021-06-04] MEDS ORDERED: LOPERAMIDE HCL 2 MG CAPSULE PO PRN (15:30)
[2021-06-04] MEDS ORDERED: DOCUSATE SODIUM 100 MG CAPSULE PO PRN (15:30)
[2021-06-04] MEDS ORDERED: ALBUTEROL SULFATE HFA 90 MCG/PUFF 8 GM INHALER IH PRN (15:30)
[2021-06-04] MEDS ORDERED: ONDANSETRON HCL 4 MG TABLET PO PRN (15:30)
[2021-06-04] MEDS ORDERED: GuaiFENesin/D-METHORPHAN [SUGAR-FREE] 200-20MG/10 ML SYRUP UDCUP PO PRN (15:30)
[2021-06-04] MEDS ORDERED: ACETAMINOPHEN 325 MG TABLET PO PRN (15:30)
[2021-06-04] MEDS ORDERED: MAGNESIUM HYDROXIDE SUSPENSION 30 ML UDCUP PO PRN (15:30)
[2021-06-04] MEDS ORDERED: CloNIDine HCL 0.1 MG TABLET PO PRN (15:30)
[2021-06-04] MEDS ORDERED: PETROLATUM,WHITE 28 GM JELLY TP PRN (15:30)
[2021-06-04] MEDS ORDERED: MAG HYDROX/AL HYDROX/SIMETH ES 30 ML SUSPENSION UDCUP PO PRN (15:30)
[2021-06-04] MEDS ORDERED: FOLI-130 PO (15:33)
[2021-06-04 16:20] VITALS: BP 114/70
[2021-06-04] MEDS: OLANZapine 10 MG TABLET PO SCH (20:42)
[2021-06-04] MEDS: ZOLPIDEM TARTRATE 10 MG TABLET PO PRN (21:45)
[2021-06-05 00:52] VITALS: BP 124/68
[2021-06-05 07:28] LABS: BASOPHILS % (AUTO) 0.6 % (0.0-2.0); EOSINOPHILS % (AUTO) 7.9 % (1.0-6.0); HEMATOCRIT 41.9 % (41-53); LYMPHOCYTES # (AUTO) 2.3 K/uL (1.0-4.8); LYMPHOCYTES % (AUTO) 46.2 % (22.0-44.0); MEAN CORPUSCULAR HEMOGLOBIN 31.3 pg (26.0-34.0); MEAN CORPUSCULAR HGB CONC 33.4 G/dL (31.0-37.0); MEAN CORPUSCULAR VOLUME 94 fL (80-100); MONOCYTES # (AUTO) 0.5 K/uL (0.1-1.0); MONOCYTES % (AUTO) 10.8 % (2.0-9.0); NEUTROPHILS # (AUTO) 1.7 K/uL (1.8-7.7); NEUTROPHILS % (AUTO) 34.5 % (40.0-70.0); PLATELET COUNT (AUTO) 194 K/uL (150-450); RED BLOOD CELL COUNT(AUTO) 4.48 MIL/uL (4.50-5.90); RED CELL DISTRIBUTION WIDTH 13.4 % (11.5-14.5)
[2021-06-05 08:20] VITALS: BP 119/92
[2021-06-05] MEDS: METHADONE HCL 10 MG TABLET PO SCH (08:42)
[2021-06-05] MEDS: FOLIC ACID 1 MG TABLET PO SCH (08:42)
[2021-06-05] MEDS: OLANZapine 5 MG TABLET PO SCH (08:50)
[2021-06-05] MEDS: LORazepam 2 MG TABLET PO PRN ×3 (09:28→22:28)
[2021-06-05] MEDS ORDERED: BENZONATATE 100 MG CAPSULE PO PRN (09:45)
[2021-06-05] MEDS: NICOTINE 14 MG/24 HOUR PATCH TD PRN (09:54)
[2021-06-05 16:10] VITALS: BP 108/57
[2021-06-05] MEDS: OLANZapine 10 MG TABLET PO SCH (20:36)
[2021-06-05] MEDS: ZOLPIDEM TARTRATE 10 MG TABLET PO PRN (20:36)
[2021-06-06 06:02] VITALS: BP 114/70
[2021-06-06] MEDS: OLANZapine 5 MG TABLET PO SCH (08:06)
[2021-06-06] MEDS: FOLIC ACID 1 MG TABLET PO SCH (08:06)
[2021-06-06] MEDS: METHADONE HCL 10 MG TABLET PO SCH (08:06)
[2021-06-06] MEDS: LORazepam 2 MG TABLET PO PRN ×3 (08:07→21:30)
[2021-06-06 08:24] VITALS: BP 118/72
[2021-06-06 16:09] VITALS: BP 132/81
[2021-06-06] MEDS: OLANZapine 10 MG TABLET PO SCH (20:56)
[2021-06-06] MEDS: ZOLPIDEM TARTRATE 10 MG TABLET PO PRN (21:30)
[2021-06-07] MEDS: FOLIC ACID 1 MG TABLET PO SCH (08:11)
[2021-06-07] MEDS: METHADONE HCL 10 MG TABLET PO SCH (08:12)
[2021-06-07] MEDS: OLANZapine 5 MG TABLET PO SCH (08:12)
[2021-06-07] MEDS: LORazepam 2 MG TABLET PO PRN ×3 (08:12→20:15)
[2021-06-07 08:15] VITALS: BP 119/66
[2021-06-07] MEDS: NICOTINE 14 MG/24 HOUR PATCH TD PRN (10:28)
[2021-06-07] MEDS: GuaiFENesin/D-METHORPHAN [SUGAR-FREE] 200-20MG/10 ML SYRUP UDCUP PO PRN ×2 (11:17→20:15)
[2021-06-07] MEDS ORDERED: LORazepam 2 MG/ML VIAL IM ONE (12:30)
[2021-06-07] MEDS ORDERED: HALOPERIDOL LACTATE 5 MG/ML VIAL IM ONE (12:30)
[2021-06-07] MEDS ORDERED: DiphenhydrAMINE HCL 50 MG/ML VIAL IM ONE (12:30)
[2021-06-07 16:08] VITALS: BP 128/63
[2021-06-07] MEDS: ZOLPIDEM TARTRATE 10 MG TABLET PO PRN (20:15)
[2021-06-07] MEDS: OLANZapine 10 MG TABLET PO SCH (20:33)
[2021-06-08] VITALS: BP 125/71
[2021-06-08] MEDS: OLANZapine 5 MG TABLET PO SCH (08:23)
[2021-06-08] MEDS: FOLIC ACID 1 MG TABLET PO SCH (08:24)
[2021-06-08] MEDS: METHADONE HCL 10 MG TABLET PO SCH (08:24)
[2021-06-08 08:44] VITALS: BP 122/71
[2021-06-08] MEDS: LORazepam 2 MG TABLET PO PRN ×3 (10:10→20:13)
[2021-06-08] MEDS: NICOTINE 14 MG/24 HOUR PATCH TD PRN (12:04)
[2021-06-08 16:22] VITALS: BP 130/85
[2021-06-08] MEDS: OLANZapine 10 MG TABLET PO SCH (20:13)
[2021-06-08] MEDS: ZOLPIDEM TARTRATE 10 MG TABLET PO PRN (20:13)
[2021-06-08] MEDS: NICOTINE POLACRILEX 2 MG LOZENGE PO PRN (20:14)
[2021-06-08] MEDS: GuaiFENesin/D-METHORPHAN [SUGAR-FREE] 200-20MG/10 ML SYRUP UDCUP PO PRN (20:31)
[2021-06-09 00:03] VITALS: BP 138/95
[2021-06-09] MEDS: IBUPROFEN 400 MG TABLET PO PRN (00:21)
[2021-06-09] MEDS: NICOTINE POLACRILEX 2 MG LOZENGE PO PRN ×2 (04:23→16:07)
[2021-06-09] MEDS: FOLIC ACID 1 MG TABLET PO SCH (08:31)
[2021-06-09] MEDS: OLANZapine 5 MG TABLET PO SCH (08:32)
[2021-06-09] MEDS: METHADONE HCL 10 MG TABLET PO SCH (08:32)
[2021-06-09] MEDS: LORazepam 2 MG TABLET PO PRN ×4 (08:37→20:48)
[2021-06-09 08:38] VITALS: BP 112/60
[2021-06-09] MEDS: GuaiFENesin/D-METHORPHAN [SUGAR-FREE] 200-20MG/10 ML SYRUP UDCUP PO PRN ×2 (10:14→20:13)
[2021-06-09 16:04] VITALS: BP 121/76
[2021-06-09] MEDS: OLANZapine 10 MG TABLET PO SCH (20:13)
[2021-06-09] MEDS: ZOLPIDEM TARTRATE 10 MG TABLET PO PRN (20:48)
[2021-06-10 00:15] VITALS: BP 122/74
[2021-06-10] MEDS: NICOTINE POLACRILEX 2 MG LOZENGE PO PRN ×3 (00:25→18:53)
[2021-06-10 08:35] VITALS: BP 103/55
[2021-06-10] MEDS: FOLIC ACID 1 MG TABLET PO SCH (09:12)
[2021-06-10] MEDS: OLANZapine 5 MG TABLET PO SCH (09:12)
[2021-06-10] MEDS: METHADONE HCL 10 MG TABLET PO SCH (09:13)
[2021-06-10] MEDS: LORazepam 2 MG TABLET PO PRN ×3 (09:16→17:53)
[2021-06-10] MEDS: IBUPROFEN 400 MG TABLET PO PRN (15:59)
[2021-06-10 16:20] VITALS: BP 137/87
[2021-06-10] MEDS: ZOLPIDEM TARTRATE 10 MG TABLET PO PRN (19:55)
[2021-06-10] MEDS: OLANZapine 10 MG TABLET PO SCH (19:55)
[2021-06-11 01:24] VITALS: BP 125/78
[2021-06-11] MEDS: LORazepam 2 MG TABLET PO PRN ×4 (07:03→20:53)
[2021-06-11 08:40] VITALS: BP 108/67
[2021-06-11] MEDS: METHADONE HCL 10 MG TABLET PO SCH (08:42)
[2021-06-11] MEDS: FOLIC ACID 1 MG TABLET PO SCH (08:42)
[2021-06-11] MEDS: OLANZapine 5 MG TABLET PO SCH (08:42)
[2021-06-11] MEDS: NICOTINE POLACRILEX 2 MG LOZENGE PO PRN ×4 (09:55→16:25)
[2021-06-11] MEDS: GuaiFENesin/D-METHORPHAN [SUGAR-FREE] 200-20MG/10 ML SYRUP UDCUP PO PRN (13:08)
[2021-06-11 16:13] VITALS: BP 128/63
[2021-06-11] MEDS: ZOLPIDEM TARTRATE 10 MG TABLET PO PRN (20:53)
[2021-06-11] MEDS: OLANZapine 10 MG TABLET PO SCH (20:53)
[2021-06-11] MEDS: IBUPROFEN 400 MG TABLET PO PRN (21:10)
[2021-06-12 02:13] VITALS: BP 124/66
[2021-06-12] MEDS: OLANZapine 5 MG TABLET PO SCH (07:31)
[2021-06-12] MEDS: FOLIC ACID 1 MG TABLET PO SCH (07:31)
[2021-06-12] MEDS: LORazepam 2 MG TABLET PO PRN ×4 (07:31→20:14)
[2021-06-12] MEDS: NICOTINE POLACRILEX 2 MG LOZENGE PO PRN ×5 (07:34→20:24)
[2021-06-12] MEDS: METHADONE HCL 10 MG TABLET PO SCH (07:43)
[2021-06-12 08:26] VITALS: BP 135/69
[2021-06-12] MEDS: IBUPROFEN 400 MG TABLET PO PRN (16:03)
[2021-06-12 16:13] VITALS: BP 116/83
[2021-06-12] MEDS: OLANZapine 10 MG TABLET PO SCH (20:14)
[2021-06-12] MEDS: ZOLPIDEM TARTRATE 10 MG TABLET PO PRN (20:14)
[2021-06-12] MEDS: GuaiFENesin/D-METHORPHAN [SUGAR-FREE] 200-20MG/10 ML SYRUP UDCUP PO PRN (21:08)
[2021-06-13] MEDS: NICOTINE POLACRILEX 2 MG LOZENGE PO PRN ×4 (06:11→20:12)
[2021-06-13 07:38] LABS: COVID AG,FIA SOURCE NASOPHARYNGEAL
[2021-06-13] MEDS: LORazepam 2 MG TABLET PO PRN ×4 (09:11→20:55)
[2021-06-13] MEDS: METHADONE HCL 10 MG TABLET PO SCH (09:47)
[2021-06-13] MEDS: OLANZapine 5 MG TABLET PO SCH (09:47)
[2021-06-13] MEDS: FOLIC ACID 1 MG TABLET PO SCH (09:47)
[2021-06-13] MEDS: SERTRALINE HCL 50 MG TABLET PO SCH (09:57)
[2021-06-13 11:02] VITALS: BP 124/72
[2021-06-13 16:10] VITALS: BP 113/67
[2021-06-13] MEDS: ZOLPIDEM TARTRATE 10 MG TABLET PO PRN (20:10)
[2021-06-13] MEDS: OLANZapine 10 MG TABLET PO SCH (20:10)
[2021-06-14 01:01] VITALS: BP 109/72
[2021-06-14] MEDS: NICOTINE POLACRILEX 2 MG LOZENGE PO PRN ×5 (03:39→19:11)
[2021-06-14 08:29] VITALS: BP 109/69
[2021-06-14] MEDS: OLANZapine 5 MG TABLET PO SCH (09:06)
[2021-06-14] MEDS: FOLIC ACID 1 MG TABLET PO SCH (09:06)
[2021-06-14] MEDS: METHADONE HCL 10 MG TABLET PO SCH (09:07)
[2021-06-14] MEDS: SERTRALINE HCL 50 MG TABLET PO SCH (09:07)
[2021-06-14] MEDS: HALOPERIDOL 5 MG TABLET PO PRN ×2 (11:47→18:27)
[2021-06-14] MEDS: LORazepam 2 MG TABLET PO PRN ×2 (11:47→16:57)
[2021-06-14 16:11] VITALS: BP 145/83
[2021-06-14] MEDS: OLANZapine 10 MG TABLET PO SCH (21:49)
[2021-06-14] MEDS: ZOLPIDEM TARTRATE 10 MG TABLET PO PRN (21:50)
[2021-06-15 04:53] VITALS: BP 122/76
[2021-06-15 08:28] VITALS: BP 108/63
[2021-06-15] MEDS: SERTRALINE HCL 50 MG TABLET PO SCH (10:21)
[2021-06-15] MEDS: FOLIC ACID 1 MG TABLET PO SCH (10:21)
[2021-06-15] MEDS: METHADONE HCL 10 MG TABLET PO SCH (10:21)
[2021-06-15] MEDS: LORazepam 2 MG TABLET PO PRN ×3 (10:22→21:29)
[2021-06-15] MEDS: NICOTINE POLACRILEX 2 MG LOZENGE PO PRN ×4 (10:22→21:30)
[2021-06-15] MEDS: OLANZapine 5 MG TABLET PO SCH (10:24)
[2021-06-15] MEDS ORDERED: TraMADol HCL 50 MG TABLET PO PRN (15:30)
[2021-06-15 16:16] VITALS: BP 131/85
[2021-06-15 16:18] VITALS: BP 131/85
[2021-06-15] MEDS: ZOLPIDEM TARTRATE 10 MG TABLET PO PRN (21:29)
[2021-06-15] MEDS: OLANZapine 10 MG TABLET PO SCH (21:29)
[2021-06-16 07:20] VITALS: BP 128/82
[2021-06-16 08:48] VITALS: BP 124/62
[2021-06-16] MEDS: OLANZapine 5 MG TABLET PO SCH (08:57)
[2021-06-16] MEDS: SERTRALINE HCL 50 MG TABLET PO SCH (08:57)
[2021-06-16] MEDS: FOLIC ACID 1 MG TABLET PO SCH (08:57)
[2021-06-16] MEDS: METHADONE HCL 10 MG TABLET PO SCH (08:57)
[2021-06-16] MEDS: LORazepam 2 MG TABLET PO PRN (08:59)
[2021-06-16] MEDS: NICOTINE POLACRILEX 2 MG LOZENGE PO PRN (10:56)
[2021-06-16] MEDS ORDERED: SERT-158 PO (11:41)
[2021-06-16] MEDS ORDERED: OLAN5TAB2 PO (11:42)
== END 2021-06-16 13:36 | disposition home or self-care (01) | DRG 750 ==
LOC: EMS 17:20 → B3A 21:03
PROVIDERS: ADMIT Psychiatry & Neurology Child & Adolescent Psychiatry; ATTEND Psychiatry & Neurology Child & Adolescent Psychiatry
DX: F25.0 Schizoaffective disorder, bipolar type (principal); Z59.00 Homelessness unspecified; D64.9 Anemia, unspecified; F10.10 Alcohol abuse, uncomplicated; J45.909 Unspecified asthma, uncomplicated; Z87.891 Personal history of nicotine dependence; Z91.14 Patient's other noncompliance with medication regimen; Z88.2 Allergy status to sulfonamides; Z88.0 Allergy status to penicillin; Z88.8 Allergy status to other drugs, medicaments and biological substances; Z91.013 Allergy to seafood; Z78.1 Physical restraint status; Z20.822 Contact with and (suspected) exposure to COVID-19
CPT/HCPCS: 80053; 80061; 84439; 84443; 85025; 99291; G0480; J1200; J1630; J2060; Q9967

== ENCOUNTER 2021-08-10 17:38 | Inpatient (IN) | payer MEDICAID, OTHER ==
[~2021-08-10] VITALS: Ht 177.8 cm; Wt 83.5 kg
[2021-08-10] MEDS ORDERED: BACITRACIN 0.9 GM PACKET OINTMENT TP ONE (18:15)
[2021-08-10] MEDS ORDERED: CloNIDine HCL 0.2 MG TABLET PO ONE (18:15)
[2021-08-10 18:26] LABS: BASOPHILS % (AUTO) 1.1 % (0.0-2.0); HEMATOCRIT 39.5 % (41-53); HEMOGLOBIN 13.4 g/dL (13.5-17.5); LYMPHOCYTES # (AUTO) 1.9 K/uL (1.0-4.8); LYMPHOCYTES % (AUTO) 28.5 % (22.0-44.0); MEAN CORPUSCULAR HEMOGLOBIN 29.6 pg (26.0-34.0); MEAN CORPUSCULAR VOLUME 87 fL (80-100); MONOCYTES # (AUTO) 0.3 K/uL (0.1-1.0); MONOCYTES % (AUTO) 4.6 % (2.0-9.0); NEUTROPHILS # (AUTO) 4.4 K/uL (1.8-7.7); NEUTROPHILS % (AUTO) 64.8 % (40.0-70.0); PLATELET COUNT (AUTO) 335 K/uL (150-450); RED BLOOD CELL COUNT(AUTO) 4.53 MIL/uL (4.50-5.90)
[2021-08-10 18:30] LABS: ANION GAP 10 mmol/L (8-16); CARBON DIOXIDE 25 mmol/L (22-29); CHLORIDE 109 mmol/L (98-107); CREATININE 0.83 mg/dL (0.60-1.30); GLOMERULAR FILTR. RATE CALC > 60 mL/min (>60); GLUCOSE,RANDOM 99 mg/dL (70-110); POTASSIUM 3.8 mmol/L (3.5-5.1); SODIUM SERUM 144 mmol/L (136-145); UREA NITROGEN, BLOOD 6 mg/dL (7-18)
[2021-08-10 18:31] LABS: COVID AG,FIA SOURCE NASOPHARYNGEAL
[2021-08-10 18:36] LABS: ALANINE AMINOTRANSFERASE 38 U/L (12-78); ALBUMIN 3.3 g/dL (3.4-5.0); ALKALINE PHOSPHATASE 72 U/L (46-116); ASPARTATE AMINOTRANSFERASE 21 U/L (15-37); BILIRUBIN,TOTAL 0.5 mg/dL (0.1-1.0); TOTAL PROTEIN, SERUM 7.6 g/dL (6.4-8.2)
[2021-08-10 20:31] LABS: AMPHET/METH SCREEN,URINE POSITIVE (NEGATIVE); BARBITURATE SCREEN, URINE NEGATIVE (NEGATIVE); BENZODIAZEPINES SCREEN,URINE NEGATIVE (NEGATIVE); CANNABINOID SCREEN,URINE POSITIVE (NEGATIVE); COCAINE SCREEN,URINE NEGATIVE (NEGATIVE); METHADONE SCREEN, URINE NEGATIVE (NEGATIVE); OPIATE SCREEN,URINE NEGATIVE (NEGATIVE)
[2021-08-10 20:32] LABS: PHENCYCLIDINE SCREEN,URINE NEGATIVE (NEGATIVE)
[2021-08-10 23:16] LABS: APPEARANCE,URINE CLEAR (CLEAR); BILIRUBIN,URINE NEGATIVE (NEGATIVE); GLUCOSE, URINE (UA) NEGATIVE (NEGATIVE); KETONES,URINE NEGATIVE (NEGATIVE); LEUKOCYTE ESTERASE ,URINE NEGATIVE (NEGATIVE); NITRATE,URINE NEGATIVE (NEGATIVE); OCCULT BLOOD,URINE NEGATIVE (NEGATIVE); PH,URINE 6.5 (5.0-8.0); PROTEIN,URINE NEGATIVE (NEGATIVE); UROBILINOGEN,URINE 0.2 mg/dL (<=1.0)
[2021-08-11 01:24] LABS: CHOL/HDL RATIO 2.4 (4.2-7.3); CHOLESTEROL 131 mg/dL (131-200); HDL CHOLESTEROL 54 mg/dL (40-60); LDL CHOL (CALC.) 64 mg/dL (0-130); TRIGLYCERIDES 63 mg/dL (15-150)
[2021-08-11] MEDS: LORazepam 2 MG TABLET PO PRN ×2 (07:51→16:57)
[2021-08-11] MEDS ORDERED: ACETAMINOPHEN 500 MG TABLET PO ONE (08:00)
[2021-08-11 13:15] VITALS: BP 103/78
[2021-08-11 16:12] VITALS: BP 115/65
[2021-08-11] MEDS: HALOPERIDOL 5 MG TABLET PO PRN (16:57)
[2021-08-12] MEDS: LORazepam 2 MG TABLET PO PRN ×4 (02:46→20:54)
[2021-08-12] MEDS: ZOLPIDEM TARTRATE 10 MG TABLET PO PRN (02:46)
[2021-08-12 06:14] VITALS: BP 146/86
[2021-08-12] MEDS ORDERED: MAG HYDROX/AL HYDROX/SIMETH ES 30 ML SUSPENSION UDCUP PO PRN (06:45)
[2021-08-12] MEDS ORDERED: ACETAMINOPHEN 325 MG TABLET PO PRN (06:45)
[2021-08-12] MEDS ORDERED: LOPERAMIDE HCL 2 MG CAPSULE PO PRN ×2 (06:45→15:30)
[2021-08-12] MEDS ORDERED: ALBUTEROL SULFATE HFA 90 MCG/PUFF 8 GM INHALER IH PRN (06:45)
[2021-08-12] MEDS ORDERED: MAGNESIUM HYDROXIDE SUSPENSION 30 ML UDCUP PO PRN (06:45)
[2021-08-12] MEDS ORDERED: CloNIDine HCL 0.1 MG TABLET PO PRN (06:45)
[2021-08-12] MEDS ORDERED: OMEPRAZOLE 20 MG CAPSULE PO PRN (06:45)
[2021-08-12] MEDS ORDERED: PETROLATUM,WHITE 28 GM JELLY TP PRN (06:45)
[2021-08-12] MEDS ORDERED: BENZOCAINE/MENTHOL LOZENGE PO PRN (06:45)
[2021-08-12] MEDS ORDERED: IBUPROFEN 600 MG TABLET PO PRN (06:45)
[2021-08-12] MEDS ORDERED: DOCUSATE SODIUM 100 MG CAPSULE PO PRN (06:45)
[2021-08-12] MEDS ORDERED: ONDANSETRON HCL 4 MG TABLET PO PRN (06:45)
[2021-08-12 08:17] VITALS: BP 114/67
[2021-08-12] MEDS: OLANZapine 7.5 MG TABLET PO SCH (08:34)
[2021-08-12] MEDS: SERTRALINE HCL 50 MG TABLET PO SCH (08:34)
[2021-08-12] MEDS: BACITRACIN 28 GM OINTMENT TP PRN (09:26)
[2021-08-12] MEDS ORDERED: GuaiFENesin/D-METHORPHAN [SUGAR-FREE] 200-20MG/10 ML SYRUP UDCUP PO PRN (15:30)
[2021-08-12 16:16] VITALS: BP 136/73
[2021-08-12] MEDS: HALOPERIDOL 5 MG TABLET PO PRN (16:44)
[2021-08-12] MEDS: ACAMPROSATE CALCIUM 333 MG DR TABLET PO SCH (17:16)
[2021-08-12] MEDS: GABAPENTIN 300 MG CAPSULE PO SCH ×2 (17:17→20:55)
[2021-08-12] MEDS: THIAMINE 100 MG TABLET PO SCH (17:17)
[2021-08-12] MEDS: BUPRENORPHINE HCL/NALOXONE HCL 2-0.5 MG SUBLINGUAL TABLET SL SCH (17:17)
[2021-08-12] MEDS: MELATONIN 5 MG TABLET PO SCH (20:55)
[2021-08-13] MEDS: LORazepam 2 MG TABLET PO PRN ×3 (06:42→20:13)
[2021-08-13 08:18] VITALS: BP 129/77
[2021-08-13] MEDS: OLANZapine 7.5 MG TABLET PO SCH (08:19)
[2021-08-13] MEDS: THIAMINE 100 MG TABLET PO SCH ×2 (08:20→16:56)
[2021-08-13] MEDS: FOLIC ACID 1 MG TABLET PO SCH (08:20)
[2021-08-13] MEDS: GABAPENTIN 300 MG CAPSULE PO SCH ×4 (08:20→20:12)
[2021-08-13] MEDS: SERTRALINE HCL 50 MG TABLET PO SCH (08:20)
[2021-08-13] MEDS: MULTIVITAMINS WITH MINERALS, THERAPEUTIC TABLET PO SCH (08:20)
[2021-08-13] MEDS: ACAMPROSATE CALCIUM 333 MG DR TABLET PO SCH ×3 (08:20→16:56)
[2021-08-13] MEDS: BUPRENORPHINE HCL/NALOXONE HCL 2-0.5 MG SUBLINGUAL TABLET SL SCH ×2 (08:20→16:56)
[2021-08-13] MEDS: DOXYCYCLINE HYCLATE 100 MG TABLET PO SCH ×2 (08:24→16:56)
[2021-08-13 16:07] VITALS: BP 105/62
[2021-08-13] MEDS: HydrOXYzine PAMOATE 50 MG CAPSULE PO PRN (16:49)
[2021-08-13] MEDS ORDERED: BUPRENORPHINE HCL/NALOXONE HCL 2-0.5 MG SUBLINGUAL TABLET SL ONE (20:00)
[2021-08-13] MEDS: MELATONIN 5 MG TABLET PO SCH (20:13)
[2021-08-14] MEDS: LORazepam 2 MG TABLET PO PRN ×4 (00:04→23:58)
[2021-08-14] MEDS: HALOPERIDOL 5 MG TABLET PO PRN (00:04)
[2021-08-14 00:29] VITALS: BP 105/65
[2021-08-14] MEDS: FOLIC ACID 1 MG TABLET PO SCH (08:14)
[2021-08-14] MEDS: DOXYCYCLINE HYCLATE 100 MG TABLET PO SCH ×2 (08:14→16:34)
[2021-08-14] MEDS: ACAMPROSATE CALCIUM 333 MG DR TABLET PO SCH ×3 (08:14→16:34)
[2021-08-14] MEDS: BUPRENORPHINE HCL/NALOXONE HCL 2-0.5 MG SUBLINGUAL TABLET SL SCH ×2 (08:15→16:34)
[2021-08-14] MEDS: SERTRALINE HCL 50 MG TABLET PO SCH (08:15)
[2021-08-14] MEDS: OLANZapine 7.5 MG TABLET PO SCH (08:15)
[2021-08-14] MEDS: GABAPENTIN 300 MG CAPSULE PO SCH ×4 (08:15→20:11)
[2021-08-14] MEDS: MULTIVITAMINS WITH MINERALS, THERAPEUTIC TABLET PO SCH (08:15)
[2021-08-14] MEDS: THIAMINE 100 MG TABLET PO SCH ×2 (08:15→16:34)
[2021-08-14 09:02] VITALS: BP 111/69
[2021-08-14] MEDS: NICOTINE POLACRILEX 2 MG LOZENGE PO PRN (09:41)
[2021-08-14 16:14] VITALS: BP 103/69
[2021-08-14] MEDS: MELATONIN 5 MG TABLET PO SCH (20:11)
[2021-08-14] MEDS: ZOLPIDEM TARTRATE 10 MG TABLET PO PRN (23:58)
[2021-08-15] MEDS: NICOTINE POLACRILEX 2 MG LOZENGE PO PRN ×3 (00:15→20:05)
[2021-08-15 04:53] VITALS: BP 94/68
[2021-08-15 08:10] VITALS: BP 119/78
[2021-08-15] MEDS: MULTIVITAMINS WITH MINERALS, THERAPEUTIC TABLET PO SCH (08:16)
[2021-08-15] MEDS: GABAPENTIN 300 MG CAPSULE PO SCH ×4 (08:16→20:05)
[2021-08-15] MEDS: LORazepam 2 MG TABLET PO PRN ×2 (08:16→17:05)
[2021-08-15] MEDS: SERTRALINE HCL 50 MG TABLET PO SCH (08:16)
[2021-08-15] MEDS: OLANZapine 7.5 MG TABLET PO SCH (08:17)
[2021-08-15] MEDS: BUPRENORPHINE HCL/NALOXONE HCL 2-0.5 MG SUBLINGUAL TABLET SL SCH ×2 (08:17→17:05)
[2021-08-15] MEDS: ACAMPROSATE CALCIUM 333 MG DR TABLET PO SCH ×3 (08:17→16:59)
[2021-08-15] MEDS: THIAMINE 100 MG TABLET PO SCH ×2 (08:17→17:00)
[2021-08-15] MEDS: FOLIC ACID 1 MG TABLET PO SCH (08:18)
[2021-08-15] MEDS: DOXYCYCLINE HYCLATE 100 MG TABLET PO SCH ×2 (08:18→16:59)
[2021-08-15 16:13] VITALS: BP 123/76
[2021-08-15 16:15] VITALS: BP 123/76
[2021-08-15] MEDS: MELATONIN 5 MG TABLET PO SCH (20:05)
[2021-08-15] MEDS: ZOLPIDEM TARTRATE 10 MG TABLET PO PRN (20:05)
[2021-08-16 00:13] VITALS: BP 100/62
[2021-08-16] MEDS: LORazepam 2 MG TABLET PO PRN ×2 (04:48→17:06)
[2021-08-16] MEDS: NICOTINE POLACRILEX 2 MG LOZENGE PO PRN ×2 (04:48→19:02)
[2021-08-16 08:15] VITALS: BP 104/65
[2021-08-16] MEDS: THIAMINE 100 MG TABLET PO SCH ×2 (08:31→17:06)
[2021-08-16] MEDS: OLANZapine 7.5 MG TABLET PO SCH (08:31)
[2021-08-16] MEDS: FOLIC ACID 1 MG TABLET PO SCH (08:31)
[2021-08-16] MEDS: SERTRALINE HCL 50 MG TABLET PO SCH (08:31)
[2021-08-16] MEDS: MULTIVITAMINS WITH MINERALS, THERAPEUTIC TABLET PO SCH (08:31)
[2021-08-16] MEDS: ACAMPROSATE CALCIUM 333 MG DR TABLET PO SCH ×3 (08:31→17:06)
[2021-08-16] MEDS: DOXYCYCLINE HYCLATE 100 MG TABLET PO SCH ×2 (08:31→17:06)
[2021-08-16] MEDS: BUPRENORPHINE HCL/NALOXONE HCL 2-0.5 MG SUBLINGUAL TABLET SL SCH ×3 (08:32→17:06)
[2021-08-16] MEDS: GABAPENTIN 300 MG CAPSULE PO SCH ×2 (08:33→12:45)
[2021-08-16 16:20] VITALS: BP 115/75
[2021-08-16] MEDS: GABAPENTIN 400 MG CAPSULE PO SCH ×2 (17:06→20:30)
[2021-08-16] MEDS: HydrOXYzine PAMOATE 50 MG CAPSULE PO PRN (20:31)
[2021-08-16] MEDS: MELATONIN 5 MG TABLET PO SCH (20:31)
[2021-08-16] MEDS: ZOLPIDEM TARTRATE 10 MG TABLET PO PRN (20:31)
[2021-08-17 01:30] VITALS: BP 129/82
[2021-08-17] MEDS: LORazepam 2 MG TABLET PO PRN (05:39)
[2021-08-17] MEDS: NICOTINE POLACRILEX 2 MG LOZENGE PO PRN (06:21)
[2021-08-17] MEDS: BACITRACIN 28 GM OINTMENT TP PRN (06:24)
[2021-08-17 08:14] VITALS: BP 104/62
[2021-08-17] MEDS: HydrOXYzine PAMOATE 50 MG CAPSULE PO PRN (08:30)
[2021-08-17] MEDS ORDERED: OLANZapine 10 MG TABLET PO SCH (09:00)
[2021-08-17] MEDS: ACAMPROSATE CALCIUM 333 MG DR TABLET PO SCH ×3 (09:43→17:02)
[2021-08-17] MEDS: SERTRALINE HCL 100 MG TABLET PO SCH (09:44)
[2021-08-17] MEDS: MULTIVITAMINS WITH MINERALS, THERAPEUTIC TABLET PO SCH (09:44)
[2021-08-17] MEDS: THIAMINE 100 MG TABLET PO SCH ×2 (09:44→17:02)
[2021-08-17] MEDS: GABAPENTIN 400 MG CAPSULE PO SCH ×4 (09:44→20:18)
[2021-08-17] MEDS: FOLIC ACID 1 MG TABLET PO SCH (09:44)
[2021-08-17] MEDS: DOXYCYCLINE HYCLATE 100 MG TABLET PO SCH ×2 (09:44→17:02)
[2021-08-17] MEDS: BUPRENORPHINE HCL/NALOXONE HCL 2-0.5 MG SUBLINGUAL TABLET SL SCH ×3 (09:44→17:06)
[2021-08-17 16:17] VITALS: BP 110/66
[2021-08-17] MEDS: LURASIDONE HCL 40 MG TABLET PO SCH (17:05)
[2021-08-17 19:32] VITALS: BP 117/72
[2021-08-17] MEDS: MELATONIN 5 MG TABLET PO SCH (20:17)
[2021-08-17] MEDS: ZOLPIDEM TARTRATE 10 MG TABLET PO PRN (20:32)
[2021-08-18] MEDS: LORazepam 2 MG TABLET PO PRN ×4 (05:17→17:47)
[2021-08-18] MEDS: NICOTINE POLACRILEX 2 MG LOZENGE PO PRN (05:17)
[2021-08-18 05:19] VITALS: BP 100/67
[2021-08-18 08:00] VITALS: BP 119/72
[2021-08-18] MEDS: ACAMPROSATE CALCIUM 333 MG DR TABLET PO SCH ×3 (08:02→16:25)
[2021-08-18] MEDS: FOLIC ACID 1 MG TABLET PO SCH (08:02)
[2021-08-18] MEDS: THIAMINE 100 MG TABLET PO SCH ×2 (08:02→16:27)
[2021-08-18] MEDS: MULTIVITAMINS WITH MINERALS, THERAPEUTIC TABLET PO SCH (08:02)
[2021-08-18] MEDS: SERTRALINE HCL 100 MG TABLET PO SCH (08:02)
[2021-08-18] MEDS: BUPRENORPHINE HCL/NALOXONE HCL 2-0.5 MG SUBLINGUAL TABLET SL SCH ×3 (08:03→16:26)
[2021-08-18] MEDS: GABAPENTIN 400 MG CAPSULE PO SCH ×4 (08:03→20:36)
[2021-08-18] MEDS: DOXYCYCLINE HYCLATE 100 MG TABLET PO SCH ×2 (08:12→16:27)
[2021-08-18 10:07] LABS: COVID AG,FIA SOURCE NASAL SWAB
[2021-08-18] MEDS: OLANZapine 5 MG RAPDIS TABLET PO PRN (11:11)
[2021-08-18 16:26] VITALS: BP 112/68
[2021-08-18] MEDS: LURASIDONE HCL 40 MG TABLET PO SCH (16:27)
[2021-08-18 16:46] VITALS: BP 92/60
[2021-08-18] MEDS: MELATONIN 5 MG TABLET PO SCH (20:36)
[2021-08-18] MEDS: ZOLPIDEM TARTRATE 10 MG TABLET PO PRN (21:00)
[2021-08-19] MEDS: LORazepam 2 MG TABLET PO PRN ×4 (02:55→19:00)
[2021-08-19] MEDS: NICOTINE POLACRILEX 2 MG LOZENGE PO PRN ×2 (02:56→12:15)
[2021-08-19] MEDS: DOXYCYCLINE HYCLATE 100 MG TABLET PO SCH ×2 (07:33→16:37)
[2021-08-19] MEDS: OLANZapine 5 MG RAPDIS TABLET PO PRN ×3 (07:35→16:39)
[2021-08-19] MEDS: ACAMPROSATE CALCIUM 333 MG DR TABLET PO SCH ×3 (07:35→16:37)
[2021-08-19] MEDS: THIAMINE 100 MG TABLET PO SCH ×2 (07:35→16:38)
[2021-08-19] MEDS: SERTRALINE HCL 100 MG TABLET PO SCH (07:36)
[2021-08-19] MEDS: BUPRENORPHINE HCL/NALOXONE HCL 2-0.5 MG SUBLINGUAL TABLET SL SCH ×3 (07:36→16:38)
[2021-08-19] MEDS: FOLIC ACID 1 MG TABLET PO SCH (07:38)
[2021-08-19] MEDS: GABAPENTIN 400 MG CAPSULE PO SCH ×4 (07:38→20:24)
[2021-08-19] MEDS: MULTIVITAMINS WITH MINERALS, THERAPEUTIC TABLET PO SCH (07:39)
[2021-08-19 16:15] VITALS: BP 138/81
[2021-08-19] MEDS: LURASIDONE HCL 40 MG TABLET PO SCH (16:38)
[2021-08-19] MEDS: MELATONIN 5 MG TABLET PO SCH (20:24)
[2021-08-19] MEDS: ZOLPIDEM TARTRATE 10 MG TABLET PO PRN (20:42)
[2021-08-20] MEDS: ACAMPROSATE CALCIUM 333 MG DR TABLET PO SCH ×3 (07:55→16:09)
[2021-08-20] MEDS: MULTIVITAMINS WITH MINERALS, THERAPEUTIC TABLET PO SCH (07:55)
[2021-08-20] MEDS: THIAMINE 100 MG TABLET PO SCH ×2 (07:55→16:09)
[2021-08-20] MEDS: SERTRALINE HCL 100 MG TABLET PO SCH (07:55)
[2021-08-20] MEDS: GABAPENTIN 400 MG CAPSULE PO SCH ×4 (07:55→20:05)
[2021-08-20] MEDS: FOLIC ACID 1 MG TABLET PO SCH (07:55)
[2021-08-20] MEDS: DOXYCYCLINE HYCLATE 100 MG TABLET PO SCH ×2 (07:56→16:09)
[2021-08-20] MEDS: BUPRENORPHINE HCL/NALOXONE HCL 2-0.5 MG SUBLINGUAL TABLET SL SCH ×3 (07:57→16:10)
[2021-08-20 09:11] VITALS: BP 128/86
[2021-08-20] MEDS: OLANZapine 5 MG RAPDIS TABLET PO PRN (12:14)
[2021-08-20 16:00] VITALS: BP 102/61
[2021-08-20] MEDS: LURASIDONE HCL 40 MG TABLET PO SCH (16:09)
[2021-08-20] MEDS: MELATONIN 5 MG TABLET PO SCH (20:05)
[2021-08-21] MEDS: MULTIVITAMINS WITH MINERALS, THERAPEUTIC TABLET PO SCH (07:48)
[2021-08-21] MEDS: FOLIC ACID 1 MG TABLET PO SCH (07:48)
[2021-08-21] MEDS: SERTRALINE HCL 100 MG TABLET PO SCH (07:48)
[2021-08-21] MEDS: OLANZapine 5 MG RAPDIS TABLET PO PRN ×2 (07:48→12:56)
[2021-08-21] MEDS: GABAPENTIN 400 MG CAPSULE PO SCH ×4 (07:48→20:10)
[2021-08-21] MEDS: THIAMINE 100 MG TABLET PO SCH ×2 (07:49→16:36)
[2021-08-21] MEDS: LORazepam 2 MG TABLET PO PRN ×2 (07:49→12:56)
[2021-08-21] MEDS: BUPRENORPHINE HCL/NALOXONE HCL 2-0.5 MG SUBLINGUAL TABLET SL SCH ×3 (07:49→16:36)
[2021-08-21] MEDS: ACAMPROSATE CALCIUM 333 MG DR TABLET PO SCH ×3 (07:49→16:36)
[2021-08-21] MEDS: NICOTINE POLACRILEX 2 MG LOZENGE PO PRN (07:53)
[2021-08-21] MEDS: DOXYCYCLINE HYCLATE 100 MG TABLET PO SCH ×2 (07:53→16:36)
[2021-08-21 08:00] VITALS: BP 54/75
[2021-08-21 16:11] VITALS: BP 98/65
[2021-08-21] MEDS: LURASIDONE HCL 40 MG TABLET PO SCH (16:37)
[2021-08-21 16:39] VITALS: BP 108/62
[2021-08-21] MEDS: MELATONIN 5 MG TABLET PO SCH (20:10)
[2021-08-22] MEDS: SERTRALINE HCL 100 MG TABLET PO SCH (08:13)
[2021-08-22] MEDS: FOLIC ACID 1 MG TABLET PO SCH (08:13)
[2021-08-22] MEDS: ACAMPROSATE CALCIUM 333 MG DR TABLET PO SCH ×3 (08:14→16:11)
[2021-08-22] MEDS: DOXYCYCLINE HYCLATE 100 MG TABLET PO SCH ×2 (08:14→16:11)
[2021-08-22] MEDS: BUPRENORPHINE HCL/NALOXONE HCL 2-0.5 MG SUBLINGUAL TABLET SL SCH ×3 (08:14→16:12)
[2021-08-22] MEDS: MULTIVITAMINS WITH MINERALS, THERAPEUTIC TABLET PO SCH (08:14)
[2021-08-22] MEDS: GABAPENTIN 400 MG CAPSULE PO SCH ×4 (08:14→21:08)
[2021-08-22] MEDS: THIAMINE 100 MG TABLET PO SCH (08:14)
[2021-08-22 09:03] VITALS: BP 108/78
[2021-08-22] MEDS: NICOTINE POLACRILEX 2 MG LOZENGE PO PRN ×2 (12:10→18:45)
[2021-08-22] MEDS: LORazepam 2 MG TABLET PO PRN ×2 (12:10→21:08)
[2021-08-22] MEDS: OLANZapine 5 MG RAPDIS TABLET PO PRN ×2 (12:10→16:14)
[2021-08-22] MEDS: LURASIDONE HCL 40 MG TABLET PO SCH (16:11)
[2021-08-22 16:14] VITALS: BP 109/74
[2021-08-22] MEDS: MELATONIN 5 MG TABLET PO SCH (21:08)
[2021-08-22] MEDS: ZOLPIDEM TARTRATE 10 MG TABLET PO PRN (21:37)
[2021-08-23] MEDS: ACAMPROSATE CALCIUM 333 MG DR TABLET PO SCH ×3 (07:49→17:37)
[2021-08-23 08:05] VITALS: BP 114/73
[2021-08-23] MEDS: SERTRALINE HCL 100 MG TABLET PO SCH (08:30)
[2021-08-23] MEDS: OLANZapine 5 MG RAPDIS TABLET PO PRN (08:31)
[2021-08-23] MEDS: GABAPENTIN 400 MG CAPSULE PO SCH ×4 (08:31→20:19)
[2021-08-23] MEDS: BUPRENORPHINE HCL/NALOXONE HCL 2-0.5 MG SUBLINGUAL TABLET SL SCH ×3 (08:31→17:35)
[2021-08-23] MEDS: MULTIVITAMINS WITH MINERALS, THERAPEUTIC TABLET PO SCH (08:31)
[2021-08-23] MEDS: LORazepam 2 MG TABLET PO PRN (08:32)
[2021-08-23] MEDS: NICOTINE POLACRILEX 2 MG LOZENGE PO PRN (12:27)
[2021-08-23 16:00] VITALS: BP 104/67
[2021-08-23] MEDS ORDERED: LURASIDONE HCL 60 MG TABLET PO SCH (17:30)
[2021-08-23 17:35] VITALS: BP 110/67
[2021-08-23] MEDS: MELATONIN 5 MG TABLET PO SCH (20:19)
[2021-08-24] MEDS: ACAMPROSATE CALCIUM 333 MG DR TABLET PO SCH ×3 (08:08→16:32)
[2021-08-24] MEDS: NICOTINE POLACRILEX 2 MG LOZENGE PO PRN ×2 (08:08→17:57)
[2021-08-24] MEDS: GABAPENTIN 400 MG CAPSULE PO SCH ×4 (08:09→20:44)
[2021-08-24] MEDS: MULTIVITAMINS WITH MINERALS, THERAPEUTIC TABLET PO SCH (08:09)
[2021-08-24] MEDS: LORazepam 2 MG TABLET PO PRN ×2 (08:09→12:28)
[2021-08-24] MEDS: BUPRENORPHINE HCL/NALOXONE HCL 2-0.5 MG SUBLINGUAL TABLET SL SCH ×3 (08:09→16:33)
[2021-08-24] MEDS: OLANZapine 5 MG RAPDIS TABLET PO PRN ×3 (08:09→16:33)
[2021-08-24] MEDS: SERTRALINE HCL 100 MG TABLET PO SCH (08:11)
[2021-08-24 08:18] VITALS: BP 112/72
[2021-08-24 16:33] VITALS: BP 119/75
[2021-08-24] MEDS: LURASIDONE HCL 80 MG TABLET PO SCH (16:33)
[2021-08-24] MEDS: MELATONIN 5 MG TABLET PO SCH (20:44)
[2021-08-24] MEDS: ZOLPIDEM TARTRATE 10 MG TABLET PO PRN (21:50)
[2021-08-25 08:19] VITALS: BP 109/69
[2021-08-25 08:21] LABS: COVID AG,FIA SOURCE NASAL SWAB
[2021-08-25] MEDS: GABAPENTIN 400 MG CAPSULE PO SCH ×4 (10:55→20:22)
[2021-08-25] MEDS: SERTRALINE HCL 100 MG TABLET PO SCH (10:55)
[2021-08-25] MEDS: NICOTINE POLACRILEX 2 MG LOZENGE PO PRN ×2 (10:55→17:36)
[2021-08-25] MEDS: MULTIVITAMINS WITH MINERALS, THERAPEUTIC TABLET PO SCH (10:55)
[2021-08-25] MEDS: ACAMPROSATE CALCIUM 333 MG DR TABLET PO SCH ×3 (10:55→16:40)
[2021-08-25] MEDS: BUPRENORPHINE HCL/NALOXONE HCL 2-0.5 MG SUBLINGUAL TABLET SL SCH ×3 (12:14→16:39)
[2021-08-25 16:38] VITALS: BP 114/70
[2021-08-25] MEDS: LURASIDONE HCL 80 MG TABLET PO SCH (16:39)
[2021-08-25 17:35] VITALS: BP 117/80
[2021-08-25] MEDS: LORazepam 2 MG TABLET PO PRN (17:35)
[2021-08-25] MEDS: ZOLPIDEM TARTRATE 10 MG TABLET PO PRN (20:20)
[2021-08-25] MEDS: MELATONIN 5 MG TABLET PO SCH (20:22)
[2021-08-26] MEDS: NICOTINE POLACRILEX 2 MG LOZENGE PO PRN (07:53)
[2021-08-26] MEDS: GABAPENTIN 400 MG CAPSULE PO SCH ×4 (07:53→20:03)
[2021-08-26] MEDS: MULTIVITAMINS WITH MINERALS, THERAPEUTIC TABLET PO SCH (07:53)
[2021-08-26] MEDS: ACAMPROSATE CALCIUM 333 MG DR TABLET PO SCH ×3 (07:55→16:18)
[2021-08-26] MEDS: SERTRALINE HCL 100 MG TABLET PO SCH (07:55)
[2021-08-26] MEDS: BUPRENORPHINE HCL/NALOXONE HCL 2-0.5 MG SUBLINGUAL TABLET SL SCH ×3 (07:56→16:23)
[2021-08-26 08:11] VITALS: BP 124/74
[2021-08-26 16:09] VITALS: BP 119/77
[2021-08-26] MEDS: LURASIDONE HCL 80 MG TABLET PO SCH (16:18)
[2021-08-26] MEDS: MELATONIN 5 MG TABLET PO SCH (20:03)
[2021-08-26] MEDS: ZOLPIDEM TARTRATE 10 MG TABLET PO PRN (20:04)
[2021-08-27 08:10] VITALS: BP 104/63
[2021-08-27] MEDS: MULTIVITAMINS WITH MINERALS, THERAPEUTIC TABLET PO SCH (11:07)
[2021-08-27] MEDS: GABAPENTIN 400 MG CAPSULE PO SCH ×4 (11:08→20:57)
[2021-08-27] MEDS: SERTRALINE HCL 100 MG TABLET PO SCH (11:08)
[2021-08-27] MEDS: BUPRENORPHINE HCL/NALOXONE HCL 2-0.5 MG SUBLINGUAL TABLET SL SCH ×3 (11:08→16:37)
[2021-08-27] MEDS: ACAMPROSATE CALCIUM 333 MG DR TABLET PO SCH ×3 (11:09→16:36)
[2021-08-27] MEDS: NICOTINE POLACRILEX 2 MG LOZENGE PO PRN (11:09)
[2021-08-27] MEDS: LORazepam 2 MG TABLET PO PRN (11:30)
[2021-08-27] MEDS: OLANZapine 5 MG RAPDIS TABLET PO PRN ×2 (11:30→17:00)
[2021-08-27 16:00] VITALS: BP 109/66
[2021-08-27 16:37] VITALS: BP 111/65
[2021-08-27] MEDS: LURASIDONE HCL 80 MG TABLET PO SCH (17:30)
[2021-08-27] MEDS: MELATONIN 5 MG TABLET PO SCH (20:58)
[2021-08-27] MEDS: ZOLPIDEM TARTRATE 10 MG TABLET PO PRN (21:15)
[2021-08-28] MEDS: LORazepam 2 MG TABLET PO PRN ×2 (00:11→18:05)
[2021-08-28] MEDS: OLANZapine 5 MG RAPDIS TABLET PO PRN (00:11)
[2021-08-28 08:00] VITALS: BP 131/79
[2021-08-28] MEDS: GABAPENTIN 400 MG CAPSULE PO SCH ×4 (08:41→20:17)
[2021-08-28] MEDS: SERTRALINE HCL 100 MG TABLET PO SCH (08:42)
[2021-08-28] MEDS: ACAMPROSATE CALCIUM 333 MG DR TABLET PO SCH ×3 (08:43→16:29)
[2021-08-28] MEDS: BUPRENORPHINE HCL/NALOXONE HCL 2-0.5 MG SUBLINGUAL TABLET SL SCH ×3 (08:43→16:29)
[2021-08-28] MEDS: MULTIVITAMINS WITH MINERALS, THERAPEUTIC TABLET PO SCH (08:43)
[2021-08-28] MEDS ORDERED: GABA-1201 PO (12:56)
[2021-08-28] MEDS ORDERED: ACAM333T7 PO (12:56)
[2021-08-28] MEDS ORDERED: SERT-440 PO (12:56)
[2021-08-28] MEDS ORDERED: MELA5TAB40 PO (12:56)
[2021-08-28] MEDS ORDERED: BUPR1TAB33 SL (12:56)
[2021-08-28] MEDS ORDERED: LURA80TA2 PO (12:56)
[2021-08-28 16:00] VITALS: BP 117/66
[2021-08-28 16:29] VITALS: BP 111/64
[2021-08-28] MEDS: LURASIDONE HCL 80 MG TABLET PO SCH (16:30)
[2021-08-28] MEDS: MELATONIN 5 MG TABLET PO SCH (20:17)
[2021-08-28] MEDS: ZOLPIDEM TARTRATE 10 MG TABLET PO PRN (20:49)
[2021-08-29] MEDS: SERTRALINE HCL 100 MG TABLET PO SCH (08:41)
[2021-08-29] MEDS: ACAMPROSATE CALCIUM 333 MG DR TABLET PO SCH ×2 (08:41→12:08)
[2021-08-29] MEDS: GABAPENTIN 400 MG CAPSULE PO SCH ×2 (08:41→12:08)
[2021-08-29] MEDS: MULTIVITAMINS WITH MINERALS, THERAPEUTIC TABLET PO SCH (08:41)
[2021-08-29] MEDS: BUPRENORPHINE HCL/NALOXONE HCL 2-0.5 MG SUBLINGUAL TABLET SL SCH ×2 (08:42→12:09)
[2021-08-29 09:16] VITALS: BP 143/96
[2021-08-29] MEDS: NICOTINE POLACRILEX 2 MG LOZENGE PO PRN (11:25)
== END 2021-08-29 12:15 | disposition home or self-care (01) | DRG 750 ==
LOC: EMS 17:42 → B3A 08-11 06:41 → 3EC 08-17 19:36
PROVIDERS: ADMIT Psychiatry & Neurology Psychiatry; ATTEND Psychiatry & Neurology Psychiatry
DX: F25.1 Schizoaffective disorder, depressive type (principal); L03.116 Cellulitis of left lower limb; R45.851 Suicidal ideations; F41.9 Anxiety disorder, unspecified; F60.0 Paranoid personality disorder; Z20.822 Contact with and (suspected) exposure to COVID-19; G47.00 Insomnia, unspecified; I10 Essential (primary) hypertension; J44.9 Chronic obstructive pulmonary disease, unspecified; F19.10 Other psychoactive substance abuse, uncomplicated; K59.00 Constipation, unspecified; Z71.6 Tobacco abuse counseling; Z72.0 Tobacco use; Z55.9 Problems related to education and literacy, unspecified; Z59.9 Problem related to housing and economic circumstances, unspecified; Z63.9 Problem related to primary support group, unspecified; Z65.3 Problems related to other legal circumstances; Z79.891 Long term (current) use of opiate analgesic; Z88.2 Allergy status to sulfonamides; Z88.0 Allergy status to penicillin; Z88.8 Allergy status to other drugs, medicaments and biological substances; Z91.013 Allergy to seafood
CPT/HCPCS: 80053; 80061; 81003; 85025; 99285; G0480; Q9967

== ENCOUNTER → 2021-08-10 | Day surgery (SDC) | payer MEDICAID, OTHER ==
[~2021-08-10] MED LIST changes: -FOLI20CA PO; -MULT-1133 PO; +OLAN5TAB2 PO; +SERT-158 PO; -THIA100T80 PO
[2021-08-10 10:52] LABS: GLUCOMETER DEV NAME(LOC) POC.BV
== END | disposition home or self-care (01) ==
LOC: LABPV 08:00 → EDSTATUS 10:40
PROVIDERS: ATTEND Radiology Diagnostic Radiology
DX: F99 Mental disorder, not otherwise specified (principal); Z20.822 Contact with and (suspected) exposure to COVID-19

== ENCOUNTER 2021-12-15 21:32 | Inpatient (IN) | payer MEDICAID ==
[~2021-12-15] VITALS: Ht 177.8 cm; Wt 81.7 kg
[~2021-12-15 21:32] MED LIST changes: +ACAM333T7 PO; +BUPR1TAB33 SL; +GABA-1201 PO; +LURA80TA2 PO; +MELA5TAB40 PO; +SERT-440 PO
[2021-12-15 22:11] LABS: GLUCOMETER DEV NAME(LOC) POC.BV
[2021-12-15] MEDS ORDERED: -PHARMACY VACCINE NOTE- MISC ONE (22:45)
[2021-12-16] MEDS: LORazepam 2 MG TABLET PO PRN ×3 (02:05→17:08)
[2021-12-16] MEDS: ZOLPIDEM TARTRATE 10 MG TABLET PO PRN ×2 (02:05→20:47)
[2021-12-16] MEDS: OLANZapine 5 MG RAPDIS TABLET PO PRN (02:06)
[2021-12-16 02:25] VITALS: BP 110/75
[2021-12-16] MEDS ORDERED: IBUPROFEN 600 MG TABLET PO PRN (07:15)
[2021-12-16] MEDS ORDERED: BENZOCAINE/MENTHOL LOZENGE PO PRN (07:15)
[2021-12-16] MEDS ORDERED: ONDANSETRON HCL 4 MG TABLET PO PRN (07:15)
[2021-12-16] MEDS ORDERED: BACITRACIN 28 GM OINTMENT TP PRN (07:15)
[2021-12-16] MEDS ORDERED: CloNIDine HCL 0.1 MG TABLET PO PRN (07:15)
[2021-12-16] MEDS ORDERED: OMEPRAZOLE 20 MG CAPSULE PO PRN (07:15)
[2021-12-16] MEDS ORDERED: DOCUSATE SODIUM 100 MG CAPSULE PO PRN (07:15)
[2021-12-16] MEDS ORDERED: MAGNESIUM HYDROXIDE SUSPENSION 30 ML UDCUP PO PRN ×2 (07:15→08:30)
[2021-12-16] MEDS ORDERED: PETROLATUM,WHITE 28 GM JELLY TP PRN (07:15)
[2021-12-16] MEDS ORDERED: ACETAMINOPHEN 325 MG TABLET PO PRN (07:15)
[2021-12-16] MEDS ORDERED: ALBUTEROL SULFATE HFA 90 MCG/PUFF 8 GM INHALER IH PRN (07:15)
[2021-12-16 07:27] LABS: BASOPHILS % (AUTO) 0.9 % (0.0-2.0); HEMATOCRIT 40.5 % (41-53); HEMOGLOBIN 13.3 g/dL (13.5-17.5); LYMPHOCYTES # (AUTO) 2.5 K/uL (1.0-4.8); LYMPHOCYTES % (AUTO) 47.5 % (22.0-44.0); MEAN CORPUSCULAR HEMOGLOBIN 28.9 pg (26.0-34.0); MEAN CORPUSCULAR HGB CONC 32.9 G/dL (31.0-37.0); MEAN CORPUSCULAR VOLUME 88 fL (80-100); MONOCYTES # (AUTO) 0.5 K/uL (0.1-1.0); MONOCYTES % (AUTO) 8.7 % (2.0-9.0); NEUTROPHILS # (AUTO) 2.1 K/uL (1.8-7.7); NEUTROPHILS % (AUTO) 40.9 % (40.0-70.0); PLATELET COUNT (AUTO) 278 K/uL (150-450); RED BLOOD CELL COUNT(AUTO) 4.61 MIL/uL (4.50-5.90); RED CELL DISTRIBUTION WIDTH 15.7 % (11.5-14.5)
[2021-12-16 07:32] LABS: HEMOGLOBIN A1C 5.3 % (3.8-5.6)
[2021-12-16 07:58] LABS: ALANINE AMINOTRANSFERASE 24 U/L (12-78); ALBUMIN 3.2 g/dL (3.4-5.0); ALKALINE PHOSPHATASE 77 U/L (46-116); ANION GAP 10 mmol/L (8-16); ASPARTATE AMINOTRANSFERASE 18 U/L (15-37); BILIRUBIN,TOTAL 0.5 mg/dL (0.1-1.0); CALCIUM, TOTAL 8.8 mg/dL (8.8-10.5); CARBON DIOXIDE 25 mmol/L (22-29); CHLORIDE 106 mmol/L (98-107); CHOL/HDL RATIO 2.3 (4.2-7.3); CHOLESTEROL 114 mg/dL (131-200); CREATININE 0.63 mg/dL (0.60-1.30); FREE T4 (FREE THYROXINE) 1.19 ng/dL (0.76-1.46); GLOMERULAR FILTR. RATE CALC > 60 mL/min (>60); GLUCOSE,RANDOM 87 mg/dL (70-110); HDL CHOLESTEROL 50 mg/dL (40-60); LDL CHOL (CALC.) 57 mg/dL (0-130); POTASSIUM 4.4 mmol/L (3.5-5.1); SODIUM SERUM 141 mmol/L (136-145); TOTAL PROTEIN, SERUM 7.1 g/dL (6.4-8.2); TRIGLYCERIDES 33 mg/dL (15-150); UREA NITROGEN, BLOOD 7 mg/dL (7-18)
[2021-12-16 08:13] VITALS: BP 126/75
[2021-12-16 08:30] VITALS: BP 126/75
[2021-12-16] MEDS ORDERED: LOPERAMIDE HCL 2 MG CAPSULE PO PRN (08:30)
[2021-12-16] MEDS ORDERED: MAG HYDROX/AL HYDROX/SIMETH ES 30 ML SUSPENSION UDCUP PO PRN ×2 (08:30)
[2021-12-16] MEDS ORDERED: TUBERCULIN, PURIFIED PROTEIN DERIVATIVE 5 TU/0.1 ML SYRINGE ID ONE (08:30)
[2021-12-16] MEDS ORDERED: GuaiFENesin/D-METHORPHAN [SUGAR-FREE] 200-20MG/10 ML SYRUP UDCUP PO PRN (08:30)
[2021-12-16] MEDS ORDERED: PROMETHAZINE HCL 25 MG TABLET PO PRN (08:30)
[2021-12-16] MEDS: SERTRALINE HCL 50 MG TABLET PO SCH (09:00)
[2021-12-16] MEDS: ACAMPROSATE CALCIUM 333 MG DR TABLET PO SCH ×3 (09:33→17:06)
[2021-12-16] MEDS: MULTIVITAMINS WITH MINERALS, THERAPEUTIC TABLET PO SCH (09:34)
[2021-12-16] MEDS: THIAMINE 100 MG TABLET PO SCH ×2 (09:34→17:06)
[2021-12-16] MEDS: FOLIC ACID 1 MG TABLET PO SCH (09:35)
[2021-12-16 10:24] VITALS: BP 126/75
[2021-12-16] MEDS: CloNIDine HCL 0.1 MG TABLET PO SCH ×3 (14:45→21:29)
[2021-12-16 16:16] VITALS: BP 113/72
[2021-12-16] MEDS: HydrOXYzine PAMOATE 50 MG CAPSULE PO PRN (17:08)
[2021-12-16] MEDS: ACETAMINOPHEN 325 MG TABLET PO PRN (19:08)
[2021-12-16] MEDS: OLANZapine 5 MG RAPDIS TABLET PO SCH (20:46)
[2021-12-16] MEDS: MELATONIN 5 MG TABLET PO SCH (20:46)
[2021-12-16 21:26] VITALS: BP 118/70
[2021-12-17 02:05] VITALS: BP 127/72
[2021-12-17 06:11] VITALS: BP 104/64
[2021-12-17] MEDS: CloNIDine HCL 0.1 MG TABLET PO SCH ×4 (06:13→21:10)
[2021-12-17] MEDS: LORazepam 2 MG TABLET PO PRN ×2 (06:23→13:40)
[2021-12-17] MEDS: SERTRALINE HCL 50 MG TABLET PO SCH (08:10)
[2021-12-17] MEDS: THIAMINE 100 MG TABLET PO SCH ×2 (08:10→16:41)
[2021-12-17] MEDS: FOLIC ACID 1 MG TABLET PO SCH (08:10)
[2021-12-17] MEDS: ACAMPROSATE CALCIUM 333 MG DR TABLET PO SCH ×3 (08:10→16:41)
[2021-12-17] MEDS: MULTIVITAMINS WITH MINERALS, THERAPEUTIC TABLET PO SCH (08:10)
[2021-12-17 08:16] VITALS: BP 129/74
[2021-12-17 08:16] LABS: HEMOGLOBIN A1C 5.3 % (3.8-5.6)
[2021-12-17 08:26] LABS: CHOL/HDL RATIO 2.7 (4.2-7.3); FREE T4 (FREE THYROXINE) 1.04 ng/dL (0.76-1.46); THYROID STIMULATING HORMONE 0.52 uIU/mL (0.36-3.74)
[2021-12-17 11:30] VITALS: BP 118/70
[2021-12-17] MEDS: NICOTINE 21 MG/24 HOUR PATCH TD PRN (14:23)
[2021-12-17 16:03] VITALS: BP 113/68
[2021-12-17 16:30] VITALS: BP 113/68
[2021-12-17] MEDS: MELATONIN 5 MG TABLET PO SCH (21:09)
[2021-12-17] MEDS: ZOLPIDEM TARTRATE 10 MG TABLET PO PRN (21:10)
[2021-12-17] MEDS: OLANZapine 5 MG RAPDIS TABLET PO SCH (21:10)
[2021-12-18] VITALS (7 sets, daily range): BP systolic 105–123; BP diastolic 71–78
[2021-12-18] MEDS: LORazepam 2 MG TABLET PO PRN ×4 (00:53→15:49)
[2021-12-18] MEDS: CloNIDine HCL 0.1 MG TABLET PO SCH ×4 (06:00→21:09)
[2021-12-18] MEDS: MULTIVITAMINS WITH MINERALS, THERAPEUTIC TABLET PO SCH (09:00)
[2021-12-18] MEDS: FOLIC ACID 1 MG TABLET PO SCH (09:00)
[2021-12-18] MEDS: SERTRALINE HCL 50 MG TABLET PO SCH (09:00)
[2021-12-18] MEDS: THIAMINE 100 MG TABLET PO SCH ×2 (09:00→16:09)
[2021-12-18] MEDS: ACAMPROSATE CALCIUM 333 MG DR TABLET PO SCH ×3 (09:00→16:10)
[2021-12-18] MEDS: NICOTINE 21 MG/24 HOUR PATCH TD PRN (10:19)
[2021-12-18] MEDS: IBUPROFEN 600 MG TABLET PO PRN (15:55)
[2021-12-18] MEDS: OLANZapine 5 MG RAPDIS TABLET PO SCH (20:21)
[2021-12-18] MEDS: MELATONIN 5 MG TABLET PO SCH (20:21)
[2021-12-18] MEDS: ZOLPIDEM TARTRATE 10 MG TABLET PO PRN (21:09)
[2021-12-19 01:29] VITALS: BP 112/68
[2021-12-19 04:54] VITALS: BP 112/68
[2021-12-19] MEDS: LORazepam 2 MG TABLET PO PRN ×4 (05:46→19:00)
[2021-12-19] MEDS: CloNIDine HCL 0.1 MG TABLET PO SCH ×4 (06:21→21:07)
[2021-12-19 08:02] VITALS: BP 110/65
[2021-12-19] MEDS: ACAMPROSATE CALCIUM 333 MG DR TABLET PO SCH ×3 (08:16→17:45)
[2021-12-19] MEDS: SERTRALINE HCL 50 MG TABLET PO SCH (08:17)
[2021-12-19] MEDS: FOLIC ACID 1 MG TABLET PO SCH (08:17)
[2021-12-19] MEDS: MULTIVITAMINS WITH MINERALS, THERAPEUTIC TABLET PO SCH (08:17)
[2021-12-19] MEDS: IBUPROFEN 600 MG TABLET PO PRN (08:18)
[2021-12-19] MEDS: THIAMINE 100 MG TABLET PO SCH ×2 (09:15→17:45)
[2021-12-19] MEDS: CEPHALEXIN MONOHYDRATE 500 MG CAPSULE PO SCH ×2 (09:45→21:08)
[2021-12-19] MEDS: NICOTINE 21 MG/24 HOUR PATCH TD PRN (09:53)
[2021-12-19 10:20] VITALS: BP 110/65
[2021-12-19] MEDS: TraMADol HCL 50 MG TABLET PO PRN (12:17)
[2021-12-19 14:21] LABS: GLUCOMETER DEV NAME(LOC) ERT.5; GLUCOSE,POINT OF CARE 95 MG/DL (70-110)
[2021-12-19] MEDS ORDERED: GABA-1181 PO (14:39)
[2021-12-19] MEDS ORDERED: NICO-703 TD (14:39)
[2021-12-19] MEDS ORDERED: DIVA-112 PO (14:39)
[2021-12-19] MEDS ORDERED: BUPR1FIL3 SL (14:39)
[2021-12-19 16:45] VITALS: BP 121/85
[2021-12-19] MEDS: HydrOXYzine PAMOATE 50 MG CAPSULE PO PRN ×2 (18:00→18:17)
[2021-12-19] MEDS: MELATONIN 5 MG TABLET PO SCH (21:08)
[2021-12-19] MEDS: OLANZapine 5 MG RAPDIS TABLET PO SCH (21:09)
[2021-12-20] MEDS: LORazepam 2 MG TABLET PO PRN ×3 (03:42→12:13)
[2021-12-20 06:35] VITALS: BP 120/85
[2021-12-20] MEDS: TraMADol HCL 50 MG TABLET PO PRN ×3 (06:38→15:42)
[2021-12-20] MEDS: CloNIDine HCL 0.1 MG TABLET PO SCH ×4 (06:45→21:11)
[2021-12-20 07:48] LABS: COVID AG,FIA SOURCE NASAL SWAB
[2021-12-20 08:00] VITALS: BP 107/63
[2021-12-20] MEDS: FOLIC ACID 1 MG TABLET PO SCH (08:09)
[2021-12-20] MEDS: CEPHALEXIN MONOHYDRATE 500 MG CAPSULE PO SCH ×2 (08:09→21:00)
[2021-12-20] MEDS: SERTRALINE HCL 50 MG TABLET PO SCH (08:09)
[2021-12-20] MEDS: ACAMPROSATE CALCIUM 333 MG DR TABLET PO SCH ×3 (08:09→16:02)
[2021-12-20] MEDS: MULTIVITAMINS WITH MINERALS, THERAPEUTIC TABLET PO SCH (08:09)
[2021-12-20] MEDS: THIAMINE 100 MG TABLET PO SCH ×2 (08:09→16:02)
[2021-12-20] MEDS: OLANZapine 5 MG RAPDIS TABLET PO PRN ×2 (08:10→12:13)
[2021-12-20 16:02] VITALS: BP 101/70
[2021-12-20] MEDS: OLANZapine 10 MG RAPDIS TABLET PO SCH (21:13)
[2021-12-20] MEDS: MELATONIN 5 MG TABLET PO SCH (21:13)
[2021-12-20] MEDS: ClonazePAM 1 MG TABLET PO PRN (21:13)
[2021-12-20 21:16] VITALS: BP 109/74
[2021-12-21] MEDS: ClonazePAM 1 MG TABLET PO PRN ×2 (04:08→10:20)
[2021-12-21 06:00] VITALS: BP 109/69
[2021-12-21] MEDS: CloNIDine HCL 0.1 MG TABLET PO SCH ×4 (06:09→22:00)
[2021-12-21] MEDS: TraMADol HCL 50 MG TABLET PO PRN ×2 (06:30→14:31)
[2021-12-21] MEDS: CloNIDine HCL 0.1 MG TABLET PO PRN (07:55)
[2021-12-21] MEDS: SERTRALINE HCL 100 MG TABLET PO SCH (07:56)
[2021-12-21] MEDS: MULTIVITAMINS WITH MINERALS, THERAPEUTIC TABLET PO SCH (07:56)
[2021-12-21] MEDS: THIAMINE 100 MG TABLET PO SCH ×2 (07:56→16:08)
[2021-12-21] MEDS: IBUPROFEN 600 MG TABLET PO PRN (07:56)
[2021-12-21] MEDS: ACAMPROSATE CALCIUM 333 MG DR TABLET PO SCH ×3 (07:56→16:09)
[2021-12-21] MEDS: CEPHALEXIN MONOHYDRATE 500 MG CAPSULE PO SCH ×2 (07:56→20:51)
[2021-12-21] MEDS: FOLIC ACID 1 MG TABLET PO SCH (07:57)
[2021-12-21] MEDS: HydrOXYzine PAMOATE 50 MG CAPSULE PO PRN (07:59)
[2021-12-21 08:02] VITALS: BP 106/63
[2021-12-21] MEDS: NICOTINE 21 MG/24 HOUR PATCH TD PRN (08:03)
[2021-12-21] MEDS ORDERED: DiphenhydrAMINE HCL 50 MG/ML VIAL IM ONE (15:15)
[2021-12-21] MEDS ORDERED: HALOPERIDOL LACTATE 5 MG/ML VIAL IM ONE (15:15)
[2021-12-21 16:45] VITALS: BP 109/66
[2021-12-21] MEDS: OLANZapine 10 MG RAPDIS TABLET PO SCH (20:51)
[2021-12-21] MEDS: ZOLPIDEM TARTRATE 10 MG TABLET PO PRN (20:51)
[2021-12-21] MEDS: MELATONIN 5 MG TABLET PO SCH (20:51)
[2021-12-22] MEDS: CloNIDine HCL 0.1 MG TABLET PO SCH ×4 (06:23→22:50)
[2021-12-22] MEDS: ClonazePAM 1 MG TABLET PO PRN ×2 (06:41→12:43)
[2021-12-22 08:00] VITALS: BP 108/62
[2021-12-22] MEDS: ACAMPROSATE CALCIUM 333 MG DR TABLET PO SCH ×3 (08:01→15:46)
[2021-12-22] MEDS: ACETAMINOPHEN 325 MG TABLET PO PRN (08:01)
[2021-12-22] MEDS: THIAMINE 100 MG TABLET PO SCH ×2 (08:01→15:47)
[2021-12-22] MEDS: TraMADol HCL 50 MG TABLET PO PRN ×2 (08:01→13:45)
[2021-12-22] MEDS: SERTRALINE HCL 100 MG TABLET PO SCH (08:01)
[2021-12-22] MEDS: FOLIC ACID 1 MG TABLET PO SCH (08:02)
[2021-12-22] MEDS: MULTIVITAMINS WITH MINERALS, THERAPEUTIC TABLET PO SCH (08:03)
[2021-12-22 08:07] VITALS: BP 108/62
[2021-12-22] MEDS: NICOTINE 21 MG/24 HOUR PATCH TD PRN (08:28)
[2021-12-22] MEDS: CEPHALEXIN MONOHYDRATE 500 MG CAPSULE PO SCH ×2 (09:00→22:48)
[2021-12-22] MEDS: HydrOXYzine PAMOATE 50 MG CAPSULE PO PRN ×2 (09:10→15:46)
[2021-12-22 11:25] VITALS: BP 125/70
[2021-12-22] MEDS: IBUPROFEN 600 MG TABLET PO PRN (11:26)
[2021-12-22 13:38] LABS: GLUCOMETER DEV NAME(LOC) POC.BV
[2021-12-22] MEDS ORDERED: SERT-440 PO (14:52)
[2021-12-22] MEDS ORDERED: ACAM333T7 PO (14:52)
[2021-12-22] MEDS ORDERED: MELA5TAB40 PO (14:52)
[2021-12-22] MEDS ORDERED: OLAN10TA26 PO (14:52)
[2021-12-22] MEDS: OLANZapine 5 MG RAPDIS TABLET PO PRN (15:46)
[2021-12-22 16:02] VITALS: BP 117/66
[2021-12-22] MEDS: ClonazePAM 0.5 MG TABLET PO PRN (17:47)
[2021-12-22] MEDS: MELATONIN 5 MG TABLET PO SCH (21:00)
[2021-12-22] MEDS: ZOLPIDEM TARTRATE 10 MG TABLET PO PRN (22:48)
[2021-12-22] MEDS: OLANZapine 10 MG RAPDIS TABLET PO SCH (22:48)
[2021-12-23] MEDS: TraMADol HCL 50 MG TABLET PO PRN ×2 (05:18→14:31)
[2021-12-23 05:19] VITALS: BP 122/75
[2021-12-23] MEDS: ClonazePAM 0.5 MG TABLET PO PRN ×3 (05:38→18:05)
[2021-12-23] MEDS: CloNIDine HCL 0.1 MG TABLET PO SCH ×4 (06:36→21:15)
[2021-12-23] MEDS: CloNIDine HCL 0.1 MG TABLET PO PRN (07:29)
[2021-12-23] MEDS: HydrOXYzine PAMOATE 50 MG CAPSULE PO PRN (07:29)
[2021-12-23] MEDS: MULTIVITAMINS WITH MINERALS, THERAPEUTIC TABLET PO SCH (07:30)
[2021-12-23] MEDS: CEPHALEXIN MONOHYDRATE 500 MG CAPSULE PO SCH ×2 (07:30→21:00)
[2021-12-23] MEDS: THIAMINE 100 MG TABLET PO SCH ×2 (07:30→17:11)
[2021-12-23] MEDS: OLANZapine 5 MG RAPDIS TABLET PO PRN ×2 (07:30→17:30)
[2021-12-23] MEDS: SERTRALINE HCL 100 MG TABLET PO SCH (07:30)
[2021-12-23] MEDS: ACAMPROSATE CALCIUM 333 MG DR TABLET PO SCH ×3 (07:30→17:11)
[2021-12-23] MEDS: FOLIC ACID 1 MG TABLET PO SCH (07:31)
[2021-12-23] MEDS: IBUPROFEN 600 MG TABLET PO PRN (07:32)
[2021-12-23] MEDS: LOPERAMIDE HCL 2 MG CAPSULE PO PRN (07:33)
[2021-12-23] MEDS: MAG HYDROX/AL HYDROX/SIMETH ES 30 ML SUSPENSION UDCUP PO PRN ×2 (07:34→15:07)
[2021-12-23] MEDS: NICOTINE 21 MG/24 HOUR PATCH TD PRN (08:00)
[2021-12-23 08:01] VITALS: BP 109/70
[2021-12-23 16:18] VITALS: BP 114/71
[2021-12-23] MEDS: GABAPENTIN 400 MG CAPSULE PO SCH (17:10)
[2021-12-23] MEDS: MELATONIN 5 MG TABLET PO SCH (21:14)
[2021-12-23] MEDS: OLANZapine 10 MG RAPDIS TABLET PO SCH (21:14)
[2021-12-23] MEDS: ZOLPIDEM TARTRATE 10 MG TABLET PO PRN (22:37)
[2021-12-24 06:38] VITALS: BP 122/76
[2021-12-24] MEDS: CloNIDine HCL 0.1 MG TABLET PO SCH ×4 (06:38→21:20)
[2021-12-24] MEDS: ClonazePAM 0.5 MG TABLET PO PRN ×2 (06:41→19:00)
[2021-12-24] MEDS: MULTIVITAMINS WITH MINERALS, THERAPEUTIC TABLET PO SCH (07:32)
[2021-12-24] MEDS: ACAMPROSATE CALCIUM 333 MG DR TABLET PO SCH ×3 (07:32→15:51)
[2021-12-24] MEDS: THIAMINE 100 MG TABLET PO SCH ×2 (07:32→15:52)
[2021-12-24] MEDS: SERTRALINE HCL 100 MG TABLET PO SCH (07:33)
[2021-12-24] MEDS: FOLIC ACID 1 MG TABLET PO SCH (07:34)
[2021-12-24] MEDS: CEPHALEXIN MONOHYDRATE 500 MG CAPSULE PO SCH ×2 (07:34→20:07)
[2021-12-24] MEDS: GABAPENTIN 400 MG CAPSULE PO SCH ×3 (07:34→15:51)
[2021-12-24] MEDS: OLANZapine 5 MG RAPDIS TABLET PO PRN (07:35)
[2021-12-24 08:21] VITALS: BP 93/55
[2021-12-24] MEDS: MAG HYDROX/AL HYDROX/SIMETH ES 30 ML SUSPENSION UDCUP PO PRN (08:28)
[2021-12-24] MEDS: LOPERAMIDE HCL 2 MG CAPSULE PO PRN (08:42)
[2021-12-24] MEDS: CloNIDine HCL 0.1 MG TABLET PO PRN (08:43)
[2021-12-24] MEDS: IBUPROFEN 600 MG TABLET PO PRN ×2 (08:44→18:56)
[2021-12-24] MEDS: TraMADol HCL 50 MG TABLET PO PRN (11:17)
[2021-12-24] MEDS ORDERED: NICOTINE POLACRILEX 2 MG LOZENGE PO PRN (12:30)
[2021-12-24 16:01] VITALS: BP 108/64
[2021-12-24] MEDS ORDERED: DiphenhydrAMINE HCL 50 MG/ML VIAL ONE (19:50)
[2021-12-24] MEDS ORDERED: ChlorproMAZINE HCL 50 MG/2 ML AMP ONE (19:50)
[2021-12-24] MEDS ORDERED: ChlorproMAZINE HCL 50 MG/2 ML AMP IM ONE (20:00)
[2021-12-24] MEDS ORDERED: DiphenhydrAMINE HCL 50 MG/ML VIAL IM ONE (20:00)
[2021-12-24] MEDS: NICOTINE POLACRILEX 2 MG LOZENGE PO PRN (20:07)
[2021-12-24] MEDS: OLANZapine 10 MG RAPDIS TABLET PO SCH (20:07)
[2021-12-24] MEDS: ZOLPIDEM TARTRATE 10 MG TABLET PO PRN (20:31)
[2021-12-24] MEDS: MELATONIN 5 MG TABLET PO SCH (21:00)
[2021-12-25] MEDS: CloNIDine HCL 0.1 MG TABLET PO SCH ×4 (06:00→22:00)
[2021-12-25] MEDS: NICOTINE POLACRILEX 2 MG LOZENGE PO PRN ×3 (06:37→16:04)
[2021-12-25] MEDS: MULTIVITAMINS WITH MINERALS, THERAPEUTIC TABLET PO SCH (08:16)
[2021-12-25] MEDS: CEPHALEXIN MONOHYDRATE 500 MG CAPSULE PO SCH ×3 (08:16→20:06)
[2021-12-25] MEDS: THIAMINE 100 MG TABLET PO SCH ×2 (08:17→16:06)
[2021-12-25] MEDS: ACAMPROSATE CALCIUM 333 MG DR TABLET PO SCH ×3 (08:17→16:06)
[2021-12-25] MEDS: FOLIC ACID 1 MG TABLET PO SCH (08:17)
[2021-12-25] MEDS: SERTRALINE HCL 100 MG TABLET PO SCH (08:17)
[2021-12-25] MEDS: GABAPENTIN 400 MG CAPSULE PO SCH ×3 (08:17→16:06)
[2021-12-25 08:21] VITALS: BP 113/71
[2021-12-25] MEDS: HydrOXYzine PAMOATE 50 MG CAPSULE PO PRN (13:59)
[2021-12-25] MEDS: CloNIDine HCL 0.1 MG TABLET PO PRN (14:00)
[2021-12-25] MEDS: IBUPROFEN 600 MG TABLET PO PRN (14:00)
[2021-12-25 16:23] VITALS: BP 113/67
[2021-12-25] MEDS: ACETAMINOPHEN 325 MG TABLET PO PRN (18:29)
[2021-12-25] MEDS: ClonazePAM 0.5 MG TABLET PO PRN (18:38)
[2021-12-25 19:11] VITALS: BP 121/93
[2021-12-25] MEDS: TraMADol HCL 50 MG TABLET PO PRN (19:11)
[2021-12-25] MEDS: OLANZapine 10 MG RAPDIS TABLET PO SCH (20:06)
[2021-12-25] MEDS: MELATONIN 5 MG TABLET PO SCH (20:06)
[2021-12-26] MEDS: TraMADol HCL 50 MG TABLET PO PRN ×2 (05:16→12:43)
[2021-12-26 05:17] VITALS: BP 126/86
[2021-12-26] MEDS: NICOTINE POLACRILEX 2 MG LOZENGE PO PRN ×3 (05:27→16:46)
[2021-12-26] MEDS: ClonazePAM 0.5 MG TABLET PO PRN ×3 (06:29→17:45)
[2021-12-26] MEDS: CloNIDine HCL 0.1 MG TABLET PO SCH ×4 (06:30→20:01)
[2021-12-26 08:07] VITALS: BP 124/74
[2021-12-26] MEDS: SERTRALINE HCL 100 MG TABLET PO SCH (08:16)
[2021-12-26] MEDS: ACAMPROSATE CALCIUM 333 MG DR TABLET PO SCH ×3 (08:17→16:45)
[2021-12-26] MEDS: MULTIVITAMINS WITH MINERALS, THERAPEUTIC TABLET PO SCH (08:17)
[2021-12-26] MEDS: GABAPENTIN 400 MG CAPSULE PO SCH ×3 (08:17→16:45)
[2021-12-26] MEDS: CEPHALEXIN MONOHYDRATE 500 MG CAPSULE PO SCH ×2 (08:17→20:31)
[2021-12-26] MEDS: HydrOXYzine PAMOATE 50 MG CAPSULE PO PRN (08:19)
[2021-12-26] MEDS: CloNIDine HCL 0.1 MG TABLET PO PRN (08:19)
[2021-12-26] MEDS: IBUPROFEN 600 MG TABLET PO PRN (08:20)
[2021-12-26 16:00] VITALS: BP 96/56
[2021-12-26] MEDS: MELATONIN 5 MG TABLET PO SCH (20:01)
[2021-12-26] MEDS: OLANZapine 10 MG RAPDIS TABLET PO SCH (20:01)
[2021-12-26] MEDS: ZOLPIDEM TARTRATE 10 MG TABLET PO PRN (20:15)
[2021-12-26] MEDS ORDERED: HydrOXYzine PAMOATE 50 MG CAPSULE PO PRN (20:30)
[2021-12-27] MEDS: NICOTINE POLACRILEX 2 MG LOZENGE PO PRN ×4 (04:38→21:07)
[2021-12-27] MEDS: CloNIDine HCL 0.1 MG TABLET PO SCH ×4 (05:32→21:06)
[2021-12-27 06:41] LABS: COVID AG,FIA SOURCE NASAL SWAB
[2021-12-27 08:02] VITALS: BP 96/61
[2021-12-27] MEDS: SERTRALINE HCL 100 MG TABLET PO SCH (10:56)
[2021-12-27] MEDS: GABAPENTIN 400 MG CAPSULE PO SCH ×3 (10:56→16:20)
[2021-12-27] MEDS: CEPHALEXIN MONOHYDRATE 500 MG CAPSULE PO SCH ×2 (10:57→20:18)
[2021-12-27] MEDS: ACAMPROSATE CALCIUM 333 MG DR TABLET PO SCH ×3 (10:57→16:20)
[2021-12-27] MEDS: IBUPROFEN 600 MG TABLET PO PRN (10:59)
[2021-12-27] MEDS: CloNIDine HCL 0.1 MG TABLET PO PRN (10:59)
[2021-12-27] MEDS: MAG HYDROX/AL HYDROX/SIMETH ES 30 ML SUSPENSION UDCUP PO PRN (11:00)
[2021-12-27] MEDS: MULTIVITAMINS WITH MINERALS, THERAPEUTIC TABLET PO SCH (11:01)
[2021-12-27] MEDS: HydrOXYzine PAMOATE 50 MG CAPSULE PO PRN ×2 (11:03→19:30)
[2021-12-27 16:06] VITALS: BP 106/62
[2021-12-27] MEDS ORDERED: NALT50TA PO (17:49)
[2021-12-27] MEDS ORDERED: SERT-162 PO (17:49)
[2021-12-27] MEDS ORDERED: GABA-1181 PO (17:52)
[2021-12-27] MEDS: OLANZapine 10 MG RAPDIS TABLET PO SCH (20:18)
[2021-12-27] MEDS: MELATONIN 5 MG TABLET PO SCH (20:18)
[2021-12-28] MEDS: NICOTINE POLACRILEX 2 MG LOZENGE PO PRN (05:49)
[2021-12-28] MEDS: CloNIDine HCL 0.1 MG TABLET PO SCH ×2 (05:58→12:00)
[2021-12-28] MEDS: ACAMPROSATE CALCIUM 333 MG DR TABLET PO SCH ×2 (07:55→12:03)
[2021-12-28] MEDS: MULTIVITAMINS WITH MINERALS, THERAPEUTIC TABLET PO SCH (07:56)
[2021-12-28] MEDS: GABAPENTIN 400 MG CAPSULE PO SCH ×2 (07:56→12:02)
[2021-12-28] MEDS: CEPHALEXIN MONOHYDRATE 500 MG CAPSULE PO SCH ×2 (07:56→08:00)
[2021-12-28] MEDS: SERTRALINE HCL 100 MG TABLET PO SCH (07:56)
[2021-12-28 08:01] VITALS: BP 89/53
== END 2021-12-28 12:25 | disposition home or self-care (01) | DRG 750 ==
LOC: B3A 22:12 → 3EC 12-19 16:19
PROVIDERS: ADMIT Psychiatry & Neurology Psychiatry; ATTEND Psychiatry & Neurology Psychiatry
DX: F25.1 Schizoaffective disorder, depressive type (principal); R45.851 Suicidal ideations; F22 Delusional disorders; F25.0 Schizoaffective disorder, bipolar type; Z59.00 Homelessness unspecified; F41.0 Panic disorder [episodic paroxysmal anxiety]; R41.843 Psychomotor deficit; Z20.822 Contact with and (suspected) exposure to COVID-19; G47.00 Insomnia, unspecified; I10 Essential (primary) hypertension; J44.9 Chronic obstructive pulmonary disease, unspecified; K59.00 Constipation, unspecified; F32.9 Major depressive disorder, single episode, unspecified; F11.10 Opioid abuse, uncomplicated; F19.10 Other psychoactive substance abuse, uncomplicated; F17.200 Nicotine dependence, unspecified, uncomplicated; F06.30 Mood disorder due to known physiological condition, unspecified; Z55.9 Problems related to education and literacy, unspecified; Z63.9 Problem related to primary support group, unspecified; Z65.3 Problems related to other legal circumstances; Z91.14 Patient's other noncompliance with medication regimen; Z88.2 Allergy status to sulfonamides; Z88.8 Allergy status to other drugs, medicaments and biological substances; Z88.1 Allergy status to other antibiotic agents; Z88.5 Allergy status to narcotic agent; Z88.0 Allergy status to penicillin; Z91.013 Allergy to seafood; Z71.51 Drug abuse counseling and surveillance of drug abuser; Z71.6 Tobacco abuse counseling
CPT/HCPCS: 80053; 80061; 82962; 83036; 84439; 84443; 85025; 86592; J1200; J1630; J3230; Q9967

== ENCOUNTER 2021-12-15 22:34 | Emergency (ER) | payer MEDICAID, OTHER ==
[~2021-12-15] VITALS: Ht 172.7 cm; Wt 72.3 kg
[2021-12-15 23:11] LABS: BASOPHILS % (AUTO) 0.6 % (0.0-2.0); HEMATOCRIT 38.4 % (41-53); HEMOGLOBIN 13.1 g/dL (13.5-17.5); LYMPHOCYTES # (AUTO) 2.8 K/uL (1.0-4.8); LYMPHOCYTES % (AUTO) 42.8 % (22.0-44.0); MEAN CORPUSCULAR HEMOGLOBIN 29.5 pg (26.0-34.0); MEAN CORPUSCULAR VOLUME 87 fL (80-100); MONOCYTES # (AUTO) 0.6 K/uL (0.1-1.0); MONOCYTES % (AUTO) 9.3 % (2.0-9.0); NEUTROPHILS # (AUTO) 2.9 K/uL (1.8-7.7); NEUTROPHILS % (AUTO) 45.3 % (40.0-70.0); PLATELET COUNT (AUTO) 272 K/uL (150-450); RED BLOOD CELL COUNT(AUTO) 4.43 MIL/uL (4.50-5.90); RED CELL DISTRIBUTION WIDTH 15.6 % (11.5-14.5)
[2021-12-15 23:20] LABS: ANION GAP 10 mmol/L (8-16); CALCIUM, TOTAL 8.5 mg/dL (8.8-10.5); CARBON DIOXIDE 26 mmol/L (22-29); CHLORIDE 104 mmol/L (98-107); CREATININE 0.71 mg/dL (0.60-1.30); GLOMERULAR FILTR. RATE CALC > 60 mL/min (>60); GLUCOSE,RANDOM 89 mg/dL (70-110); POTASSIUM 4.1 mmol/L (3.5-5.1); SODIUM SERUM 140 mmol/L (136-145); UREA NITROGEN, BLOOD 7 mg/dL (7-18)
[2021-12-15 23:26] LABS: ALANINE AMINOTRANSFERASE 26 U/L (12-78); ALBUMIN 3.3 g/dL (3.4-5.0); ALKALINE PHOSPHATASE 90 U/L (46-116); ASPARTATE AMINOTRANSFERASE 17 U/L (15-37); BILIRUBIN,TOTAL 0.3 mg/dL (0.1-1.0); TOTAL PROTEIN, SERUM 7.1 g/dL (6.4-8.2)
[2021-12-15 23:30] LABS: AMPHET/METH SCREEN,URINE POSITIVE (NEGATIVE); BARBITURATE SCREEN, URINE NEGATIVE (NEGATIVE); BENZODIAZEPINES SCREEN,URINE NEGATIVE (NEGATIVE); CANNABINOID SCREEN,URINE NEGATIVE (NEGATIVE); COCAINE SCREEN,URINE NEGATIVE (NEGATIVE); METHADONE SCREEN, URINE NEGATIVE (NEGATIVE); OPIATE SCREEN,URINE NEGATIVE (NEGATIVE); PHENCYCLIDINE SCREEN,URINE NEGATIVE (NEGATIVE)
[2021-12-16 00:14] LABS: COVID AG,FIA SOURCE NASAL SWAB
[2021-12-16 01:28] VITALS: BP 130/74
== END 2021-12-16 01:15 | disposition home or self-care (01) ==
LOC: EMS 22:37
DX: F32.A Depression, unspecified (principal); R45.851 Suicidal ideations; F12.90 Cannabis use, unspecified, uncomplicated; F15.10 Other stimulant abuse, uncomplicated; F17.210 Nicotine dependence, cigarettes, uncomplicated; Z20.822 Contact with and (suspected) exposure to COVID-19; Z87.2 Personal history of diseases of the skin and subcutaneous tissue; Z79.891 Long term (current) use of opiate analgesic; Z91.018 Allergy to other foods; Z88.2 Allergy status to sulfonamides; Z88.1 Allergy status to other antibiotic agents; Z88.0 Allergy status to penicillin; Z88.8 Allergy status to other drugs, medicaments and biological substances
CPT/HCPCS: 36415; 80053; 80307; 85025; 87426; 99284; G0480; 99285

== ENCOUNTER 2021-12-19 13:20 | Emergency (ER) | payer OTHER ==
[~2021-12-19] VITALS: Ht 177.8 cm; Wt 73.2 kg
[2021-12-19] MEDS ORDERED: BUPR1FIL3 SL (14:39)
[2021-12-19] MEDS ORDERED: DIVA-112 PO (14:39)
[2021-12-19] MEDS ORDERED: GABA-1181 PO (14:39)
[2021-12-19] MEDS ORDERED: NICO-703 TD (14:39)
[2021-12-19] MEDS ORDERED: HYDROCODONE/ACETAMINOPHEN 5-325 MG TABLET PO ONE (14:45)
[2021-12-19] MEDS ORDERED: HALOPERIDOL LACTATE 5 MG/ML VIAL IM ONE (15:45)
[2021-12-19] MEDS ORDERED: LORazepam 2 MG/ML VIAL IM ONE (15:45)
[2021-12-19] MEDS ORDERED: DiphenhydrAMINE HCL 50 MG/ML VIAL IM ONE (15:45)
[2021-12-19 16:09] VITALS: BP 105/68
== END 2021-12-19 16:21 | disposition home or self-care (01) ==
LOC: EMS 13:20
DX: S52.021A Displaced fracture of olecranon process without intraarticular extension of right ulna, initial encounter for closed fracture (principal); F25.9 Schizoaffective disorder, unspecified; F32.9 Major depressive disorder, single episode, unspecified; F17.210 Nicotine dependence, cigarettes, uncomplicated; F12.90 Cannabis use, unspecified, uncomplicated; F11.90 Opioid use, unspecified, uncomplicated; Z88.2 Allergy status to sulfonamides; Z88.0 Allergy status to penicillin; Z91.013 Allergy to seafood; Z88.1 Allergy status to other antibiotic agents; W21.89XA Striking against or struck by other sports equipment, initial encounter; Y93.89 Activity, other specified; Y92.89 Other specified places as the place of occurrence of the external cause; Y99.8 Other external cause status
CPT/HCPCS: 96372; 99284; J1200; J1630; J2060

== ENCOUNTER 2022-01-29 11:44 | Inpatient (IN) | payer MEDICAID ==
[~2022-01-29] VITALS: Ht 177.8 cm; Wt 86.7 kg
[~2022-01-29 11:44] MED LIST changes: -BUPR1TAB33 SL; +GABA-1181 PO; -GABA-1201 PO; -LURA80TA2 PO; +NALT50TA PO; -OLAN10 PO; +OLAN10TA26 PO; -OLAN5TAB2 PO; -SERT-158 PO; +SERT-162 PO; -SERT-440 PO
[2022-01-29 13:26] LABS: GLUCOMETER DEV NAME(LOC) POC.BV
[2022-01-29] MEDS ORDERED: OLANZapine 5 MG RAPDIS TABLET PO PRN (13:30)
[2022-01-29 14:46] VITALS: BP 116/71
[2022-01-29] MEDS: LORazepam 2 MG TABLET PO PRN (14:59)
[2022-01-29 16:32] VITALS: BP 103/65
[2022-01-29] MEDS: OLANZapine 10 MG TABLET PO SCH (20:56)
[2022-01-29] MEDS: GABAPENTIN 400 MG CAPSULE PO SCH (20:56)
[2022-01-30] MEDS: ZOLPIDEM TARTRATE 10 MG TABLET PO PRN ×2 (03:30→20:49)
[2022-01-30 04:44] VITALS: BP 118/70
[2022-01-30 07:10] LABS: BASOPHILS % (AUTO) 0.5 % (0.0-2.0); EOSINOPHILS % (AUTO) 2.9 % (1.0-6.0); HEMATOCRIT 43.4 % (41-53); HEMOGLOBIN 14.3 g/dL (13.5-17.5); LYMPHOCYTES # (AUTO) 1.9 K/uL (1.0-4.8); LYMPHOCYTES % (AUTO) 34.7 % (22.0-44.0); MEAN CORPUSCULAR HEMOGLOBIN 29.5 pg (26.0-34.0); MEAN CORPUSCULAR VOLUME 90 fL (80-100); MONOCYTES # (AUTO) 0.4 K/uL (0.1-1.0); MONOCYTES % (AUTO) 7.4 % (2.0-9.0); NEUTROPHILS # (AUTO) 2.9 K/uL (1.8-7.7); NEUTROPHILS % (AUTO) 54.5 % (40.0-70.0); PLATELET COUNT (AUTO) 245 K/uL (150-450); RED BLOOD CELL COUNT(AUTO) 4.85 MIL/uL (4.50-5.90)
[2022-01-30 07:13] LABS: APPEARANCE,URINE HAZY (CLEAR); BILIRUBIN,URINE NEGATIVE (NEGATIVE); GLUCOSE, URINE (UA) NEGATIVE (NEGATIVE); KETONES,URINE NEGATIVE (NEGATIVE); LEUKOCYTE ESTERASE ,URINE NEGATIVE (NEGATIVE); NITRATE,URINE NEGATIVE (NEGATIVE); OCCULT BLOOD,URINE NEGATIVE (NEGATIVE); PROTEIN,URINE NEGATIVE (NEGATIVE); SPECIFIC GRAVITIY, URINE 1.025 (1.003-1.030); UROBILINOGEN,URINE <=1.0 mg/dL (<=1.0)
[2022-01-30 07:21] LABS: AMPHET/METH SCREEN,URINE POSITIVE (NEGATIVE); BARBITURATE SCREEN, URINE NEGATIVE (NEGATIVE); BENZODIAZEPINES SCREEN,URINE NEGATIVE (NEGATIVE); CANNABINOID SCREEN,URINE POSITIVE (NEGATIVE); COCAINE SCREEN,URINE NEGATIVE (NEGATIVE); METHADONE SCREEN, URINE NEGATIVE (NEGATIVE); OPIATE SCREEN,URINE NEGATIVE (NEGATIVE)
[2022-01-30 07:23] LABS: PHENCYCLIDINE SCREEN,URINE NEGATIVE (NEGATIVE)
[2022-01-30 07:27] LABS: HEMOGLOBIN A1C 5.2 % (3.8-5.6)
[2022-01-30 07:28] LABS: ALANINE AMINOTRANSFERASE 19 U/L (12-78); ALBUMIN 3.1 g/dL (3.4-5.0); ALKALINE PHOSPHATASE 74 U/L (46-116); ANION GAP 5 mmol/L (8-16); ASPARTATE AMINOTRANSFERASE 13 U/L (15-37); BILIRUBIN,TOTAL 0.6 mg/dL (0.1-1.0); CALCIUM, TOTAL 8.9 mg/dL (8.8-10.5); CARBON DIOXIDE 28 mmol/L (22-29); CHLORIDE 107 mmol/L (98-107); CHOL/HDL RATIO 2.3 (4.2-7.3); CHOLESTEROL 135 mg/dL (131-200); CREATININE 0.71 mg/dL (0.60-1.30); FREE T4 (FREE THYROXINE) 1.19 ng/dL (0.76-1.46); GLOMERULAR FILTR. RATE CALC > 60 mL/min (>60); GLUCOSE,RANDOM 94 mg/dL (70-110); HDL CHOLESTEROL 60 mg/dL (40-60); LDL CHOL (CALC.) 57 mg/dL (0-130); POTASSIUM 4.2 mmol/L (3.5-5.1); SODIUM SERUM 140 mmol/L (136-145); THYROID STIMULATING HORMONE 0.32 uIU/mL (0.36-3.74); TOTAL PROTEIN, SERUM 6.7 g/dL (6.4-8.2); TRIGLYCERIDES 90 mg/dL (15-150); UREA NITROGEN, BLOOD 10 mg/dL (7-18)
[2022-01-30 08:17] VITALS: BP 110/63
[2022-01-30] MEDS: SERTRALINE HCL 100 MG TABLET PO SCH (08:22)
[2022-01-30] MEDS: GABAPENTIN 400 MG CAPSULE PO SCH ×4 (08:22→20:41)
[2022-01-30] MEDS: LORazepam 2 MG TABLET PO PRN (08:23)
[2022-01-30] MEDS ORDERED: GuaiFENesin/D-METHORPHAN [SUGAR-FREE] 200-20MG/10 ML SYRUP UDCUP PO PRN (11:45)
[2022-01-30] MEDS ORDERED: MAGNESIUM HYDROXIDE SUSPENSION 30 ML UDCUP PO PRN (11:45)
[2022-01-30] MEDS ORDERED: ACETAMINOPHEN 325 MG TABLET PO PRN (11:45)
[2022-01-30] MEDS ORDERED: LOPERAMIDE HCL 2 MG CAPSULE PO PRN (11:45)
[2022-01-30] MEDS ORDERED: PROMETHAZINE HCL 25 MG TABLET PO PRN (11:45)
[2022-01-30] MEDS ORDERED: MAG HYDROX/AL HYDROX/SIMETH ES 30 ML SUSPENSION UDCUP PO PRN (11:45)
[2022-01-30] MEDS ORDERED: GABAPENTIN 400 MG CAPSULE PO PRN (11:45)
[2022-01-30 16:30] VITALS: BP 110/62
[2022-01-30] MEDS: THIAMINE 100 MG TABLET PO SCH (17:19)
[2022-01-30] MEDS: QUEtiapine FUMARATE 200 MG TABLET PO PRN (17:19)
[2022-01-30] MEDS: HydrOXYzine PAMOATE 50 MG CAPSULE PO PRN (17:20)
[2022-01-30] MEDS: OLANZapine 10 MG TABLET PO SCH (20:41)
[2022-01-30] MEDS: MELATONIN 5 MG TABLET PO SCH (20:41)
[2022-01-31 05:58] VITALS: BP 100/69
[2022-01-31 08:14] VITALS: BP 126/72
[2022-01-31] MEDS: HydrOXYzine PAMOATE 50 MG CAPSULE PO PRN ×2 (08:33→16:55)
[2022-01-31] MEDS: QUEtiapine FUMARATE 200 MG TABLET PO PRN ×2 (08:33→13:50)
[2022-01-31] MEDS: NALTREXONE HCL 50 MG TABLET PO SCH (09:06)
[2022-01-31] MEDS: THIAMINE 100 MG TABLET PO SCH ×2 (09:06→16:55)
[2022-01-31] MEDS: MULTIVITAMINS WITH MINERALS, THERAPEUTIC TABLET PO SCH (09:06)
[2022-01-31] MEDS: GABAPENTIN 400 MG CAPSULE PO SCH ×4 (09:07→20:54)
[2022-01-31] MEDS: FOLIC ACID 1 MG TABLET PO SCH (09:07)
[2022-01-31] MEDS: SERTRALINE HCL 100 MG TABLET PO SCH (09:08)
[2022-01-31 16:15] VITALS: BP 101/62
[2022-01-31] MEDS: ZOLPIDEM TARTRATE 10 MG TABLET PO PRN (20:57)
[2022-01-31] MEDS: MELATONIN 5 MG TABLET PO SCH (20:57)
[2022-01-31] MEDS ORDERED: OLANZapine 7.5 MG TABLET PO SCH (21:00)
[2022-02-01 05:53] VITALS: BP 108/75
[2022-02-01] MEDS: THIAMINE 100 MG TABLET PO SCH ×2 (08:48→16:44)
[2022-02-01] MEDS: NALTREXONE HCL 50 MG TABLET PO SCH (08:48)
[2022-02-01] MEDS: HydrOXYzine PAMOATE 50 MG CAPSULE PO PRN ×2 (08:48→16:44)
[2022-02-01] MEDS: FOLIC ACID 1 MG TABLET PO SCH (08:49)
[2022-02-01] MEDS: MULTIVITAMINS WITH MINERALS, THERAPEUTIC TABLET PO SCH (08:49)
[2022-02-01] MEDS: GABAPENTIN 400 MG CAPSULE PO SCH ×4 (08:49→20:41)
[2022-02-01] MEDS: SERTRALINE HCL 50 MG TABLET PO SCH (08:49)
[2022-02-01] MEDS: QUEtiapine FUMARATE 200 MG TABLET PO PRN ×2 (08:49→16:44)
[2022-02-01] MEDS ORDERED: PALIPERIDONE PALMITATE 234 MG/1.5 ML SYRINGE IM ONE (09:00)
[2022-02-01 09:15] VITALS: BP 113/64
[2022-02-01] MEDS: NICOTINE POLACRILEX 2 MG LOZENGE PO PRN (10:16)
[2022-02-01 16:35] VITALS: BP 100/66
[2022-02-01] MEDS: OLANZapine 10 MG RAPDIS TABLET PO SCH (20:41)
[2022-02-01] MEDS: MELATONIN 5 MG TABLET PO SCH (20:41)
[2022-02-01] MEDS: ZOLPIDEM TARTRATE 10 MG TABLET PO PRN (20:41)
[2022-02-02 05:18] VITALS: BP 105/72
[2022-02-02] MEDS: NALTREXONE HCL 50 MG TABLET PO SCH (09:01)
[2022-02-02] MEDS: GABAPENTIN 400 MG CAPSULE PO SCH ×4 (09:01→20:13)
[2022-02-02] MEDS: FOLIC ACID 1 MG TABLET PO SCH (09:01)
[2022-02-02] MEDS: THIAMINE 100 MG TABLET PO SCH ×2 (09:02→16:37)
[2022-02-02] MEDS: MULTIVITAMINS WITH MINERALS, THERAPEUTIC TABLET PO SCH (09:02)
[2022-02-02] MEDS: SERTRALINE HCL 50 MG TABLET PO SCH (09:02)
[2022-02-02] MEDS: QUEtiapine FUMARATE 200 MG TABLET PO PRN (09:06)
[2022-02-02] MEDS: HydrOXYzine PAMOATE 50 MG CAPSULE PO PRN (09:06)
[2022-02-02] MEDS: NICOTINE POLACRILEX 2 MG LOZENGE PO PRN ×2 (09:32→14:03)
[2022-02-02 16:24] VITALS: BP 104/69
[2022-02-02] MEDS: OLANZapine 10 MG RAPDIS TABLET PO SCH (20:13)
[2022-02-02] MEDS: MELATONIN 5 MG TABLET PO SCH (20:13)
[2022-02-03 05:20] VITALS: BP 115/68
[2022-02-03 08:14] VITALS: BP 113/59
[2022-02-03] MEDS: THIAMINE 100 MG TABLET PO SCH ×2 (08:18→16:21)
[2022-02-03] MEDS: FOLIC ACID 1 MG TABLET PO SCH (08:18)
[2022-02-03] MEDS: NALTREXONE HCL 50 MG TABLET PO SCH (08:18)
[2022-02-03] MEDS: GABAPENTIN 400 MG CAPSULE PO SCH ×2 (08:18→12:45)
[2022-02-03] MEDS: MULTIVITAMINS WITH MINERALS, THERAPEUTIC TABLET PO SCH (08:18)
[2022-02-03] MEDS: NICOTINE POLACRILEX 2 MG LOZENGE PO PRN (08:51)
[2022-02-03] MEDS ORDERED: FLUoxetine HCL 20 MG CAPSULE PO SCH (09:00)
[2022-02-03] MEDS: HydrOXYzine PAMOATE 50 MG CAPSULE PO PRN (14:42)
[2022-02-03] MEDS: QUEtiapine FUMARATE 200 MG TABLET PO PRN (14:42)
[2022-02-03 16:07] VITALS: BP 109/68
[2022-02-03] MEDS: GABAPENTIN 300 MG CAPSULE PO SCH ×2 (16:24→20:12)
[2022-02-03] MEDS: OLANZapine 10 MG RAPDIS TABLET PO SCH (20:12)
[2022-02-03] MEDS: MELATONIN 5 MG TABLET PO SCH (20:12)
[2022-02-04] MEDS: QUEtiapine FUMARATE 200 MG TABLET PO PRN (03:49)
[2022-02-04 04:01] VITALS: BP 98/59
[2022-02-04 08:05] VITALS: BP 117/56
[2022-02-04] MEDS: THIAMINE 100 MG TABLET PO SCH ×2 (08:14→16:14)
[2022-02-04] MEDS: MULTIVITAMINS WITH MINERALS, THERAPEUTIC TABLET PO SCH (08:14)
[2022-02-04] MEDS: FLUoxetine HCL 20 MG CAPSULE PO SCH (08:14)
[2022-02-04] MEDS: FOLIC ACID 1 MG TABLET PO SCH (08:14)
[2022-02-04] MEDS: GABAPENTIN 300 MG CAPSULE PO SCH ×4 (08:14→20:07)
[2022-02-04] MEDS: NALTREXONE HCL 50 MG TABLET PO SCH (08:15)
[2022-02-04] MEDS: NICOTINE POLACRILEX 2 MG LOZENGE PO PRN ×3 (09:14→13:15)
[2022-02-04 16:08] VITALS: BP 122/62
[2022-02-04] MEDS: OLANZapine 10 MG RAPDIS TABLET PO SCH (20:07)
[2022-02-04] MEDS: MELATONIN 5 MG TABLET PO SCH (20:07)
[2022-02-04] MEDS: ZOLPIDEM TARTRATE 10 MG TABLET PO PRN (21:54)
[2022-02-05 04:13] VITALS: BP 100/62
[2022-02-05 08:41] VITALS: BP 109/54
[2022-02-05] MEDS ORDERED: PALIPERIDONE PALMITATE 156 MG/ML SYRINGE IM ONE (09:00)
[2022-02-05] MEDS: GABAPENTIN 300 MG CAPSULE PO SCH ×4 (09:25→20:05)
[2022-02-05] MEDS: FOLIC ACID 1 MG TABLET PO SCH (09:25)
[2022-02-05] MEDS: NALTREXONE HCL 50 MG TABLET PO SCH (09:25)
[2022-02-05] MEDS: FLUoxetine HCL 20 MG CAPSULE PO SCH (09:25)
[2022-02-05] MEDS: THIAMINE 100 MG TABLET PO SCH ×2 (09:26→16:30)
[2022-02-05] MEDS: MULTIVITAMINS WITH MINERALS, THERAPEUTIC TABLET PO SCH (09:26)
[2022-02-05] MEDS: NICOTINE POLACRILEX 2 MG LOZENGE PO PRN (09:47)
[2022-02-05] MEDS: QUEtiapine FUMARATE 200 MG TABLET PO PRN (15:01)
[2022-02-05 16:06] VITALS: BP 102/60
[2022-02-05] MEDS ORDERED: TraZODone HCL 100 MG TABLET PO PRN (19:30)
[2022-02-05] MEDS: OLANZapine 10 MG RAPDIS TABLET PO SCH (20:01)
[2022-02-05] MEDS: MELATONIN 5 MG TABLET PO SCH (20:05)
[2022-02-05] MEDS ORDERED: TraZODone HCL 100 MG TABLET PO SCH (21:00)
[2022-02-06 00:46] VITALS: BP 90/63
[2022-02-06 08:21] VITALS: BP 108/65
[2022-02-06] MEDS: THIAMINE 100 MG TABLET PO SCH ×2 (08:41→16:23)
[2022-02-06] MEDS: MULTIVITAMINS WITH MINERALS, THERAPEUTIC TABLET PO SCH (08:41)
[2022-02-06] MEDS: FOLIC ACID 1 MG TABLET PO SCH (08:41)
[2022-02-06] MEDS: GABAPENTIN 300 MG CAPSULE PO SCH ×4 (08:41→21:10)
[2022-02-06] MEDS: FLUoxetine HCL 20 MG CAPSULE PO SCH (08:41)
[2022-02-06] MEDS: NALTREXONE HCL 50 MG TABLET PO SCH (08:42)
[2022-02-06 10:46] LABS: GLUCOMETER DEV NAME(LOC) POC.BV
[2022-02-06 16:30] VITALS: BP 100/86
[2022-02-06] MEDS: MUPIROCIN CALCIUM 2% 22 GM OINTMENT NASAL SCH (17:21)
[2022-02-06] MEDS: TraZODone HCL 100 MG TABLET PO SCH (21:11)
[2022-02-06] MEDS: MELATONIN 5 MG TABLET PO SCH (21:11)
[2022-02-06] MEDS: OLANZapine 10 MG RAPDIS TABLET PO SCH (21:20)
[2022-02-07 04:00] VITALS: BP 92/59
[2022-02-07 08:10] VITALS: BP 105/68
[2022-02-07] MEDS: FOLIC ACID 1 MG TABLET PO SCH (08:29)
[2022-02-07] MEDS: THIAMINE 100 MG TABLET PO SCH ×2 (08:29→16:30)
[2022-02-07] MEDS: NALTREXONE HCL 50 MG TABLET PO SCH (08:29)
[2022-02-07] MEDS: GABAPENTIN 300 MG CAPSULE PO SCH ×4 (08:29→20:13)
[2022-02-07] MEDS: MULTIVITAMINS WITH MINERALS, THERAPEUTIC TABLET PO SCH (08:29)
[2022-02-07] MEDS: MUPIROCIN CALCIUM 2% 22 GM OINTMENT NASAL SCH ×2 (08:30→16:31)
[2022-02-07] MEDS: FLUoxetine HCL 20 MG CAPSULE PO SCH (08:30)
[2022-02-07] MEDS: NICOTINE POLACRILEX 2 MG LOZENGE PO PRN (10:51)
[2022-02-07 16:38] VITALS: BP 107/62
[2022-02-07] MEDS: MELATONIN 5 MG TABLET PO SCH (20:13)
[2022-02-07] MEDS: TraZODone HCL 100 MG TABLET PO SCH (20:13)
[2022-02-07] MEDS: OLANZapine 10 MG RAPDIS TABLET PO SCH (20:13)
[2022-02-08 00:52] VITALS: BP 102/63
[2022-02-08] MEDS: FLUoxetine HCL 20 MG CAPSULE PO SCH (08:17)
[2022-02-08] MEDS: GABAPENTIN 300 MG CAPSULE PO SCH ×4 (08:17→20:35)
[2022-02-08] MEDS: FOLIC ACID 1 MG TABLET PO SCH (08:18)
[2022-02-08] MEDS: NALTREXONE HCL 50 MG TABLET PO SCH (08:18)
[2022-02-08] MEDS: THIAMINE 100 MG TABLET PO SCH ×2 (08:18→16:47)
[2022-02-08] MEDS: MULTIVITAMINS WITH MINERALS, THERAPEUTIC TABLET PO SCH (08:18)
[2022-02-08] MEDS: MUPIROCIN CALCIUM 2% 22 GM OINTMENT NASAL SCH ×2 (08:19→16:52)
[2022-02-08 08:25] VITALS: BP 100/60
[2022-02-08] MEDS: NICOTINE POLACRILEX 2 MG LOZENGE PO PRN (13:17)
[2022-02-08 16:09] VITALS: BP 108/68
[2022-02-08] MEDS: OLANZapine 10 MG RAPDIS TABLET PO SCH (20:35)
[2022-02-08] MEDS: MELATONIN 5 MG TABLET PO SCH (20:35)
[2022-02-08] MEDS: TraZODone HCL 100 MG TABLET PO SCH (20:35)
[2022-02-09 03:35] VITALS: BP 93/61
[2022-02-09 08:08] VITALS: BP 116/70
[2022-02-09] MEDS: MUPIROCIN CALCIUM 2% 22 GM OINTMENT NASAL SCH ×2 (08:37→17:14)
[2022-02-09] MEDS: FOLIC ACID 1 MG TABLET PO SCH (08:38)
[2022-02-09] MEDS: MULTIVITAMINS WITH MINERALS, THERAPEUTIC TABLET PO SCH (08:38)
[2022-02-09] MEDS: THIAMINE 100 MG TABLET PO SCH (08:38)
[2022-02-09] MEDS: GABAPENTIN 300 MG CAPSULE PO SCH ×4 (08:39→21:01)
[2022-02-09] MEDS: FLUoxetine HCL 20 MG CAPSULE PO SCH (08:39)
[2022-02-09] MEDS: NALTREXONE HCL 50 MG TABLET PO SCH (08:39)
[2022-02-09] MEDS ORDERED: BuPROPion HCL XL 150 MG ER TABLET PO SCH (09:00)
[2022-02-09] MEDS: NICOTINE POLACRILEX 2 MG LOZENGE PO PRN (13:48)
[2022-02-09 16:39] VITALS: BP 100/64
[2022-02-09] MEDS: OLANZapine 10 MG RAPDIS TABLET PO SCH (21:01)
[2022-02-09] MEDS: TraZODone HCL 100 MG TABLET PO SCH (21:01)
[2022-02-09] MEDS: MELATONIN 5 MG TABLET PO SCH (21:01)
[2022-02-10 04:06] VITALS: BP 92/61
[2022-02-10] MEDS: MUPIROCIN CALCIUM 2% 22 GM OINTMENT NASAL SCH ×2 (08:12→16:13)
[2022-02-10] MEDS: BuPROPion HCL XL 150 MG ER TABLET PO SCH (08:13)
[2022-02-10] MEDS: NALTREXONE HCL 50 MG TABLET PO SCH (08:13)
[2022-02-10] MEDS: GABAPENTIN 300 MG CAPSULE PO SCH ×4 (08:13→20:46)
[2022-02-10] MEDS: FLUoxetine HCL 20 MG CAPSULE PO SCH (08:14)
[2022-02-10] MEDS: MULTIVITAMINS WITH MINERALS, THERAPEUTIC TABLET PO SCH (08:14)
[2022-02-10 08:26] VITALS: BP 123/64
[2022-02-10] MEDS: NICOTINE POLACRILEX 2 MG LOZENGE PO PRN ×2 (10:03→16:13)
[2022-02-10] MEDS: LURASIDONE HCL 80 MG TABLET PO SCH (16:12)
[2022-02-10 16:14] VITALS: BP 114/62
[2022-02-10] MEDS: MELATONIN 5 MG TABLET PO SCH (20:46)
[2022-02-10] MEDS: TraZODone HCL 100 MG TABLET PO SCH (20:52)
[2022-02-11 04:00] VITALS: BP 90/62
[2022-02-11] MEDS: BuPROPion HCL XL 150 MG ER TABLET PO SCH (08:04)
[2022-02-11] MEDS: GABAPENTIN 300 MG CAPSULE PO SCH ×4 (08:04→20:43)
[2022-02-11] MEDS: NALTREXONE HCL 50 MG TABLET PO SCH (08:04)
[2022-02-11] MEDS: FLUoxetine HCL 20 MG CAPSULE PO SCH (08:04)
[2022-02-11] MEDS: MULTIVITAMINS WITH MINERALS, THERAPEUTIC TABLET PO SCH (08:04)
[2022-02-11] MEDS: MUPIROCIN CALCIUM 2% 22 GM OINTMENT NASAL SCH (08:07)
[2022-02-11 08:10] VITALS: BP 108/67
[2022-02-11] MEDS: NICOTINE POLACRILEX 2 MG LOZENGE PO PRN (13:42)
[2022-02-11 16:10] VITALS: BP 104/69
[2022-02-11] MEDS: LURASIDONE HCL 80 MG TABLET PO SCH (16:33)
[2022-02-11] MEDS: MELATONIN 5 MG TABLET PO SCH (20:43)
[2022-02-11] MEDS: TraZODone HCL 100 MG TABLET PO SCH (20:44)
[2022-02-12 00:21] VITALS: BP 100/73
[2022-02-12] MEDS: MULTIVITAMINS WITH MINERALS, THERAPEUTIC TABLET PO SCH (08:13)
[2022-02-12] MEDS: NALTREXONE HCL 50 MG TABLET PO SCH (08:13)
[2022-02-12] MEDS: BuPROPion HCL XL 150 MG ER TABLET PO SCH (08:13)
[2022-02-12] MEDS: FLUoxetine HCL 20 MG CAPSULE PO SCH (08:13)
[2022-02-12] MEDS: GABAPENTIN 300 MG CAPSULE PO SCH ×4 (08:13→20:29)
[2022-02-12 08:14] VITALS: BP 118/70
[2022-02-12] MEDS: NICOTINE POLACRILEX 2 MG LOZENGE PO PRN ×2 (09:26→16:15)
[2022-02-12 15:11] LABS: GLUCOMETER DEV NAME(LOC) POC.BV
[2022-02-12 16:12] VITALS: BP 105/63
[2022-02-12] MEDS: LURASIDONE HCL 80 MG TABLET PO SCH (16:13)
[2022-02-12] MEDS: TraZODone HCL 100 MG TABLET PO SCH (20:28)
[2022-02-12] MEDS: MELATONIN 5 MG TABLET PO SCH (20:28)
[2022-02-13 05:16] VITALS: BP 105/54
[2022-02-13] MEDS: MULTIVITAMINS WITH MINERALS, THERAPEUTIC TABLET PO SCH (08:01)
[2022-02-13] MEDS: FLUoxetine HCL 20 MG CAPSULE PO SCH (08:01)
[2022-02-13] MEDS: GABAPENTIN 300 MG CAPSULE PO SCH ×4 (08:01→20:31)
[2022-02-13] MEDS: NALTREXONE HCL 50 MG TABLET PO SCH (08:01)
[2022-02-13] MEDS: BuPROPion HCL XL 150 MG ER TABLET PO SCH (08:01)
[2022-02-13 08:57] VITALS: BP 123/85
[2022-02-13] MEDS: NICOTINE POLACRILEX 2 MG LOZENGE PO PRN (12:40)
[2022-02-13 16:16] VITALS: BP 110/71
[2022-02-13] MEDS: LURASIDONE HCL 80 MG TABLET PO SCH (16:37)
[2022-02-13] MEDS: TraZODone HCL 100 MG TABLET PO SCH (20:31)
[2022-02-13] MEDS: MELATONIN 5 MG TABLET PO SCH (20:31)
[2022-02-14 03:28] VITALS: BP 92/60
[2022-02-14] MEDS: MULTIVITAMINS WITH MINERALS, THERAPEUTIC TABLET PO SCH (08:02)
[2022-02-14] MEDS: NALTREXONE HCL 50 MG TABLET PO SCH (08:02)
[2022-02-14] MEDS: FLUoxetine HCL 20 MG CAPSULE PO SCH (08:02)
[2022-02-14] MEDS: GABAPENTIN 300 MG CAPSULE PO SCH ×4 (08:02→20:37)
[2022-02-14] MEDS: BuPROPion HCL XL 150 MG ER TABLET PO SCH (08:02)
[2022-02-14 16:15] VITALS: BP 124/73
[2022-02-14] MEDS: LURASIDONE HCL 80 MG TABLET PO SCH (17:03)
[2022-02-14] MEDS: ZOLPIDEM TARTRATE 10 MG TABLET PO PRN (20:37)
[2022-02-14] MEDS: TraZODone HCL 100 MG TABLET PO SCH (20:37)
[2022-02-14] MEDS: MELATONIN 5 MG TABLET PO SCH (20:37)
[2022-02-15 05:29] VITALS: BP 108/61
[2022-02-15 08:07] VITALS: BP 100/61
[2022-02-15] MEDS: NALTREXONE HCL 50 MG TABLET PO SCH (08:16)
[2022-02-15] MEDS: MULTIVITAMINS WITH MINERALS, THERAPEUTIC TABLET PO SCH (08:16)
[2022-02-15] MEDS: FLUoxetine HCL 20 MG CAPSULE PO SCH (08:16)
[2022-02-15] MEDS: GABAPENTIN 300 MG CAPSULE PO SCH ×4 (08:16→20:38)
[2022-02-15] MEDS: BuPROPion HCL XL 150 MG ER TABLET PO SCH (08:16)
[2022-02-15 16:07] VITALS: BP 108/71
[2022-02-15] MEDS: LURASIDONE HCL 80 MG TABLET PO SCH (16:40)
[2022-02-15] MEDS: TraZODone HCL 100 MG TABLET PO SCH (20:38)
[2022-02-15] MEDS: MELATONIN 5 MG TABLET PO SCH (20:38)
[2022-02-16 03:43] VITALS: BP 86/54
[2022-02-16] MEDS: FLUoxetine HCL 20 MG CAPSULE PO SCH (08:29)
[2022-02-16] MEDS: GABAPENTIN 300 MG CAPSULE PO SCH ×4 (08:29→20:06)
[2022-02-16] MEDS: BuPROPion HCL XL 150 MG ER TABLET PO SCH (08:30)
[2022-02-16] MEDS: NALTREXONE HCL 50 MG TABLET PO SCH (08:30)
[2022-02-16] MEDS: MULTIVITAMINS WITH MINERALS, THERAPEUTIC TABLET PO SCH (08:30)
[2022-02-16 09:38] VITALS: BP 94/54
[2022-02-16] MEDS: LURASIDONE HCL 80 MG TABLET PO SCH (16:11)
[2022-02-16 17:10] VITALS: BP 100/61
[2022-02-16] MEDS: TraZODone HCL 100 MG TABLET PO SCH (20:06)
[2022-02-16] MEDS: MELATONIN 5 MG TABLET PO SCH (20:06)
[2022-02-17] MEDS: GABAPENTIN 300 MG CAPSULE PO SCH ×4 (08:05→20:20)
[2022-02-17] MEDS: NALTREXONE HCL 50 MG TABLET PO SCH (08:05)
[2022-02-17] MEDS: BuPROPion HCL XL 150 MG ER TABLET PO SCH (08:05)
[2022-02-17] MEDS: FLUoxetine HCL 20 MG CAPSULE PO SCH (08:05)
[2022-02-17] MEDS: MULTIVITAMINS WITH MINERALS, THERAPEUTIC TABLET PO SCH (08:06)
[2022-02-17 08:20] VITALS: BP 97/58
[2022-02-17] MEDS: NICOTINE POLACRILEX 2 MG LOZENGE PO PRN (12:21)
[2022-02-17 16:09] VITALS: BP 100/60
[2022-02-17] MEDS: LURASIDONE HCL 80 MG TABLET PO SCH (16:34)
[2022-02-17] MEDS: MELATONIN 5 MG TABLET PO SCH (20:20)
[2022-02-17] MEDS: TraZODone HCL 100 MG TABLET PO SCH (20:20)
[2022-02-18 04:23] VITALS: BP 88/55
[2022-02-18] MEDS: NALTREXONE HCL 50 MG TABLET PO SCH (08:13)
[2022-02-18] MEDS: MULTIVITAMINS WITH MINERALS, THERAPEUTIC TABLET PO SCH (08:13)
[2022-02-18] MEDS: FLUoxetine HCL 20 MG CAPSULE PO SCH (08:13)
[2022-02-18] MEDS: GABAPENTIN 300 MG CAPSULE PO SCH ×4 (08:14→21:16)
[2022-02-18] MEDS: BuPROPion HCL XL 150 MG ER TABLET PO SCH (08:14)
[2022-02-18 08:16] VITALS: BP 107/55
[2022-02-18] MEDS: NICOTINE POLACRILEX 2 MG LOZENGE PO PRN (09:53)
[2022-02-18] MEDS: LURASIDONE HCL 80 MG TABLET PO SCH (16:01)
[2022-02-18 16:38] VITALS: BP 113/62
[2022-02-18] MEDS: TraZODone HCL 100 MG TABLET PO SCH (21:17)
[2022-02-18] MEDS: MELATONIN 5 MG TABLET PO SCH (21:17)
[2022-02-19 04:35] VITALS: BP 90/58
[2022-02-19] MEDS: MULTIVITAMINS WITH MINERALS, THERAPEUTIC TABLET PO SCH (08:07)
[2022-02-19] MEDS: FLUoxetine HCL 20 MG CAPSULE PO SCH (08:07)
[2022-02-19] MEDS: GABAPENTIN 300 MG CAPSULE PO SCH ×4 (08:07→20:07)
[2022-02-19] MEDS: BuPROPion HCL XL 150 MG ER TABLET PO SCH (08:08)
[2022-02-19] MEDS: NALTREXONE HCL 50 MG TABLET PO SCH (08:08)
[2022-02-19 08:36] VITALS: BP 101/57
[2022-02-19] MEDS: NICOTINE POLACRILEX 2 MG LOZENGE PO PRN (08:52)
[2022-02-19 10:26] LABS: GLUCOMETER DEV NAME(LOC) POC.BV
[2022-02-19] MEDS: LURASIDONE HCL 80 MG TABLET PO SCH (16:01)
[2022-02-19 16:15] VITALS: BP 110/64
[2022-02-19] MEDS: TraZODone HCL 100 MG TABLET PO SCH (20:07)
[2022-02-19] MEDS: MELATONIN 5 MG TABLET PO SCH (20:07)
[2022-02-19] MEDS: ZOLPIDEM TARTRATE 10 MG TABLET PO PRN (20:15)
[2022-02-20 04:11] VITALS: BP 93/58
[2022-02-20 08:22] VITALS: BP 94/59
[2022-02-20] MEDS: FLUoxetine HCL 20 MG CAPSULE PO SCH (08:58)
[2022-02-20] MEDS: GABAPENTIN 300 MG CAPSULE PO SCH ×4 (08:59→21:25)
[2022-02-20] MEDS: BuPROPion HCL XL 150 MG ER TABLET PO SCH (08:59)
[2022-02-20] MEDS: NALTREXONE HCL 50 MG TABLET PO SCH (08:59)
[2022-02-20] MEDS: MULTIVITAMINS WITH MINERALS, THERAPEUTIC TABLET PO SCH (08:59)
[2022-02-20] MEDS: NICOTINE POLACRILEX 2 MG LOZENGE PO PRN ×2 (09:37→14:19)
[2022-02-20 16:09] VITALS: BP 108/64
[2022-02-20] MEDS: LURASIDONE HCL 80 MG TABLET PO SCH (16:29)
[2022-02-20 20:06] VITALS: BP 106/62
[2022-02-20] MEDS: MELATONIN 5 MG TABLET PO SCH (21:25)
[2022-02-20] MEDS: TraZODone HCL 100 MG TABLET PO SCH (21:26)
[2022-02-21] MEDS: NALTREXONE HCL 50 MG TABLET PO SCH (08:27)
[2022-02-21] MEDS: MULTIVITAMINS WITH MINERALS, THERAPEUTIC TABLET PO SCH (08:27)
[2022-02-21] MEDS: FLUoxetine HCL 20 MG CAPSULE PO SCH (08:28)
[2022-02-21] MEDS: BuPROPion HCL XL 150 MG ER TABLET PO SCH (08:28)
[2022-02-21] MEDS: GABAPENTIN 300 MG CAPSULE PO SCH ×4 (08:28→20:53)
[2022-02-21 08:41] VITALS: BP 102/50
[2022-02-21] MEDS: NICOTINE POLACRILEX 2 MG LOZENGE PO PRN ×3 (09:43→17:29)
[2022-02-21 16:09] VITALS: BP 108/64
[2022-02-21] MEDS: LURASIDONE HCL 80 MG TABLET PO SCH (16:43)
[2022-02-21 20:05] VITALS: BP 104/62
[2022-02-21] MEDS: ZOLPIDEM TARTRATE 10 MG TABLET PO PRN (20:54)
[2022-02-21] MEDS: MELATONIN 5 MG TABLET PO SCH (20:54)
[2022-02-21] MEDS: TraZODone HCL 100 MG TABLET PO SCH (20:54)
[2022-02-22] MEDS: FLUoxetine HCL 20 MG CAPSULE PO SCH (08:04)
[2022-02-22] MEDS: NALTREXONE HCL 50 MG TABLET PO SCH (08:04)
[2022-02-22] MEDS: BuPROPion HCL XL 150 MG ER TABLET PO SCH (08:04)
[2022-02-22] MEDS: GABAPENTIN 300 MG CAPSULE PO SCH ×4 (08:04→20:31)
[2022-02-22] MEDS: MULTIVITAMINS WITH MINERALS, THERAPEUTIC TABLET PO SCH (08:04)
[2022-02-22 08:26] VITALS: BP 97/61
[2022-02-22] MEDS: NICOTINE POLACRILEX 2 MG LOZENGE PO PRN ×2 (12:16→14:16)
[2022-02-22] MEDS: LURASIDONE HCL 80 MG TABLET PO SCH (16:10)
[2022-02-22 20:13] VITALS: BP 109/63
[2022-02-22] MEDS: MELATONIN 5 MG TABLET PO SCH (20:31)
[2022-02-22] MEDS: ZOLPIDEM TARTRATE 10 MG TABLET PO PRN (20:31)
[2022-02-22] MEDS: TraZODone HCL 100 MG TABLET PO SCH (20:31)
[2022-02-23 05:29] VITALS: BP 95/59
[2022-02-23] MEDS: FLUoxetine HCL 20 MG CAPSULE PO SCH (08:05)
[2022-02-23] MEDS: BuPROPion HCL XL 150 MG ER TABLET PO SCH (08:05)
[2022-02-23] MEDS: MULTIVITAMINS WITH MINERALS, THERAPEUTIC TABLET PO SCH (08:05)
[2022-02-23] MEDS: NALTREXONE HCL 50 MG TABLET PO SCH (08:06)
[2022-02-23] MEDS: GABAPENTIN 300 MG CAPSULE PO SCH ×4 (08:06→21:03)
[2022-02-23 08:34] VITALS: BP 105/59
[2022-02-23] MEDS: NICOTINE POLACRILEX 2 MG LOZENGE PO PRN (12:22)
[2022-02-23] MEDS: LURASIDONE HCL 80 MG TABLET PO SCH (16:01)
[2022-02-23 16:18] VITALS: BP 106/66
[2022-02-23 20:05] VITALS: BP 108/64
[2022-02-23] MEDS: MELATONIN 5 MG TABLET PO SCH (21:03)
[2022-02-23] MEDS: TraZODone HCL 100 MG TABLET PO SCH (21:03)
[2022-02-24] MEDS: FLUoxetine HCL 20 MG CAPSULE PO SCH (08:03)
[2022-02-24] MEDS: MULTIVITAMINS WITH MINERALS, THERAPEUTIC TABLET PO SCH (08:03)
[2022-02-24] MEDS: NALTREXONE HCL 50 MG TABLET PO SCH (08:03)
[2022-02-24] MEDS: GABAPENTIN 300 MG CAPSULE PO SCH ×4 (08:03→20:02)
[2022-02-24] MEDS: BuPROPion HCL XL 150 MG ER TABLET PO SCH (08:04)
[2022-02-24] MEDS: NICOTINE POLACRILEX 2 MG LOZENGE PO PRN ×2 (08:27→14:31)
[2022-02-24 08:35] VITALS: BP 100/68
[2022-02-24] MEDS: LURASIDONE HCL 80 MG TABLET PO SCH (16:20)
[2022-02-24] MEDS: TraZODone HCL 100 MG TABLET PO SCH (20:02)
[2022-02-24] MEDS: MELATONIN 5 MG TABLET PO SCH (20:03)
[2022-02-24 20:20] VITALS: BP 101/65
[2022-02-25] MEDS: MULTIVITAMINS WITH MINERALS, THERAPEUTIC TABLET PO SCH (08:03)
[2022-02-25] MEDS: FLUoxetine HCL 20 MG CAPSULE PO SCH (08:03)
[2022-02-25] MEDS: GABAPENTIN 300 MG CAPSULE PO SCH ×4 (08:04→20:05)
[2022-02-25] MEDS: NALTREXONE HCL 50 MG TABLET PO SCH (08:04)
[2022-02-25] MEDS: BuPROPion HCL XL 150 MG ER TABLET PO SCH (08:04)
[2022-02-25 08:13] VITALS: BP 97/56
[2022-02-25] MEDS: NICOTINE POLACRILEX 2 MG LOZENGE PO PRN (08:49)
[2022-02-25] MEDS: LURASIDONE HCL 80 MG TABLET PO SCH (16:13)
[2022-02-25] MEDS: TraZODone HCL 100 MG TABLET PO SCH (20:05)
[2022-02-25] MEDS: MELATONIN 5 MG TABLET PO SCH (20:05)
[2022-02-25 20:18] VITALS: BP 99/62
[2022-02-26 05:06] VITALS: BP 100/65
[2022-02-26 08:06] VITALS: BP 102/68
[2022-02-26] MEDS: FLUoxetine HCL 20 MG CAPSULE PO SCH (08:23)
[2022-02-26] MEDS: MULTIVITAMINS WITH MINERALS, THERAPEUTIC TABLET PO SCH (08:23)
[2022-02-26] MEDS: GABAPENTIN 300 MG CAPSULE PO SCH ×4 (08:23→20:04)
[2022-02-26] MEDS: NALTREXONE HCL 50 MG TABLET PO SCH (08:23)
[2022-02-26] MEDS: BuPROPion HCL XL 150 MG ER TABLET PO SCH (08:24)
[2022-02-26] MEDS: NICOTINE POLACRILEX 2 MG LOZENGE PO PRN ×2 (08:57→12:22)
[2022-02-26 09:01] LABS: GLUCOMETER DEV NAME(LOC) POC.BV
[2022-02-26] MEDS: LURASIDONE HCL 80 MG TABLET PO SCH (16:14)
[2022-02-26] MEDS: TraZODone HCL 100 MG TABLET PO SCH (20:04)
[2022-02-26] MEDS: MELATONIN 5 MG TABLET PO SCH (20:04)
[2022-02-26 20:25] VITALS: BP 97/61
[2022-02-27] MEDS: FLUoxetine HCL 20 MG CAPSULE PO SCH (08:41)
[2022-02-27] MEDS: GABAPENTIN 300 MG CAPSULE PO SCH ×4 (08:41→20:11)
[2022-02-27] MEDS: MULTIVITAMINS WITH MINERALS, THERAPEUTIC TABLET PO SCH (08:42)
[2022-02-27] MEDS: BuPROPion HCL XL 150 MG ER TABLET PO SCH (08:42)
[2022-02-27] MEDS: NALTREXONE HCL 50 MG TABLET PO SCH (08:42)
[2022-02-27 09:14] VITALS: BP 95/63
[2022-02-27] MEDS: NICOTINE POLACRILEX 2 MG LOZENGE PO PRN ×3 (09:50→18:05)
[2022-02-27] MEDS ORDERED: PROZ20 PO ×2 (15:26→16:48)
[2022-02-27] MEDS ORDERED: BUPR-49 PO ×2 (15:26→16:48)
[2022-02-27] MEDS ORDERED: TRAZ-257 PO ×2 (15:26→16:48)
[2022-02-27] MEDS ORDERED: MELA5TAB40 PO ×2 (15:26→16:48)
[2022-02-27] MEDS ORDERED: GABA-1181 PO ×2 (15:26→16:48)
[2022-02-27] MEDS ORDERED: NALT50TA PO ×2 (15:26→16:48)
[2022-02-27] MEDS ORDERED: LURA80TA2 PO ×2 (15:26→16:48)
[2022-02-27] MEDS: LURASIDONE HCL 80 MG TABLET PO SCH (16:09)
[2022-02-27] MEDS: TraZODone HCL 100 MG TABLET PO SCH (20:11)
[2022-02-27] MEDS: MELATONIN 5 MG TABLET PO SCH (20:11)
[2022-02-27] MEDS: ZOLPIDEM TARTRATE 10 MG TABLET PO PRN (20:15)
[2022-02-27 20:42] VITALS: BP 105/63
[2022-02-28] MEDS: BuPROPion HCL XL 150 MG ER TABLET PO SCH (08:02)
[2022-02-28] MEDS: MULTIVITAMINS WITH MINERALS, THERAPEUTIC TABLET PO SCH (08:03)
[2022-02-28] MEDS: NALTREXONE HCL 50 MG TABLET PO SCH (08:03)
[2022-02-28] MEDS: FLUoxetine HCL 20 MG CAPSULE PO SCH (08:03)
[2022-02-28] MEDS: GABAPENTIN 300 MG CAPSULE PO SCH (08:03)
== END 2022-02-28 08:55 | disposition home or self-care (01) | DRG 750 ==
LOC: B3A 13:03 → B2S 02-23 16:13
PROVIDERS: ADMIT Psychiatry & Neurology Psychiatry; ATTEND Psychiatry & Neurology Psychiatry
DX: F25.0 Schizoaffective disorder, bipolar type (principal); R45.851 Suicidal ideations; Z59.02 Unsheltered homelessness; F15.90 Other stimulant use, unspecified, uncomplicated; Z20.822 Contact with and (suspected) exposure to COVID-19; G47.00 Insomnia, unspecified; F41.9 Anxiety disorder, unspecified; Z79.899 Other long term (current) drug therapy; Z88.2 Allergy status to sulfonamides; Z91.19 Patient's noncompliance with other medical treatment and regimen; Z88.0 Allergy status to penicillin; Z88.8 Allergy status to other drugs, medicaments and biological substances; Z91.013 Allergy to seafood
CPT/HCPCS: 80053; 80061; 80307; 81003; 83036; 84439; 84443; 85025; 87081; Q9967